=== PATIENT | female | born 1945 | race Caucasian/White ===

== ENCOUNTER 2024-12-15 03:53 | Inpatient (IN) | payer MEDICARE, OTHER, SELFPAY ==
[2024-12-15] VITALS (51 sets, daily range): BP systolic 94–171; BP diastolic 32–83; PULSE 2–88; BMI 21.3; BMI 21.4
[2024-12-15] MEDS: AMIDATE 20 MG IV (01:18)
[2024-12-15] MEDS: ANECTINE 150 MG IV (01:19)
--- NOTE | 2024-12-15 01:25 | ED.GENMED ---
Addendum entered and electronically signed by Germain Ybarra DO 12/15/24 02:24:
Son updated at bedside
Original Note:
History of Present Illness
General
Chief Complaint: Breathing Problem
Source: patient, records and previous hospital records
Exam Limitations: clinical condition and altered mental status
Time Seen by Provider: 12/15/24 01:05
Nursing documentation reviewed up to this point in time: agreed with
History of Present Illness
History of Present Illness:
79-year-old female COPD woke short of breath, gave herself an inhaler treatment, called 911 EMS reports her pulse ox was 80% on room air placed on oxygen given a DuoNeb and 125 mg of Solu-Medrol brought to the ER where she was placed on BiPAP here
if she was somnolent pulling at the mask, not following commands decision made to intubate
Past History
Past History
ED Past Medical History: COPD, HTN, Hypercholesterolemia, NIDDM, Valvular disease and Psychiatric
ED Past Surgical History: Cardiac and Orthopedic
Social History
Tobacco: Smoker
Alcohol: Other
Drug: Other
Personal: Other
Living: other
Employment: Other
Review of Systems
Review of Systems
Unable to obtain full review of systems at this time due to: due to acuity
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
All Other Systems: Not applicable
Phy Exam
Physical Exam
Physical Exam:
Physical Exam
General: 79-year-old female somnolent pulling at her mask tachypneic pursed lip breathing
Neck: No jaundice
Heart: Regular
Lungs: Shallow respirations no wheeze poor air movement
Abdomen: Nontender
Neuro: Localize to painful stim
Skin: no rash
Psychiatric: Unable to assess
Extremities: Trace edema
Scores
Heart Failure Risk
Heart Failure Risk Score: Not Applicable
Course
Orders/Labs/Results
Orders:
Orders
12/15/24 01:03
Electrocardiogram (*1) Urgent
Reason for Study: Other
Other Reason for Exam: Respiratory Distress
EKG- Treatment ONCE
CR Chest Portable - 1 View Urgent
Comment:
Reason For Exam: respiratory distress
Reason Study Needs to be Portable: Patient Unstable
12/15/24 01:05
Complete Blood Count/With Diff Urgent
Comprehensive Metabolic Panel Urgent
NT-proBNP Urgent
Troponin I Urgent
12/15/24 01:14
ABG [Arterial Blood Gas] Urgent
%Oxygen/Room Air: 80%
Comment: BIPAP
Propofol 1,000,000 Mcg/100 ml [Diprivan] 1,000,000 mcg in 100 ml .ROUTE .STK-MED
12/15/24 01:23
Etomidate [Amidate 20 mg] 20 mg IV NOW STA
Succinylcholine Chloride [Anectine] 150 mg IV NOW STA
12/15/24 01:24
Albuterol Nebs [Ventolin Nebules] 2.5 mg INH R NOW STA
12/15/24 01:30
Propofol 1,000,000 Mcg/100 ml [Diprivan] 1,000,000 mcg in 100 ml IV PER PROTOCOL
Indication:: Deep Sedation
Begin Infusion:: Now
Goal:: RASS -3 to -5 or BIS < 60 or ventilator synchrony
Maximum dose in mcg/kg/min:: 50
Initial Dose in mcg/kg/min:: 20
Titration Instructions:: Titrate by 5-10 mcg/kg/min every 5 minutes until RASS -3 to -5 or
Titration Instructions:: BIS < 60 or ventilator synchrony is met.
Titration Instructions:: Administer analgesia bolus dose(s) & titrate analgesia prior to
Titration Instructions:: adjusting sedation.
Taper Instructions:: If RASS is at or below goal for 4 consecutive hours decrease infusion by
Taper Instructions:: 5-10 mcg/kg/min every 2 hours. Do not wean infusion to off if patient is
Taper Instructions:: receiving a continuous NMBA or has received bolus NMBA with the past 3 hrs
Over-sedation Instructions:: If BIS < 40 and synchronous with ventilator decrease infusion by
Over-sedation Instructions:: 5-10 mcg/kg/min every 2 hour until BIS = 40-60.
Notify provider:: immediately if patient exhibits signs/symptoms of propofol-related
Notify provider:: infusion syndrome.
Additional Instructions:: Patient MUST be mechanically ventilated and MUST receive analgesia.
12/15/24 01:49
COVID-19 Antigen Urgent
Source: Nasal Swab
Triglycerides Routine
Comment: baseline levels with propofol infusion
Influenza A+B Rapid Molecular Urgent
LUCY Source: Nasal Swab
Specimen Description:
12/16/24 08:00
Polyethylene Glycol Powder [Miralax] 17 grams TUBE DAILY
12/18/24 06:00
Triglycerides Q3D
Comment: every 72 hours while patient is on propofol
12/21/24 06:00
Triglycerides Q3D
Comment: every 72 hours while patient is on propofol
12/24/24 06:00
Triglycerides Q3D
Comment: every 72 hours while patient is on propofol
Abnormal Lab Results
12/15/24 12/15/24
01:05 01:14
WBC 16.8 H 10^3/uL
(4.8-10.8)
MCHC 31.3 L g/dL
(33.0-37.0)
Abs Immat Gran (auto) 0.1 H 10^3/uL
(0-0.05)
Absolute Neuts (auto) 7.9 H 10^3/uL
(1.4-6.5)
Absolute Lymphs (auto) 7.2 H 10^3/uL
(1.2-3.4)
Absolute Monos (auto) 1.0 H 10^3/uL
(0.1-0.6)
Immature Gran % 0.8 H %
(0-0.5)
pH 7.16 L*
(7.35-7.45)
pCO2 53 H mmHg
(32-35)
pO2 373 H mmHg
(83-108)
HCO3 18.9 L mmol/L
(21-28)
Carbon Dioxide 19 L mmol/L
(22-30)
BUN 19 H mg/dl
(7-17)
Glucose 320 H mg/dl
(70-99)
AST 195 H U/L
(14-36)
ALT 139 H U/L
(0-35)
Troponin I 0.040 H* ng/ml
Total Protein 6.2 L g/dl
(6.3-8.2)
12/15/24 01:05
12/15/24 01:05
Vital Signs
Initial and Last Documented VS:
Initial Vital Signs
Temp Pulse Resp BP Pulse Ox
97.6 F 100 24 161/66 95
12/15/24 01:03 12/15/24 01:03 12/15/24 01:03 12/15/24 01:03 12/15/24 01:03
Last Documented Vital Signs
Temp Pulse Resp BP Pulse Ox
97.6 F 93 16 137/43 100
12/15/24 01:03 12/15/24 01:30 12/15/24 01:30 12/15/24 01:30 12/15/24 01:30
Procedures
Intubations
Procedure completed by: carroll
Method of Intubation: curved blade
Tube size (cm): 7.5
Placement confirmed by: auscutation and capnography
Breath sounds after intubation: equal
Intubation complications: no complications
MDM/Problems Addressed
Differential Diagnosis Includes:
Hypercarbia COPD pneumonia pneumothorax conceivably ACS
MDM/Problems Addressed:
Shortness of breath
Chronic conditions affecting care: COPD
Acute Exacerbation and/or Progression of Chronic Illness: COPD
*Radiology
Radiology exam reviewed: preliminary read by ED provider
*Pulse Oximetry
Patient hypoxic: yes
Comment: 80
*EKG
Interpreted by ED Provider?: Yes
Interpretation: abnormal
Comparison EKG: no comparison EKG present
Heart Rate: 78
Rate: normal
Rhythm: sinus
Ischemia: non-specific ST changes
*Second Steward Interpretation
Rate: normal
Interpretation: normal
Heart Rate: 78
Rhythm: sinus
*Critical Care Note
Total Time (30-74mins, 75-104mins- exclusive of procedures): 32
Data Reviewed
Review of Other/Old Records Reveals: Labs and Progress Notes
Source: records
Further Testing Considered But Not Given:
CT of the chest
Update Note
Update Note:
1:50 AM ABG postintubation noted
Will repeat half hour 45 minutes, chest x-ray noted
ED Attending Note
-
Portions of this chart may have been created with voice recognition software.� Occasional wrong word or��sound alike� substitutions may have occurred due to the inherent limitations of voice recognition software.
Discharge Plan
Departure
Patient Disposition: Admit
Date of Disposition: 12/15/24
Time of Disposition: 01:49
Admit to: ICU
Presentation/result/management discussed w/ accepting MD/DO: Hospitalist
Patient with high blood pressure during this ER visit?: No
Condition: Critical
Covid-19: Not Applicable
Discharge Problem:
COPD exacerbation, Acute hypercapnic respiratory failure
Prescriptions:
No Action
Azo
500 mg PO DAILY
metformin 500 mg tablet
500 mg PO DAILY@1700
famotidine 40 mg tablet
40 mg PO DAILY@1700
sertraline 100 mg tablet
150 mg PO DAILY
aspirin 81 mg Tablet,Delayed Release (Dr/Ec)
81 mg PO HS
losartan 25 mg Tablet
25 mg PO HS
metoprolol succinate 25 mg tablet extended release 24 hr
25 mg PO DAILY
vitamin B complex Capsule
1 cap PO DAILY
rosuvastatin [Crestor] 20 mg Tablet
20 mg PO BID
Cbd Gummy
25 mg PO HSPRN PRN (Reason: sleep)
Glucotrust
2 tab PO HS
Super Collagen
1 cap PO DAILY@1700
Vision Alive Max
1 cap PO DAILY
nicotine 21 mg/24 hr Patch 24 Hour
21 mg transdermal DAILY Qty: 7 0RF
albuterol sulfate 90 mcg/actuation HFA aerosol inhaler
2 puff inhalation Q6H PRN (Reason: shortness of breath or wheezing) Qty: 8.5 0RF
doxycycline monohydrate 100 mg capsule
100 mg PO BID Qty: 10 0RF
prednisone 10 mg Tablet
See Rx Instructions .ROUTE .COMPLEX Qty: 30 0RF
Rx Instructions:
Take By Mouth:
40 mg daily x3 days, 30 mg daily x3 days,
20 mg daily x3 days, 10 mg daily x3 days.
Referrals:
Adolfo Decker MD [Family Provider] -
Interventions
Interventions:
*Risk Screen - Suicide Last Done: 12/15/24 01:03
*General Assessment Last Done: 12/15/24 01:03
*Neglect/Abuse Screening Last Done: 12/15/24 01:03
ED- Cardiac Assessment Last Done: 12/15/24 01:05
ED- Pulmonary Assessment Last Done: 12/15/24 01:05
Discharge Date and Time
Print Language: ESTONIAN
[2024-12-15 01:26] LABS: % Basophils 0.8 % (0-2); % Eosinophils 2.1 % (0-6); % Immature Granulocytes 0.8 % (0-0.5); % Neutrophils 47.3 % (42.2-75.2); Absolute Basophils 0.1 10^3/uL (0-0.2); Absolute Eosinophils 0.4 10^3/uL (0-0.7); Absolute Immature Granulocytes 0.1 10^3/uL (0-0.05); Absolute Lymphocytes 7.2 10^3/uL (1.2-3.4); Absolute Neutrophils 7.9 10^3/uL (1.4-6.5); Hematocrit 39.6 % (37.0-47.0); Hemoglobin 12.4 g/dL (12.0-16.0); Mean Corp Hgb Conc. 31.3 g/dL (33.0-37.0); Mean Corpuscular Hgb 28.8 pg (27.0-31.0); Mean Corpuscular Volume 91.9 fL (81.0-99.0); Mean Platelet Volume 9.5 fL (7.4-10.4); Nucleated Red Blood Cells % 0 %; Platelet Count 243 10^3/uL (130-400); Red Blood Cell Count 4.31 10^6/uL (4.20-5.40); Red Cell Dist. Width 14.5 % (11.5-14.5); White Blood Cell Count 16.8 10^3/uL (4.8-10.8)
[2024-12-15] MEDS: VENTOLIN NEBULES 2.5 MG INH (01:27)
[2024-12-15] MEDS: DIPRIVAN 100 IV ×2 (01:30→09:31)
[2024-12-15 01:40] LABS: ALT (SGPT) 139 U/L (0-35); AST (SGOT) 195 U/L (14-36); Albumin 4.1 g/dl (3.5-5.0); Alkaline Phosphatase 113 U/L (38-126); Blood Urea Nitrogen 19 mg/dl (7-17); Calcium 9.1 mg/dl (8.4-10.2); Carbon Dioxide 19 mmol/L (22-30); Chloride 102 mmol/L (98-107); Estimated Creatinine Clearance 40 ml/min; Glucose 320 mg/dl (70-99); Potassium 4.5 mmol/L (3.5-5.1); Sodium 139 mmol/L (135-145); Total Bilirubin 0.7 mg/dl (0.2-1.3); Total Protein 6.2 g/dl (6.3-8.2); eGFR > 60.00
[2024-12-15 01:44] LABS: B.E. -9.8 mmol/L; HCO3 18.9 mmol/L (21-28); O2 Saturation % 96.7 % (94-98); PCO2 53 mmHg (32-35); PO2 373 mmHg (83-108)
[2024-12-15 01:46] LABS: O2 Therapy 80% BIPAP; pH 7.16 (7.35-7.45)
[2024-12-15 01:55] LABS: NT-proBNP 1890 pg/ml
[2024-12-15 02:15] LABS: Triglycerides 111 mg/dl (10-149)
[2024-12-15 02:17] LABS: COVID-19 Antigen Negative (Negative)
[2024-12-15] MEDS: NSS 1000 IV ×2 (02:37→04:53)
--- NOTE | 2024-12-15 03:38 | HPS.HSE ---
Family Physician
-
Family Physician: Adolfo Decker
Chief Complaint
-
SOB
History of Present Illness
Patient is a 79y F with PMH significant for COPD, DM-II and aortic stenosis s/p AVR who presents to ED complaining of SOB. History obtained from ED staff / review of record. Patient woke this evening to use the bathroom and became acutely short
of breath. She was unable to recover and asked her son to call 911. EMS arrived and reports SpO2 in the 80s with increased [id number]. SoluMedrol 125mg administered by EMS and patient placed on NRB with minimal improvement in oxygenation.
In the ED, patient appeared to be in significant distress and decision was made to intubate. At the time of my examination, patient is sedated on the ventilator. She is exhibiting spontaneous movements and will occasionally open her eyes to
stimulus.
Medical History
Past Medical History
Past Medical History: Reports Other
Additional Past Medical History:
COPD
Aortic Stenosis
Hypertension
DM-II
Bladder Cancer
Nephrolithiasis
Anxiety / Depression
Past Surgical History: Reports Other
Additional Past Surgical History:
AVR
TURBT
Left Foot Surgery
Social History
Tobacco: Smoker (Current every day smoker with > 50 pack years.)
Alcohol: Occasional
Drug: None
Family History
Family History: Not pertinent
Allergies / Home Medications
Allergies reflects when Allergies were last updated in [employer].
Home Medications with original date entered in [employer]
Allergy/Medication List:
Allergies
Allergy/AdvReac Type Severity Reaction Status Date / Time
Penicillins Allergy Unknown Verified 05/20/23 09:34
Home Medications
Azo 500 mg PO DAILY Supplement 05/20/23
Cbd Gummy 25 mg PO HSPRN PRN sleep 05/20/23
Glucotrust 2 tab PO HS Supplement 05/20/23
Super Collagen 1 cap PO DAILY@1700 Supplement 05/20/23
Vision Alive Max 1 cap PO DAILY Supplement 05/20/23
aspirin 81 mg tablet,delayed release 81 mg PO HS Blood Clot Prevention/Tx 05/20/23
famotidine 40 mg tablet 40 mg PO BID Gastrointestinal Issue 05/20/23
losartan 25 mg tablet 25 mg PO HS Blood Pressure 05/20/23
metformin 500 mg tablet 1,000 mg PO DAILY@1700 Diabetes 05/20/23
metoprolol succinate 25 mg tablet,extended release 24 hr 25 mg PO DAILY Blood Pressure 05/20/23
rosuvastatin 20 mg tablet (Crestor) 20 mg PO Daily High Cholesterol 05/20/23
sertraline 100 mg tablet 150 mg PO DAILY Mental Health/Anxiety 05/20/23
vitamin B complex 1 cap PO DAILY Supplement 05/20/23
albuterol sulfate 90 mcg/actuation aerosol inhaler 2 puff inhalation Q6H PRN shortness of breath or wheezing #8.5 grams 05/24/23
doxycycline monohydrate 100 mg capsule 100 mg PO BID #10 caps 05/24/23
berberine chloride 500 mg capsule mg PO 12/15/24
ezetimibe 10 mg tablet 10 mg PO DAILY 12/15/24
vit C 250 mg-vit E 90 mg-zinc 40 mg-copper 1 [id number] capsule (PreserVision AREDS-2) 1 tab PO BID 12/15/24
Review of Systems
-
Unable to obtain full review of systems at this time due to: Patient Intubation
Physical Exam
Vital Signs
Vital Signs
Temp Pulse Resp BP Pulse Ox
97.6 F 81 19 103/41 98
12/15/24 01:03 12/15/24 03:00 12/15/24 03:00 12/15/24 03:00 12/15/24 03:00
Physical Exam
General: Other (79y F appears older than her stated age. Sedated / comfortable appearing on ventilator at present.)
HEENT: Moist mucous membranes and Other (Neck supple. ETT in place.)
Respiratory: Clear; No Wheezes, Rales or Rhonchi
Cardiac: S1/S2, Regular Rhythm and Murmur (III/ JUDAH)
GI: Soft, Non Tender, Non Distended and Normal Bowel Sounds
Musculoskeletal: No Clubbing, No Cyanosis and No Edema
Neuro: Sedated
Laboratory Results
-
12/15/24 01:05
Laboratory Results
pH 7.16 (7.35-7.45) L* 12/15/24 01:14
pCO2 53 mmHg (32-35) H 12/15/24 01:14
pO2 373 mmHg (83-108) H 12/15/24 01:14
HCO3 18.9 mmol/L (21-28) L 12/15/24 01:14
Total Bilirubin 0.7 mg/dl (0.2-1.3) 12/15/24 01:05
AST 195 U/L (14-36) H 12/15/24 01:05
ALT 139 U/L (0-35) H 12/15/24 01:05
Alkaline Phosphatase 113 U/L (38-126) 12/15/24 01:05
Troponin I 0.040 ng/ml H* 12/15/24 01:05
Impression/Plan
-
A/P: Patient is a 79y F with PMH significant for COPD, continued tobacco use disorder, AVR and DM-II who presents to ED via EMS in respiratory distress.
Acute Hypoxemic Respiratory Failure
VDRF secondary to the above
AE-COPD
- Admit to ICU for further evaluation and treatment.
- Suspect AE-COPD with differential including acute infection, ACS, etc.
- Continue IV steroid, nebs, vent support, etc.
- Check CTA chest to rule out PE, etc.
- Pulmonary evaluation for additional recommendations.
- Cover with IV abx for now pending clinical improvement. Follow fever curve, imaging, etc.
- Follow for clinical improvement and wean vent support as able.
Anion Gap Metabolic Acidosis
Respiratory Acidosis
- AG = 18, paCO2 = 53 and pH = 7.16.
- Vent support for respiratory component as noted above.
- Check lactate, B-OH, etc for further evaluation of metabolic process.
- Glucose markedly elevated on initial labs - but s/p IV steroid dose by EMS.
- AccuCheck at home for EMS reportedly 170.
- IVF support and follow for changes in labs / lytes.
Troponin Elevation - Unknown Type
- Troponin 0.04 on initial labs.
- Presented in respiratory distress and EKG with ST depression in inferior leads - new from prior imaging.
- Seems likely that this is secondary to respiratory process as noted above.
- Follow serial troponin / EKGs.
- Consider initiation of Heparin / Cardiology evaluation if troponin increases, etc.
- Check Echo.
Leukocytosis
- ? secondary to stress response / steroid administration.
- Abx for now as noted above.
- Follow for fever or any new / focal symptoms.
- Low threshold to discontinue abx if no new evidence of active infection.
DM-II
- Hyperglycemia on initial labs (s/p SoluMedrol by EMS).
- Repeat labs now. Check B-OH.
- Follow glucose and cover with SSI as needed - especially while on continued IV steroids.
- Update A1C.
Benign Hypertension
- Stable. BP 'soft' on sedation.
- Holding PO meds including antihypertensives while intubated.
Anxiety / Depression
- Hold PO medications as noted above.
DVT Prophylaxis: Subcut Heparin
Code Status: Full
[2024-12-15 04:14] LABS: Lactic Acid 2.8 mmol/L (0.7-2.0)
[2024-12-15 04:16] LABS: Blood Urea Nitrogen 24 mg/dl (7-17); Calcium 8.1 mg/dl (8.4-10.2); Carbon Dioxide 24 mmol/L (22-30); Chloride 106 mmol/L (98-107); Estimated Creatinine Clearance 44 ml/min; Glucose 276 mg/dl (70-99); Potassium 4.4 mmol/L (3.5-5.1); Sodium 138 mmol/L (135-145); eGFR > 60.00
[2024-12-15 04:22] LABS: B-Hydroxybutyrate 0.19 mmol/L (0.02-0.27)
[2024-12-15 04:28] LABS: Troponin I 0.505 ng/ml
[2024-12-15 05:02] LABS: B.E. -5.5 mmol/L; HCO3 20.7 mmol/L (21-28); PCO2 42 mmHg (32-35); PO2 93 mmHg (83-108)
[2024-12-15] MEDS: MAXIPIME 2000 MG IV (05:16)
[2024-12-15] MEDS: SOLU-MEDROL PF 60 MG IV ×3 (05:16→21:50)
[2024-12-15] MEDS: STERILE WATER FOR INJECTION 10 ML IV ×3 (05:16→17:16)
[2024-12-15] MEDS: SUBLIMAZE 50 MCG IV (05:22)
[2024-12-15] MEDS: SUBLIMAZE 100 IV (05:23)
[2024-12-15 05:40] LABS: Triglycerides 98 mg/dl (10-149)
[2024-12-15 05:43] LABS: ALT (SGPT) 231 U/L (0-35); AST (SGOT) 348 U/L (14-36); Albumin 3.3 g/dl (3.5-5.0); Alkaline Phosphatase 120 U/L (38-126); Blood Urea Nitrogen 24 mg/dl (7-17); Calcium 7.9 mg/dl (8.4-10.2); Carbon Dioxide 21 mmol/L (22-30); Chloride 107 mmol/L (98-107); Direct Bilirubin 0.8 mg/dl (0.0-0.4); Estimated Creatinine Clearance 51 ml/min; Glucose 243 mg/dl (70-99); Magnesium 1.8 mg/dl (1.6-2.3); Phosphorus 4.6 mg/dl (2.5-4.5); Potassium 4.6 mmol/L (3.5-5.1); Sodium 138 mmol/L (135-145); Total Bilirubin 1.4 mg/dl (0.2-1.3); Total Protein 5.5 g/dl (6.3-8.2); eGFR > 60.00
[2024-12-15] MEDS: VIBRAMYCIN 260 MG IV ×2 (05:45→17:42)
[2024-12-15 05:49] LABS: INR 1.15; PT 15.2 Sec (11.4-14.6)
[2024-12-15 05:50] LABS: APTT 24.6 Sec (23.4-35.0)
[2024-12-15 05:52] LABS: Hematocrit 34.7 % (37.0-47.0); Hemoglobin 11.2 g/dL (12.0-16.0); Mean Corp Hgb Conc. 32.3 g/dL (33.0-37.0); Mean Corpuscular Hgb 28.4 pg (27.0-31.0); Mean Corpuscular Volume 88.1 fL (81.0-99.0); Mean Platelet Volume 9.3 fL (7.4-10.4); Platelet Count 157 10^3/uL (130-400); Red Blood Cell Count 3.94 10^6/uL (4.20-5.40); Red Cell Dist. Width 14.4 % (11.5-14.5); White Blood Cell Count 14.2 10^3/uL (4.8-10.8)
[2024-12-15 06:10] LABS: TSH Reflex To Free T4 2.44 uIU/ml (0.47-4.68)
[2024-12-15] MEDS: DUONEB 3 ML INH ×4 (07:44→20:22)
--- NOTE | 2024-12-15 07:48 | CON.INTV ---
Consultation
Consultation Request
Date/Time Consultation Requested: 12/15/2024-7:30 AM
Date/Time Consultation Performed: 12/15/2024-7:30 AM
Requesting Provider: Hospitalist
Performing Provider: Dr. Cowan
Reason for Consultation: Ventilator/critical care management
Medical History
-
Chief Complaint: Shortness of breath
History of Present Illness:
79-year-old female who is an ongoing smoker with underlying moderate COPD followed by , aortic stenosis status post AVR, anxiety, diabetes, last hospitalized 04/2023 with COPD exacerbation presents with increasing shortness of breath that
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 Patient is sedated on the ventilator, however, she is
alert and oriented answering questions appropriately. She feels improved, no complaints of shortness of breath, moderate secretions, moderate cough, anxiety, no complaints of chest pain or abdominal pain. She was asked in front of family members
whether she would want to have the ventilator placed back on board if successfully extubated and she was clear that she would not want this. This is consistent with her previous wishes according to her daughter who is the POA
Past Medical History
Past Medical History: None (COPD-moderate with severe DLCO reduction not on oxygen maintained on Trelegy-Dr. Alanis last seen 2022. Aortic stenosis/AVR. Hypertension. Diabetes. Bladder cancer TURBT. Nephrolithiasis. Anxiety. Depression.
Left foot surgery.)
Social History
Tobacco: Smoker (Greater than [id number]-[id number]-ongoing)
Alcohol: Occasional
Drug: None
Living: With Family
Occupational Exposures: No known asbestos exposure
Environmental Exposures: No known tuberculosis exposure
Family History
Family History: Other (CAD, breast cancer and thyroid disease)
Allergies / Home Medications
Allergies
Allergy/AdvReac Type Severity Reaction Status Date / Time
Penicillins Allergy Unknown Verified 05/20/23 09:34
Home Medications
�Medication �Instructions �Recorded �Confirmed �Last Taken �Type
Azo 500 mg PO DAILY Supplement 05/20/23 05/20/23 05/19/23 History
Cbd Gummy 25 mg PO HSPRN PRN sleep 05/20/23 05/20/23 Unknown History
Glucotrust 2 tab PO HS Supplement 05/20/23 05/20/23 05/19/23 History
Super Collagen 1 cap PO DAILY@1700 Supplement 05/20/23 05/20/23 05/19/23 History
Vision Alive Max 1 cap PO DAILY Supplement 05/20/23 05/20/23 05/19/23 History
aspirin 81 mg tablet,delayed 81 mg PO HS Blood Clot 05/20/23 12/15/24 05/19/23 History
release Prevention/Tx
famotidine 40 mg tablet 40 mg PO BID Gastrointestinal Issue 05/20/23 12/15/24 05/19/23 History
losartan 25 mg tablet 25 mg PO HS Blood Pressure 05/20/23 05/20/23 05/19/23 History
metformin 500 mg tablet 1,000 mg PO DAILY@1700 Diabetes 05/20/23 05/20/23 05/19/23 History
metoprolol succinate 25 mg 25 mg PO DAILY Blood Pressure 05/20/23 12/15/24 05/20/23 History
tablet,extended release 24 hr
rosuvastatin 20 mg tablet (Crestor) 20 mg PO Daily High Cholesterol 05/20/23 12/15/24 05/20/23 History
sertraline 100 mg tablet 150 mg PO DAILY Mental 05/20/23 12/15/24 05/20/23 History
Health/Anxiety
vitamin B complex 1 cap PO DAILY Supplement 05/20/23 12/15/24 05/19/23 History
albuterol sulfate 90 mcg/actuation 2 puff inhalation Q6H PRN 05/24/23 Unknown Rx
aerosol inhaler shortness of breath or wheezing
#8.5 grams
doxycycline monohydrate 100 mg 100 mg PO BID #10 caps 05/24/23 Unknown Rx
capsule
berberine chloride 500 mg capsule mg PO 12/15/24 Unknown History
ezetimibe 10 mg tablet 10 mg PO DAILY 12/15/24 12/15/24 Unknown History
vit C 250 mg-vit E 90 mg-zinc 40 1 tab PO BID 12/15/24 12/15/24 Unknown History
mg-copper 1 [id number]
capsule (PreserVision AREDS-2)
Review of Systems
-
Unable to Obtain full review of systems at this time due to: Other (Per HPI)
Vitals / Labs / Diagnostic Testing
Vital Signs
Temp Pulse Resp BP Pulse Ox
97.5 F 72 16 109/43 100
12/15/24 07:38 12/15/24 07:30 12/15/24 07:30 12/15/24 07:30 12/15/24 07:38
Lab Data
12/15/24 05:04
12/15/24 05:04
Laboratory Results
12/15/24 12/15/24 12/15/24
01:14 04:56 05:04
PT 15.2 H
INR 1.15
APTT 24.6
pH 7.16 L* 7.30 L
pCO2 53 H 42 H
pO2 373 H 93
HCO3 18.9 L 20.7 L
O2 Delivery Level 80% bipap
Microbiology
12/15/24 01:49 Nasal Swab Influenza Types A & B ([facility]ALIA) - Final
Negative for Influenza A & B, NAAT
Negative results must be combined with clinical observations
and patient history.
Nucleic Acid Amplification test (NAAT)performed on the
[employer] platform.
Diagnostic Testing:
Physical Exam
-
Exam:
Well-nourished and well-developed in no apparent distress
HEENT-atraumatic, normocephalic, mild JVD, oral tracheal intubation
Neck-supple, no JVD, no bruit
Heart-regular rate and rhythm-no murmurs, rubs or gallops
Chest with diminished breath sounds, prolonged expiratory time, expiratory rhonchi, wheezing and rare basilar crackles
Back without tenderness
Abdomen-soft, nontender, nondistended, no hepatosplenomegaly
Extremities-no cyanosis, clubbing, edema and good peripheral pulses
Integument-intact, no rashes, lesions or ecchymosis
Neurology-alert and oriented, nonfocal motor and sensory exam
Assessment
-
79-year-old female who is an ongoing smoker with underlying moderate COPD followed by , aortic stenosis status post AVR, anxiety, diabetes, last hospitalized 04/2023 with COPD exacerbation presents with increasing shortness of breath that
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
Ventilator dependent respiratory failure
Intubated 12/14/2024
Extubated
COPD with acute exacerbation
CHF-unknown EF
Metabolic acidosis
Respiratory acidosis
Troponin elevation
Leukocytosis
Hdvqja-lbbmmoendr-pxjqzqanqz 11.2
Hyperglycemia
Elevated LFTs-AST, ALT and total bilirubin
DNR
Conditions present prior to admission:
COPD-moderate with severe DLCO reduction not on oxygen maintained on Trelegy-Dr. Alanis last seen 2022.
Aortic stenosis/AVR.
Hypertension.
Diabetes.
Bladder cancer TURBT.
Nephrolithiasis.
Anxiety.
Depression.
Left foot surgery.
Plan
Respiratory decompensation likely related to acute CHF on top of underlying moderate COPD with some exacerbation requiring intubation and mechanical ventilation
Patient critically ill on the ventilator and sedated
Ventilator settings reviewed
ABG reviewed
Ventilator adjusted
Spontaneous breathing trial after diuresis and treatment for COPD exacerbation
Hope to extubate later today-patient does not wish reintubation if respiratory status declines and does not wish resuscitative efforts-will be made a DNR
Methylprednisolone 60 mg IV every 8 hours continues
DuoNebs continue
Mucolytic's
Check cultures including sputum culture
Cefepime and doxycycline continue-finite course
Follow radiographically
Diuresis as tolerated
Diuresis note
Trend troponin
Check echocardiogram
Monitor blood sugar
Insulin supplementation as needed
Follow-up LFTs
DVT prophylaxis-on Lovenox
GI prophylaxis-on pantoprazole
Early nutrition
Early mobilization
Lengthy conversation with patient while still intubated but alert at the end of her spontaneous breathing trial with daughter, granddaughter, critical care nursing and son at the bedside-patient would like extubation and does not wish to be
reintubated if respiratory status declines again-we will respect their wishes-DNR status will be established-this is consistent with patient's prior wishes according to sajan-[email or web address]
Patient last saw Dr. Alanis 09/28/2023 and canceled 01/05/2024 as well as 01/14/2024
Critical care statement: A total of 70 minutes of critical care time was provided for this patient today. This includes management of unstable vital signs, evaluation of the patient at bedside, reviewing the patient's pertinent medical records
including radiographs, microbiology, laboratory evaluations, and discussion with primary team, consultants, pharmacy, nutrition, physical therapy, case management, charge nurse, critical care nursing, and respiratory therapy.
Diagnostic data:
CXR 05/20/23: Flattening of the diaphragm indicating COPD. Mild stable interstitial scarring in the right lung base.
CT chest 12/15/2024-mild pulmonary edema
CT chest 12/15/2024-no pulmonary embolism, mild pulmonary edema, superimposed small nodular areas of parenchymal density both upper lobes likely related to pulm edema, however follow-up is recommended
PFT 09/28/23:FVC 2.30/96%, FEV1 1.08/61%, ratio 47. TLC 4.28/97%, DLCO 8.10/44%. Moderate obstructive lung disease with severe gas exchange defect. Compared to prior spirometry this has improved significantly
6MWT 06/29/23: At rest, O2 99% on room air, heart rate 69. With ambulation, O2 donald 96%, max heart rate 93. 0/10 on dyspnea scale. Ambulated 900 feet.
Data Reviewed
-
PFT: Report reviewed by me
EKG: Report reviewed by me
Radiology: Image personally visualized and interpreted and Report reviewed by me
CT Scan: Image personally visualized and interpreted and Report reviewed by me
MRI: Report reviewed by me
Medical Tests (Nuc Med, Echo etc): Image personally visualized and interpreted
Labs: Discussed with Physician
Old Records: Reviewed
Critical Care Time (in minutes): 70
--- NOTE | 2024-12-15 08:00 | PTCARENOTE ---
recd pt handoff bedside, vent settings noted, ETT to vent tolerating. rest of assessment as documented. nods head appropriately. IV sites maintained. garza draining. daughter bedside, updated, aware of plans for the day.
[2024-12-15] MEDS: PROTONIX IV 40 MG IV (08:02)
[2024-12-15] MEDS: HEPARIN 5000 UNITS SC (08:03)
[2024-12-15] MEDS: NSS (PRESERVATIVE FREE) 10 ML IV (08:03)
[2024-12-15] MEDS: NOVOLOG FLEXPEN-MODERATE RESISTANCE 7 UNITS SC (08:08)
[2024-12-15 08:20] LABS: Glucose - Point of Care 311 mg/dl (70-99)
[2024-12-15 08:51] LABS: Glycohemoglobin (HgbA1c) 6.4 % (4.0-5.6)
--- NOTE | 2024-12-15 09:30 | CON.CAR ---
Addendum entered and electronically signed by Neil Giles MD 12/15/24 12:56:
79 yo female with PMH of bio-AVR 2015 ([facility]), COPD, current tobacco is admitted with SOB. She became acutely SOB overnight, and was brought to hospital by son. She presented with acute hypoxic respiratory failure. It appeared to be unknown she had
DNR/DNI, and was intubated. We are consulted for elevated troponin. She is currently intubated. Exam with RRR, no murmurs, no edema. TnI 1.7 and rising. EKG: with NSR, nonspecific ST abnormality.
Elevated troponin. Acute non-ischemic myocardial injury vs Type II [place] vs NSTEMI. Continue to trend troponin. Check echo.
There are plans for extubation today. Will gather additional history from patient once extubated.
DNR order is now in place.
Original Note:
Consultation
Consultation Request
Date/Time Consultation Requested: 12/15/24640
Date/Time Consultation Performed: 12/15/24 09
Requesting Provider: Dr. Liang
Performing Provider: Jennifer PANDA for Dr. Giles
Reason for Consultation: VDRF, abnormal troponin
Medical History
-
Chief Complaint: SOB
History of Present Illness:
79 y/o female with COPD, current smoker, DM2, s/p AVR 2014 Scott, bladder cancer, hypertension, dyslipidemia, and anxiety/depression who developed SOB overnight and called her son (who was staying at the house) and EMS was alerted. She was 80% on
RA and was given breathing tx and steroids. In the ER, she was intubated. We are consulted for abnormal troponin in this setting. EKG shows nonspecific ST/T abnormalities. Of note, she is intubated and sedated, so HPI was taken from chart and my
discussion with daughter Maryjane who is at the bedside.
Past Medical History
Past Medical History: Cancer, COPD, HTN, NIDDM, Valvular Disease and Psychiatric (as above)
Social History
Tobacco: Smoker
Family History
Family History: Reviewed & Not Pertinent
Allergies / Home Medications
Allergy/AdvReac Type Severity Reaction Status Date / Time
Penicillins Allergy Unknown Verified 05/20/23 09:34
�Medication �Instructions �Recorded �Confirmed �Type
Azo 500 mg PO DAILY Supplement 05/20/23 05/20/23 History
Cbd Gummy 25 mg PO HSPRN PRN sleep 05/20/23 05/20/23 History
Glucotrust 2 tab PO HS Supplement 05/20/23 05/20/23 History
Super Collagen 1 cap PO DAILY@1700 Supplement 05/20/23 05/20/23 History
Vision Alive Max 1 cap PO DAILY Supplement 05/20/23 05/20/23 History
aspirin 81 mg tablet,delayed 81 mg PO HS Blood Clot 05/20/23 12/15/24 History
release Prevention/Tx
famotidine 40 mg tablet 40 mg PO BID Gastrointestinal Issue 05/20/23 12/15/24 History
losartan 25 mg tablet 25 mg PO HS Blood Pressure 05/20/23 05/20/23 History
metformin 500 mg tablet 1,000 mg PO DAILY@1700 Diabetes 05/20/23 05/20/23 History
metoprolol succinate 25 mg 25 mg PO DAILY Blood Pressure 05/20/23 12/15/24 History
tablet,extended release 24 hr
rosuvastatin 20 mg tablet (Crestor) 20 mg PO Daily High Cholesterol 05/20/23 12/15/24 History
sertraline 100 mg tablet 150 mg PO DAILY Mental 05/20/23 12/15/24 History
Health/Anxiety
vitamin B complex 1 cap PO DAILY Supplement 05/20/23 12/15/24 History
albuterol sulfate 90 mcg/actuation 2 puff inhalation Q6H PRN 05/24/23 Rx
aerosol inhaler shortness of breath or wheezing
#8.5 grams
doxycycline monohydrate 100 mg 100 mg PO BID #10 caps 05/24/23 Rx
capsule
berberine chloride 500 mg capsule mg PO 12/15/24 History
ezetimibe 10 mg tablet 10 mg PO DAILY 12/15/24 12/15/24 History
vit C 250 mg-vit E 90 mg-zinc 40 1 tab PO BID 12/15/24 12/15/24 History
mg-copper 1 lh-ocvoin-vupqvr
capsule (PreserVision AREDS-2)
Review of Systems
-
Unable to obtain full review of systems at this time due to: Patient Intubation
History Source: Family and Other (chart)
Respiratory: Trouble Breathing
Physical Exam
Vital Signs
Temp Pulse Resp BP Pulse Ox
97.8 F 79 16 107/41 97
12/15/24 08:53 12/15/24 08:45 12/15/24 08:45 12/15/24 08:30 12/15/24 08:45
Lab Results
12/15/24 05:04
12/15/24 05:04
Troponin I 0.920 ng/ml H* D 12/15/24 05:04
Brj-R-Bnqxfycpcna Pept 1890 pg/ml 12/15/24 01:05
Physical Exam
General: Well Developed and No Apparent Distress
Respiratory: Clear and Other (intubated and sedated)
Cardiac: Regular Rhythm and Murmur (II/ systolic)
Musculoskeletal: No Edema
Skin: Warm and Dry
Neuro: Sedated
Psych: Calm
Impression / Plan
-
Acute hypoxemic respiratory failure with ventilator dependence:
-this diagnosis is threat to life
-intubated/ventilated at this time
-being treated for COPD exacerbation with IV steroids, breathing tx. Also getting abx. No PE on imaging, but mild pulmonary edema reported. She does not appear obviously volume overloaded to my assessment, but may need diuretic at some point. BP
not robust currently, would not add at this time.
Abnormal troponin:
-up to 0.9, trend to peak
-EKG nonspecific abnormalities as noted
-likely acute, non-ischemic myocardial injury in setting of above
-check echo
hx AVR (2015 per OP chart), Scott:
-details unknown
-check echo
-request records
HTN:
-monitor pressures, which are soft
DM2:
-per primary
Current smoker:
-education on cessation when appropriate (currently intubated and sedated)
Data Reviewed
-
EKG: Tracing Personally Visualized and interpreted (NSR 83 BPM, non specific ST/T abnormalities)
Radiology: Report Reviewed by me (CXR: Mild pulmonary edema)
Medical Tests (Nuc Med, Echo etc): Other (echo ordered)
Labs: Labs Reviewed by me
--- NOTE | 2024-12-15 10:25 | CM ---
CM following re: discharge planning.
Reviewed pt's chart, met with pt and pt's daughter Pat at bedside.
Pt is a 79 year old female, admitted with primary dx of Acute Hypoxemic Respiratory Failure. pt is intubated this morning, continue sportive care.
Per daughter, pt lives alone in a rancher house, no steps, has 3 supportive children, ambulates with a walker at baseline.
PT and OT will evaluate the pt when clinically appropriate to determine a level of care at discharge.
PCP: Adolfo Decker
Pharmacy: [facility]
D/C plan: uncertain at this time and will depend on pt's progress.
CM will follow with discharge plan updates as hospitalization progresses
--- NOTE | 2024-12-15 10:38 | W.PN.HOSP.TC ---
Today's Communication/Plan
-
See plan
Total Critical Care Time__45___ minutes. I was immediately available to the patient and staff. I personally examined, reviewed labs, diagnostic images/reports, interpretations, treatment plans, discussed patient care with other providers and
family or caregivers (if patient is unable to make decisions), entered orders as appropriate and documented the medical record.
Assessment / Plan
Assessment / Plan
Impression:
Patient is a 79y F with PMH significant for COPD, continued tobacco use disorder, AVR and DM-II who presents to ED via EMS in respiratory distress.
Acute hypoxic respiratory failure.
VDRF
� Intubated in ED 12/15
Acute COPD exacerbation baseline acute pulmonary edema.
Nonischemic cardiac injury.
Elevated liver function test suspect secondary to congestion.
Respiratory acidosis
Lactic acidosis.
Leukocytosis
Other conditions:
Aortic valve replacement bioprosthetic valve 2014 at [facility].
Type 2 diabetes
History of CVA/TIA.
Essential hypertension
Dyslipidemia
History of bladder carcinoma 2016.
Tobacco use disorder with ongoing smoking.
Plan:
Acute hypoxic respiratory failure secondary to continuation of COPD exacerbation as well as component of CHF unknown EF and acute pulmonary edema.
CT scan of the chest negative for pulmonary embolism no focal infiltrate. Consistent with vascular congestion.
Intubated in ED
Follow-up ABG with improvement of respiratory acidosis
Attempt to wean off sedation.
Stop IV fluids per
Provide single dose of IV Lasix 20 mg to facilitate SBT.
Continue empiric antibiotics.
Continue IV steroids.
Continue short acting bronchodilators.
Acute CHF unknown EF.
Noted nonischemic troponin elevation peaked at 0.9.
ECG with no ischemia/normal sinus rhythm.
Trace troponin.
Echocardiogram.
Hold further fluids.
Provide single dose of Lasix to facilitate SBT as above.
Anion gap metabolic acidosis.
Respiratory acidosis.
Improving with IV fluids and ventilation.
Elevated LFTs suspect secondary to hepatic congestion.
Follow trend of the next 24 hours. If uptrendig, will consider imaging with ultrasound.
Type 2 diabetes.
Confirmed outpatient regimen
Hemoglobin A1c 6.4% continue basal bolus
Essential hypertension
Holding p.o. medications
Assess hemodynamics with extubation.
Anxiety/depression
Hold p.o. medications due to above.
Full code
Ongoing goals of care discussion occurred with patient daughter at the bedside patient living will suggest DNR status.
Will be confirmed postextubation.
Anticipated Discharge: > 48 hours
Subjective/Interval History
-
Date of Service: December 15, 2024
Objective Data
-
Labs:
Laboratory Results
12/15/24 12/15/24 12/15/24
01:05 01:14 03:31
WBC 16.8 H
Hgb 12.4
Hct 39.6
Plt Count 243
PT
INR
APTT
HCO3 18.9 L
Sodium 139 138
Potassium 4.5 4.4
Chloride 102 106
Carbon Dioxide 19 L 24
BUN 19 H 24 H
Creatinine 0.9 0.8
Glucose 320 H 276 H
Calcium 9.1 8.1 L
Total Bilirubin 0.7
AST 195 H
ALT 139 H
Alkaline Phosphatase 113
12/15/24 12/15/24
04:56 05:04
WBC 14.2 H
Hgb 11.2 L
Hct 34.7 L
Plt Count 157 D
PT 15.2 H
INR 1.15
APTT 24.6
HCO3 20.7 L
Sodium 138
Potassium 4.6
Chloride 107
Carbon Dioxide 21 L
BUN 24 H
Creatinine 0.7
Glucose 243 H
Calcium 7.9 L
Total Bilirubin 1.4 H
AST 348 H
ALT 231 H
Alkaline Phosphatase 120
Vital Signs:
Vital Signs
Temp Pulse Resp BP Pulse Ox
97.8 F 79 16 107/41 97
12/15/24 08:53 12/15/24 08:45 12/15/24 08:45 12/15/24 08:30 12/15/24 08:45
I&O
12/14/24 12/15/24 12/16/24
06:59 06:59 06:59
Intake Total 111.7 / 223.4 446.8 / 446.8
Output Total 125 / 125 180 / 180
Balance -13.3 / 98.4 266.8 / 266.8
Physical Exam
-
General: Well Developed and No Apparent Distress
HEENT: Normocephalic, Atraumatic and Moist Mucous Membranes
Respiratory: Clear to Auscultation
Cardiac: Regular Rhythm and S1/S2; Negative Murmur, Rub or Gallop
GI: Soft, Nontender, Nondistended and Normal Bowel Sounds; Negative Organomegaly
Rectal: Deferred by Provider
Musculoskeletal: No Clubbing, No Cyanosis and No Edema
Skin: Negative Rash
Neuro: Nonfocal/Grossly Intact and Other (Intubated. Following simple commands.)
--- NOTE | 2024-12-15 10:50 | PTCARENOTE ---
placed on wean SBT approx 1030, initially agitated, restless, coughing. presently calmer, resting. propofol at 5 mcg/kg/min and fentanyl for comfort at 25 mcg/hr. daughter bedside, updated.
[2024-12-15] MEDS: LASIX 20 MG IV ×2 (11:19→17:20)
[2024-12-15] MEDS: MAXIPIME 1000 MG IV ×2 (11:42→17:16)
[2024-12-15 11:47] LABS: Lactic Acid 2.1 mmol/L (0.7-2.0)
[2024-12-15] MEDS: ZOFRAN 4 MG IV (12:14)
[2024-12-15] MEDS: NOVOLOG FLEXPEN-MODERATE RESISTANCE 3 UNITS SC (12:15)
[2024-12-15] MEDS: NOVOLIN N vial 0.1 UNITS SC (12:15)
[2024-12-15 12:24] LABS: Glucose - Point of Care 211 mg/dl (70-99)
[2024-12-15 12:39] LABS: B.E. -4.8 mmol/L; HCO3 20.5 mmol/L (21-28); O2 Saturation % 98.4 % (94-98); PCO2 38 mmHg (32-35); PO2 117 mmHg (83-108); pH 7.34 (7.35-7.45)
--- NOTE | 2024-12-15 13:32 | PTCARENOTE ---
extubated smoothly at 1300, tolerated, gtts off prior, ABG results to Dr. Cowan. family present, updates given throughout. using ila after extubation, pt in good spirits.
--- NOTE | 2024-12-15 14:59 | PTCARENOTE ---
tolerating 2l nc, diet advanced, seen by Dr. Giles.
[2024-12-15] MEDS: NOVOLOG FLEXPEN-MODERATE RESISTANCE 1 UNITS SC (17:05)
[2024-12-15 17:14] LABS: Glucose - Point of Care 176 mg/dl (70-99)
[2024-12-15] MEDS: LOVENOX 40 MG SC (17:16)
--- NOTE | 2024-12-15 18:03 | PTCARENOTE ---
I/O collected, appetite fair for dinner. c/o neck discomfort (chronic) refuses pain med at this time. prefers HOB nearly flat, encouraged C&DB. tolerating 2l. in good spirits. call borrego in reach. garza draining.
--- NOTE | 2024-12-15 18:37 | W.PN.UPDATE ---
Update Note
Progress Note Update
Discussed echo findings with patient, family, and hospitalist team. EF 30-35%, extensive LAD wall motion abnormality, moderate/severe AR (of bio-AVR) and moderate/severe MR.
We discussed acute HFrEF as part of her presenting diagnosis. We discussed we will start with IV diuresis, Toprol XL, and add other GDMT as tolerated. She will continue ASA 81mg daily.
We discussed that her troponin elevation (1.7) and EKG (lack of ST elevation) are not consistent with large acute anterior OH. She reports chest pain 3 weeks ago, which was likely the primary event.
We discussed the topic of esaer-sj-ejamf TAVR.
She is currently DNR. She and family need time to decide how to proceed.
Additional CCT 35 minutes.
--- NOTE | 2024-12-15 20:48 | PTCARENOTE ---
rec`d pt at 1900 alert and oriented. pt resting in bed, drowsy-flat affect. SR on monitor, HR 70s-80s. expiratory wheeze at times. 2L NC POX 100%. therm garza in place draining yellow tatiana urine. left AC 20 and rt AC 20 flushed and patent.
continues to be a DNR. call borrego in reach, safe environment maintained.
[2024-12-15] MEDS: ASPIR LOW (ENTERIC COATED) 81 MG PO (21:50)
[2024-12-15] MEDS: LANTUS 0.1 UNITS SC (21:50)
[2024-12-15 22:01] LABS: Glucose - Point of Care 162 mg/dl (70-99)
[2024-12-16] VITALS (17 sets, daily range): BP systolic 96–132; BP diastolic 38–87; BMI 21.3
--- NOTE | 2024-12-16 | PTCARENOTE ---
pt reassessed. no changes in pt assessment. pt remains flat affect
[2024-12-16] MEDS: STERILE WATER FOR INJECTION 10 ML IV ×5 (02:11→23:12)
[2024-12-16] MEDS: MAXIPIME 1000 MG IV ×5 (02:11→23:12)
[2024-12-16 04:14] LABS: % Basophils 0.1 % (0-2); % Immature Granulocytes 0.4 % (0-0.5); % Lymphocytes 4.8 % (20.5-51.1); % Monocytes 4.2 % (1.7-9.3); % Neutrophils 90.5 % (42.2-75.2); Absolute Immature Granulocytes 0.1 10^3/uL (0-0.05); Absolute Lymphocytes 0.7 10^3/uL (1.2-3.4); Absolute Monocytes 0.6 10^3/uL (0.1-0.6); Absolute Neutrophils 12.6 10^3/uL (1.4-6.5); Hematocrit 31.1 % (37.0-47.0); Hemoglobin 10.2 g/dL (12.0-16.0); Mean Corp Hgb Conc. 32.8 g/dL (33.0-37.0); Mean Corpuscular Hgb 28.7 pg (27.0-31.0); Mean Corpuscular Volume 87.4 fL (81.0-99.0); Nucleated Red Blood Cells % 0 %; Platelet Count 132 10^3/uL (130-400); Red Blood Cell Count 3.56 10^6/uL (4.20-5.40); Red Cell Dist. Width 14.6 % (11.5-14.5); White Blood Cell Count 13.9 10^3/uL (4.8-10.8)
[2024-12-16 04:38] LABS: ALT (SGPT) 183 U/L (0-35); AST (SGOT) 143 U/L (14-36); Albumin 3.4 g/dl (3.5-5.0); Alkaline Phosphatase 102 U/L (38-126); Blood Urea Nitrogen 31 mg/dl (7-17); Calcium 8.4 mg/dl (8.4-10.2); Carbon Dioxide 21 mmol/L (22-30); Chloride 109 mmol/L (98-107); Estimated Creatinine Clearance 51 ml/min; Glucose 161 mg/dl (70-99); Potassium 4.5 mmol/L (3.5-5.1); Sodium 139 mmol/L (135-145); Total Bilirubin 0.7 mg/dl (0.2-1.3); Total Protein 5.5 g/dl (6.3-8.2); eGFR > 60.00
[2024-12-16] MEDS: SOLU-MEDROL PF 60 MG IV (04:58)
[2024-12-16] MEDS: VIBRAMYCIN 260 MG IV (04:59)
[2024-12-16] MEDS: DUONEB 3 ML INH ×4 (07:31→19:26)
[2024-12-16 07:33] LABS: Glucose - Point of Care 213 mg/dl (70-99)
[2024-12-16] MEDS: LASIX 20 MG IV ×2 (07:33→15:57)
[2024-12-16] MEDS: PROTONIX IV 40 MG IV (07:34)
--- NOTE | 2024-12-16 07:43 | W.PN.INTV ---
Today's Communication / Plan
Recommendations
Tolerated extubation
Wean FiO2
Diuresis
Check cultures
Empiric antibiotics
Transfer out of ICU-call pulmonary if respiratory issues arise
Assessment
-
79-year-old female who is an ongoing smoker with underlying moderate COPD followed by , aortic stenosis status post AVR, anxiety, diabetes, last hospitalized 04/2023 with COPD exacerbation presents with increasing shortness of breath that
was fairly sudden in onset found to be in significant distress requiring intubation-recovery room nurse consulted for COPD exacerbation/CHF/ventilator management/critical care management 12/15/2024.
Ventilator dependent respiratory failure
Intubated 12/14/2024
Extubated 12/15/2024
COPD with acute exacerbation
CHF-unknown EF
Metabolic acidosis
Respiratory acidosis
Troponin elevation
Leukocytosis
Kzrxka-cltaxicmyv-wgrjpexeqt 11.2
Hyperglycemia
Elevated LFTs-AST, ALT and total bilirubin
DNR
Conditions present prior to admission:
COPD-moderate with severe DLCO reduction not on oxygen maintained on Trelegy-Dr. Alanis last seen 2022.
Aortic stenosis/AVR.
Hypertension.
Diabetes.
Bladder cancer TURBT.
Nephrolithiasis.
Anxiety.
Depression.
Left foot surgery.
Plan
Respiratory status and hemodynamics have improved
Tolerated extubation
Wean supplemental oxygen
Discontinue methylprednisolone
Prednisone fairly rapid taper
DuoNebs continue
Mucolytic's
Aspiration precautions
Lengthy discussion with patient and family members at bedside-would not want reintubation
Cultures reviewed
Blood cultures pending
Sputum culture-few WBCs, many gram-positive cocci, culture in progress
Urine Legionella and streptococcal antigen negative
Influenza negative
Cefepime and doxycycline continue-finite course-adjust for renal
Check procalcitonin-if negative consider antibiotic discontinuation
Follow radiographically
Diuresis continues as tolerated
Monitor renal function, electrolytes, intake/output, lower extremity edema and weight
Replace electrolytes as needed
Troponin trended
Echocardiogram 12/15/2024-EF 30-35%, stage II diastolic dysfunction, moderate to severe mitral regurgitation and moderate to severe aortic regurgitation
Cardiology following-reviewed with Dr. Villalpando
Recheck blood cultures-patient with increased degree of aortic regurgitation compared to prior echo
Consideration towards cardiac catheterization-daughter states patient willing to undergo cardiac catheterization
Monitor blood sugar
Insulin supplementation as needed
Follow-up LFTs
DVT prophylaxis-on Lovenox
GI prophylaxis-on pantoprazole
Early nutrition
Early mobilization
Smoking cessation counseling
Nicotine patch ordered
Dr. Cowan reviewed with daughter on multidisciplinary rounds on 12/15/2024 and again on 12/16/2024
If hemodynamics improved, not requiring pressors and oxygen weaned then transfer out of ICU-call pulmonary if respiratory issues arise-currently on room air, fairly rapid prednisone taper, continue nebulizers and diuresis
Patient last saw Dr. Alanis 09/28/2023 and canceled 01/05/2024 as well as 01/14/2024
Critical care statement: A total of 45 minutes of critical care time was provided for this patient today. This includes management of unstable vital signs, evaluation of the patient at bedside, reviewing the patient's pertinent medical records
including radiographs, microbiology, laboratory evaluations, and discussion with primary team, consultants, pharmacy, nutrition, physical therapy, case management, charge nurse, critical care nursing, and respiratory therapy.
Family discussions:
Dr. Cowan had lengthy conversation with patient while still intubated on 12/15/2024 but alert at the end of her spontaneous breathing trial with daughter, granddaughter, critical care nursing and son at the bedside-patient would like extubation and
does not wish to be reintubated if respiratory status declines again-we will respect their wishes-DNR status will be established-this is consistent with patient's prior wishes according to daughter-POA
Diagnostic data:
CXR 05/20/23: Flattening of the diaphragm indicating COPD. Mild stable interstitial scarring in the right lung base.
CT chest 12/15/2024-mild pulmonary edema
CT chest 12/15/2024-no pulmonary embolism, mild pulmonary edema, superimposed small nodular areas of parenchymal density both upper lobes likely related to pulm edema, however follow-up is recommended
PFT 09/28/23:FVC 2.30/96%, FEV1 1.08/61%, ratio 47. TLC 4.28/97%, DLCO 8.10/44%. Moderate obstructive lung disease with severe gas exchange defect. Compared to prior spirometry this has improved significantly
6MWT 06/29/23: At rest, O2 99% on room air, heart rate 69. With ambulation, O2 donald 96%, max heart rate 93. 0/10 on dyspnea scale. Ambulated 900 feet.
Echocardiogram 12/15/2024-EF 30-35%, stage II diastolic dysfunction, moderate to severe mitral regurgitation and moderate to severe aortic regurgitation
Subjective Dataa
Subjective Data
Date of Service:
Date of Service: December 16, 2024
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
Subjective:
Tolerated extubation, weaned to room air, diuresed, mild chest congestion, no chest pain or abdominal pain
Review of Systems
General: Other (Per HPI)
Objective Data
Data Reviewed
Vital Signs / I&O / Oxygen:
Vital Signs
Temp Pulse Resp BP Pulse Ox
98.9 F 87 18 116/45 99
12/16/24 07:37 12/16/24 07:33 12/16/24 07:32 12/16/24 07:33 12/16/24 07:32
Intake and Output
12/15/24 12/16/24 12/17/24
06:59 06:59 06:59
Intake Total 111.7 / 223.4 1304.8 / 1304.8
Output Total 125 / 125 1640 / 1640
Balance -13.3 / 98.4 -335.2 / -335.2
SaO2 [A/C] 98
SaO2 99
Nasal Cannula flow liters per 2
minute
Physical Exam
General: Respiratory Distress (n) and Comfortable
HEENT: Normocephalic and Moist Mucous Membranes
Cardiovascular: Regular Rhythm and Murmur
Respiratory: Clear (Diminished breath sounds, prolonged expiratory time), Wheeze (n), Crackles ( basilar), Non-Labored Respirations, Accessory Resp Muscle Use (n) and Stridor (n)
GI: Soft, Non Distended and Non Tender
Neurology: Awake, Alert and No Motor Deficits
Skin: Warm, Good Color, Cyanosis (n), Jaundice (n) and Rash (n)
Labs/Micro/Reports
Lab Data
12/16/24 04:03
12/16/24 04:03
Laboratory Results
12/15/24
12:29
pH 7.34 L
pCO2 38 H
pO2 117 H
HCO3 20.5 L
O2 Delivery Level
Microbiology
12/15/24 13:13 Tracheal Aspirate Gram Stain - Preliminary
12/15/24 05:04 Urine Legionella Urinary Antigen - Final
Negative for Legionella pneumophila Serogroup 1 antigen.
A negative result does not rule out the possiblity of
Legionella infection due to other serogroups or species of
Legionella. Clinical correlation is recommended.
12/15/24 05:04 Urine Streptococcus pneumoniae Antigen (M - Final
Negative for Streptococcus pneumoniae antigen.
A negative result does not exclude infection with
Streptococcus pneumoniae. Clinical correlation is
recommended.
12/15/24 01:49 Nasal Swab Influenza Types A & B (AMALIA) - Final
Negative for Influenza A & B, NAAT
Negative results must be combined with clinical observations
and patient history.
Nucleic Acid Amplification test (NAAT)performed on the
[employer] platform.
[2024-12-16] MEDS: NOVOLOG FLEXPEN-MODERATE RESISTANCE 3 UNITS SC ×2 (07:51→12:20)
--- NOTE | 2024-12-16 08:11 | PTCARENOTE ---
recd 0715 handoff in room, tolerating 2l, notes slept fair. aware of plans for day. garza removed, OOB to chair then bathroom to void small amount pale yellow urine. eating breakfast. tremulous. questions answered. smiling.
[2024-12-16] MEDS: TOPROL XL 25 MG PO (08:29)
--- NOTE | 2024-12-16 09:03 | W.PN.CD ---
Today's Communication / Plan
-
Continue to monitor pressures with addition of low-dose beta-yobani
Continue current dosing of diuretics monitor renal function, weights and blood pressure
Blood culture sent and patient with increased degree of aortic regurgitation compared to prior echo.
If blood pressures remain stable then may consider addition of low-dose SAUL inhibitor or ARB. Eventually could consider Entresto if blood pressure allow
Issues related to cardiomyopathy and aortic valve had been reviewed between Dr. Giles patient and family. Patient had been DNR prior to admission but ended up being intubated and states that since that she knows that she would have and that was
really her preference was not to be intubated even if it meant . At this point she says she is alive and is not sure what procedures beyond meds she wants to have done. She is continuing to weigh her options.
Impression / Plan
-
Acute hypoxemic respiratory failure with ventilator dependence:
-Improved. Extubated 12/15/2024
-Treated for COPD exacerbation also being treated for HFrEF
-Currently DNR
Abnormal troponin:
-Peaked to 1.7. Echocardiogram showed moderately reduced left ventricular function with ejection fraction of 30 to 35% near akinesis of the basal to apical anterior/anteroseptal segments. Moderate to severe eccentric mitral regurgitation
bioprosthetic aortic valve replacement with mean gradient 10 mmHg and moderate to severe eccentric aortic regurgitation. Degree of depresed left ventricular function out of proportion to troponin. Possible prior CA exact timing unknown.
Chan's notes raised question of episode of chest discomfort 3 weeks ago and in my discussion with the patient she is a bit vague about that history.
-
HFrEF?Cardiomyopathy. EF 30 to 35% with wall motion abnormalities as noted. Based on wall motion suspicion patient had prior CA. Timing not clear. Dr. Giles had obtained history that she had some chest discomfort 3 weeks ago. She is quite vague
about what had occurred 3 weeks ago and in my discussion with her it sounds as if she had a brief discomfort. Patient does report that her memory is not too good and this is limiting the history to some degree.
-Continue Lasix monitor renal function and BP
-Aspirin
-Beta-yobani
-Statin
-Additional GDMT may be limited by blood pressure. Will add low-dose SAUL inhibitor/ARB or ARNI as BP will allow
-Dr. Giles discussed treatment options with the patient including more invasive procedures versus conservative strategy in the meantime we will continue with medical therapy
hx AVR (2015 per OP chart), Central: Most recent echo with moderate to severe eccentric aortic regurgitation.
-d
.
Mitral regurgitation moderate to severe by echocardiogram this admission
DM2:
-per primary
Current smoker:
Echocardiogram this hospitalization 12/15/2024 moderately reduced left ventricular function with ejection fraction of 30 to 35% near akinesis of the basal to apical anterior/anteroseptal segments. Moderate to severe eccentric mitral regurgitation
bioprosthetic aortic valve replacement with mean gradient 10 mmHg and moderate to severe eccentric aortic regurgitation.
.
Echocardiogram 02/2024. Central medicine
Normal/hyperdynamic left ventricular function
Bioprosthetic aortic valve replacement mean gradient 16 mmHg trace aortic regurgitation
Mild mitral irritation
Mild tricuspid regurgitation
Critical care time 40 minutes
Physical Exam
Vital Signs/Labs
Vital Signs
Temp Pulse Resp BP Pulse Ox
98.9 F 106 14 122/40 96
12/16/24 07:37 12/16/24 08:30 12/16/24 08:30 12/16/24 08:29 12/16/24 08:30
12/15/24 12/16/24 12/17/24
06:59 06:59 06:59
Actual Weight 51.4 kg 51.2 kg
12/16/24 04:03
12/16/24 04:03
PT 15.2 Sec (11.4-14.6) H 12/15/24 05:04
INR 1.15 12/15/24 05:04
APTT 24.6 Sec (23.4-35.0) 12/15/24 05:04
Magnesium 1.8 mg/dl (1.6-2.3) 12/15/24 05:04
Triglycerides 98 mg/dl (10-149) 12/15/24 05:04
12/15/24
01:05
Ono-U-Gfqhdicynom Pept 1890
LAB Results
12/15/24 12/15/24 12/15/24
01:05 03:31 05:04
Troponin I 0.040 H* 0.505 H* D 0.920 H* D
12/15/24 12/15/24
11:26 17:06
Troponin I 1.720 H* D 1.710 H*
Physical Exam
Constitutional: No acute distress
Cardiovascular: Rhythm & rate is regular and Systolic murmur present
Respiratory: Wheeze Absent and Other (Decreased breath sounds at bases bilaterally)
GI: Soft
Neuro/Psych: Alert
Data Reviewed
-
Date of Service: December 16, 2024
Medical Decision Making: Reviewed Test Results
Medical Tests (PFT, Pathology etc): Report Reviewed by me
Labs: Labs Reviewed by me
[2024-12-16 11:25] LABS: Procalcitonin 3.17 ng/ml (0.0-0.25)
[2024-12-16 12:00] LABS: Glucose - Point of Care 223 mg/dl (70-99)
[2024-12-16] MEDS: NICODERM TRANSDERMAL 14 MG TRANSDERM (12:22)
[2024-12-16] MEDS: TYLENOL ORAL SOLUTION PO ×3 (12:30→17:51)
--- NOTE | 2024-12-16 13:38 | CM ---
CM following re: discharge planning.
Reviewed pt's chart, met with pt. Per Rounds meeting, pt extubated yesterday, requires 2 L NC of O2, continue supportive care.
Pt lives alone in a rancher house and ambulates with a walker at baseline.
PT and OT will evaluate the pt when clinically appropriate to determine a level of care at discharge.
D/C plan: uncertain at this time and will depend on pt's progress. PT/OT to clarify.
CM will follow with discharge plan updates as hospitalization progresses
--- NOTE | 2024-12-16 14:32 | W.PN.HOSP.TC ---
Today's Communication/Plan
-
Optimize volume status.
Continue IV Lasix.
Continue antibiotics for another 24 hours
Transition to oral prednisone taper.
For ischemic evaluation on Thursday
Assessment / Plan
Assessment / Plan
Impression:
Patient is a 79y F with PMH significant for COPD, continued tobacco use disorder, AVR and DM-II who presents to ED via EMS in respiratory distress.
Acute hypoxic respiratory failure.
VDRF
� Intubated in ED 12/15
-Extubated on 12/15
Acute CHF reduced EF. Suspect acute pulmonary edema.
Nonischemic cardiac injury
Acute COPD exacerbation baseline acute pulmonary edema.
Elevated liver function test suspect secondary to congestion.
Respiratory acidosis
Lactic acidosis.
Leukocytosis
Other conditions:
Aortic valve replacement bioprosthetic valve 2014 at [facility].
Type 2 diabetes
History of CVA/TIA.
Essential hypertension
Dyslipidemia
History of bladder carcinoma 2016.
Tobacco use disorder with ongoing smoking.
Plan:
Acute hypoxic respiratory failure secondary to continuation of COPD exacerbation as well as component of CHF unknown EF and acute pulmonary edema.
CT scan of the chest negative for pulmonary embolism no focal infiltrate. Consistent with vascular congestion.
Intubated in ED
Extubated on 12/15.
Retrospectively with newly diagnosed reduced EF, pulmonary edema most likely this is combination of flash pulmonary edema as well as possible COPD exacerbation. Less likely pneumonia given no evidence of focal infiltrate.
Acute CHF reduced EF
Echocardiogram with LVEF of 30%, moderate to severe MR of a bioprosthetic mitral valve
Chest pain-free upon presentation
Troponin peaked at 1.7
Patient admits to occasional left-sided discomfort days prior to presentation
Plan is for cardiac cath on Tuesday 12/19
Continue IV Lasix
Initiated on beta-yobani
Further adjustment of GDMT as ongoing workup
Acute COPD exacerbation.
Currently not bronchospastic.
Transition to oral prednisone taper.
Less likely focal pneumonia given radiologic imaging.
Procalcitonin noted to elevated.
Continue antibiotics currently on cefepime and doxycycline for another 24 to 48 hours.
Anion gap metabolic acidosis.
Respiratory acidosis.
Improving with IV fluids and ventilation.
Elevated LFTs suspect secondary to hepatic congestion.
Trending down
Type 2 diabetes.
Hemoglobin A1c 6.4%.
Off metformin.
Remains hyperglycemic given systemic steroids therapy.
Initiated on Lantus
Continue basal bolus protocol
Anxiety/depression
Hold p.o. medications due to above.
CODE STATUS DNR
Anticipated Discharge: > 48 hours
Subjective/Interval History
-
Date of Service: December 16, 2024
Objective Data
-
Labs:
Laboratory Results
12/16/24
04:03
WBC 13.9 H
Hgb 10.2 L
Hct 31.1 L
Plt Count 132
Sodium 139
Potassium 4.5
Chloride 109 H
Carbon Dioxide 21 L
BUN 31 H
Creatinine 0.7
Glucose 161 H
Calcium 8.4
Total Bilirubin 0.7
AST 143 H
ALT 183 H
Alkaline Phosphatase 102
Vital Signs:
Vital Signs
Temp Pulse Resp BP Pulse Ox
97.7 F 82 16 132/48 94
12/16/24 11:00 12/16/24 11:20 12/16/24 11:20 12/16/24 10:00 12/16/24 11:00
I&O
12/15/24 12/16/24 12/17/24
06:59 06:59 06:59
Intake Total 111.7 / 223.4 1304.8 / 1304.8 240 / 240
Output Total 125 / 125 1640 / 1640 325 / 325
Balance -13.3 / 98.4 -335.2 / -335.2 -85 / -85
Physical Exam
-
General: Well Developed and No Apparent Distress
HEENT: Normocephalic, Atraumatic and Moist Mucous Membranes
Respiratory: Clear to Auscultation
Cardiac: Regular Rhythm, S1/S2 and Murmur; Negative Rub or Gallop
GI: Soft, Nontender, Nondistended and Normal Bowel Sounds; Negative Organomegaly
Rectal: Deferred by Provider
Musculoskeletal: No Clubbing, No Cyanosis and No Edema
Skin: Negative Rash
Neuro: Awake, Alert, Oriented, AO x 3 and Nonfocal/Grossly Intact
--- NOTE | 2024-12-16 14:39 | PTCARENOTE ---
awaiting tele bed. VS noted, ate lunch, presently sleeping resting comfortably on room air on side, sats 93, skin pink.
--- NOTE | 2024-12-16 15:41 | CONSULT.CT ---
Consultation
-
Date/Time Consultation Requested: 12/16/2024
Date/Time Consultation Performed: 12/16/2024
Requesting Provider: Essie West
Performing Provider: Glenna caballero
Reason for Consultation: eval. for Redo-Avr vs TAVR
Patient History
Physicians
Family Physician: Adolfo Decker
Outpatient Order Dispatcher Chief: Conrad Amezquita- [facility]
History of Present Illness
Patient is a 79-year-old female with a past medical history significant significant for COPD, current smoker diabetes type 2, aortic stenosis status post AVR and root enlargement 2014 at [place], bladder cancer approximately 5 years ago, hypertension,
hyperlipidemia, anxiety/depression. She also has a history of carotid bruits PAD. On the night of admission she acutely developed shortness of breath and her family called EMS and she presented to [facility]. On presentation her room air
O2 sat was 80% and was given breathing treatment and steroids. She was intubated in the emergency room and EKG showed nonspecific ST/T wave abnormalities.
She underwent echocardiogram on 12/15/2024 which showed left ventricular ejection fraction of 30%. There is moderate to severe eccentric mitral regurgitation. There was a bioprosthetic AVR with peak and mean gradients of 20/10 mmHg. There was
moderate to severe eccentric aortic regurgitation. There was mild tricuspid regurgitation. Pulmonary artery pressure of 39 mmHg. Pulmonic valve was normal. ( Transthoracic echo completed 09/22 showed ejection fraction of 75%. Showed a
well-seated bioprosthetic aortic valve. Normal gradients across the prosthetic valve. Aortic peak velocity measures 274. There was trace intra valvular regurgitation. Prosthetic aortic valve gradient measures 16 mmHg.)
Cardiothoracic surgery was consulted for redo aortic valve replacement surgery versus TAVR evaluation.
Patient continues to smoke 1 pack/day. At this point patient will need a TAVR CT. She will also need a left heart cath to assess coronary anatomy. The studies will be ordered and will follow-up with the patient later next week.
We will also obtain all records from [facility].
Past Medical History
Past Medical History: CVA/TIA, HTN, Hypercholesterolemia, NIDDM, SC, SOB and Valvular Disease
Past medical history significant for COPD, diabetes mellitus type 2, aortic regurgitation status post aortic valve replacement 2014 at [place].
Hypertension
Bladder cancer 5 years ago
Kidney stones
Anxiety/depression
Past Surgical History
AVR root enlargement [address] [place] [address] Philip
Bilateral carpal tunnel release
Kidney stones
Foot surgery
Family History
Mother: at Age (Mother at 97 years of age from heart failure)
Father: at Age (Father from alcoholism)
Social History
Alcohol: Occasional
Drug: None
Tobacco: Smoker (Smokes 1 pack/day x 60 years)
Living: With Family
Employment: Retired
Allergies
Allergy/AdvReac Type Severity Reaction Status Date / Time
Penicillins Allergy Unknown Verified 05/20/23 09:34
levofloxacin [From Levaquin] AdvReac Unknown Pharmacy Verified 12/16/24 10:43
to Review
Home Medications
�Medication �Instructions �Recorded �Confirmed �Type
aspirin 81 mg tablet,delayed 81 mg PO HS Blood Clot 05/20/23 12/15/24 History
release Prevention/Tx
famotidine 40 mg tablet 40 mg PO BID Gastrointestinal Issue 05/20/23 12/15/24 History
metformin 500 mg tablet 1,000 mg PO DAILY@1700 Diabetes 05/20/23 12/15/24 History
metoprolol succinate 25 mg 25 mg PO DAILY Blood Pressure 05/20/23 12/15/24 History
tablet,extended release 24 hr
rosuvastatin 20 mg tablet (Crestor) 20 mg PO Daily High Cholesterol 05/20/23 12/15/24 History
sertraline 100 mg tablet 150 mg PO DAILY Mental 05/20/23 12/15/24 History
Health/Anxiety
vitamin B complex 1 cap PO DAILY Supplement 05/20/23 12/15/24 History
albuterol sulfate 90 mcg/actuation 2 puff inhalation Q6H PRN 05/24/23 12/15/24 Rx
aerosol inhaler shortness of breath or wheezing
#8.5 grams
berberine chloride 500 mg capsule 500 mg PO DAILY Supplement 12/15/24 12/15/24 History
ezetimibe 10 mg tablet 10 mg PO DAILY High Cholesterol 12/15/24 12/15/24 History
fluticasone fur. 100 mcg-umeclid 1 inh inhalation DAILY 12/15/24 12/15/24 History
62.5 mcg-vilant 25 mcg Lung/Breathing Issues
inhalat.powder (Trelegy Ellipta)
levothyroxine 50 mcg tablet 50 mcg PO DAILY Thyroid 12/15/24 12/15/24 History
vit C 250 mg-vit E 90 mg-zinc 40 1 tab PO BID Supplement 12/15/24 12/15/24 History
mg-copper 1 [id number]
capsule (PreserVision AREDS-2)
Review of Systems
-
History Source: Patient
General: Reports Fatigue
HEENT: Reports No Symptoms
Respiratory: Reports SOB and SANCHEZ
Cardiac: Reports CAD
Abdomen/GI: Reports No Symptoms
: Reports No Symptoms
Musculoskeletal: Reports Myalgias
Skin: Reports No Symptoms
Neurological: Reports CVA (Stroke approximately 15 years ago, no residual)
Vascular: Reports Claudication and PVD
Physical Exam
Vital Signs
Temp 97.7 F 12/16/24 11:00
Temp route: Oral 12/16/24 11:00
Pulse 92 12/16/24 15:32
Rhythm: Normal sinus rhythm 12/16/24 08:00
With- PVC's Monomorphic 12/16/24 08:00
Resp Rate 18 12/16/24 15:32
Blood pressure 132/48 12/16/24 10:00
Blood pressure extremity used: Right upper arm 12/15/24 01:03
Position: Lying 12/15/24 01:03
MAP (cuff-Shae Monitor) 73 12/16/24 10:00
SaO2 94 12/16/24 11:00
Nasal Cannula flow liters per minute 2 12/16/24 08:00
Oxygen Mode of Delivery Room air 12/16/24 11:00
Flow liters per minute # 15 12/15/24 01:05
% Oxygen delivered 40 12/15/24 11:34
Acceptable pain level during hospitalization? 0 12/15/24 01:03
Can the patient verbally communicate their pain? No 12/15/24 05:41
Pain scale rating: Pt states unable to rate 12/16/24 08:00
Actual Weight 112 lb 14.027 oz 12/16/24 05:58
Body Mass Index (BMI) 21.3 12/16/24 05:58
etC02 value 32 12/15/24 13:00
Labs
12/16/24 04:03
12/16/24 04:03
PT 15.2 Sec (11.4-14.6) H 12/15/24 05:04
APTT 24.6 Sec (23.4-35.0) 12/15/24 05:04
Hemoglobin A1c 6.4 % (4.0-5.6) H 12/15/24 05:04
Troponin I 1.710 ng/ml H* 12/15/24 17:06
Vkm-W-Znshqtwafxk Pept 1890 pg/ml 12/15/24 01:05
Arterial Blood Gases
pH 7.34 (7.35-7.45) L 12/15/24 12:29
pCO2 38 mmHg (32-35) H 12/15/24 12:29
pO2 117 mmHg (83-108) H 12/15/24 12:29
HCO3 20.5 mmol/L (21-28) L 12/15/24 12:29
Base Excess -4.8 mmol/L 12/15/24 12:29
ABG O2 Sat (Measured) 98.4 % (94-98) H 12/15/24 12:29
O2 Delivery Level 12/15/24 12:29
Exam
General: Comfortable, Poor Appetite and Other
HEENT: Normocephalic, Anicteric and Atraumatic
Neck: Carotid Bruit (Bilateral carotid bruits versus transmitted murmur of aortic insufficiency) and Trachea Midline
Respiratory: Clear and Crackles
Cardiac: Regular Rhythm
GI: Soft, Non Tender, Non Distended and Normal Bowel Sounds
Rectal: Deferred by Provider
Skin: Warm and Dry
Neuro: Awake and Alert
Extremities: Pulses (Distal pulses decreased bilaterally +1 dorsalis pedis bilaterally, feet warm, toes cool, popliteal pulses +1 bilaterally, femoral pulses 1+ bilaterally, there is bilateral femoral bruits bilaterally)
Lymph: No Lymphadenopathy
Psych: Calm
Assessment / Plan
-
Assessment: Acute hypoxic respiratory failure secondary to CHF. Intubated and ER and currently extubated sitting up in bed.
Moderate to severe aortic regurgitation status post bioprosthetic AVR/root enlargement in 2014
Moderate to severe mitral regurgitation
Reduced left ventricular systolic function. Left ventricular ejection fraction 30%
Severe COPD, 1 pack/day x 60 plus years continues to smoke
Mini stroke approximately 15 years ago at [facility], no residual
Diabetes mellitus type 2
Bladder cancer 5 years ago
Hypertension
Hyperlipidemia
PAD
Anxiety/depression
Kidney stones
Plan:
Will obtain TAVR CT
Will need left heart cath
Continue to optimize medical therapy and will continue discussion with interventional cardiology for valve in valve TAVR
Redo AVR surgery for this patient would be significantly high risk due to multiple comorbidities.
Will obtain old records from [facility] and operative report
Patient would prefer TAVR but is open to discussion of redo AVR if indicated. After all data is obtained STS risk can be calculated and discussed with patient and family.
--- NOTE | 2024-12-16 16:19 | TRANSFER ---
report to next RN, for [facility] room 404-02. transport here, remains on tele pack and sent with all belongings.
[2024-12-16] MEDS: NOVOLOG FLEXPEN-MODERATE RESISTANCE 1 UNITS SC (16:50)
[2024-12-16 16:51] LABS: Glucose - Point of Care 190 mg/dl (70-99)
--- NOTE | 2024-12-16 17:00 | PTCARENOTE ---
Received patient from ICU via wheelchair. AAOx3, ambulated to bed. Assessed and oriented to room. Telemetry NSR. Call borrego in close reach.
[2024-12-16] MEDS: LOVENOX 40 MG SC (17:38)
[2024-12-16] MEDS: VIBRAMYCIN 100 MG PO (20:17)
[2024-12-16] MEDS: ASPIR LOW (ENTERIC COATED) 81 MG PO (20:17)
[2024-12-16 21:20] LABS: Glucose - Point of Care 177 mg/dl (70-99)
[2024-12-16] MEDS: ROBITUSSIN DM 5 ML PO (23:12)
[2024-12-16] MEDS: TYLENOL ORAL SOLUTION 650 MG PO (23:12)
[2024-12-16] MEDS: LANTUS 0.1 UNITS SC (23:12)
[2024-12-17] VITALS (7 sets, daily range): BP systolic 105–132; BP diastolic 40–47; BMI 20.1
[2024-12-17 05:44] LABS: % Basophils 0.3 % (0-2); % Eosinophils 0.5 % (0-6); % Immature Granulocytes 0.4 % (0-0.5); % Lymphocytes 21.5 % (20.5-51.1); % Monocytes 7.5 % (1.7-9.3); % Neutrophils 69.8 % (42.2-75.2); Absolute Eosinophils 0.1 10^3/uL (0-0.7); Absolute Immature Granulocytes 0.1 10^3/uL (0-0.05); Absolute Lymphocytes 2.9 10^3/uL (1.2-3.4); Absolute Neutrophils 9.5 10^3/uL (1.4-6.5); Hematocrit 31.8 % (37.0-47.0); Hemoglobin 10.2 g/dL (12.0-16.0); Mean Corp Hgb Conc. 32.1 g/dL (33.0-37.0); Mean Corpuscular Hgb 28.2 pg (27.0-31.0); Mean Corpuscular Volume 87.8 fL (81.0-99.0); Mean Platelet Volume 9.9 fL (7.4-10.4); Nucleated Red Blood Cells % 0 %; Platelet Count 150 10^3/uL (130-400); Red Blood Cell Count 3.62 10^6/uL (4.20-5.40); Red Cell Dist. Width 14.8 % (11.5-14.5); White Blood Cell Count 13.6 10^3/uL (4.8-10.8)
[2024-12-17] MEDS: MAXIPIME 1000 MG IV ×2 (05:56→12:24)
[2024-12-17] MEDS: STERILE WATER FOR INJECTION 10 ML IV ×2 (05:56→12:24)
[2024-12-17 06:09] LABS: Blood Urea Nitrogen 41 mg/dl (7-17); Calcium 8.8 mg/dl (8.4-10.2); Carbon Dioxide 27 mmol/L (22-30); Chloride 104 mmol/L (98-107); Estimated Creatinine Clearance 40 ml/min; Glucose 83 mg/dl (70-99); Potassium 4.3 mmol/L (3.5-5.1); Sodium 139 mmol/L (135-145); eGFR > 60.00
[2024-12-17] MEDS: TYLENOL ORAL SOLUTION PO (06:09)
[2024-12-17 07:38] LABS: Glucose - Point of Care 110 mg/dl (70-99)
[2024-12-17] MEDS: DUONEB 3 ML INH ×2 (08:30→19:09)
[2024-12-17] MEDS: NOVOLOG FLEXPEN-MODERATE RESISTANCE SC (08:35)
[2024-12-17] MEDS: MIRALAX 17 GRAMS PO (09:18)
[2024-12-17] MEDS: NICODERM TRANSDERMAL 14 MG TRANSDERM (09:18)
[2024-12-17] MEDS: DELTASONE 40 MG PO (09:19)
[2024-12-17] MEDS: LASIX 20 MG IV ×2 (09:19→17:43)
[2024-12-17] MEDS: TOPROL XL 25 MG PO (09:25)
[2024-12-17] MEDS: VIBRAMYCIN 100 MG PO (09:25)
[2024-12-17] MEDS: ROBITUSSIN DM 5 ML PO ×2 (09:33→21:44)
[2024-12-17 11:50] LABS: Glucose - Point of Care 298 mg/dl (70-99)
[2024-12-17] MEDS: DUONEB INH ×2 (11:51→15:21)
[2024-12-17] MEDS: TYLENOL ORAL SOLUTION 650 MG PO ×2 (12:24→17:43)
[2024-12-17] MEDS: NOVOLOG FLEXPEN-MODERATE RESISTANCE 5 UNITS SC (12:26)
--- NOTE | 2024-12-17 12:50 | CON.ID ---
Consultation
-
Date/Time Consultation Requested: 12/17/2024 0827
Date/Time Consultation Performed: 12/17/2024 1150
Requesting Provider: Arianna Ghosh
Performing Provider: Dr. Trejo
Reason for Consultation: Valvulopathy; ?Infective endocarditis
Chief Complaint / Past History
History of Present Illness
Darline Patricia is a 79-year-old female being evaluated regarding the possibility of infective endocarditis. History is obtained from chart review, along with patient interview.
The patient has an underlying history of COPD and valvular disease, including aortic stenosis (s/p bioprosthetic AVR; 2014) and mitral regurgitation. She presented to the emergency room on 12/15 secondary to the acute onset of shortness of breath.
Her son called EMS and when they arrived her pulse ox was found to be in the 80s. She was transported to the emergency room where unfortunately her respiratory status declined and she ultimately required intubation.
Since admission she has been evaluated by cardiology and found to have worsening valvulopathy, with potential concern for an infectious etiology. Infectious Diseases asked to comment upon further workup.
The patient denies any history of fevers or chills prior to admission. She admits to some fatigue today, along with a cough. She also admits to some chest discomfort with cough. She denies any abdominal pain, nausea, vomiting or diarrhea.
Past History
Additional Past Medical History:
COPD
HTN
Dyslipidemia
DM type II
Valvular disease (aortic stenosis/mitral regurgitation)
Anxiety/depression
Nephrolithiasis
Hx bladder cancer
Hx CVA
Additional Past Surgical History:
AVR (bioprosthetic; 2015 at [facility])
Bilateral carpal tunnel release
Right wrist surgery
Allergy History:
Penicillins Allergy (Verified 05/20/23 09:34)
Unknown
levofloxacin [From Levaquin] Adverse Reaction (Unknown, Verified 12/16/24 10:43)
Pharmacy to Review
Medications Reviewed: Yes
Current Antibiotics:
Cefepime 1 g IV every 6 hours (d#4)
Doxycycline (d#4)
Social History
Tobacco: Smoker (1 PPD)
Alcohol: None
Drug: None
Living: With Family
Employment: Not Employed
Family History
Family History: Not Pertinent
Review of Systems
Vital Signs
Temp Pulse Resp BP Pulse Ox
98.4 F 86 18 112/40 97
12/17/24 11:34 12/17/24 11:34 12/17/24 11:34 12/17/24 11:34 12/17/24 11:34
Physical Exam
Physical Exam
Constitutional: No Acute Distress, Comfortable and Non-toxic
Eyes: Pupils Equal, Pupils Round, No Conjunctival Hemorrhage and Sclera Anicteric
Pharynx: Benign
Oral: No Thrush and No Ulcers
Cardiovascular: Regular Rate and S1/S2; Negative S3/S4
Pulmonary: Clear and Non Labored; Negative Wheezes, Rales or Rhonchi
Gastrointestinal: Soft, Non Tender, Non Distended and Normal Bowel Sounds
Extremities: Negative Edema, Cyanosis, Erythema, Splinter Hemorrhage, Venous Insufficiency or Janeway Lesions
Skin: Warm and Dry; Negative Rash or Jaundice
Neurological: Awake and Alert
Psychological: Calm
Lab / Diagnostic Study Results
12/17/24 05:05
12/17/24 05:05
Abs Immat Gran (auto) 0.1 10^3/uL (0-0.05) H 12/17/24 05:05
Absolute Neuts (auto) 9.5 10^3/uL (1.4-6.5) H 12/17/24 05:05
Absolute Lymphs (auto) 2.9 10^3/uL (1.2-3.4) 12/17/24 05:05
Absolute Monos (auto) 1.0 10^3/uL (0.1-0.6) H 12/17/24 05:05
Absolute Basos (auto) 0.0 10^3/uL (0-0.2) 12/17/24 05:05
Immature Gran % 0.4 % (0-0.5) 12/17/24 05:05
Neutrophils % 69.8 % (42.2-75.2) 12/17/24 05:05
Lymphocytes % 21.5 % (20.5-51.1) 12/17/24 05:05
Monocytes % 7.5 % (1.7-9.3) 12/17/24 05:05
Eosinophils % 0.5 % (0-6) 12/17/24 05:05
Basophils % 0.3 % (0-2) 12/17/24 05:05
PT 15.2 Sec (11.4-14.6) H 12/15/24 05:04
INR 1.15 12/15/24 05:04
Lactic Acid 2.1 mmol/L (0.7-2.0) H 12/15/24 11:26
Procalcitonin 3.17 ng/ml (0.0-0.25) H* 12/16/24 10:28
Microbiology Results
Micro:
12/15/24 13:13 Respiratory Culture - Final
Tracheal Aspirate Usual Respiratory Khadijah
Gram Stain - Final
12/16/24 10:28 Blood Culture - Preliminary
Blood/Venous No Growth in 24 hours- Final report to follow
12/16/24 09:50 Blood Culture - Preliminary
Blood/Venous No Growth in 24 hours- Final report to follow
12/15/24 05:04 Legionella Urinary Antigen - Final
Urine Negative for Legionella pneumophila Serogroup 1 antigen.
A negative result does not rule out the possiblity of
Legionella infection due to other serogroups or species of
Legionella. Clinical correlation is recommended.
Streptococcus pneumoniae Antigen (M - Final
Negative for Streptococcus pneumoniae antigen.
A negative result does not exclude infection with
Streptococcus pneumoniae. Clinical correlation is
recommended.
12/15/24 01:49 Influenza Types A & B (AMALIA) - Final
Nasal Swab Negative for Influenza A & B, NAAT
Negative results must be combined with clinical observations
and patient history.
Nucleic Acid Amplification test (NAAT)performed on the
[employer] NOW platform.
Imaging:
12/15/2024 CT chest (PE study): No pulmonary embolism noted. Mild pulmonary edema. Some superimposed small nodular areas of parenchymal density in both upper lobes likely related to pulmonary edema. Atherosclerosis with postoperative changes.
Please see full dictation for additional detail. Film personally viewed.
12/15/2024 ECHO (TTE): Moderately reduced LV systolic function. EF approximately 30 to 35%. Near akinesis of the basal to apical anterior/anteroseptal segments. There is stage II diastolic dysfunction. Moderate/severe eccentric mitral
regurgitation. Patient is status post bioprosthetic AVR with peak/mean gradients of 20/10 mmHg moderate/severe eccentric aortic regurgitation noted. No intracardiac thrombus formation noted on dictation.
Assessment / Plan
Exacerbation COPD; s/p VDRF
Low-grade leukocytosis; likely steroid related
Valvular disease (aortic stenosis/mitral regurgitation)
- Hx bioprosthetic AVR (2014)
- possible need for revision of AVR
Elevated procalcitonin
Elevated procalcitonin
Transaminitis
COPD
HTN
Dyslipidemia
DM type II
Anxiety/depression
Nephrolithiasis
Hx bladder cancer
Hx CVA
Recommendations:
At present, not clear if there is a bacterial infection or not, and given history, I have little concern for infective endocarditis at present.
Currently day #4 of antibiotic therapy.
Cultures negative thus far.
Would discontinue further antibiotics at this time.
Would check blood cultures in several days to assess for any bacteremia. Blood cultures obtained now may be falsely negative due to current antibiotic administration.
Check ESR and CRP. Although elevation is not specific to IE, if elevated, further workup can ensue.
Care Review
Plan reviewed with: Physician (Cardiology)
--- NOTE | 2024-12-17 13:49 | W.PN.CD ---
Today's Communication / Plan
-
Respiratory status has improved and patient is now on room air.
I had lengthy discussion with patient as well as family yesterday regarding treatment options initially there was a question whether patient would want additional invasive procedures and testing. However after further discussion the patient would
like to proceed with additional evaluation for coronary artery disease and also assessment regarding AVR and possible need for valve in valve TAVR in the future.
Follow cultures that are pending note ID also has been consulted see Dr. Trejo's note.
Continue current dosing of Lasix and monitor renal function
Plan for catheterization on 12/19/2024
Impression / Plan
-
Acute hypoxemic respiratory failure with ventilator dependence:
-Improved. Extubated 12/15/2024
-Treated for COPD exacerbation also being treated for HFrEF
-Currently DNR but agrees to have this status removed for procedures
Abnormal troponin:
-Peaked to 1.7. Echocardiogram showed moderately reduced left ventricular function with ejection fraction of 30 to 35% near akinesis of the basal to apical anterior/anteroseptal segments. Moderate to severe eccentric mitral regurgitation
bioprosthetic aortic valve replacement with mean gradient 10 mmHg and moderate to severe eccentric aortic regurgitation. Degree of depressed left ventricular function out of proportion to troponin. Possible prior NH exact timing unknown.
Chan's notes raised question of episode of chest discomfort 3 weeks ago and in my discussion with the patient she is a bit vague about that history.
-Plan for cardiac catheterization 12/19/2024
-
HFrEF/Cardiomyopathy. EF 30 to 35% with wall motion abnormalities as noted. Based on wall motion suspicion patient had prior NH. Timing not clear. Dr. Giles had obtained history that she had some chest discomfort 3 weeks ago. She is quite vague
about what had occurred 3 weeks ago and in my discussion with her it sounds as if she had a brief discomfort. Patient does report that her memory is not too good and this is limiting the history to some degree. Suspect heart failure due to a
combination of cardiomyopathy and worsening aortic regurgitation
-Improved. Now off O2
-Continue Lasix monitor renal function and BP
-Aspirin
-Beta-yobani
-Statin
-Additional GDMT may be limited by blood pressure. Will add low-dose SAUL inhibitor/ARB or ARNI as BP will allow
hx AVR (2014 per OP chart), [place]: Most recent echo with moderate to severe eccentric aortic regurgitation.
-Patient had not had fevers. Was given antibiotics for possible pneumonia. Blood cultures are negative so far but it should be noted that the patient did receive antibiotics for pneumonia prior to blood cultures. ID has been consulted
-d
.
Mitral regurgitation moderate to severe by echocardiogram this admission
DM2:
-per primary
Current smoker:
Echocardiogram this hospitalization 12/15/2024 moderately reduced left ventricular function with ejection fraction of 30 to 35% near akinesis of the basal to apical anterior/anteroseptal segments. Moderate to severe eccentric mitral regurgitation
bioprosthetic aortic valve replacement with mean gradient 10 mmHg and moderate to severe eccentric aortic regurgitation.
.
Echocardiogram 02/2024. [facility]
Normal/hyperdynamic left ventricular function
Bioprosthetic aortic valve replacement mean gradient 16 mmHg trace aortic regurgitation
Mild mitral irritation
Mild tricuspid regurgitation
Physical Exam
Vital Signs/Labs
Vital Signs
Temp Pulse Resp BP Pulse Ox
98.4 F 86 18 112/40 95
12/17/24 11:34 12/17/24 11:34 12/17/24 11:34 12/17/24 11:34 12/17/24 13:08
12/16/24 12/17/24 12/18/24
06:59 06:59 06:59
Actual Weight 51.2 kg 48.109 kg
12/17/24 05:05
12/17/24 05:05
PT 15.2 Sec (11.4-14.6) H 12/15/24 05:04
INR 1.15 12/15/24 05:04
APTT 24.6 Sec (23.4-35.0) 12/15/24 05:04
Magnesium 1.8 mg/dl (1.6-2.3) 12/15/24 05:04
Triglycerides 98 mg/dl (10-149) 12/15/24 05:04
12/15/24
01:05
Wih-X-Lkfhdxnmahc Pept 1890
LAB Results
12/15/24 12/15/24 12/15/24
01:05 03:31 05:04
Troponin I 0.040 H* 0.505 H* D 0.920 H* D
12/15/24 12/15/24
11:26 17:06
Troponin I 1.720 H* D 1.710 H*
Physical Exam
Constitutional: No acute distress
Cardiovascular: Rhythm & rate is regular and Other (2/6 systolic murmur and low pitched diastolic murmur)
Respiratory: Wheeze Absent and Rhonchi Absent
GI: Non tender and Normal bowel sounds
Neuro/Psych: Oriented
Data Reviewed
-
Date of Service: December 17, 2024
Medical Decision Making: Reviewed Test Results
Echo: Report Reviewed by me
Medical Tests (PFT, Pathology etc): Report Reviewed by me
Labs: Labs Reviewed by me
--- NOTE | 2024-12-17 15:54 | W.PN.HOSP.TC ---
Today's Communication/Plan
-
Assessment / Plan
Assessment / Plan
Gen-AAOx3, NAD
HEENT-NC, AT, anicteric, clear oral mm
Neck-supple
CV-reg, 2/6 systolic murmur, +S1/S2
Lungs-clear B/L
Abd-soft, NT, ND
Musculoskeletal-no edema, no deformity
Skin-warm and dry
Neuro-grossly non-focal
Psych-calm, cooperative
Impression and plan:
Patient is a 79y F with PMH significant for COPD, continued tobacco use disorder, AVR and DM-II who presents to ED via EMS in respiratory distress.
Acute hypoxic respiratory failure:
-No evidence of PE on CT imaging, did show pulmonary edema
-Multifactorial secondary to COPD exacerbation and acute on chronic systolic heart failure
�Intubated in ED 12/15, extubated same day
-Continue steroids with prednisone 40 mg p.o. daily
-Scheduled DuoNebs with additional albuterol as needed
-Continue treatment for CHF exacerbation as outlined below
-Completed a course of cefepime and Doxy empirically considering presentation and elevated procalcitonin
Elevated troponin:
-Continue low-dose aspirin daily
-LVEF 30 to 35%, plan for cardiac cath 12/19 for further evaluation
HFrEF with acute exacerbation:
-LVEF 30 to 35%, history of bioprosthetic aortic valve replacement 2014 at [place]
-Continue diuresis with Lasix 20 mg IV twice daily, maintain negative fluid balance
-Started on beta-blockade with metoprolol succinate 25 mg daily
-Add low-dose SAUL/ARB as blood pressure allows
NIDDM:
-Uses metformin at home which we will hold while inpatient
-Started on Lantus 10 units nightly, additional sliding scale insulin as needed
-Continue to monitor and adjust regimen as needed
Chronic conditions:
Aortic valve replacement bioprosthetic valve 2014 at [facility].
Type 2 diabetes
History of CVA/TIA.
Essential hypertension
Dyslipidemia
History of bladder carcinoma 2017.
Tobacco use disorder with ongoing smoking.
CODE STATUS DNR
Anticipated Discharge: > 48 hours
Subjective/Interval History
-
Date of Service: December 17, 2024
Ms. Patricia was seen and examined at bedside this morning. She continues to have a persistent cough and complains of lower anterior chest discomfort with coughing. She is awaiting cardiac catheterization 12/19.
Objective Data
-
Labs:
Laboratory Results
12/17/24
05:05
WBC 13.6 H
Hgb 10.2 L
Hct 31.8 L
Plt Count 150
Sodium 139
Potassium 4.3
Chloride 104
Carbon Dioxide 27
BUN 41 H
Creatinine 0.9
Glucose 83
Calcium 8.8
Vital Signs:
Vital Signs
Temp Pulse Resp BP Pulse Ox
98.4 F 86 18 112/40 95
12/17/24 11:34 12/17/24 11:34 12/17/24 11:34 12/17/24 11:34 12/17/24 13:08
I&O
12/16/24 12/17/24 12/18/24
06:59 06:59 06:59
Intake Total 1304.8 / 1304.8 720 / 720
Output Total 1640 / 1640 975 / 975
Balance -335.2 / -335.2 -255 / -255
Review of Systems
-
History Source: Patient
All other systems: Reviewed and negative
Respiratory: Reports Cough
Musculoskeletal: Reports Joint Pain (Chest discomfort with cough)
Physical Exam
-
General: No Apparent Distress
[2024-12-17 17:05] LABS: Glucose - Point of Care 220 mg/dl (70-99)
[2024-12-17] MEDS: LOVENOX 40 MG SC (17:43)
[2024-12-17] MEDS: NOVOLOG FLEXPEN-MODERATE RESISTANCE 3 UNITS SC (17:44)
[2024-12-17 21:39] LABS: Glucose - Point of Care 210 mg/dl (70-99)
[2024-12-17] MEDS: LANTUS 0.1 UNITS SC (21:43)
[2024-12-17] MEDS: ASPIR LOW (ENTERIC COATED) 81 MG PO (21:43)
[2024-12-18] VITALS (8 sets, daily range): BP systolic 88–155; BP diastolic 30–71; PULSE 81; O2SAT 97; BMI 19.8
[2024-12-18] MEDS: TYLENOL ORAL SOLUTION PO ×3 (00:59→22:52)
[2024-12-18] MEDS: LASIX 20 MG IV (07:35)
[2024-12-18] MEDS: NICODERM TRANSDERMAL 14 MG TRANSDERM (07:36)
[2024-12-18] MEDS: DELTASONE 40 MG PO (07:36)
[2024-12-18] MEDS: MIRALAX PO (07:52)
[2024-12-18 07:53] LABS: Glucose - Point of Care 84 mg/dl (70-99)
[2024-12-18] MEDS: TOPROL XL PO (07:53)
[2024-12-18] MEDS: NOVOLOG FLEXPEN-MODERATE RESISTANCE SC (07:55)
[2024-12-18] MEDS: DUONEB 3 ML INH ×4 (08:09→19:33)
[2024-12-18 08:53] LABS: Triglycerides 142 mg/dl (10-149)
--- NOTE | 2024-12-18 09:11 | W.PN.ID1 ---
Date of Service
Date of Service: December 18, 2024
Today's Communication
Observe off antibiotics.
Assessment / Plan
Exacerbation COPD; s/p VDRF
Low-grade leukocytosis; likely steroid related
Valvular disease (aortic stenosis/mitral regurgitation)
- Hx bioprosthetic AVR (2014)
- possible need for revision of AVR
Elevated procalcitonin
Elevated procalcitonin
Transaminitis
COPD
HTN
Dyslipidemia
DM type II
Anxiety/depression
Nephrolithiasis
Hx bladder cancer
Hx CVA
Recommendations:
At present, not clear if there is a bacterial infection or not, and given history, the probability of infective endocarditis is low.
Observe off antibiotics.
Would check blood cultures in several days to assess for any bacteremia.
Blood cultures obtained 12/16/24 may be falsely negative due to concurrent antibiotic administration.
ESR pending, but CRP normal.
����������������������������������������������������������
Chief Complaint
-: Other (Valvulopathy)
Subjective / Review of Systems
Review of Systems: No Fever and No Chills
Vital Signs / Physical Exam
Vital Signs
Vital Signs
Temp Pulse Resp BP Pulse Ox
98.1 F 73 16 88/71 95
12/18/24 07:55 12/18/24 07:55 12/18/24 07:55 12/18/24 07:55 12/18/24 07:55
Physical Exam
Constitutional: Comfortable, Chronically Ill and Non-toxic
Eyes: No Conjunctival Hemorrhage and Sclera Anicteric
Cardiovascular: S1/S2 and Murmur; Negative S3/S4
Pulmonary: Non Labored
Gastrointestinal: Soft and Non Tender
Extremities: Negative Splinter Hemorrhage or Janeway Lesions
Neurological: Awake and Alert
Psychological: Calm
Objective Data
Lab Data
Lab Results
12/17/24 05:05
12/17/24 05:05
PT 15.2 Sec (11.4-14.6) H 12/15/24 05:04
INR 1.15 12/15/24 05:04
APTT 24.6 Sec (23.4-35.0) 12/15/24 05:04
Estimated Creat Clear 40 ml/min 12/17/24 05:05
Lactic Acid 2.1 mmol/L (0.7-2.0) H 12/15/24 11:26
Total Bilirubin 0.7 mg/dl (0.2-1.3) 12/16/24 04:03
AST 143 U/L (14-36) H 12/16/24 04:03
ALT 183 U/L (0-35) H 12/16/24 04:03
Alkaline Phosphatase 102 U/L (38-126) 12/16/24 04:03
C-Reactive Protein 8.30 mg/L (0.0-10.00) 12/18/24 07:29
Most recent labs reviewed.
Micro Results:
12/15/24 13:13 Respiratory Culture - Final
Tracheal Aspirate Usual Respiratory Khadijah
Gram Stain - Final
12/16/24 10:28 Blood Culture - Preliminary
Blood/Venous No Growth in 24 hours- Final report to follow
12/16/24 09:50 Blood Culture - Preliminary
Blood/Venous No Growth in 24 hours- Final report to follow
12/15/24 05:04 Legionella Urinary Antigen - Final
Urine Negative for Legionella pneumophila Serogroup 1 antigen.
A negative result does not rule out the possiblity of
Legionella infection due to other serogroups or species of
Legionella. Clinical correlation is recommended.
Streptococcus pneumoniae Antigen (M - Final
Negative for Streptococcus pneumoniae antigen.
A negative result does not exclude infection with
Streptococcus pneumoniae. Clinical correlation is
recommended.
12/15/24 01:49 Influenza Types A & B (AMALIA) - Final
Nasal Swab Negative for Influenza A & B, NAAT
Negative results must be combined with clinical observations
and patient history.
Nucleic Acid Amplification test (NAAT)performed on the
[employer] platform.
Imaging:
12/15/2024 CT chest (PE study): No pulmonary embolism noted. Mild pulmonary edema. Some superimposed small nodular areas of parenchymal density in both upper lobes likely related to pulmonary edema. Atherosclerosis with postoperative changes.
Please see full dictation for additional detail. Film personally viewed.
12/15/2024 ECHO (TTE): Moderately reduced LV systolic function. EF approximately 30 to 35%. Near akinesis of the basal to apical anterior/anteroseptal segments. There is stage II diastolic dysfunction. Moderate/severe eccentric mitral
regurgitation. Patient is status post bioprosthetic AVR with peak/mean gradients of 20/10 mmHg moderate/severe eccentric aortic regurgitation noted. No intracardiac thrombus formation noted on dictation.
Care Review
Plan reviewed with: Physician (CT Sx)
--- NOTE | 2024-12-18 09:12 | PTCARENOTE ---
Addendum entered by Darline Rich RN 12/18/24 11:52:
Patient with troponin 0.139. Chest pain resolved at this time.
Original Note:
Patient with complaints of chest pain while in bathroom. Assisted back to bed. EKG done. Rates pain 2/10 on pain scale - left sided chest pain radiating to left neck area. Pain different than what she has been having with cough - not muscular in
nature as per patient. EKG done. MD notified. BP 133/40, HR 77, resp 20, pulse ox 96% on room air.
[2024-12-18 10:06] LABS: Erythrocyte Sed Rate 7 mm/hour (0-20)
[2024-12-18 10:55] LABS: Troponin I 0.139 ng/ml
[2024-12-18] MEDS: TYLENOL ORAL SOLUTION 650 MG PO ×2 (12:36→18:09)
[2024-12-18 12:41] LABS: Glucose - Point of Care 157 mg/dl (70-99)
[2024-12-18] MEDS: NOVOLOG FLEXPEN-MODERATE RESISTANCE 1 UNITS SC (12:41)
--- NOTE | 2024-12-18 13:06 | W.PN.CD ---
Today's Communication / Plan
-
feels well. resp status stable on room air
plan for cath torrow
asymptomatic lower BP recording will stop diuretic and await cath
Impression / Plan
-
Acute hypoxemic respiratory failure with ventilator dependence:
-Improved. Extubated 12/15/2024
-Treated for COPD exacerbation also being treated for HFrEF
-Currently DNR but agrees to have this status removed for procedures
Abnormal troponin:
-Peaked to 1.7. Echocardiogram showed moderately reduced left ventricular function with ejection fraction of 30 to 35% near akinesis of the basal to apical anterior/anteroseptal segments. Moderate to severe eccentric mitral regurgitation
bioprosthetic aortic valve replacement with mean gradient 10 mmHg and moderate to severe eccentric aortic regurgitation. Degree of depressed left ventricular function out of proportion to troponin. Possible prior [place] exact timing unknown.
Chan's notes raised question of episode of chest discomfort 3 weeks ago and in my discussion with the patient she is a bit vague about that history.
-Plan for cardiac catheterization 12/19/2024
-
HFrEF/Cardiomyopathy. EF 30 to 35% with wall motion abnormalities as noted. Based on wall motion suspicion patient had prior [place]. Timing not clear. Dr. Giles had obtained history that she had some chest discomfort 3 weeks ago. She is quite vague
about what had occurred 3 weeks ago and in my discussion with her it sounds as if she had a brief discomfort. Patient does report that her memory is not too good and this is limiting the history to some degree. Suspect heart failure due to a
combination of cardiomyopathy and worsening aortic regurgitation
-Improved. Now off O2
-Continue Lasix monitor renal function and BP
-Aspirin
-Beta-yobani
-Statin
-Additional GDMT may be limited by blood pressure. Will add low-dose SAUL inhibitor/ARB or ARNI as BP will allow
hx AVR (2015 per OP chart), [place]: Most recent echo with moderate to severe eccentric aortic regurgitation.
-Patient had not had fevers. Was given antibiotics for possible pneumonia. Blood cultures are negative so far but it should be noted that the patient did receive antibiotics for pneumonia prior to blood cultures. ID has been consulted
-d
.
Mitral regurgitation moderate to severe by echocardiogram this admission
DM2:
-per primary
Current smoker:
Echocardiogram this hospitalization 12/15/2024 moderately reduced left ventricular function with ejection fraction of 30 to 35% near akinesis of the basal to apical anterior/anteroseptal segments. Moderate to severe eccentric mitral regurgitation
bioprosthetic aortic valve replacement with mean gradient 10 mmHg and moderate to severe eccentric aortic regurgitation.
.
Echocardiogram 02/2024. [facility]
Normal/hyperdynamic left ventricular function
Bioprosthetic aortic valve replacement mean gradient 16 mmHg trace aortic regurgitation
Mild mitral irritation
Mild tricuspid regurgitation
Physical Exam
Vital Signs/Labs
Vital Signs
Temp Pulse Resp BP Pulse Ox
98.1 F 74 16 88/71 95
12/18/24 07:55 12/18/24 11:50 12/18/24 11:50 12/18/24 07:55 12/18/24 11:50
12/17/24 12/18/24 12/19/24
06:59 06:59 06:59
Actual Weight 47.627 kg
12/17/24 05:05
12/17/24 05:05
PT 15.2 Sec (11.4-14.6) H 12/15/24 05:04
INR 1.15 12/15/24 05:04
APTT 24.6 Sec (23.4-35.0) 12/15/24 05:04
Magnesium 1.8 mg/dl (1.6-2.3) 12/15/24 05:04
Triglycerides 142 mg/dl (10-149) 12/18/24 07:29
12/15/24
01:05
Cll-K-Vsbzxzzrigw Pept 1890
LAB Results
12/15/24 12/18/24
17:06 10:12
Troponin I 1.710 H* 0.139 H*
Physical Exam
Constitutional: No acute distress
Cardiovascular: Rhythm & rate is regular, Systolic murmur present and Diastolic murmur present
Respiratory: Lungs clear to auscul., Wheeze Absent and Crackles Absent
GI: Soft, Non tender and Normal bowel sounds
Neuro/Psych: Alert and Oriented
Data Reviewed
-
Date of Service: December 18, 2024
Medical Decision Making: Reviewed Test Results
Medical Tests (PFT, Pathology etc): Report Reviewed by me
Labs: Labs Reviewed by me
--- NOTE | 2024-12-18 13:45 | W.PN.HOSP.TC ---
Today's Communication/Plan
-
Plan for cardiac cath 12/19, dispo pending results
Assessment / Plan
Assessment / Plan
Gen-AAOx3, NAD
HEENT-NC, AT, anicteric, clear oral mm
Neck-supple
CV-reg, 2/6 systolic murmur, +S1/S2
Lungs-clear B/L
Abd-soft, NT, ND
Musculoskeletal-no edema, no deformity
Skin-warm and dry
Neuro-grossly non-focal
Psych-calm, cooperative
Impression and plan:
Patient is a 79y F with PMH significant for COPD, continued tobacco use disorder, AVR and DM-II who presents to ED via EMS in respiratory distress.
Acute hypoxic respiratory failure:
-No evidence of PE on CT imaging, did show pulmonary edema
-Multifactorial secondary to COPD exacerbation and acute on chronic systolic heart failure
�Intubated in ED 12/15, extubated same day
-Continue steroids with prednisone 40 mg p.o. daily
-Scheduled DuoNebs with additional albuterol as needed
-Continue treatment for CHF exacerbation as outlined below
-Completed a course of cefepime and Doxy empirically considering presentation and elevated procalcitonin
Elevated troponin:
-Downtrending this morning
-Continue low-dose aspirin daily
-LVEF 30 to 35%, plan for cardiac cath 12/19 for further evaluation
HFrEF with acute exacerbation:
-LVEF 30 to 35%, history of bioprosthetic aortic valve replacement 2014 at [facility]
-Discontinue Lasix due to low blood pressure
-Continuing beta-blockade with metoprolol succinate 25 mg daily
-Add low-dose SAUL/ARB as blood pressure allows
NIDDM:
-Uses metformin at home which we will hold while inpatient
-Started on Lantus 10 units nightly, additional sliding scale insulin as needed
-Continue to monitor and adjust regimen as needed
Chronic conditions:
Aortic valve replacement bioprosthetic valve 2015 at [facility].
Type 2 diabetes
History of CVA/TIA.
Essential hypertension
Dyslipidemia
History of bladder carcinoma 2016.
Tobacco use disorder with ongoing smoking.
CODE STATUS DNR
Anticipated Discharge: 24 - 48 hours
Subjective/Interval History
-
Date of Service: December 18, 2024
Ms. Patricia was seen and examined at bedside this morning. Her daughter and son-in-law were also present. She was experiencing chest pain this morning which is now mostly resolved. Troponin was repeated which appears to be significantly downtrending
from previous.
Objective Data
-
Vital Signs:
Vital Signs
Temp Pulse Resp BP Pulse Ox
98.0 F 74 16 130/44 95
12/18/24 11:30 12/18/24 11:50 12/18/24 11:50 12/18/24 11:30 12/18/24 11:50
I&O
12/17/24 12/18/24 12/19/24
06:59 06:59 06:59
Intake Total 720 / 720 600 / 600
Output Total 975 / 975
Balance -255 / -255 600 / 600
Review of Systems
-
History Source: Patient
All other systems: Reviewed and negative
Physical Exam
-
General: No Apparent Distress
[2024-12-18] MEDS: LOVENOX 40 MG SC (17:03)
[2024-12-18] MEDS: NOVOLOG FLEXPEN-MODERATE RESISTANCE 7 UNITS SC (17:06)
[2024-12-18 17:08] LABS: Glucose - Point of Care 307 mg/dl (70-99)
[2024-12-18 21:33] LABS: Glucose - Point of Care 188 mg/dl (70-99)
[2024-12-18] MEDS: ASPIR LOW (ENTERIC COATED) 81 MG PO (22:43)
[2024-12-18] MEDS: LANTUS 0.1 UNITS SC (22:44)
[2024-12-19] VITALS (12 sets, daily range): BP systolic 112–136; BP diastolic 34–69; BMI 20.3
--- NOTE | 2024-12-19 05:57 | PTCARENOTE ---
Has denied any chest pain this shift.
[2024-12-19] MEDS: TYLENOL ORAL SOLUTION PO ×3 (06:40→12:37)
[2024-12-19] MEDS: MIRALAX PO (07:45)
[2024-12-19] MEDS: TOPROL XL 25 MG PO (07:47)
[2024-12-19] MEDS: DELTASONE 40 MG PO (07:47)
[2024-12-19] MEDS: NICODERM TRANSDERMAL 14 MG TRANSDERM (07:47)
[2024-12-19 07:54] LABS: Glucose - Point of Care 128 mg/dl (70-99)
[2024-12-19] MEDS: NOVOLOG FLEXPEN-MODERATE RESISTANCE SC (07:58)
--- NOTE | 2024-12-19 09:49 | W.PN.UPDATE ---
Update Note
Progress Note Update
I met with Darline Patricia at the bedside. We discussed her hospital course and echo findings. She tells me at the time of her AVR, she had two other vessels that were blocked that were not addressed at time surgery. We will see what her Cors are like
today on [facility]. We discussed her bio AVR which I believe has degenerated and less likely infected. We went over possibly needing a TAVR valve inside her SAVR. She is independent, lives on a group story place with a basement, and does her own
laundry/ADLs/Groceries. She describes some limitations with going up and down the stairs for laundry that sound orthopedic and heart failure. She states that more recently over 6 months she has had more SOB which I believe could be due to her valve
deterioration. At this time, I would move forward with her [facility] and see if anything needs to be addressed percutaneously. She will need an outpt TAVR CT with close attention paid to Cor heights/VTC/and jeremie-annular angles, with the anticipation of
needing a TAVR in SAVR. Should her TAVR CT show that she is not a candidate, then I will discuss options at that time. She brought up her Code status of being DNR and understands that for procedures, we would suspend that DNR status for a reasonable
time. She seemed ok with this idea. Will noatak back around once her R/LHC is complete.
--- NOTE | 2024-12-19 10:23 | W.PN.HOSP.TC ---
Today's Communication/Plan
-
Stop Tylenol ATC
DC prednisone
Not on Lasix per 12/19, resume 12/20
BMP in AM
Assessment / Plan
Assessment / Plan
PE:
Gen-AAOx3, NAD
HEENT-NC, AT, anicteric, clear oral mm
Neck-supple
CV-reg, 2/6 systolic murmur, +S1/S2
Lungs-clear B/L
Abd-soft, NT, ND
Musculoskeletal-no edema, no deformity
Skin-warm and dry
Neuro-grossly non-focal
Psych-calm, cooperative
Impression and plan:
Patient is a 79y F with PMH significant for COPD, continued tobacco use disorder, AVR and DM-II who presents to ED via EMS in respiratory distress.
Acute hypoxic respiratory failure:
-No evidence of PE on CT imaging, did show pulmonary edema
-Multifactorial secondary to COPD exacerbation and acute on chronic systolic heart failure
�Intubated in ED 12/15, extubated same day
-Continue steroids with prednisone 40 mg p.o. daily, will stop
-Scheduled DuoNeb with additional albuterol as needed
-Continue treatment for CHF exacerbation
-Completed a course of cefepime and Doxy empirically considering presentation and elevated procalcitonin
# Acute HFrEF, new onset
f/w cath results today
s/p Lasix, last dose 12/18
# Moderate/severe mitral regurgitation
Probably contributing to SOB
#hx AVR (2014 per OP chart), [place]
Elevated troponin:
Peaked at 1.7
possible No ischemic myocardial injury
Await cath results
No chest pains
Continue low-dose aspirin daily
-LVEF 30 to 35%, plan for cardiac cath 12/19 for further evaluation
HFrEF with acute exacerbation:
-LVEF 30 to 35%, history of bioprosthetic aortic valve replacement 2014 at [place]
-Discontinue Lasix due to low blood pressure
-Continuing beta-blockade with metoprolol succinate 25 mg daily
-Add low-dose SAUL/ARB as blood pressure allows
NIDDM:
-Uses metformin at home which we will hold while inpatient
-Started on Lantus 10 units nightly, additional sliding scale insulin as needed
-Continue to monitor and adjust regimen as needed
# Tobacco use
Chronic conditions:
Aortic valve replacement bioprosthetic valve 2014 at [facility].
Type 2 diabetes
History of CVA/TIA.
Essential hypertension
Dyslipidemia
History of bladder carcinoma 2017.
Tobacco use disorder with ongoing smoking.
CODE STATUS DNR
Total time spent to see the patient, examine the patient, review data and lab results, discuss treatment plan with patient and nursing staff around 55 minutes
Anticipated Discharge: > 48 hours
Subjective/Interval History
-
Date of Service: December 19, 2024
No chest pain
No sob
Objective Data
-
Vital Signs:
Vital Signs
Temp Pulse Resp BP Pulse Ox
98.0 F 78 16 124/35 98
12/19/24 07:44 12/19/24 07:44 12/19/24 07:44 12/19/24 07:44 12/19/24 07:44
I&O
12/18/24 12/19/24 12/20/24
06:59 06:59 06:59
Intake Total 600 / 600 1140 / 1140
Balance 600 / 600 1140 / 1140
--- NOTE | 2024-12-19 10:40 | W.PN.CD ---
Today's Communication / Plan
-
Cardiac catheterization today to clarify coronary anatomy.
Aortogram planned.
She would benefit from a BELKYS to clarify mitral anatomy.
Continue metoprolol/furosemide.
GDMT post cath.
Impression / Plan
-
Impression/Plan: 79 y/o female with tobacco abuse, HTN, HLD, COPD, Hx of CVA and aortic valve stenosis s/p prior bioprosthetic AVR admitted with acute hypoxic respiratory failure requiring mechanical ventilation, now improved after treatment of
COPD and newly discovered HFrEF (LVEF 30-35% with LAD wall motion abnormality) in the setting of moderate/severe MR and moderate severe bioprosthetic AVR insufficiency.
#Hypoxemic respiratory failure with ventilator dependence
-Acute, improved. Extubated 12/15/2024.
-Treated for COPD exacerbation also being treated for HFrEF.
-Currently DNR but agrees to have this status removed for procedures.
#HFrEF/Cardiomyopathy
-New diagnosis.
-LVEF 30-35% with LAD territory WMA.
-Dr. Giles elicited a history of chest discomfort 3 weeks ago (missed UT?), but symptoms are vague.
-Decompensation also due to multivalvular disease.
-R/L heart catheterization today to clarify coronary anatomy and filling pressures.
-GDMT as hemodynamics will tolerate.
-Continue furosemide and metoprolol.
-We will discuss ACEI/ARB/ARNi/MRA/SGLT2i post catheterization.
#Abnormal troponin
-Acute.
-Troponin 0.040 --> 0.505 --> 0.920 --> 1.720 --> 1.710 --> 0.139.
-DDx includes ACS vs. acute HF. No evidence of PE.
-Cardiac catheterization today to clarify coronary anatomy.
#hx AVR (2015 per OP chart), [place]
-Most recent echo with moderate to severe eccentric aortic regurgitation.
-Patient denies fevers.
-ID consulted. ABX given for PNA. BCx negative to date (but drawn after ABX).
-Currently off of ABX - suspicion for IE is low.
-Cardiac catheterization today to clarify coronary anatomy. Aortogram planned.
#Moderate/severe mitral regurgitation
-New diagnosis.
-The patient would likely benefit from a BELKYS for clarification of the mitral anatomy.
#NIDDM2
-Chronic, stable.
-HbA1c =
-Management per primary.
#Current smoker
-Cessation encouraged.
Subjective/Interval History:
Nursing notes reviewed. 01/09 chest pain in bathroom. Resolved.
Weight is down 2.8 kg from baseline (48.648 <-- 51.4 kg).
DATA:
Transthoracic Echocardiogram, 12/15/2024:
CONCLUSIONS
Moderately reduced left ventricular systolic function. Left ventricular
ejection fraction is 30-35%.
Near akinesis of the basal to apical anterior/anteroseptal segments.
Stage II diastolic dysfunction suggestive of abnormal relaxation and increased
filling pressures.
Moderate/severe eccentric mitral regurgitation.
s/p bioprosthetic AVR. Peak/mean gradients are 20/10mmHg. Moderate/severe
eccentric aortic regurgitation.
No prior study available for comparison.
Echocardiogram ([facility]), 02/2024:
Normal/hyperdynamic left ventricular function.
Bioprosthetic aortic valve replacement mean gradient 16 mmHg trace aortic regurgitation.
Mild mitral irritation.
Mild tricuspid regurgitation.
CT Chest, 12/15/2024:
IMPRESSION:
1). There is no pulmonary embolism.
2). There is mild pulmonary edema with small bilateral pleural effusions and compressive atelectasis at the posterior right lung base.
3).There are some superimposed small nodular areas of parenchymal density in both upper lobes which are likely related to this pulmonary edema, however, follow-up CT chest after resolution of pulmonary edema is recommended to exclude
neoplasm/pulmonary nodules.
4). Atherosclerosis with postoperative changes as described above.
Physical Exam
Vital Signs/Labs
Vital Signs
Temp Pulse Resp BP Pulse Ox
36.7 C 78 16 124/35 98
12/19/24 07:44 12/19/24 07:44 12/19/24 07:44 12/19/24 07:44 12/19/24 07:44
12/17/24 12/18/24 12/19/24
11:59 11:59 11:59
Actual Weight 48.109 kg 47.627 kg 48.648 kg
12/17/24 05:05
12/17/24 05:05
PT 15.2 Sec (11.4-14.6) H 12/15/24 05:04
INR 1.15 12/15/24 05:04
APTT 24.6 Sec (23.4-35.0) 12/15/24 05:04
Magnesium 1.8 mg/dl (1.6-2.3) 12/15/24 05:04
Triglycerides 142 mg/dl (10-149) 12/18/24 07:29
12/15/24
01:05
Inv-A-Xadsnsbguzz Pept 1890
LAB Results
12/18/24
10:12
Troponin I 0.139 H*
Physical Exam
Constitutional: No acute distress and Comfortable
EENT: Anicteric and Moist mucous membranes
Cardiovascular: Rhythm & rate is regular, Pedal edema is absent, JVD pressure is normal, Systolic murmur present and S1S2 is normal
Respiratory: Respiratory effort normal, Lungs clear to auscul. and Other (Decreased throughout.)
GI: Soft, Distention absent, Flat, Non tender and Normal bowel sounds
Neuro/Psych: AO x 3
Data Reviewed
-
Date of Service: December 19, 2024
Medical Decision Making: Reviewed Test Results, Independent Historian Assessment and Test Interpretation
EKG: Tracing Personally Visualized and interpreted and Report Reviewed by me
Echo: Tracing Personally Visualized and interpreted and Report Reviewed by me
X-Ray/CT/US/MRI/NUC/PET: Image Personally Visualized and interpreted and Report Reviewed by me
Labs: Labs Reviewed by me
Old Records: Reviewed
--- NOTE | 2024-12-19 11:33 | W.PN.UPDATE ---
Update Note
Progress Note Update
Patient seen this morning with Dr. Alvarez. Patient complained that she has been short of breath for 6 months and has been having difficulty performing ADLs at home. She lives in a one-story house with a basement. She does have a stair lift and on
days that she needs to do laundry she will use it to get down to the basement. Patient's operative report was requested from [facility], pending return information. Patient is due for a left and right heart cath today. She will
likely need follow-up outpatient for surgical planning.
--- NOTE | 2024-12-19 13:15 | PTCARENOTE ---
Received patient from production laborer in bed. AAOx3. Instructed on post cath orders. Patient verbally understands. Call borrego in close reach.
--- NOTE | 2024-12-19 13:25 | ITS.CL.CATH ---
[facility] - Catheterization
Cardiac Catheterization
Procedure Report:
CARDIAC CATHETERIZATION REPORT
Date of Procedure: 12/19/2024
Referring: Scot Villalpando M.D.
Indication: New cardiomyopathy, bioprosthetic aortic valve insufficiency, moderate to severe mitral valve regurgitation.
PROCEDURE:
1. Right heart catheterization.
2. Coronary angiography.
3. Left heart catheterization.
4. Aortography.
A total of 25 minutes of procedural/moderate sedation was utilized. An independent medical asst was present to assist with and help manage the patient's level of consciousness and physiologic status.
ACCESS:
1. 6 Russian right radial artery using a modified Seldinger technique under ultrasound guidance. Ultrasound image obtained.
2. 5 Russian right antecubital vein using a modified Seldinger technique under ultrasound guidance. Ultrasound image obtained.
3. 6 Russian right common femoral artery using a modified Seldinger technique with a micropuncture kit under ultrasound guidance. Ultrasound image obtained.
CATHETERS:
1. 5 Russian balloon.
2. 5 Russian JR4.
3. 5 Russian JL 3.5.
4. 5 Russian straight pigtail.
HEMODYNAMIC DATA
Weight (kg): 48.1
AO (s/d/x mmHg): 123/39/71
LV (s/x mmHg): 133/12
PCWP (a/v/x mmHg): 21//19
PA (s/d/x mmHg): 38/20/26
RV (s/x mmHg): 39/6
RA (a/v/x mmHg): 9/8/6
SVC SvO2 (%): 63.9
IVC SvO2 (%): Not obtained.
RA SvO2 (%): Not obtained.
RV SvO2 (%): Not obtained.
PA SvO2 (%): 61.2
SaO2 (%): 90.0
Hbg (g/dL): 11.7
PRANAV
CO (L/min): 2.96
CI (L/min/m2): 2.05
Thermodilution
CO (L/min): Not obtained
CI (L/min/m2): Not obtained.
TPG (mmHg): 7
PVR (Jacinto Units): 2.36
SVR (dynes*seconds*cm^-5): 1757
AVO2 Diff (Volume %): 4.58
AV gradient (x, mmHg): 20.82
AV area (cm2): 0.56
MV gradient (x, mmHg): 5.70
MV area (cm2): 2.0
LEFT VENTRICULOGRAPHY: Not performed.
AORTOGRAPHY: Performed in an SERBIAN projection. The aortic root, ascending aorta, aortic arch and thoracic descending aorta appear normal. A bioprosthetic aortic valve replacement is in place with severe insufficiency. There is no evidence of
dissection.
CORONARY ANGIOGRAPHY
Dominance: Left.
Left Main: Normal size, bifurcating vessel. There is no coronary artery disease.
LAD: Large size vessel giving rise to 2 significant diagonals before wrapping around the apex. There is no coronary artery disease.
Ramus: Congenitally absent.
Circumflex: Large size, dominant vessel giving rise to 2 obtuse marginals and the distal margin before terminating as an LPDA. There are minor luminal irregularities.
RCA: Small size, nondominant vessel that is flush occluded at its origin. The vessel fills via [id number] collaterals from the LAD in a Vieussen's ring.
INTERVENTIONS
None.
Closure Device: Vascular band for the right radial artery, manual pressure for the right antecubital vein and right common femoral artery.
Radiation dose (mGy): 268.83
DAP (cm2.Gy): 22.1588
Fluoroscopy time (minutes): 6.6
CONCLUSIONS:
1. Left dominant circulation with flush occlusion of the nondominant right coronary artery which fills via a left like collateral from the LAD (Vieussen's ring).
2. Normal filling pressures (LVEDP = 12 mmHg at 48.1 kg).
3. Significant pulmonary venous hypertension given discrepancy between PCWP and LVEDP (PCWP = 19 mmHg).
4. Mild, postcapillary pulmonary hypertension (mean PA = 26 mmHg, PCWP = 19 mmHg, cardiac output = 2.96 L/min, PVR = 2.36 Jacinto units).
5. Status post prior bioprosthetic SAVR, now with severe insufficiency.
6. Moderate to severe mitral valve regurgitation by echocardiogram.
7. Severe right radial artery spasm and a relatively small vessel, making radial access undesirable for any future catheterization.
RECOMMENDATIONS:
1. Expectant management after cardiac catheterization via right radial/right femoral/right antecubital approach.
2. Limited weight bearing on the right wrist for one week.
3. Guideline directed medical therapy as hemodynamics will tolerate.
4. The patient would likely benefit from transesophageal echocardiogram to better characterize mitral anatomy.
5. Consultation with CT surgery regarding optimal valve repair/replacement strategy given underlying pulmonary disease. This will require completion of a TAVR and ALEC workup.
Copy to: Scot Villalpando M.D.
Ranulfo Urbina DO, FACC, FACP
[2024-12-19 13:42] LABS: Glucose - Point of Care 198 mg/dl (70-99)
[2024-12-19] MEDS: NOVOLOG FLEXPEN-MODERATE RESISTANCE 1 UNITS SC ×2 (13:56→17:41)
--- NOTE | 2024-12-19 15:36 | W.PN.ID1 ---
Date of Service
Date of Service: December 19, 2024
Today's Communication
Continue off antibiotics.
Assessment / Plan
Exacerbation COPD; s/p VDRF
Low-grade leukocytosis; likely steroid related
Valvular disease (aortic stenosis/mitral regurgitation)
- Hx bioprosthetic AVR (2014)
- possible need for revision of AVR
Elevated procalcitonin
Elevated procalcitonin
Transaminitis
COPD
HTN
Dyslipidemia
DM type II
Anxiety/depression
Nephrolithiasis
Hx bladder cancer
Hx CVA
Recommendations:
At present, given normal ESR and CRP, the probability of infective endocarditis is low.
Observe off antibiotics.
Doubt further need for blood cultures as risk of false positive is likely greater than true positive.
����������������������������������������������������������
Chief Complaint
-: Other (Valvulopathy)
Subjective / Review of Systems
Review of Systems: No Fever and No Chills
Vital Signs / Physical Exam
Vital Signs
Vital Signs
Temp Pulse Resp BP Pulse Ox
97.3 F 85 18 121/41 96
12/19/24 14:30 12/19/24 14:30 12/19/24 14:30 12/19/24 14:30 12/19/24 14:30
Physical Exam
Constitutional: Comfortable, Chronically Ill and Non-toxic
Eyes: No Conjunctival Hemorrhage and Sclera Anicteric
Cardiovascular: S1/S2 and Murmur; Negative S3/S4
Pulmonary: Non Labored
Gastrointestinal: Soft and Non Tender
Extremities: Negative Splinter Hemorrhage or Janeway Lesions
Neurological: Awake and Alert
Psychological: Calm
Objective Data
Lab Data
Lab Results
12/17/24 05:05
12/17/24 05:05
ESR 7 mm/hour (0-20) 12/18/24 07:29
PT 15.2 Sec (11.4-14.6) H 12/15/24 05:04
INR 1.15 12/15/24 05:04
APTT 24.6 Sec (23.4-35.0) 12/15/24 05:04
Estimated Creat Clear 40 ml/min 12/17/24 05:05
Lactic Acid 2.1 mmol/L (0.7-2.0) H 12/15/24 11:26
Total Bilirubin 0.7 mg/dl (0.2-1.3) 12/16/24 04:03
AST 143 U/L (14-36) H 12/16/24 04:03
ALT 183 U/L (0-35) H 12/16/24 04:03
Alkaline Phosphatase 102 U/L (38-126) 12/16/24 04:03
C-Reactive Protein 8.30 mg/L (0.0-10.00) 12/18/24 07:29
Most recent labs reviewed.
Micro Results:
12/16/24 10:28 Blood Culture - Preliminary
Blood/Venous No Growth in 72 hours- Final report to follow
12/16/24 09:50 Blood Culture - Preliminary
Blood/Venous No Growth in 72 hours- Final report to follow
12/15/24 13:13 Respiratory Culture - Final
Tracheal Aspirate Usual Respiratory Khadijah
Gram Stain - Final
12/15/24 05:04 Legionella Urinary Antigen - Final
Urine Negative for Legionella pneumophila Serogroup 1 antigen.
A negative result does not rule out the possiblity of
Legionella infection due to other serogroups or species of
Legionella. Clinical correlation is recommended.
Streptococcus pneumoniae Antigen (M - Final
Negative for Streptococcus pneumoniae antigen.
A negative result does not exclude infection with
Streptococcus pneumoniae. Clinical correlation is
recommended.
12/15/24 01:49 Influenza Types A & B (AMALIA) - Final
Nasal Swab Negative for Influenza A & B, NAAT
Negative results must be combined with clinical observations
and patient history.
Nucleic Acid Amplification test (NAAT)performed on the
[employer] platform.
Imaging:
12/15/2024 CT chest (PE study): No pulmonary embolism noted. Mild pulmonary edema. Some superimposed small nodular areas of parenchymal density in both upper lobes likely related to pulmonary edema. Atherosclerosis with postoperative changes.
Please see full dictation for additional detail. Film personally viewed.
12/15/2024 ECHO (TTE): Moderately reduced LV systolic function. EF approximately 30 to 35%. Near akinesis of the basal to apical anterior/anteroseptal segments. There is stage II diastolic dysfunction. Moderate/severe eccentric mitral
regurgitation. Patient is status post bioprosthetic AVR with peak/mean gradients of 20/10 mmHg moderate/severe eccentric aortic regurgitation noted. No intracardiac thrombus formation noted on dictation.
[2024-12-19 17:23] LABS: Glucose - Point of Care 189 mg/dl (70-99)
[2024-12-19] MEDS: LOVENOX 40 MG SC (17:41)
[2024-12-19] MEDS: ASPIR LOW (ENTERIC COATED) 81 MG PO (20:48)
[2024-12-19] MEDS: PEPCID 20 MG PO (20:48)
[2024-12-19] MEDS: ZETIA 10 MG PO (20:50)
[2024-12-19 22:28] LABS: Glucose - Point of Care 190 mg/dl (70-99)
[2024-12-19] MEDS: LANTUS 0.06 UNITS SC (23:46)
[2024-12-20] VITALS (7 sets, daily range): BP systolic 92–131; BP diastolic 34–58; PULSE 82; O2SAT 96; BMI 19.7
[2024-12-20 03:58] LABS: Glucose - Point of Care 142 mg/dl (70-99)
[2024-12-20] MEDS: SYNTHROID 50 MCG PO (05:15)
[2024-12-20 06:36] LABS: Hematocrit 29.7 % (37.0-47.0); Hemoglobin 9.6 g/dL (12.0-16.0); Mean Corp Hgb Conc. 32.3 g/dL (33.0-37.0); Mean Corpuscular Hgb 28.1 pg (27.0-31.0); Mean Corpuscular Volume 86.8 fL (81.0-99.0); Mean Platelet Volume 9.9 fL (7.4-10.4); Platelet Count 194 10^3/uL (130-400); Red Blood Cell Count 3.42 10^6/uL (4.20-5.40); Red Cell Dist. Width 14.9 % (11.5-14.5); White Blood Cell Count 10.9 10^3/uL (4.8-10.8)
--- NOTE | 2024-12-20 06:49 | W.PN.UPDATE ---
Update Note
Progress Note Update
Spirometry + DLCO PFT ordered to assess degree of lung disease as part of preop evaluation per Dr. Alvarez
[2024-12-20 06:56] LABS: Blood Urea Nitrogen 33 mg/dl (7-17); Calcium 8.6 mg/dl (8.4-10.2); Carbon Dioxide 26 mmol/L (22-30); Chloride 105 mmol/L (98-107); Estimated Creatinine Clearance 51 ml/min; Glucose 137 mg/dl (70-99); Potassium 4.2 mmol/L (3.5-5.1); Sodium 136 mmol/L (135-145); eGFR > 60.00
[2024-12-20 07:25] LABS: Glucose - Point of Care 174 mg/dl (70-99)
[2024-12-20] MEDS: NOVOLOG FLEXPEN-MODERATE RESISTANCE SC ×2 (07:30→13:55)
[2024-12-20] MEDS: VENTOLIN NEBULES 2.5 MG INH (07:54)
[2024-12-20] MEDS: TOPROL XL 25 MG PO (08:27)
[2024-12-20] MEDS: NICODERM TRANSDERMAL 14 MG TRANSDERM (08:27)
[2024-12-20] MEDS: LASIX 20 MG PO (08:27)
[2024-12-20] MEDS: PEPCID 20 MG PO (08:27)
[2024-12-20] MEDS: KCL 20 MEQ PO (08:27)
[2024-12-20] MEDS: MIRALAX PO (08:28)
--- NOTE | 2024-12-20 11:03 | W.PN.HOSP.TC ---
Today's Communication/Plan
-
.
Assessment / Plan
Assessment / Plan
PE:
Gen-AAOx3, NAD
HEENT-NC, AT, anicteric, clear oral mm
Neck-supple
CV-reg, 2/6 systolic murmur, +S1/S2
Lungs-clear B/L
Abd-soft, NT, ND
Musculoskeletal-no edema, no deformity
Skin-warm and dry
Neuro-grossly non-focal
Psych-calm, cooperative
Impression and plan:
Patient is a 79y F with PMH significant for COPD, continued tobacco use disorder, AVR and DM-II who presents to ED via EMS in respiratory distress.
Acute hypoxic respiratory failure:
-No evidence of PE on CT imaging, did show pulmonary edema
-Multifactorial secondary to COPD exacerbation and acute on chronic systolic heart failure
�Intubated in ED 12/15, extubated same day
-Continue steroids with prednisone 40 mg p.o. daily, will stop
-Scheduled DuoNeb with additional albuterol as needed
-Continue treatment for CHF exacerbation
-Completed a course of cefepime and Doxy empirically considering presentation and elevated procalcitonin
# Acute HFrEF, new onset
S/p cardiac catheterization with no obstructive coronary disease. Pulmonary venous pressure. Recommend further workup for valve repair/replacement/TAVR repair. BELKYS to assess anatomy of mitral valve as suspected severe mitral regurgitation
s/p Lasix, last dose 12/18
# Moderate/severe mitral regurgitation
Probably contributing to SOB
#hx AVR (2015 per OP chart), [place]
Seems to need repair
CT surgery is following, appreciate help
Elevated troponin:
Peaked at 1.7
Consistent with no ischemic myocardial injury
No chest pains
Continue low-dose aspirin daily
-LVEF 30 to 35%, plan for cardiac cath 12/19 for further evaluation
HFrEF with acute exacerbation:
-LVEF 30 to 35%, history of bioprosthetic aortic valve replacement 2014 at [place]
On low-dose Lasix.
-Continuing beta-blockade with metoprolol succinate 25 mg daily
NIDDM:
-Uses metformin at home which we will hold while inpatient
-Started on Lantus 6 units nightly, additional sliding scale insulin as needed
-Continue to monitor and adjust regimen as needed
# Tobacco use
# Memory impairment
Chronic conditions:
Aortic valve replacement bioprosthetic valve 2014 at [facility].
Type 2 diabetes
History of CVA/TIA.
Essential hypertension
Dyslipidemia
History of bladder carcinoma 2017.
Tobacco use disorder with ongoing smoking.
CODE STATUS DNR
Total time spent to see the patient, examine the patient, review data and lab results, discuss treatment plan with patient and nursing staff around 55 minutes
Anticipated Discharge: > 48 hours
Subjective/Interval History
-
Date of Service: December 20, 2024
No chest pain
No sob
Objective Data
-
Labs:
Laboratory Results
12/20/24
05:51
WBC 10.9 H
Hgb 9.6 L
Hct 29.7 L
Plt Count 194 D
Sodium 136
Potassium 4.2
Chloride 105
Carbon Dioxide 26
BUN 33 H
Creatinine 0.7
Glucose 137 H
Calcium 8.6
Vital Signs:
Vital Signs
Temp Pulse Resp BP Pulse Ox
97.5 F 94 18 124/44 95
12/20/24 07:35 12/20/24 08:27 12/20/24 07:35 12/20/24 08:27 12/20/24 07:35
I&O
12/19/24 12/20/24 12/21/24
06:59 06:59 06:59
Intake Total 1140 / 1140 1340 / 1340
Balance 114 / 1140 1340 / 1340
--- NOTE | 2024-12-20 12:17 | W.PN.CD ---
Today's Communication / Plan
-
BELKYS done today showing normal lver, severe bioprosthetic valve regurgitation, severe mr
consider surgical valve replacements, d/w Dr Alvarez
resume diet
keep even
Impression / Plan
-
Impression/Plan: 79 y/o female with tobacco abuse, HTN, HLD, COPD, Hx of CVA and aortic valve stenosis s/p prior bioprosthetic AVR admitted with acute hypoxic respiratory failure requiring mechanical ventilation, now improved after treatment of
COPD and newly discovered HFrEF (LVEF 30-35% with LAD wall motion abnormality) in the setting of moderate/severe MR and moderate severe bioprosthetic AVR insufficiency.
#Hypoxemic respiratory failure with ventilator dependence
-Acute, improved. Extubated 12/15/2024.
-Treated for COPD exacerbation also being treated for HFrEF.
-Currently DNR but agrees to have this status removed for procedures.
#HFrEF/Cardiomyopathy
-New diagnosis.
-LVEF 30-35% with LAD territory WMA.----> EF 55-60% on BELKYS 12/20/24
-Dr. Giles elicited a history of chest discomfort 3 weeks ago (missed PA?), but symptoms are vague.
-Decompensation also due to multivalvular disease.
-R/L heart catheterization today to clarify coronary anatomy and filling pressures.
-GDMT as hemodynamics will tolerate and when timing of possible surgery clear.
-Continue furosemide and metoprolol.
-We will discuss ACEI/ARB/ARNi/MRA/SGLT2i in the future
#Abnormal troponin
-Acute.
-Troponin 0.040 --> 0.505 --> 0.920 --> 1.720 --> 1.710 --> 0.139.
-DDx includes ACS vs. acute HF. No evidence of PE.
-Cardiac catheterization today to clarify coronary anatomy.
#hx AVR (2015 per OP chart), [place]
-Most recent echo with moderate to severe eccentric aortic regurgitation.--> BELKYS with severe valvular regurgitation
-Patient denies fevers.
-ID consulted. ABX given for PNA. BCx negative to date (but drawn after ABX).
-Currently off of ABX - suspicion for IE is low.
-will need replacement
#Moderate/severe mitral regurgitation
-BELKYS full report to follow
- 2 seperate moderate jets for a culmilative severe mitral regurgitation. Post leaflet is small<1 cm and tethtered without good coaptation of the leaflets.
-Given the anatomy I don't think a mitral clip would be a good option for treatement and she would benefit from dual valve surgery.
-EF has improved
-Images and findings discussed with Dr Alvarez, he will consider with patient.
#NIDDM2
-Chronic, stable.
-HbA1c =
-Management per primary.
#Current smoker
-Cessation encouraged.
Subjective/Interval History:
she is feeling well without complaint
DATA:
Cath 12/19/24:
CONCLUSIONS:
1. Left dominant circulation with flush occlusion of the nondominant right coronary artery which fills via a left like collateral from the LAD (Vieussen's ring).
2. Normal filling pressures (LVEDP = 12 mmHg at 48.1 kg).
3. Significant pulmonary venous hypertension given discrepancy between PCWP and LVEDP (PCWP = 19 mmHg).
4. Mild, postcapillary pulmonary hypertension (mean PA = 26 mmHg, PCWP = 19 mmHg, cardiac output = 2.96 L/min, PVR = 2.36 Jacinto units).
5. Status post prior bioprosthetic SAVR, now with severe insufficiency.
6. Moderate to severe mitral valve regurgitation by echocardiogram.
7. Severe right radial artery spasm and a relatively small vessel, making radial access undesirable for any future catheterization.
RECOMMENDATIONS:
1. Expectant management after cardiac catheterization via right radial/right femoral/right antecubital approach.
2. Limited weight bearing on the right wrist for one week.
3. Guideline directed medical therapy as hemodynamics will tolerate.
4. The patient would likely benefit from transesophageal echocardiogram to better characterize mitral anatomy.
5. Consultation with CT surgery regarding optimal valve repair/replacement strategy given underlying pulmonary disease. This will require completion of a TAVR and ALEC workup
Transthoracic Echocardiogram, 12/15/2024:
CONCLUSIONS
Moderately reduced left ventricular systolic function. Left ventricular
ejection fraction is 30-35%.
Near akinesis of the basal to apical anterior/anteroseptal segments.
Stage II diastolic dysfunction suggestive of abnormal relaxation and increased
filling pressures.
Moderate/severe eccentric mitral regurgitation.
s/p bioprosthetic AVR. Peak/mean gradients are 20/10mmHg. Moderate/severe
eccentric aortic regurgitation.
No prior study available for comparison.
Echocardiogram ([facility]), 02/2024:
Normal/hyperdynamic left ventricular function.
Bioprosthetic aortic valve replacement mean gradient 16 mmHg trace aortic regurgitation.
Mild mitral irritation.
Mild tricuspid regurgitation.
CT Chest, 12/15/2024:
IMPRESSION:
1). There is no pulmonary embolism.
2). There is mild pulmonary edema with small bilateral pleural effusions and compressive atelectasis at the posterior right lung base.
3).There are some superimposed small nodular areas of parenchymal density in both upper lobes which are likely related to this pulmonary edema, however, follow-up CT chest after resolution of pulmonary edema is recommended to exclude
neoplasm/pulmonary nodules.
4). Atherosclerosis with postoperative changes as described above.
Physical Exam
Vital Signs/Labs
Vital Signs
Temp Pulse Resp BP Pulse Ox
98.3 F 77 18 116/38 97
12/20/24 11:35 12/20/24 11:35 12/20/24 11:35 12/20/24 11:35 12/20/24 11:35
01/12/20/24 12/21/24
06:59 06:59 06:59
Actual Weight 48.648 kg 47.372 kg
12/20/24 05:51
12/20/24 05:51
PT 15.2 Sec (11.4-14.6) H 12/15/24 05:04
INR 1.15 12/15/24 05:04
APTT 24.6 Sec (23.4-35.0) 12/15/24 05:04
Magnesium 1.8 mg/dl (1.6-2.3) 12/15/24 05:04
Triglycerides 142 mg/dl (10-149) 12/18/24 07:29
12/15/24
01:05
Pjg-C-Lyhirejffxc Pept 1890
LAB Results
12/18/24
10:12
Troponin I 0.139 H*
Physical Exam
Constitutional: No acute distress
Cardiovascular: Rhythm & rate is regular, Pedal edema present, Systolic murmur present and Diastolic murmur present
Respiratory: Respiratory effort normal, Lungs clear to auscul., Wheeze Absent and Crackles Absent
Neuro/Psych: AO x 3
Data Reviewed
-
Date of Service: December 20, 2024
Medical Decision Making: Review of Case with other Provider (case discussed with Dr Alvarez, Dr Urbina and Dr Sanchez)
Medical Tests (PFT, Pathology etc): Image Personally Visualized and interpreted (belkys above)
[2024-12-20 13:53] LABS: Glucose - Point of Care 127 mg/dl (70-99)
--- NOTE | 2024-12-20 15:45 | W.PN.ID1 ---
Date of Service
Date of Service: December 20, 2024
Today's Communication
Observe off antibiotics.
Assessment / Plan
Exacerbation COPD; s/p VDRF
Low-grade leukocytosis; likely steroid related
Valvular disease (aortic stenosis/mitral regurgitation)
- Hx bioprosthetic AVR (2014)
- possible need for revision of AVR
Elevated procalcitonin
Elevated procalcitonin
Transaminitis
COPD
HTN
Dyslipidemia
DM type II
Anxiety/depression
Nephrolithiasis
Hx bladder cancer
Hx CVA
Recommendations:
At present, given normal ESR and CRP, the probability of infective endocarditis is low.
Observe off antibiotics.
Doubt further need for blood cultures as risk of false positive is likely greater than true positive.
No objection to valve surgery from a Infectious Diseases standpoint.
����������������������������������������������������������
Chief Complaint
-: Other (Valvulopathy)
Subjective / Review of Systems
Review of Systems: No Fever and No Chills
Vital Signs / Physical Exam
Vital Signs
Vital Signs
Temp Pulse Resp BP Pulse Ox
98.3 F 77 18 116/38 97
12/20/24 11:35 12/20/24 11:35 12/20/24 11:35 12/20/24 11:35 12/20/24 11:35
Physical Exam
Constitutional: Comfortable, Chronically Ill and Non-toxic
Eyes: No Conjunctival Hemorrhage and Sclera Anicteric
Pulmonary: Non Labored
Gastrointestinal: Soft and Non Distended
Extremities: Negative Splinter Hemorrhage or Janeway Lesions
Neurological: Awake and Alert
Psychological: Calm
Objective Data
Lab Data
Lab Results
12/20/24 05:51
12/20/24 05:51
ESR 7 mm/hour (0-20) 12/18/24 07:29
PT 15.2 Sec (11.4-14.6) H 12/15/24 05:04
INR 1.15 12/15/24 05:04
APTT 24.6 Sec (23.4-35.0) 12/15/24 05:04
Estimated Creat Clear 51 ml/min 12/20/24 05:51
Lactic Acid 2.1 mmol/L (0.7-2.0) H 12/15/24 11:26
Total Bilirubin 0.7 mg/dl (0.2-1.3) 12/16/24 04:03
AST 143 U/L (14-36) H 12/16/24 04:03
ALT 183 U/L (0-35) H 12/16/24 04:03
Alkaline Phosphatase 102 U/L (38-126) 12/16/24 04:03
C-Reactive Protein 8.30 mg/L (0.0-10.00) 12/18/24 07:29
Most recent labs reviewed.
Micro Results:
12/16/24 10:28 Blood Culture - Preliminary
Blood/Venous No Growth in 4 days- Final report to follow
12/16/24 09:50 Blood Culture - Preliminary
Blood/Venous No Growth in 4 days- Final report to follow
12/15/24 13:13 Respiratory Culture - Final
Tracheal Aspirate Usual Respiratory Khadijah
Gram Stain - Final
12/15/24 05:04 Legionella Urinary Antigen - Final
Urine Negative for Legionella pneumophila Serogroup 1 antigen.
A negative result does not rule out the possiblity of
Legionella infection due to other serogroups or species of
Legionella. Clinical correlation is recommended.
Streptococcus pneumoniae Antigen (M - Final
Negative for Streptococcus pneumoniae antigen.
A negative result does not exclude infection with
Streptococcus pneumoniae. Clinical correlation is
recommended.
12/15/24 01:49 Influenza Types A & B (AMALIA) - Final
Nasal Swab Negative for Influenza A & B, NAAT
Negative results must be combined with clinical observations
and patient history.
Nucleic Acid Amplification test (NAAT)performed on the
[employer] platform.
Imaging:
12/15/2024 CT chest (PE study): No pulmonary embolism noted. Mild pulmonary edema. Some superimposed small nodular areas of parenchymal density in both upper lobes likely related to pulmonary edema. Atherosclerosis with postoperative changes.
Please see full dictation for additional detail. Film personally viewed.
12/15/2024 ECHO ([facility]): Moderately reduced LV systolic function. EF approximately 30 to 35%. Near akinesis of the basal to apical anterior/anteroseptal segments. There is stage II diastolic dysfunction. Moderate/severe eccentric mitral
regurgitation. Patient is status post bioprosthetic AVR with peak/mean gradients of 20/10 mmHg moderate/severe eccentric aortic regurgitation noted. No intracardiac thrombus formation noted on dictation.
--- NOTE | 2024-12-20 16:35 | CM ---
CM met with Darline and her daughter at bedside. Therapies recommend home health care to which Darline is agreeable. PAC information provided and is being reviewed.
CM will follow up with Darline to refer to home care agency of choice once known.
[2024-12-20 16:53] LABS: Glucose - Point of Care 299 mg/dl (70-99)
[2024-12-20] MEDS: LOVENOX 40 MG SC (17:09)
[2024-12-20] MEDS: NOVOLOG FLEXPEN-MODERATE RESISTANCE 5 UNITS SC (17:09)
[2024-12-20 21:26] LABS: Glucose - Point of Care 90 mg/dl (70-99)
[2024-12-20] MEDS: ZETIA 10 MG PO (22:29)
[2024-12-20] MEDS: ASPIR LOW (ENTERIC COATED) 81 MG PO (22:29)
[2024-12-20 23:02] LABS: Glucose - Point of Care 106 mg/dl (70-99)
[2024-12-21] VITALS (8 sets, daily range): BP systolic 107–125; BP diastolic 35–45; O2SAT 96; BMI 19.8
--- NOTE | 2024-12-21 02:15 | DOWNTIME ---
There was a [employer] Client [employer] Worker Downtime on 12/21/2024 from 0100 to 12/21/2023 at 0205 . Downtime documentation of patient's care, including medication administrations, has been reconciled in the electronic record per guidelines. Refer to the
patient's paper chart under the miscellaneous tab to see printed paper medication records and downtime forms.
[2024-12-21] MEDS: SYNTHROID 50 MCG PO (05:50)
[2024-12-21 08:05] LABS: Glucose - Point of Care 148 mg/dl (70-99)
[2024-12-21] MEDS: NOVOLOG FLEXPEN-MODERATE RESISTANCE SC (08:14)
[2024-12-21] MEDS: LASIX 20 MG PO (08:15)
[2024-12-21] MEDS: PEPCID 20 MG PO (08:15)
[2024-12-21] MEDS: TOPROL XL 25 MG PO (08:15)
[2024-12-21] MEDS: KCL 20 MEQ PO (08:15)
[2024-12-21] MEDS: NICODERM TRANSDERMAL 14 MG TRANSDERM (08:16)
[2024-12-21] MEDS: MIRALAX 17 GRAMS PO (08:16)
--- NOTE | 2024-12-21 09:04 | W.PN.CD ---
Addendum entered and electronically signed by Evelyn Velarde MD 12/21/24 13:28:
I spoke to CT Surgery, will actually consider TAVR first before considering a high risk Redo sternotomy with double valve. OP work up with CT scan. Will hold off on further GDMT. I have asked echo to make a copy of BELKYS for her to review with op
Cardiology. Dr Urbina updated yesterday.
Discharge planning under way
I will return at your request
Original Note:
Today's Communication / Plan
-
await CT Surgery input for candidacy and planning
Impression / Plan
-
Impression/Plan: 79 y/o female with tobacco abuse, HTN, HLD, COPD, Hx of CVA and aortic valve stenosis s/p prior bioprosthetic AVR admitted with acute hypoxic respiratory failure requiring mechanical ventilation, now improved after treatment of
COPD and newly discovered HFrEF (LVEF 30-35% with LAD wall motion abnormality) in the setting of moderate/severe MR and moderate severe bioprosthetic AVR insufficiency.
#Hypoxemic respiratory failure with ventilator dependence
-Acute, improved. Extubated 12/15/2024.
-Treated for COPD exacerbation also being treated for HFrEF.
-Currently DNR but agrees to have this status removed for procedures.
#HFrEF/Cardiomyopathy
-New diagnosis.
-LVEF 30-35% with LAD territory WMA.----> EF 55-60% on BELKYS 12/20/24
-Dr. Giles elicited a history of chest discomfort 3 weeks ago (missed [place]?), but symptoms are vague.
-Decompensation also due to multivalvular disease.
-R/L heart catheterization below no sig CAD
-GDMT as hemodynamics will tolerate and when timing of possible surgery clear.
-Continue furosemide and metoprolol.
-We will discuss ACEI/ARB/ARNi/MRA/SGLT2i in the future
#Abnormal troponin
-Acute.
-Troponin 0.040 --> 0.505 --> 0.920 --> 1.720 --> 1.710 --> 0.139.
-DDx includes ACS vs. acute HF. No evidence of PE.
-Cardiac catheterization without sig dx
#hx AVR (2015 per OP chart), [place]
-Most recent echo with moderate to severe eccentric aortic regurgitation.--> BELKYS 12/20/24 with severe valvular regurgitation
-Patient denies fevers.
-ID consulted. ABX given for PNA. BCx negative to date (but drawn after ABX).
-Currently off of ABX - suspicion for IE is low.
-will need replacement
#Moderate/severe mitral regurgitation
-BELKYS full report to follow
- 2 seperate moderate jets for a culmilative severe mitral regurgitation. Post leaflet is small<1 cm and tethtered without good coaptation of the leaflets.
-Given the anatomy I don't think a mitral clip would be a good option for treatement and she would benefit from dual valve surgery.
-higher risk as redo
-EF has improved
-Images and findings discussed with Dr Alvarez, he will consider with patient. Await full input on candidacy and planning
#NIDDM2
-Chronic, stable.
-HbA1c =
-Management per primary.
#Current smoker
-Cessation encouraged.
Subjective/Interval History:
she is feeling well without complaint.
DATA:
Cath 12/19/24:
CONCLUSIONS:
1. Left dominant circulation with flush occlusion of the nondominant right coronary artery which fills via a left like collateral from the LAD (Vieussen's ring).
2. Normal filling pressures (LVEDP = 12 mmHg at 48.1 kg).
3. Significant pulmonary venous hypertension given discrepancy between PCWP and LVEDP (PCWP = 19 mmHg).
4. Mild, postcapillary pulmonary hypertension (mean PA = 26 mmHg, PCWP = 19 mmHg, cardiac output = 2.96 L/min, PVR = 2.36 Jacinto units).
5. Status post prior bioprosthetic SAVR, now with severe insufficiency.
6. Moderate to severe mitral valve regurgitation by echocardiogram.
7. Severe right radial artery spasm and a relatively small vessel, making radial access undesirable for any future catheterization.
RECOMMENDATIONS:
1. Expectant management after cardiac catheterization via right radial/right femoral/right antecubital approach.
2. Limited weight bearing on the right wrist for one week.
3. Guideline directed medical therapy as hemodynamics will tolerate.
4. The patient would likely benefit from transesophageal echocardiogram to better characterize mitral anatomy.
5. Consultation with CT surgery regarding optimal valve repair/replacement strategy given underlying pulmonary disease. This will require completion of a TAVR and ALEC workup
Transthoracic Echocardiogram, 12/15/2024:
CONCLUSIONS
Moderately reduced left ventricular systolic function. Left ventricular
ejection fraction is 30-35%.
Near akinesis of the basal to apical anterior/anteroseptal segments.
Stage II diastolic dysfunction suggestive of abnormal relaxation and increased
filling pressures.
Moderate/severe eccentric mitral regurgitation.
s/p bioprosthetic AVR. Peak/mean gradients are 20/10mmHg. Moderate/severe
eccentric aortic regurgitation.
No prior study available for comparison.
Echocardiogram ([facility]), 02/2024:
Normal/hyperdynamic left ventricular function.
Bioprosthetic aortic valve replacement mean gradient 16 mmHg trace aortic regurgitation.
Mild mitral irritation.
Mild tricuspid regurgitation.
CT Chest, 12/15/2024:
IMPRESSION:
1). There is no pulmonary embolism.
2). There is mild pulmonary edema with small bilateral pleural effusions and compressive atelectasis at the posterior right lung base.
3).There are some superimposed small nodular areas of parenchymal density in both upper lobes which are likely related to this pulmonary edema, however, follow-up CT chest after resolution of pulmonary edema is recommended to exclude
neoplasm/pulmonary nodules.
4). Atherosclerosis with postoperative changes as described above.
Physical Exam
Vital Signs/Labs
Vital Signs
Temp Pulse Resp BP Pulse Ox
98.4 F 80 18 112/38 98
12/21/24 07:33 12/21/24 08:15 12/21/24 07:33 12/21/24 08:15 12/21/24 07:33
12/20/24 12/21/24 12/22/24
06:59 06:59 06:59
Actual Weight 47.372 kg 47.627 kg
12/20/24 05:51
12/20/24 05:51
PT 15.2 Sec (11.4-14.6) H 12/15/24 05:04
INR 1.15 12/15/24 05:04
APTT 24.6 Sec (23.4-35.0) 12/15/24 05:04
Magnesium 1.8 mg/dl (1.6-2.3) 12/15/24 05:04
Triglycerides 142 mg/dl (10-149) 12/18/24 07:29
12/15/24
01:05
Frm-R-Lglyvmysjmf Pept 1890
LAB Results
12/18/24
10:12
Troponin I 0.139 H*
Physical Exam
Constitutional: No acute distress
Cardiovascular: Rhythm & rate is regular, Pedal edema is absent, Systolic murmur present and Diastolic murmur present
Respiratory: Respiratory effort normal, Lungs clear to auscul., Wheeze Absent, Crackles Absent and Rhonchi Absent
Neuro/Psych: AO x 3
Data Reviewed
-
Date of Service: December 21, 2024
Medical Decision Making: Review of Case with other Provider (Dr Sanchez await surgery input)
EKG: Other (tele sinus with pac/pvcs)
Medical Tests (PFT, Pathology etc): Discussed with Patient (results of BELKYS, plan for surgery evaluation )
--- NOTE | 2024-12-21 09:21 | W.PN.HOSP.TC ---
Today's Communication/Plan
-
d/w cardiology
One dose Diflucan
Assessment / Plan
Assessment / Plan
PE:
Gen-AAOx3, NAD
HEENT-NC, AT, anicteric, clear oral mm
Neck-supple
CV-reg, 2/6 systolic murmur, +S1/S2
Lungs-clear B/L
Abd-soft, NT, ND
Musculoskeletal-no edema, no deformity
Skin-warm and dry. Bruising right groin/ labia
Neuro-grossly non-focal
Psych-calm, cooperative
Impression and plan:
Patient is a 79y F with PMH significant for COPD, continued tobacco use disorder, AVR and DM-II who presents to ED via EMS in respiratory distress.
Acute hypoxic respiratory failure:
-No evidence of PE on CT imaging, did show pulmonary edema
-Multifactorial secondary to COPD exacerbation and acute on chronic systolic heart failure
�Intubated in ED 12/15, extubated same day
-Continue steroids with prednisone 40 mg p.o. daily, will stop
-Scheduled DuoNeb with additional albuterol as needed
-Continue treatment for CHF exacerbation
-Completed a course of cefepime and Doxy empirically considering presentation and elevated procalcitonin
# vaginal itching, recent AB use
Pelvic exam, no suspicious lesions
Will give one time dose Diflucan.
# Acute HFrEF, new onset
S/p cardiac catheterization with no obstructive coronary disease. Pulmonary venous pressure. Recommend further workup for valve repair/replacement/TAVR repair. BELKYS was done, seems to need a surgical repair to Aortic and Mitral valves.
Continuing beta-blockade with metoprolol succinate 25 mg daily
On Daily oral Lasix.
# Moderate/severe mitral regurgitation
#hx AVR (2014 per OP chart), [place]
CT surgery is following, await further planning, appreciate help
#Elevated troponin:
Peaked at 1.7
Consistent with no ischemic myocardial injury
No chest pains
Continue low-dose aspirin daily
-LVEF 30 to 35%, plan for cardiac cath 12/19 for further evaluation
# NIDDM:
-Uses metformin at home, on hold while inpatient
-Started on Lantus 6 units nightly, additional sliding scale insulin as needed
-Continue to monitor and adjust regimen as needed
# Tobacco use
# Memory impairment
Chronic conditions:
Aortic valve replacement bioprosthetic valve 2015 at [facility].
Type 2 diabetes
History of CVA/TIA.
Essential hypertension
Dyslipidemia
History of bladder carcinoma 2016.
Tobacco use disorder with ongoing smoking.
CODE STATUS DNR
Total time spent to see the patient, examine the patient, review data and lab results, discuss treatment plan with patient and nursing staff around 57 minutes
Anticipated Discharge: > 48 hours
Subjective/Interval History
-
Date of Service: December 21, 2024
No chest pain
No sob
No fevers
Objective Data
-
Vital Signs:
Vital Signs
Temp Pulse Resp BP Pulse Ox
98.4 F 80 18 112/38 98
12/21/24 07:33 12/21/24 08:15 12/21/24 07:33 12/21/24 08:15 12/21/24 07:33
I&O
12/20/24 12/21/24 12/22/24
06:59 06:59 06:59
Intake Total 1340 / 1340 720 / 720
Balance 1340 / 1340 720 / 720
[2024-12-21] MEDS: DIFLUCAN 100 MG PO (10:08)
--- NOTE | 2024-12-21 11:12 | W.PN.UPDATE ---
Update Note
Progress Note Update
Recommendation from CTS:
As she is clinically stable and improved from her admission, I would recommend discharge with diuresis and outpt TAVR CT. Should her TAVR CT look amenable for [id number], this would likely provide her with some symptomatic relief - she would be a
20 caraballo varsha with her 21 mitraflo. If her TAVR CT shows that she is not a candidate for [id number], then I will bring her back to my office to discuss high risk Double valve replacement possible reconstruction of her fibrous body vs
palliative/hospice for heart failure.
Thank you for involving me in the care of this patient. Please feel free to contact me with any questions or concerns.
Jamie Alvarez MD, MS
Cardiothoracic Surgeon
[facility]
This dictation was created using the [employer] dictation system. Please excuse any grammatical, typographical, or 'sound alike' errors.
[2024-12-21 11:33] LABS: Glucose - Point of Care 171 mg/dl (70-99)
[2024-12-21] MEDS: NOVOLOG FLEXPEN-MODERATE RESISTANCE 1 UNITS SC ×2 (11:40→17:26)
--- NOTE | 2024-12-21 16:16 | W.PN.ID1 ---
Date of Service
Date of Service: December 21, 2024
Today's Communication
Observe off antibiotics.
Assessment / Plan
Exacerbation COPD; s/p VDRF
Low-grade leukocytosis; likely steroid related
Valvular disease (aortic stenosis/mitral regurgitation)
- Hx bioprosthetic AVR (2014)
- possible need for revision of AVR
Elevated procalcitonin
Elevated procalcitonin
Transaminitis
COPD
HTN
Dyslipidemia
DM type II
Anxiety/depression
Nephrolithiasis
Hx bladder cancer
Hx CVA
Recommendations:
At present, given normal ESR and CRP, the probability of infective endocarditis is low.
Observe off antibiotics.
Doubt further need for blood cultures as risk of false positive is likely greater than true positive.
No objection to valve surgery from a Infectious Diseases standpoint.
����������������������������������������������������������
Chief Complaint
-: Other (Valvulopathy)
Subjective / Review of Systems
Review of Systems: No Fever and No Chills
Vital Signs / Physical Exam
Vital Signs
Vital Signs
Temp Pulse Resp BP Pulse Ox
99 F 82 18 107/45 98
12/21/24 11:48 12/21/24 11:48 12/21/24 11:48 12/21/24 11:48 12/21/24 11:48
Physical Exam
Constitutional: Comfortable, Chronically Ill and Non-toxic
Eyes: No Conjunctival Hemorrhage and Sclera Anicteric
Pulmonary: Non Labored
Gastrointestinal: Soft and Non Distended
Extremities: Negative Splinter Hemorrhage or Janeway Lesions
Neurological: Awake and Alert
Psychological: Calm
Objective Data
Lab Data
Lab Results
12/20/24 05:51
12/20/24 05:51
ESR 7 mm/hour (0-20) 12/18/24 07:29
PT 15.2 Sec (11.4-14.6) H 12/15/24 05:04
INR 1.15 12/15/24 05:04
APTT 24.6 Sec (23.4-35.0) 12/15/24 05:04
Estimated Creat Clear 51 ml/min 12/20/24 05:51
Lactic Acid 2.1 mmol/L (0.7-2.0) H 12/15/24 11:26
Total Bilirubin 0.7 mg/dl (0.2-1.3) 12/16/24 04:03
AST 143 U/L (14-36) H 12/16/24 04:03
ALT 183 U/L (0-35) H 12/16/24 04:03
Alkaline Phosphatase 102 U/L (38-126) 12/16/24 04:03
C-Reactive Protein 8.30 mg/L (0.0-10.00) 12/18/24 07:29
Most recent labs reviewed.
Micro Results:
12/16/24 10:28 Blood Culture - Final
Blood/Venous No Growth - Final Report
12/16/24 09:50 Blood Culture - Final
Blood/Venous No Growth - Final Report
12/15/24 13:13 Respiratory Culture - Final
Tracheal Aspirate Usual Respiratory Khadijah
Gram Stain - Final
12/15/24 05:04 Legionella Urinary Antigen - Final
Urine Negative for Legionella pneumophila Serogroup 1 antigen.
A negative result does not rule out the possiblity of
Legionella infection due to other serogroups or species of
Legionella. Clinical correlation is recommended.
Streptococcus pneumoniae Antigen (M - Final
Negative for Streptococcus pneumoniae antigen.
A negative result does not exclude infection with
Streptococcus pneumoniae. Clinical correlation is
recommended.
12/15/24 01:49 Influenza Types A & B (AMALIA) - Final
Nasal Swab Negative for Influenza A & B, NAAT
Negative results must be combined with clinical observations
and patient history.
Nucleic Acid Amplification test (NAAT)performed on the
[employer] NOW platform.
Imaging:
12/15/2024 CT chest (PE study): No pulmonary embolism noted. Mild pulmonary edema. Some superimposed small nodular areas of parenchymal density in both upper lobes likely related to pulmonary edema. Atherosclerosis with postoperative changes.
Please see full dictation for additional detail. Film personally viewed.
12/15/2024 ECHO (TTE): Moderately reduced LV systolic function. EF approximately 30 to 35%. Near akinesis of the basal to apical anterior/anteroseptal segments. There is stage II diastolic dysfunction. Moderate/severe eccentric mitral
regurgitation. Patient is status post bioprosthetic AVR with peak/mean gradients of 20/10 mmHg moderate/severe eccentric aortic regurgitation noted. No intracardiac thrombus formation noted on dictation.
Care Review
Plan reviewed with: Physician (CT Sx)
--- NOTE | 2024-12-21 16:45 | CM ---
Spoke with pt in room .
PT OT indicated VN
Offered Vn pt requested [facility]
Pt said Pat dgt [place]
PLAN Home with Luisa AQUINO fax [phone]
[2024-12-21 16:51] LABS: Glucose - Point of Care 169 mg/dl (70-99)
[2024-12-21] MEDS: LOVENOX 40 MG SC (17:27)
[2024-12-21] MEDS: ZETIA 10 MG PO (21:43)
[2024-12-21] MEDS: ASPIR LOW (ENTERIC COATED) 81 MG PO (21:43)
[2024-12-21 22:14] LABS: Glucose - Point of Care 139 mg/dl (70-99)
[2024-12-22] VITALS (9 sets, daily range): BP systolic 97–133; BP diastolic 33–47; PULSE 82; O2SAT 98; BMI 19.7
[2024-12-22] MEDS: SYNTHROID 50 MCG PO (05:40)
[2024-12-22 08:21] LABS: Glucose - Point of Care 169 mg/dl (70-99)
[2024-12-22] MEDS: NOVOLOG FLEXPEN-MODERATE RESISTANCE 1 UNITS SC ×2 (09:02→12:51)
[2024-12-22] MEDS: KCL 20 MEQ PO (09:02)
[2024-12-22] MEDS: PEPCID 20 MG PO (09:03)
[2024-12-22] MEDS: TOPROL XL 25 MG PO (09:03)
[2024-12-22] MEDS: LASIX 20 MG PO (09:03)
[2024-12-22] MEDS: GLUCOTROL XL (EXTENDED RELEASE) 2.5 MG PO (09:03)
[2024-12-22] MEDS: NICODERM TRANSDERMAL 14 MG TRANSDERM (09:04)
[2024-12-22] MEDS: MIRALAX PO (09:18)
--- NOTE | 2024-12-22 09:40 | W.PN.HOSP.TC ---
Today's Communication/Plan
-
Discharge Thursday morning
d/w daughter, plan for home care
Low dose Glipizide given
Assessment / Plan
Assessment / Plan
PE:
Gen-AAOx3, NAD
HEENT-NC, AT, anicteric, clear oral mm
Neck-supple
CV-reg, 2/6 systolic murmur, +S1/S2
Lungs-clear B/L
Abd-soft, NT, ND
Musculoskeletal-no edema, no deformity
Skin-warm and dry. Bruising right groin/ labia
Neuro-grossly non-focal
Psych-calm, cooperative
Impression and plan:
Patient is a 79y F with PMH significant for COPD, continued tobacco use disorder, AVR and DM-II who presents to ED via EMS in respiratory distress.
Acute hypoxic respiratory failure:
-No evidence of PE on CT imaging, did show pulmonary edema
-Multifactorial secondary to COPD exacerbation and acute on chronic systolic heart failure
�Intubated in ED 12/15, extubated same day
-Continue steroids with prednisone 40 mg p.o. daily, stopped.
-Scheduled DuoNeb with additional albuterol as needed
-Continue treatment for CHF exacerbation
-Completed a course of cefepime and Doxy empirically considering presentation and elevated procalcitonin
# vaginal itching, recent AB use
Pelvic exam, no suspicious lesions
Will give one time dose Diflucan.
# Acute HFrEF, new onset
S/p cardiac catheterization with no obstructive coronary disease. Pulmonary venous pressure. Recommend further workup for valve repair/replacement/TAVR repair. BELKYS was done, seems to need a surgical repair to Aortic and Mitral valves.
Continuing beta-blockade with metoprolol succinate 25 mg daily
On Daily oral Lasix.
# Moderate/severe mitral regurgitation/ history of AVR (2014 per OP chart), [place]
Will need surgical repair
follow-up appointment outpatient with Dr. Alvarez on 01/09
#Elevated troponin:
Peaked at 1.7
Consistent with no ischemic myocardial injury
No chest pains
Continue low-dose aspirin daily
-LVEF 30 to 35%, plan for cardiac cath 12/19 for further evaluation
# NIDDM:
-Uses metformin at home,
we had long discussion. DM management is causing stress to her, she could not tolerate high-dose metformin, she developed nausea and vomiting. She is able to tolerate 1000 mg 1 time a day for metformin. She refuses insulin treatment. Will try
low-dose long-acting glipizide and likely discharge on both and follow-up with her primary care doctor.
# Tobacco use
# Memory impairment
Chronic conditions:
Aortic valve replacement bioprosthetic valve 2015 at [facility].
Type 2 diabetes
History of CVA/TIA.
Essential hypertension
Dyslipidemia
History of bladder carcinoma 2016.
Tobacco use disorder with ongoing smoking.
CODE STATUS DNR
Total time spent to see the patient, examine the patient, review data and lab results, discuss treatment plan with patient, daughter and nursing staff around 57 minutes
Anticipated Discharge: Within 24 hours
Subjective/Interval History
-
Date of Service: December 22, 2024
No chest pain, no sob
No fevers
Objective Data
-
Vital Signs:
Vital Signs
Temp Pulse Resp BP Pulse Ox
98.6 F 79 18 113/39 99
12/22/24 06:55 12/22/24 06:55 12/22/24 06:55 12/22/24 06:55 12/22/24 09:00
I&O
12/21/24 12/22/24 12/23/24
06:59 06:59 06:59
Intake Total 720 / 720 780 / 780
Balance 720 / 720 780 / 780
--- NOTE | 2024-12-22 10:33 | W.PN.UPDATE ---
Update Note
Progress Note Update
Met patient with Dr. Alvarez this morning. Discussed surgical options of TAVR versus SAVR. Patient has a follow-up appointment outpatient with Dr. Alvarez on 01/09 at 2:45 PM. At that point her TAVR CT will be reviewed for surgical determination. CT
surgery will sign off at this time.
[2024-12-22 12:36] LABS: Glucose - Point of Care 155 mg/dl (70-99)
[2024-12-22 16:54] LABS: Glucose - Point of Care 107 mg/dl (70-99)
[2024-12-22] MEDS: NOVOLOG FLEXPEN-MODERATE RESISTANCE SC (17:01)
[2024-12-22] MEDS: LOVENOX 40 MG SC (17:31)
[2024-12-22] MEDS: GLUCOPHAGE 1000 MG PO (17:32)
[2024-12-22] MEDS: ASPIR LOW (ENTERIC COATED) 81 MG PO (21:17)
[2024-12-22] MEDS: ZETIA 10 MG PO (21:17)
[2024-12-22 21:24] LABS: Glucose - Point of Care 235 mg/dl (70-99)
[2024-12-23 03:55] VITALS: BP 109/32
[2024-12-23 04:00] VITALS: BP 109/32
[2024-12-23] MEDS: SYNTHROID 50 MCG PO (05:19)
[2024-12-23] MEDS: NOVOLOG FLEXPEN-MODERATE RESISTANCE 1 UNITS SC (08:14)
[2024-12-23] MEDS: TOPROL XL 25 MG PO (08:15)
[2024-12-23] MEDS: PEPCID 20 MG PO (08:15)
[2024-12-23] MEDS: KCL 20 MEQ PO (08:15)
[2024-12-23] MEDS: LASIX 20 MG PO (08:15)
[2024-12-23] MEDS: GLUCOTROL XL (EXTENDED RELEASE) 2.5 MG PO (08:15)
[2024-12-23] MEDS: MIRALAX PO (08:16)
[2024-12-23] MEDS: NICODERM TRANSDERMAL 14 MG TRANSDERM (08:16)
--- NOTE | 2024-12-23 10:48 | W.PN.HOSP.TC ---
Today's Communication/Plan
-
Discharge
Assessment / Plan
Assessment / Plan
PE:
Gen-AAOx3, NAD
HEENT-NC, AT, anicteric, clear oral mm
Neck-supple
CV-reg, 2/6 systolic murmur, +S1/S2
Lungs-clear B/L
Abd-soft, NT, ND
Musculoskeletal-no edema, no deformity
Skin-warm and dry. Bruising right groin/ labia
Neuro-grossly non-focal
Psych-calm, cooperative
Impression and plan:
Patient is a 79y F with PMH significant for COPD, continued tobacco use disorder, AVR and DM-II who presents to ED via EMS in respiratory distress.
Acute hypoxic respiratory failure:
-No evidence of PE on CT imaging, did show pulmonary edema
-Multifactorial secondary to COPD exacerbation and acute on chronic systolic heart failure
�Intubated in ED 12/15, extubated same day
- Finished steroids with prednisone 40 mg p.o. daily. Evaluated by pulmonary doctor. Has been on RA for several day with no cough or sob. .
- Can go back on home inhaler. Given Nicotine patch, counseled to quit smoking, she verbalized understanding.
-Continue treatment for CHF exacerbation, dc on oral Lasix and potassium supplement.
-Completed a course of cefepime and Doxy empirically considering presentation and elevated procalcitonin
# vaginal itching, recent AB use
Pelvic exam, no suspicious lesions
Resolved with one dose Diflucan.
# Acute HFrEF, new onset
S/p cardiac catheterization with no obstructive coronary disease. Pulmonary venous pressure. Recommend further workup for valve repair/replacement/TAVR repair. BELKYS was done, seems to need a surgical repair to Aortic and Mitral valves.
Continuing beta-blockade with metoprolol succinate 25 mg daily
On Daily oral Lasix.
# Moderate/severe mitral regurgitation/ history of AVR (2014 per OP chart), [place]
Will need surgical repair
follow-up appointment outpatient with Dr. Alvarez on 01/09
#Elevated troponin:
Peaked at 1.7
Consistent with no ischemic myocardial injury
No chest pains
Continue low-dose aspirin daily
-LVEF 30 to 35%, plan for cardiac cath 12/19 for further evaluation
# NIDDM:
-Uses metformin at home,
we had long discussion. DM management is causing stress to her, she could not tolerate high-dose metformin, she developed nausea and vomiting. She is able to tolerate 1000 mg 1 time a day for metformin. She refuses insulin treatment. Given
long-acting glipizide in hospital with no reaction, advised to follow-up with her primary care doctor.
# Tobacco use, counseled to quit, she verbalized understanding, given nicotine patch
# Memory impairment, family is aware and she is discharged with home care.
Chronic conditions:
Aortic valve replacement bioprosthetic valve 2014 at [facility].
Type 2 diabetes
History of CVA/TIA.
Essential hypertension
Dyslipidemia
History of bladder carcinoma 2016.
Tobacco use disorder with ongoing smoking.
CODE STATUS DNR
Total discharge time spent to see the patient, examine the patient, review data and lab results, discuss discharge plan with patient, daughter and nursing staff around 69 minutes
Anticipated Discharge: Today
Subjective/Interval History
-
Date of Service: December 23, 2024
No chest pain
No sob
Objective Data
-
Vital Signs:
Vital Signs
Temp Pulse Resp BP Pulse Ox
98.3 F 76 17 109/32 97
12/23/24 03:55 12/23/24 03:55 12/23/24 03:55 12/23/24 03:55 12/23/24 08:10
I&O
12/22/24 12/23/24 12/24/24
06:59 06:59 06:59
Intake Total 780 / 780 480 / 480 240 / 240
Balance 780 / 780 480 / 480 240 / 240
--- NOTE | 2024-12-23 10:53 | W.DCSUMMARY ---
Discharge Summary
Discharge Data
Date of Admission: 12/15/24
Date of Discharge: 12/23/24
-
Pending Results: No
Hospital Course
79 years old female presented with respiratory distress. Patient was intubated in the emergency room for hypoxia and respiratory acidosis. Patient was admitted to the intensive care unit. She was diagnosed with acute exacerbation of chronic
obstructive pulmonary disease/acute heart failure with reduced ejection fraction, metabolic acidosis, respiratory disoriented and leukocytosis. She had elevated procalcitonin. She was started on intravenous antibiotic and intravenous steroid with
nebulizer treatment. She was evaluated by pulmonary doctor infectious disease big machine consultant. Blood culture did not show any growth. She had normal ESR and CRP. She was able to come off the ventilatory support and her oxygenation started to improve
to room air with normal oxygenation. Antibiotics were discontinued. Finish course of steroid. Echocardiogram showed newly diagnosed ejection fraction. Left ventricular ejection fraction of 30 to 35% with progression of mitral regurgitation and
moderate to severe eccentric aortic regurgitation. Hat Lacer followed the patient. She underwent left and right cardiac catheterization with no significant coronary artery disease. Transesophageal echocardiogram showed severe aortic valve
regurgitation with severe mitral regurgitation. Hat Lacer recommended CT evaluation. Patient was evaluated by CT surgery recommended outpatient follow-up for discussion and further workup for surgical repair. Patient was started on Lasix, she
tolerated treatment well. She remained hemodynamically stable. Patient did not want to go on insulin treatment if needed. Glipizide was started with no side effects. She was noted to have mild memory impairment. Family was aware. Case
management evaluated the patient. She was discharged home in a stable condition with home care services.
Discharge Plan
-
Patient Disposition: Home with Home Care
Discharge Diagnosis/Procedures: Valvular heart disease, you will need to follow with OP doctors.
Acute hypoxic respiratory failure, resolved
Diabetes, we added new medicine called glipizide to metformin. Please follow-up with your primary care doctor and monitor your blood glucose at home
Diet: Diabetic, Carb Controlled
Stand Alone Forms: DC Instructions- Cath/EP Lab
Referrals:
Jennifer Alanis MD [Active] - in two to three weeks
(Or nurse practitioner
Needs follow-up CT, 6-minute walk test, PFTs)
Patt Luo CRNP [Specified Professional Personl] - 01/19/25 10:00 am (Cardiology followup appointment)
Adolfo Decker MD [Family Provider] -
Jamie Alvarez MD [Active] - 01/09/25 2:45 pm (discuss redo surgical vs percutaneous aortic valve replacemnt)
Additional Discharge Medication Instructions: HOLD metformin post cath- OK to resume on 12/21 in AM
Prescriptions:
New
nicotine 14 mg/24 hr Patch 24 Hour
14 mg transdermal DAILY Qty: 28 0RF
potassium chloride 20 mEq Tablet,Er Particles/Crystals
20 meq PO DAILY Qty: 3 0RF
furosemide 20 mg Tablet
20 mg PO DAILY Qty: 30 0RF
glipizide 5 mg tablet extended release 24hr
5 mg PO DAILY Qty: 30 0RF
Continued
metformin 500 mg tablet
1,000 mg PO QPM
sertraline 100 mg tablet
150 mg PO DAILY
aspirin 81 mg Tablet,Delayed Release (Dr/Ec)
81 mg PO HS
metoprolol succinate 25 mg tablet extended release 24 hr
25 mg PO DAILY
vitamin B complex Capsule
1 cap PO DAILY
rosuvastatin [Crestor] 20 mg Tablet
20 mg PO Daily
albuterol sulfate 90 mcg/actuation HFA aerosol inhaler
2 puff inhalation Q6H PRN (Reason: shortness of breath or wheezing) Qty: 8.5 0RF
ezetimibe 10 mg Tablet
10 mg PO DAILY
PreserVision AREDS-2 250-90-40-1 mg Capsule
1 tab PO BID
berberine chloride 500 mg Capsule
500 mg PO DAILY
levothyroxine 50 mcg Tablet
50 mcg PO DAILY
Trelegy Ellipta 100-62.5-25 mcg Blister With Device
1 inh INHALATION DAILY
Discontinued
famotidine 40 mg tablet
40 mg PO BID
Discharge Orders:
Discharge Patient (As Directed); Ordered 12/23/24
Ordered By: Jose Sanchez
Discharge Date and Time
Print Language: FRISIAN
--- NOTE | 2024-12-23 11:08 | CM ---
MD entered order for discharge.
Spoke with pt and dgt .
IMM reviewed with pt and dgt . Both agree with dc
Offered Vn pt requested [facility]
Pat dgt [place]
PLAN Home with Luisa AQUINO fax [phone]
[2024-12-23 11:10] VITALS: BP 103/34
[2024-12-23 11:37] LABS: Glucose - Point of Care 140 mg/dl (70-99)
[2024-12-23] MEDS: NOVOLOG FLEXPEN-MODERATE RESISTANCE SC (12:05)
== END 2024-12-23 12:00 | disposition home health service (06) | DRG 286 ==
LOC: 4 EAST ACU 03:53
PROVIDERS: Emergency Medicine; Internal Medicine; Internal Medicine Cardiovascular Disease; Nurse Practitioner; Nurse Practitioner Family; ADMITTING PHYSICIAN Hospitalist; ATTENDING PHYSICIAN Internal Medicine; CONSULT PHYSICIAN Internal Medicine Critical Care Medicine; CONSULT PHYSICIAN Internal Medicine Infectious Disease; EMERGENCY PHYSICIAN Emergency Medicine; FAMILY PHYSICIAN Family Medicine; OTHER PHYSICIAN Internal Medicine; OTHER PHYSICIAN Thoracic Surgery (Cardiothoracic Vascular Surgery)
PROC: 5A1935Z Respiratory Ventilation, Less than 24 Consecutive Hours (ICD-10-PCS; 2024-12-15)
PROC: 0BH17EZ Insertion of Endotracheal Airway into Trachea, Via Natural or Artificial Opening (ICD-10-PCS; 2024-12-15)
PROC: B211YZZ Fluoroscopy of Multiple Coronary Arteries using Other Contrast (ICD-10-PCS; 2024-12-19)
PROC: 4A023N8 Measurement of Cardiac Sampling and Pressure, Bilateral, Percutaneous Approach (ICD-10-PCS; 2024-12-19)
PROC: B24BZZ4 Ultrasonography of Heart with Aorta, Transesophageal (ICD-10-PCS; 2024-12-20)
DX: I08.3 Combined rheumatic disorders of mitral, aortic and tricuspid valves (principal); I50.23 Acute on chronic systolic (congestive) heart failure; J96.01 Acute respiratory failure with hypoxia; J44.1 Chronic obstructive pulmonary disease with (acute) exacerbation; Z99.11 Dependence on respirator [ventilator] status; E87.4 Mixed disorder of acid-base balance; I5A Non-ischemic myocardial injury (non-traumatic); I42.9 Cardiomyopathy, unspecified; Z66 Do not resuscitate; I11.0 Hypertensive heart disease with heart failure; F32.A Depression, unspecified; F41.9 Anxiety disorder, unspecified; F17.210 Nicotine dependence, cigarettes, uncomplicated; E11.65 Type 2 diabetes mellitus with hyperglycemia; I27.29 Other secondary pulmonary hypertension; D72.829 Elevated white blood cell count, unspecified; D64.9 Anemia, unspecified; E78.00 Pure hypercholesterolemia, unspecified; I25.2 Old myocardial infarction; Z95.3 Presence of xenogenic heart valve; Z88.0 Allergy status to penicillin; Z86.73 Personal history of transient ischemic attack (TIA), and cerebral infarction without residual deficits; Z85.51 Personal history of malignant neoplasm of bladder; Z82.49 Family history of ischemic heart disease and other diseases of the circulatory system; Z79.899 Other long term (current) drug therapy; Z79.890 Hormone replacement therapy; Z79.84 Long term (current) use of oral hypoglycemic drugs; Z79.82 Long term (current) use of aspirin
CPT/HCPCS: 94729; 31500; 71045; 71275; 76937; 80048; 80053; 80076; 82010; 82805; 82962; 83036; 83605; 83735; 83880; 84100; 84145; 84443; 84478; 84484; 85025; 85027; 85610; 85652; 85730; 86140; 87040; 87070; 87205; 87449; 87502; 87811; 87899; 93005; 93306; 93312; 93320; 93325; 93460; 93567; 94002; 94060; 94640; 94660; 96361; 96374; 96375; 97110; 97116; 97162; 97166; 97530; 97535; 99152; 99153; 99291; 99406; C1894; Q9967

== ENCOUNTER → 2025-01-04 09:29 | Outpatient (REF) | payer MEDICARE, OTHER, SELFPAY | LOC: RAD 09:29 | PROVIDERS: ATTENDING PHYSICIAN Thoracic Surgery (Cardiothoracic Vascular Surgery); FAMILY PHYSICIAN Family Medicine | DX: Z01.810 Encounter for preprocedural cardiovascular examination (principal) | CPT/HCPCS: 74174; 75572; Q9967 ==

== ENCOUNTER 2025-01-25 08:03 | Inpatient (IN) | payer MEDICARE, OTHER, SELFPAY ==
[2025-01-25] VITALS (86 sets, daily range): BP systolic 62–180; BP diastolic 30–89; BMI 20.9; BMI 20.8
--- NOTE | 2025-01-25 05:41 | EDRN ---
[facility] The patient arrives being bagged with 100% oxygen. The patient ins SR with occ. PVC's. Dr. Huff at bedside resp. called
--- NOTE | 2025-01-25 05:44 | EDRN ---
10 of Etomidat given in the 20 g left INT 7 of vecuronium. The patient was intubated at 05:45 a 7.5 ETT. 21 at the lip.
[2025-01-25 06:06] LABS: Hematocrit 41.2 % (37.0-47.0); Hemoglobin 12.1 g/dL (12.0-16.0); INR 1.14; Mean Corp Hgb Conc. 29.4 g/dL (33.0-37.0); Mean Corpuscular Hgb 27.2 pg (27.0-31.0); Mean Corpuscular Volume 92.6 fL (81.0-99.0); Mean Platelet Volume 9.8 fL (7.4-10.4); PT 14.9 Sec (11.4-14.6); Platelet Count 219 10^3/uL (130-400); Red Blood Cell Count 4.45 10^6/uL (4.20-5.40); Red Cell Dist. Width 15.2 % (11.5-14.5); White Blood Cell Count 14.1 10^3/uL (4.8-10.8)
[2025-01-25 06:07] LABS: APTT 33.4 Sec (23.4-35.0)
[2025-01-25 06:08] LABS: Glucose - Point of Care 331 mg/dl (70-99)
--- NOTE | 2025-01-25 06:17 | ED.GENMED ---
History of Present Illness
General
Chief Complaint: Cardiac Symptoms
Source: family and ambulance crew
Time Seen by Provider: 01/25/25 06:17
Nursing documentation reviewed up to this point in time: agreed with
History of Present Illness
History of Present Illness:
Patient brought in by EMS unresponsive being bagged. According to paramedics, patient was found by daughter minimally responsive this morning. Daughter stated that mom was gasping for air and in between breaths she said ' 911'. Upon arrival, EMS
found that patient's oxygen saturation 70% on room air. They stated that family told them that 'patient is due for surgery tomorrow to repair a torn aorta'. Upon arrival, patient was being bagged and she was mottled. She was minimally responsive
to painful stimuli. Patient bagged continuously. She was then prepared for intubation. I did intubate her using the glide scope without any complications. We did remove 1 set of dentures. Patient tolerated procedure well. Tube was checked via
chest x-ray as well as direct video laryngoscopy. After patient was stabilized reached out to Dr. Yonathan Joseph, cardiothoracic surgery. He was able to clarify the procedure was indeed a TAVR scheduled for tomorrow. He immediately came to the
emergency department.
Past History
Past History
ED Past Medical History: COPD, HTN, Hypercholesterolemia, NIDDM, Valvular disease and Psychiatric
ED Past Surgical History: Cardiac and Orthopedic
Social History
Tobacco: Smoker
Alcohol: Other
Drug: Other
Personal: Other
Living: other
Employment: Other
Review of Systems
Review of Systems
Allergies reviewed?: Yes
Unable to obtain full review of systems at this time due to: intubated
Other source history: family and ambulance crew
All Other Systems: Not applicable
Constitutional: Reports no symptoms
EENT: Reports no symptoms
Respiratory: Reports trouble breathing
Cardiac: Reports no symptoms
ABD/GI: Reports no symptoms
: Reports no symptoms
Musculoskeletal: Reports no symptoms
Skin: Reports no symptoms
Neurological: Reports no symptoms
Endocrine: Reports no symptoms
Hematologic/Lymphatic: Reports no symptoms
Psychiatric: Reports no symptoms
Phy Exam
Physical Exam
Physical Exam:
CODE EXAM:
VITAL SIGNS: Stable
GENERAL EXAM: Mottled
EYES: Pupils sluggish
ENT: Patient initially bagged but then intubated by myself
NECK: No venous distention
RESPIRATORY: Equal breath sounds
CARDIAC: Normal heart sounds with no murmur
VASCULAR: Pulses
ABDOMEN: Soft no masses
GUAIAC: Not done
MUSCULOSKELETAL: Unable to evaluate strength
EXTREMITIES: No edema or contractures
SKIN: No rash, pale skin
PSYCH: Mood, affect unable to evaluate
General Physical Exam
General Presentation: severe distress
General age: appears stated age
General Skin: pale
General Habitus: elderly
General Mental: other (Obtunded, minimally responsive to painful stimuli)
Pulmonary Exam
Pulmonary Exam: generalized wheezing
Respiratory Effort: poor respiratory effort
Oxygen Status: bagged mask assistance
Cough: no cough
Respirations: labored
Sepsis
Sepsis Screening
Sepsis Assessment: Septic Shock
Sepsis Screening: Lactate >2mmol/L, Lactate >/=4mmol/L, Worsening O2 Saturation and Need for mechanical ventilation or BiPAP
Sepsis Screen
Sepsis Screen: Septic Shock
Date: 01/26/25
Time: 22:03
Course
Orders/Labs/Results
Orders:
Orders
01/25/25 05:38
Electrocardiogram (*1) Urgent
Reason for Study: Other
Other Reason for Exam: unresponsive
EKG- Treatment ONCE
Portable Chest Xray [CR Chest Portable - 1 View] Stat
Comment:
Reason For Exam: unresponsive
Reason Study Needs to be Portable: Patient Unstable
01/25/25 05:48
ABG [Arterial Blood Gas] Stat
%Oxygen/Room Air: 100%
CMP [Comprehensive Metabolic Panel] Urgent
Complete Blood Count/With Diff Urgent
PTT Urgent
Prothrombin Time Urgent
Triglycerides Urgent
Comment: ADD ON
Troponin I Urgent
01/25/25 05:49
Lactate Level [Lactic Acid] Urgent
01/25/25 05:52
Danielson Placement- Treatment ONCE
Reason for insertion: I&O's Critical Care
Danielson Catheter [Catheter- Indwelling] As Directed
Reason for insertion: I&O's Critical Care
Assess insertion reason daily.Remove if no longer applicable: Yes
01/25/25 06:02
Urinalysis Reflex To Culture Urgent
Date Specimen was Collected: 01/25/25
Time Specimen was Collected: 06:01
Urine Microscopic Reflex Cult Urgent
01/25/25 06:11
Bedside Glucose- Treatment ONCE
01/25/25 06:15
CT Chest PE Study Urgent
Comment: per CT sx
Reason For Exam: dyspnea,
01/25/25 06:55
Propofol 1,000,000 Mcg/100 ml [Diprivan] 1,000,000 mcg in 100 ml .ROUTE .STK-MED
01/25/25 07:01
Propofol 1,000,000 Mcg/100 ml [Diprivan] 1,000,000 mcg in 100 ml IV NOW
01/25/25 07:02
Restraints - Non Violent As Directed
Justification-Patient:: 1-Attempts to remove tube
Restraint Type-: Soft Limb-L&R Wrist/4rail
Apply From (date): 01/25/25
Apply from (time): 07:02
Remove (date): 01/26/25
Remove (time): 23:59
01/25/25 07:04
Add On- LAB Urgent
Tests Added?: triglycerides
01/25/25 07:37
Admit Patient As Directed
Co-Sign Provider:
Level of Care: Inpatient admission
Assign to:: CVICU
Physician / Group: Jake
Diagnosis: Severe Aortic stensis
Reason for Hospitalization: Cardiogenic shock
Expected length of stay greater than two midnights?: Yes
ELOS- Estimated Length of Stay in days: 5
I certify the patient meets the requirements for IP care: Yes
Acetaminophen [Tylenol] 650 mg PO Q4HPRN PRN
Bisacodyl [Dulcolax] 10 mg RECTAL [id number] PRN
Docusate W/Senna [Senokot-S] 1 tablet PO BIDPRN PRN
Ondansetron Injectable [Zofran] 4 mg IV Q6HPRN PRN
Polyethylene Glycol Powder [Miralax] 17 grams PO DAILYPRN PRN
Activity As Directed
Activity Level: Bedrest
Intake/ Output As Directed
Frequency: q1h
Vital Signs As Directed
Frequency: q1h
Weight As Directed
Frequency: Daily
Rx Incentive Spirometry [RESP] Routine
Frequency: q1h while awake
01/25/25 07:38
Pneumatic Compression Sleeves As Directed
Type: Knee high
PRN Pain Medication Management As Directed
May give lesser potent ordered pain med per pt: Yes
preference::
Protocol:: Medication orders for pain may be administered in a
manner that supports deferring to patient preference
when the pt is:
- Requesting an ordered lesser potent pain medication.
Least to most potent pain medications are defined
as: acetaminophen < NSAID < tramadol < opioids
(morphine, oxycodone, hydromorphone).
- Requesting a lesser dose of the same medication IF
ORDERED.
- Requesting a less intrusive route of administration
if both routes are prescribed by the provider (PO <
IV).
DX Deep Vein Thrombosis Video Routine
01/25/25 07:48
Add On- LAB Urgent
Tests Added?: CVE, Magnesium, Iron
01/25/25 07:57
Ammonia Routine
Lactate Level [Lactic Acid] Q6H
01/25/25 08:00
Basic Metabolic Panel Routine
Cardiovascular Evaluation Routine
Iron Routine
Magnesium Routine
01/25/25 Lunch
NPO
Allow oral meds: Yes
Allow clear liquids: No
01/25/25 10:53
PTT Routine
Prothrombin Time Routine
01/25/25 10:54
ABG with Lytes, iCa [Arterial Blood Gas, Lytes, iCa] Routine
%Oxygen/Room Air: vent
Comment: upon arrival to CVICU
01/25/25 14:14
Lactate Level [Lactic Acid] Q6H
01/26/25 03:20
Complete Blood Count/With Diff IN AM
01/26/25 06:00
Electrocardiogram (*1) IN AM
Reason for Study: Abnormal EKG
Abnormal Lab Results
01/25/25 01/25/25 01/25/25
05:48 05:49 06:02
WBC 14.1 H 10^3/uL
(4.8-10.8)
MCHC 29.4 L g/dL
(33.0-37.0)
RDW 15.2 H %
(11.5-14.5)
Abs Immat Gran (auto) 0.1 H 10^3/uL
(0-0.05)
Absolute Lymphs (auto) 6.4 H 10^3/uL
(1.2-3.4)
Absolute Monos (auto) 1.0 H 10^3/uL
(0.1-0.6)
Immature Gran % 0.8 H %
(0-0.5)
PT 14.9 H Sec
(11.4-14.6)
pH 7.08 L*
(7.35-7.45)
pCO2 62 H mmHg
(32-35)
pO2 300 H mmHg
(83-108)
HCO3 18.4 L mmol/L
(21-28)
ABG O2 Sat (Measured) 100.0 H %
(94-98)
Chloride
Carbon Dioxide 15 L mmol/L
(22-30)
Glucose 292 H mg/dl
(70-99)
Lactic Acid 8.9 H* mmol/L
(0.7-2.0)
Calcium
AST 148 H U/L
(14-36)
ALT 114 H U/L
(0-35)
Urine Bacteria (Reflex) Few A
(Negative)
Urine Albumin (Reflex) 1+ A
(Neg - Trace)
POC Glucose
01/25/25 01/25/25 01/25/25
06:07 07:57 08:00
WBC
MCHC
RDW
Abs Immat Gran (auto)
Absolute Lymphs (auto)
Absolute Monos (auto)
Immature Gran %
PT
pH
pCO2
pO2
HCO3
ABG O2 Sat (Measured)
Chloride 108 H mmol/L
(98-107)
Carbon Dioxide 21 L mmol/L
(22-30)
Glucose 239 H mg/dl
(70-99)
Lactic Acid 2.2 H mmol/L
(0.7-2.0)
Calcium 8.0 L mg/dl
(8.4-10.2)
AST
ALT
Urine Bacteria (Reflex)
Urine Albumin (Reflex)
POC Glucose 331 H mg/dl
(70-99)
01/25/25 05:48
01/25/25 08:00
Vital Signs
Initial and Last Documented VS:
Initial Vital Signs
Temp Pulse Resp BP Pulse Ox
95 F L 104 16 178/89 97
01/25/25 05:35 01/25/25 05:35 01/25/25 05:35 01/25/25 05:35 01/25/25 05:35
Last Documented Vital Signs
Temp Pulse Resp BP Pulse Ox
98.4 F 81 20 109/47 99
01/26/25 21:00 01/26/25 21:50 01/26/25 21:50 01/26/25 21:30 01/26/25 21:10
*EKG
Interpreted by ED Provider?: Yes
Heart Rate: 104
Rate: tachycardiac
Rhythm: sinus
[place]: normal axis
Interval: normal interval
QRS Pattern: normal QRS
Ischemia: no ischemia
*Critical Care Note
Total Time (30-74mins, 75-104mins- exclusive of procedures): 55
comment:
Critical care statement: A total of 55 minutes of critical care time was provided for this patient. This time is separate from time utilized to perform the aforementioned documented procedures. Aggregate critical care time includes only time
during which I was engaged in work directly related to the patient's care, as described above, whether at the bedside or elsewhere in the Emergency Department.
ED Attending Note
-
Portions of this chart may have been created with voice recognition software.� Occasional wrong word or��sound alike� substitutions may have occurred due to the inherent limitations of voice recognition software.
Discharge Plan
Departure
Patient Disposition: Admit
Date of Disposition: 01/25/25
Time of Disposition: 07:03
Admit to: [facility]ICU
Admit to doctor: Yonathan Joseph
Presentation/result/management discussed w/ accepting MD/DO: Dr. Yonathan Joseph
Condition: Critical
Discharge Problem:
Acute respiratory failure with hypoxia, Aortic insufficiency, Smoker
Interventions
Interventions:
*General Assessment Last Done: 01/25/25 05:58
*Neglect/Abuse Screening Last Done: 01/25/25 05:58
ED- Fall Risk Assessment Last Done: 01/25/25 06:03
*Nursing Disposition Last Done: 01/25/25 08:15
ED- Pulmonary Assessment Last Done: 01/25/25 07:14
ED- Cardiac Assessment Last Done: 01/25/25 07:13
Discharge Date and Time
Discharge Date/Time: 01/25/25 08:15
[2025-01-25 06:18] LABS: % Basophils 0.9 % (0-2); % Eosinophils 2.4 % (0-6); % Immature Granulocytes 0.8 % (0-0.5); % Lymphocytes 45.5 % (20.5-51.1); % Monocytes 7.3 % (1.7-9.3); % Neutrophils 43.1 % (42.2-75.2); Absolute Basophils 0.1 10^3/uL (0-0.2); Absolute Eosinophils 0.3 10^3/uL (0-0.7); Absolute Immature Granulocytes 0.1 10^3/uL (0-0.05); Absolute Lymphocytes 6.4 10^3/uL (1.2-3.4); Absolute Neutrophils 6.1 10^3/uL (1.4-6.5); Nucleated Red Blood Cells % 0 %
[2025-01-25 06:19] LABS: Troponin I 0.022 ng/ml
[2025-01-25 06:21] LABS: Lactic Acid 8.9 mmol/L (0.7-2.0)
[2025-01-25 06:25] LABS: ALT (SGPT) 114 U/L (0-35); Albumin 4.2 g/dl (3.5-5.0); Blood Urea Nitrogen 15 mg/dl (7-17); Calcium 9.4 mg/dl (8.4-10.2); Carbon Dioxide 15 mmol/L (22-30); Chloride 105 mmol/L (98-107); Estimated Creatinine Clearance 40 ml/min; Glucose 292 mg/dl (70-99); Sodium 139 mmol/L (135-145); Total Protein 6.3 g/dl (6.3-8.2); eGFR > 60.00
[2025-01-25 06:28] LABS: HCO3 18.4 mmol/L (21-28); PCO2 62 mmHg (32-35); PO2 300 mmHg (83-108)
[2025-01-25 06:30] LABS: O2 Therapy 100%
[2025-01-25 06:31] LABS: pH 7.08 (7.35-7.45)
[2025-01-25 06:34] LABS: AST (SGOT) 148 U/L (14-36); Alkaline Phosphatase 123 U/L (38-126); Potassium 4.6 mmol/L (3.5-5.1)
[2025-01-25] MEDS: DIPRIVAN 100 IV ×2 (07:02→20:58)
[2025-01-25 07:10] LABS: Urine Albumin 1+ (Neg - Trace); Urine Bilirubin Negative (Negative); Urine Character Clear (Clear); Urine Color Yellow; Urine Glucose Negative (Negative); Urine Ketone Negative (Negative); Urine Leukocyte Negative (Negative); Urine Nitrite Negative (Negative); Urine Occult Blood Negative (Negative); Urine Specific Gravity 1.015 (<1.030); Urine Urobilinogen Negative (Neg - 1+)
--- NOTE | 2025-01-25 07:20 | EDRN ---
Addendum entered by Krystle Yan RN 01/25/25 07:43:
TO Dr Huff/ MADELIN
Original Note:
Adjust propofol drip ( decrease ) to 5 and adjust back to 8 dependent on BP / RASS
--- NOTE | 2025-01-25 08:09 | W.PN.UPDATE ---
Update Note
Progress Note Update
This is update of H&P. Please refer to full H&P by Dr. Alvarez on 01/09/25.
HPI:
79 yo female with hx severe COPD, decompensated CHF, s/p tissue AVR 2014 at [facility], now with severe AI, mod-severe MR, EF 30-35%, DM II, hx TIA. She was recently admitted to from 12/15-12/23/24 for hypoxia/respiratory distress/metabolic acidosis and
was intubated in the emergency room. She was treated with iv antibioticx, iv steroids and nebulizers. Echo at that time revealed EF 30-35% with progression of mitral regurgitation and mod-severe eccentric AI. She underwent left and right cath
revealing occlusion of small, non-dominant RCA, but otherwise, no significant CAD. Pt was seen outpatient by Dr. Alvarez and scheduled for TAVR this 01/26/25.
Mrs Patricia has been waking up in the early hours between 3 and 5 am due to SOB. This am her daughter found her very SOB, feeling hot, mottled and EMS was called. Pt's wishes has been to be DNR. She was hypoxic, acidotic and was intubated in the
emergency room. She is being admitted to CVICU for further evaluation.
PE:
gen: sedated, intubated
heart: reg, 2/6 systolic murmur @ rsb, 1/6 systolic murmur @ L mid clav
lungs: decreased throughout, no rales
abdom: soft, nondistended, + bowel sounds
extrem: no edema b/l
Impression:
-admitted with respiratory distress/acidosis- intubated in ED
-recent admission with similar episode of hypoxia/decompensated CHF/COPD exacerbation in November, requiring intubation
-severe AI, s/p AVR 2014 - was scheduled for elective TAVR on 01/26/25
-mod-severe MR
-EF 30-35%
-CAD with occlusion of small RCA
-HTN/HLD
-DM II
-hx TIA with L facial numbness, RH numbness ([facility])
-hx PNA, severe COPD
-thyroid dz
-sleep disorder
-anxiety
-depression
-bladder CA with surgery 2014
-renal stones
-b/l carpal tunnel sx 2022
Plan:
pt is admitted to CVICU for respiratory distress/hypoxia/metabolic acidosis with elevate lactic acid for medical stabilization. Further plans for TAVR will be discussed with the medical team
[2025-01-25 08:20] LABS: Ammonia 19 umol/L (9-30); Lactic Acid 2.2 mmol/L (0.7-2.0)
[2025-01-25 08:23] LABS: Urine Red Blood Cell None Seen /HPF (0-2); Urine Squamous Cell 16-20 /LPF (Few); Urine White Cell 0-2 /HPF (0-5)
[2025-01-25 08:24] LABS: Urine Bacteria Few (Negative)
[2025-01-25 08:30] LABS: Blood Urea Nitrogen 17 mg/dl (7-17); Carbon Dioxide 21 mmol/L (22-30); Chloride 108 mmol/L (98-107); Estimated Creatinine Clearance 44 ml/min; Glucose 239 mg/dl (70-99); HDL Cholesterol 33 mg/dl; Iron 82 ug/dl (37-170); LDL Cholesterol, Calculated 44 mg/dl; Magnesium 1.9 mg/dl (1.6-2.3); Potassium 4.6 mmol/L (3.5-5.1); Sodium 137 mmol/L (135-145); Total Cholesterol 92 mg/dl (50-199); Triglyceride 79 mg/dl (10-149); Very Low Density Lipoprotein 15 mg/dl (0-30); eGFR > 60.00
[2025-01-25 08:37] LABS: Triglycerides 99 mg/dl (10-149)
[2025-01-25] MEDS: SUBLIMAZE 50 MCG IV ×5 (08:41→17:03)
--- NOTE | 2025-01-25 08:51 | PTCARENOTE ---
assumed care of pt from the [employer] into 2267, pt awake on the vent, follows simple commands, pt sedated w initial dose of fentanyl and propofol as ordered, sinus rhythm on tele, + peripheral pulses, no edema noted. Lungs clear, pox 95% on AC
40%/400/+5/20, pox 96%, etc02 30. Danielson catheter draining yellow, +bs. PIV x3 flush easily. Family at bedside, updated.
[2025-01-25] MEDS: LEVOPHED 250 IV ×3 (09:32→21:37)
[2025-01-25] MEDS: SUBLIMAZE 100 IV (09:43)
--- NOTE | 2025-01-25 10:16 | CON.INTV ---
Consultation
Consultation Request
Date/Time Consultation Requested: 01/25/2025940
Date/Time Consultation Performed: 01/25/2025 - 1004
Requesting Provider: FARZAD Lloyd
Performing Provider: Dr. Menendez
Reason for Consultation: Hypoxia
Medical History
-
Chief Complaint: Found unresponsive
History of Present Illness:
79-year-old female active tobacco smoker with a past medical history of centrilobular emphysema/COPD, chronic bronchitis, chronic HFpEF, aortic stenosis s/p bioprosthetic aortic valve replacement complicated by bioprosthetic valvular regurgitation,
mitral regurgitation, hypertension, history of bladder cancer s/p surgery, nephrolithiasis, history of TIA, thyroid disease, DM type II and history of pneumonia who presents with being found unresponsive. When EMS arrived patient was hypoxic and
placed onto a nonrebreather. The patient was supposed to have a TAVR this (01/26/2025). She was intubated in the ER and required vasopressors. CT chest showed evidence of acute pulmonary edema as well as bilateral pneumonia, with
secretions in her left mainstem bronchus. Initially in the ER heart rate was 105, breathing at 14 breaths/min, BP 180/56 and saturating 97% via ventilator. Initial labs showed leukocytosis to 14.1, Hb 12.1, pH 7.08 with pCO2 62, serum bicarb level
15, glucose 292, lactate 2.2, and urinalysis was negative for UTI. She was transferred to the CVICU for further care, and Environmental Compliance Specialist services consulted for additional management/recommendations.
When I saw the patient this morning, the patient's son, Charli, and patient's daughter, Maryjane, were both at bedside. All questions were answered. According to them, the patient's been getting progressively weaker over the last 2 to 3 weeks and been
short of breath. She takes Trelegy at home and albuterol. Patient coughs chronically throughout the day. She is still smoking 6 cigarettes a day as well. Patient currently intubated on AC/CMV at 20/400/40%/5, with PIP: 31 cmH2O, VTe 342 mL and
breathing at 20 breaths/min. Currently on dobutamine at 3mcg/kg/min, Levophed at 8mcg/min, and sedated a propofol at 20mcg/kg/min and fentanyl at 50mcg/hr. Current heart rate 73, BP 147/36, SpO2 90% with end-tidal CO2: 32.
Of note patient follows with us in the [facility] office with last visit on 09/28/[address] Alanis. She has a history of COPD with tobacco use disorder, sleep-related bruxism with nonrestorative sleep and snoring. She was continued on Trelegy
100mcg at that time and was compliant. She has a 60+ pack year history of smoking and was up to 1 pack/day at the time. She had a chronic cough at that time as well. She was told to follow-up 4 months later but this never happened. Patient's
last PFT was on 09/28/2023 showing moderate COPD with a borderline significant bronchodilator response with a moderate gas exchange capacity defect (DLco: 44% predicted).
PMHx: History of pneumonia, DM type II, thyroid disease, sleep disorder, depression, anxiety, COPD with centrilobular emphysema + chronic bronchitis, chronic HFpEF, aortic stenosis s/p bioprosthetic aortic valve replacement, mitral regurgitation,
hypertension, history of bladder cancer, nephrolithiasis, history of TIA
PSHx: Left and right carpal tunnel surgery, aortic valve replacement (2012), bladder surgery, left foot surgery
Past Medical History
Past Medical History: Other (Above as per HPI)
Past Surgical History: Other (Above as per HPI)
Social History
Tobacco: Smoker (Down to 6 cigarettes a day)
Alcohol: None
Drug: None
Personal:
Family History
Family History: CAD (Sister: History of VA) and Diabetes (Sister)
Allergies / Home Medications
Allergies
Allergy/AdvReac Type Severity Reaction Status Date / Time
clarithromycin [From Biaxin] Allergy GI upset Verified 01/16/25 15:49
Penicillins Allergy Unknown Verified 01/16/25 15:49
levofloxacin [From Levaquin] AdvReac Unknown Unknown Verified 01/16/25 15:49
Home Medications
�Medication �Instructions �Recorded �Confirmed �Last Taken �Type
aspirin 81 mg tablet,delayed 81 mg PO QPM Blood Clot 05/20/23 01/25/25 05/19/23 History
release Prevention/Tx
metformin 500 mg tablet 500 mg PO QPM Diabetes 05/20/23 01/25/25 05/19/23 History
rosuvastatin 20 mg tablet (Crestor) 20 mg PO Daily High Cholesterol 05/20/23 01/25/25 05/20/23 History
sertraline 100 mg tablet 150 mg PO DAILY Mental 05/20/23 01/25/25 05/20/23 History
Health/Anxiety
vitamin B complex 1 cap PO DAILY Supplement 05/20/23 01/25/25 05/19/23 History
albuterol sulfate 90 mcg/actuation 2 puff inhalation Q6H PRN 05/24/23 01/25/25 Unknown Rx
aerosol inhaler shortness of breath or wheezing
#8.5 grams
ezetimibe 10 mg tablet 10 mg PO DAILY High Cholesterol 12/15/24 01/25/25 Unknown History
fluticasone fur. 100 mcg-umeclid 1 inh inhalation HS Lung/Breathing 12/15/24 01/25/25 Unknown History
62.5 mcg-vilant 25 mcg Issues
inhalat.powder (Trelegy Ellipta)
levothyroxine 50 mcg tablet 50 mcg PO DAILY Thyroid 12/15/24 01/25/25 Unknown History
furosemide 20 mg tablet 20 mg PO DAILY #30 tabs 12/23/24 01/25/25 Unknown Rx
nicotine 14 mg/24 hr daily 14 mg transdermal DAILY #28 ea 12/23/24 01/25/25 Unknown Rx
transdermal patch
Berberine With Milk Thistle 1 tab PO DAILY 01/16/25 01/25/25 Unknown History
Cellucare 1 tab PO DAILY 01/16/25 01/25/25 Unknown History
famotidine 40 mg tablet (Pepcid) 40 mg PO BID 01/16/25 01/25/25 Unknown History
glipizide 5 mg tablet, extended 5 mg PO QPM 01/16/25 01/25/25 Unknown History
release 24 hr
lactobacillus combination no.4 3 3,000 mmu cells PO DAILY 01/16/25 01/25/25 Unknown History
billion cell capsule (Probiotic)
metoprolol succinate 25 mg 25 mg PO DAILY 01/16/25 01/25/25 Unknown History
tablet,extended release 24 hr
(Toprol XL)
turmeric 1 tab PO DAILY 01/16/25 01/25/25 Unknown History
Areds 2 100 ml PO DAILY 01/25/25 01/25/25 Unknown History
Review of Systems
-
Unable to Obtain full review of systems at this time due to: Patient Intubation
Vitals / Labs / Diagnostic Testing
Vital Signs
Temp Pulse Resp BP Pulse Ox
98.2 F 63 20 119/34 99
01/25/25 09:07 01/25/25 11:15 01/25/25 11:15 01/25/25 11:15 01/25/25 11:15
Lab Data
01/25/25 05:48
01/25/25 08:00
Laboratory Results
01/25/25 01/25/25 01/25/25
05:48 10:53 10:54
PT 14.9 H 15.2 H
INR 1.14 1.15
APTT 33.4 28.7
pH 7.08 L* 7.35
pCO2 62 H 41 H
pO2 300 H 92
HCO3 18.4 L 22.6
O2 Delivery Level 100% Vent
Diagnostic Testing:
Physical Exam
-
HEENT: Normocephalic, Anicteric and Other (ETT in place)
Cardiovascular: S1/S2, Murmur (JUDAH heard best at RUSB) and Peripheral Edema (negative)
Respiratory: Wheeze (negative), Rales (Bilaterally), Rhonchi (negative), Non-Labored Respirations and Other (Mechanical breath sounds heard bilaterally)
GI: Soft, Non Distended, Non Tender and Normal Bowel Sounds
Neurology: Tremors (negative) and Other (Sedated)
Skin: Warm and Dry
General: Respiratory Distress (negative), Comfortable, Fever (negative) and Chills (negative)
Assessment
-
Assessment: 79-year-old female active tobacco smoker with a past medical history of centrilobular emphysema/COPD, chronic bronchitis, chronic HFpEF, aortic stenosis s/p bioprosthetic aortic valve replacement complicated by bioprosthetic valvular
regurgitation, mitral regurgitation, hypertension, history of bladder cancer s/p surgery, nephrolithiasis, history of TIA, thyroid disease, DM type II and history of pneumonia who presents with being found unresponsive. When EMS arrived patient was
hypoxic and placed onto a nonrebreather. The patient was supposed to have a TAVR this (01/26/2025). She was intubated in the ER and required vasopressors. CT chest showed evidence of acute pulmonary edema as well as bilateral pneumonia,
with secretions in her left mainstem bronchus. Initially in the ER heart rate was 105, breathing at 14 breaths/min, BP 180/56 and saturating 97% via ventilator. Initial labs showed leukocytosis to 14.1, Hb 12.1, pH 7.08 with pCO2 62, serum bicarb
level 15, glucose 292, lactate 2.2, and urinalysis was negative for UTI. She was transferred to the CVICU for further care, and Environmental Compliance Specialist services consulted for additional management/recommendations.
Chronic conditions [employer]: History of pneumonia, DM type II, thyroid disease, sleep disorder, depression, anxiety, COPD with centrilobular emphysema + chronic bronchitis, chronic HFpEF, aortic stenosis s/p bioprosthetic aortic valve replacement, mitral
regurgitation, hypertension, history of bladder cancer, nephrolithiasis, history of TIA
Impression:
#Acute respiratory failure with hypoxia + hypercapnia on mechanical ventilation due to acute decompensated heart failure with right lower lobe pneumonia in the setting of centrilobular emphysema with aspiration
#Leukocytosis due to sepsis
#Metabolic acidosis with preserved anion gap
#Hyperglycemia likely due to acute stressful response with sepsis
#Hypocalcemia
#Transaminitis
#Bioprosthetic aortic valve with severe valvular regurgitation + severe mitral regurgitation
#Right lower lobe pneumonia likely due to aspiration
#Shock: Multifactorial from sepsis + cardiogenic and sedation
#History of aspiration of secretions, currently with secretions seen in left mainstem bronchi on current CT chest imaging with prior secretions seen in right mainstem bronchi on cardiac CT from 01/04/2025
#Centrilobular emphysema/moderate COPD (per PFTs from 09/28/2023)
#History of TIA
Plan:
- Patient has significant bronchial wall thickening with obvious intralobular septal thickening with interstitial edema with bilateral pleural effusions and patchy opacities in the posterior right upper lobe/right lower lobe + left lower lobe
consistent with pneumonia
- Hence, there are multiple processes going on here including acute pulmonary edema, possible COPD exacerbation with multifocal pneumonia in the setting of emphysema/COPD/chronic bronchitis
- Her severe valvular heart disease with severe MR + severe bioprosthetic aortic valve regurgitation is surely not helping
- Given her infection, would not diurese until her BP and her infection improves
- Not currently on antibiotics however would start her on vancomycin/cefepime and check infectious workup with sputum culture, MRSA swab, blood cultures and urine antigens
- She is on Trelegy at home, however while intubated would use DuoNebs QID with prn doses for breakthrough symptoms and budesonide
- Continue mechanical ventilation with daily SAT/SBT if clinically indicated
- Maintain SpO2 >90-94%
- Will set up for bronchoscopy today for pulmonary toilet purposes
- Will send off BAL from right lower lobe
- Maintain plateau pressure <30
- Lightly sedate with goal RASS 0 to -2
- Daily adjustment of ventilator based on blood gas
- Daily CXR
- Aspiration precautions keeping HOB >30-45�
- Continue vasopressors, currently on Levophed and also on inotropic support with dobutamine, with goal MAP>65
- Monitor for arrhythmias while on dobutamine
- Given her septic state, would not recommend increasing dobutamine as this can cause negative outcomes in septic patients
- Will try to wean off of dobutamine if possible and uptitrate Levophed if needed
- She has a history of HFrEF with LVEF 30-35% seen on echo on 12/15/2024, but repeat echo via [facility] on 12/20/2024 showed recovered LVEF at 60-65%
- Due for valvular replacement to interventional cardiology + cardiothoracic surgery --> I had a discussion with the children today at bedside and the patient would not want to stay intubated for an extended period of time. Therefore, if patient
is not going to be getting her TAVR or a SAVR anytime soon, or any other cardiac intervention, then we will work on trying to wean down FiO2 and hopefully extubate over the next 24-48 hours
- Trend LFTs
- Trend sHCO3 level
- Trend Ca level
- Apply nicotine patch
- Replete electrolytes with K>4, Mg>2
- Maintain euglycemia with goal BG 140-180
- Trend H/H and transfuse if needed to keep Hb>7g/dL; keep plt>20k, unless there is concern for bleeding then keep plt>50k
- Stress ulcer ppx: PPI
- DVT ppx: Start LMWH
Ultimately patient should follow-up with our office again after discharge, as last visit was on 09/28/[address] Alanis.
Patient is critically ill. Continue with ICU level of care
Critical care statement: A total of 40 minutes of critical care time was provided for this patient today. This includes management of unstable vital signs, evaluation of the patient at bedside, reviewing the patient's pertinent medical records
including radiographs, microbiology, laboratory evaluations, and discussion with primary team, consultants, pharmacy, nutrition, physical therapy, case management, charge nurse, critical care nursing, and respiratory therapy.
Data:
CTA chest 01/25/2025:
1. SEVERE ACUTE CARDIOGENIC PULMONARY EDEMA.
2. Small right and minimal left pleural effusions.
3. Moderate amount of dense airspace consolidation in the posterior segment of the right upper lobe and right lower lobe. Moderate subpleural airspace consolidation in the basilar left lower lobe. Diagnostic possibilities are (1) bilateral
pneumonia (possibly aspiration pneumonia),or (2) a combination of alveolar pulmonary edema and atelectasis.
4. AIRWAY ASPIRATION with severe secretions in the left mainstem bronchus.
5. Severe bilateral bronchitis.
6. Mild to moderate emphysema.
7. 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
8. Previous aortic valve replacement.
9. Endotracheal tube in place.
[2025-01-25] MEDS: DOBUTREX 500 MG 250 IV (11:09)
[2025-01-25 11:17] LABS: B.E. -2.8 mmol/L; HCO3 22.6 mmol/L (21-28); Ionized Calcium 1.12 mMOL/L (1.15-1.33); PCO2 41 mmHg (32-35); PO2 92 mmHg (83-108); Potassium 4.8 mMOL/L (3.5-5.1); Sodium 136 mMOL/L (136-145); pH 7.35 (7.35-7.45)
--- NOTE | 2025-01-25 11:20 | W.PN.UPDATE ---
Update Note
Progress Note Update
A time-out was completed verifying correct patient, procedure, site, patient positioning, and special equipment. Patient was monitored with continuous bedside EKG, blood pressure, pulse ox readings.
The patient was placed in a dependent position appropriate for central line placement based on the vein to be cannulated. The patient's left neck was prepped and draped in sterile fashion using chlorhexidine, maximum barrier precautions, sterile
gloves, Gown drapes and mask.
1% Lidocaine was used to anesthetize the surrounding skin area. Ultrasound was used in real time to localize vein and guide introducer needle. An introducer needle was placed into the left internal jugular vein using ultrasound guidance. A
guidewire was introduced without resistance. Under ultrasound guidance, confirmation of guidewire in vein was performed before dilation. Dilation was done over guidewire without complications. The cordis catheter was then threaded smoothly over the
guide wire and into the central venous system. The guidewire was removed and appropriate blood return was obtained from each lumen. Each lumen of the catheter was evacuated of any remaining air and flushed freely with sterile saline. The catheter
was then secured with a stat lock to the skin and a sterile occlusive dressing with Biopatch applied. An upright chest film was obtained after the procedure to assess for complications of insertion.
Estimated blood loss: 0 mL
Patient tolerated procedure well. Remains in critical condition.
Pre-procedure diagnosis
post procedure diagnosis
CPT code 29817
--- NOTE | 2025-01-25 11:21 | W.PN.UPDATE ---
Update Note
Progress Note Update
Radial arterial line placement
A time-out was completed verifying correct patient, procedure, site, patient positioning, and special equipment. Patient was monitored with continuous bedside EKG, blood pressure, pulse ox readings.
Ozzie's test was performed to ensure adequate perfusion. The patient's left wrist was prepped and draped in sterile fashion.
1% Lidocaine was used to anesthetize the area. Ultrasound was used in real time to localize the radial artery and guide introducer needle into the arterial lumen. The catheter was threaded over the guide wire and the needle was removed with
appropriate pulsatile blood return. The catheter was then secured in place to the skin and a biopatch and sterile dressing applied.
Perfusion to the extremity distal to the point of catheter insertion was checked and found to be unchanged.
Estimated Blood Loss: 2 mL
The patient tolerated the procedure well and there were no complications.
Remains in critical condition.
CPT Billing Code: [id number]
[2025-01-25 11:22] LABS: O2 Therapy VENT
[2025-01-25 11:29] LABS: INR 1.15; PT 15.2 Sec (11.4-14.6)
[2025-01-25 11:30] LABS: APTT 28.7 Sec (23.4-35.0)
[2025-01-25 11:49] LABS: Triglycerides 87 mg/dl (10-149)
[2025-01-25 11:52] LABS: Glucose - Point of Care 196 mg/dl (70-99)
[2025-01-25 12:07] LABS: HIV Combo Negative (Negative)
[2025-01-25] MEDS: NOVOLIN R 0.03 UNITS IV (12:27)
[2025-01-25 12:28] LABS: Hepatitis B Surface Antigen Negative (Negative)
[2025-01-25] MEDS: NOVOLIN R INSULIN INFUSION 100 IV (12:29)
[2025-01-25 12:45] LABS: Hepatitis B Surface Antibody Negative; Hepatitis C Antibody Negative (Negative)
--- NOTE | 2025-01-25 12:57 | PTCARENOTE ---
Pt received from previous nurse and re-assessed. Intubated and sedated. Propofol gtt infusing @ 20 mcg/kg/min and Fentanyl gtt infusing @ 50 mcg/hr. RASS -1. Purposeful movement. Pt able to follow commands and communicate with heads nods. Denying
pain. PRN Fentanyl 50mcg IV administered prior to cordis placement. Levophed gtt infusing with goal MAP > 65. Dobutamine infusing @ 3 mcg/kg/min. (L) radial arterial line transduced, zeroed, and flushed. ETT #7.5 @ 21cm to right lip. AC
(20/400/40%/5+). Unable to obtain sputum with ETT suction. (+) bowel sounds. Danielson catheter draining yellow. Glycermic protocol initiated.
[2025-01-25 13:32] LABS: Glucose - Point of Care 138 mg/dl (70-99)
[2025-01-25 14:39] LABS: Lactic Acid 1.3 mmol/L (0.7-2.0)
[2025-01-25 14:44] LABS: Glucose - Point of Care 79 mg/dl (70-99)
--- NOTE | 2025-01-25 14:59 | CM ---
Reviewed chart. Prior to admission she resides alone in a one story home with four steps to enter. Prior to admission she was independent with ambulation and adls. She would use a walker when she was having back pain. She has a walker and shower
bench at home, She has a prescription plan with [facility] and uses [facility]. Will need to see her current functional level to see if she will have any skilled care needs. Medical work-up in progress. The discharge plan is undetermined
at this time.
--- NOTE | 2025-01-25 15:29 | CON.CAR ---
Addendum entered and electronically signed by Ranulfo Urbina DO 01/25/25 18:44:
Attestation: I have seen and examined the patient. I can confirm Ms. Marroquin findings and I agree with her assessment and plan as documented.
Extremely frail 79-year-old female with a history of ongoing tobacco abuse, hypertension, COPD and severe aortic valve stenosis status post prior bioprosthetic SAVR now with severe aortic valve insufficiency and severe mitral valve regurgitation
admitted with acute on chronic hypoxic respiratory failure, now ventilator dependent. She was reportedly in her normal state of health up until the day of admission where she was found to be progressively short of breath and lethargic. 911 was
called. Due to impending respiratory collapse, she was intubated in the emergency room and is currently on significant hemodynamic support. CT chest showed moderate amount of dense airspace consolidation in the right upper lobe and right lower
lobe concerning for bilateral pneumonia or alveolar pulmonary edema with atelectasis. It also comments on severe secretions within the left mainstem bronchus and severe, acute cardiogenic pulmonary edema with at least moderate emphysema.
She was transferred to the CVICU. A central line and A-line were placed. She underwent bronchoscopy due to her CT findings. This bronchoscopy did not find any significant bronchial mucous plugging or obstruction.
She has a mild leukocytosis of 14.1. On presentation, her pH was 7.08 with a pCO2 of 62, a CO2 of 15 and a lactic acid of 8.9. With pressor/inotropic support, her lactate is normalized and her pH is now 7.35.
She remains on norepinephrine and dobutamine with very poor diastolic pressures. She is sedated on propofol and fentanyl but will respond to verbal and noxious stimuli. She nods and answers yes/no questions appropriately.
On exam, she has multiple murmurs. Her lungs are diffusely rhonchorous but mostly decreased throughout. There is trace edema.
The patient is in a tenuous situation, requiring significant pressor support as well as ventilator support.
It is suspected that this is due to acute decompensation from her severe AI. The patient was scheduled for valve in valve TAVR tomorrow.
At this time, the patient's only opportunity may be to proceed with TAVR as a high risk, salvage procedure.
There is no role for diuresis given the severity of her hypotension.
The risks and benefits of this procedure will be discussed with the patient as well as her family in detail prior to proceeding.
The structural heart team will consider the patient thoroughly during our preprocedure meeting.
Original Note:
Consultation
Consultation Request
Date/Time Consultation Requested: 01/25/25 2410
Date/Time Consultation Performed: 01/25/25 0294
Requesting Provider: Arianna Ghosh NP
Performing Provider: Jennifer PANDA for
Reason for Consultation: Severe
Medical History
-
Chief Complaint: SOB and change in MS
History of Present Illness:
79 y/o female with tobacco abuse, HTN, HLD, COPD, Hx of CVA and aortic valve stenosis s/p prior bioprosthetic AVR recently admitted with acute hypoxic respiratory failure requiring mechanical ventilation. She had treatment for COPD and CHF. Last
admit with newly discovered HFrEF (LVEF 30-35% with LAD wall motion abnormality) in the setting of moderate/severe MR and moderate-severe bioprosthetic AVR insufficiency. 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 She is back after she was noted by
family to be SOB and lethargic and asked for 911. Sats reportedly in 70's. In the ER, she was intubated. She is also requiring pressor support. Of note, it sounds like she was a DNR with reversal for procedure. Son at bedside. Patient in no
distress. She is on fentanyl and propofol.
Past Medical History
Past Medical History: Cancer (bladder), CHF, COPD, HTN, Hypercholesterolemia, NIDDM, Valvular Disease and Psychiatric (anxiety/depression)
Social History
Tobacco: Smoker
Family History
Family History: Reviewed & Not Pertinent
Allergies / Home Medications
Allergy/AdvReac Type Severity Reaction Status Date / Time
clarithromycin [From Biaxin] Allergy GI upset Verified 01/16/25 15:49
Penicillins Allergy Unknown Verified 01/16/25 15:49
levofloxacin [From Levaquin] AdvReac Unknown Unknown Verified 01/16/25 15:49
�Medication �Instructions �Recorded �Confirmed �Type
aspirin 81 mg tablet,delayed 81 mg PO QPM Blood Clot 05/20/23 01/25/25 History
release Prevention/Tx
metformin 500 mg tablet 500 mg PO QPM Diabetes 05/20/23 01/25/25 History
rosuvastatin 20 mg tablet (Crestor) 20 mg PO Daily High Cholesterol 05/20/23 01/25/25 History
sertraline 100 mg tablet 150 mg PO DAILY Mental 05/20/23 01/25/25 History
Health/Anxiety
vitamin B complex 1 cap PO DAILY Supplement 05/20/23 01/25/25 History
albuterol sulfate 90 mcg/actuation 2 puff inhalation Q6H PRN 05/24/23 01/25/25 Rx
aerosol inhaler shortness of breath or wheezing
#8.5 grams
ezetimibe 10 mg tablet 10 mg PO DAILY High Cholesterol 12/15/24 01/25/25 History
fluticasone fur. 100 mcg-umeclid 1 inh inhalation HS Lung/Breathing 12/15/24 01/25/25 History
62.5 mcg-vilant 25 mcg Issues
inhalat.powder (Trelegy Ellipta)
levothyroxine 50 mcg tablet 50 mcg PO DAILY Thyroid 12/15/24 01/25/25 History
furosemide 20 mg tablet 20 mg PO DAILY #30 tabs 12/23/24 01/25/25 Rx
nicotine 14 mg/24 hr daily 14 mg transdermal DAILY #28 ea 12/23/24 01/25/25 Rx
transdermal patch
Berberine With Milk Thistle 1 tab PO DAILY 01/16/25 01/25/25 History
Cellucare 1 tab PO DAILY 01/16/25 01/25/25 History
famotidine 40 mg tablet (Pepcid) 40 mg PO BID 01/16/25 01/25/25 History
glipizide 5 mg tablet, extended 5 mg PO QPM 01/16/25 01/25/25 History
release 24 hr
lactobacillus combination no.4 3 3,000 mmu cells PO DAILY 01/16/25 01/25/25 History
billion cell capsule (Probiotic)
metoprolol succinate 25 mg 25 mg PO DAILY 01/16/25 01/25/25 History
tablet,extended release 24 hr
(Toprol XL)
turmeric 1 tab PO DAILY 01/16/25 01/25/25 History
Areds 2 100 ml PO DAILY 01/25/25 01/25/25 History
Review of Systems
-
Unable to obtain full review of systems at this time due to: Patient Intubation
History Source: Family and Other (chart)
Respiratory: Trouble Breathing
Neurological: Other (lathargy)
Physical Exam
Vital Signs
Temp Pulse Resp BP Pulse Ox
99.6 F 70 20 99/34 98
01/25/25 14:00 01/25/25 14:45 01/25/25 14:45 01/25/25 14:45 01/25/25 13:45
Lab Results
01/25/25 05:48
01/25/25 08:00
Troponin I 0.022 ng/ml 01/25/25 05:48
Physical Exam
General: No Apparent Distress
HEENT: Normocephalic and Anicteric
Respiratory: Other (intubated, coarse lung sounds throughout)
Musculoskeletal: No Edema
Skin: Warm and Dry
Neuro: Sedated
Impression / Plan
-
Acute hypoxemic respiratory failure:
-this diagnosis is threat to life
-currently requiring mechanical ventilation
-imaging as below
-sedated on fentanyl and propofol
-plan for bedside bronch
Hypotension:
-on dobutamine and norepinephrine, which require intensive monitoring
HFrEF/Cardiomyopathy:
-LVEF 30-35% with LAD territory WMA 1/16/25 echo, but EF 55-60% on BELKYS 12/20/24
-R/L heart catheterization below
-on furosemide and metoprolol as OP
hx AVR (2015 per OP chart), [place]
-Most recent echo with moderate to severe eccentric aortic regurgitation.--> BELKYS 12/20/24 with severe valvular regurgitation
-plan was for OP TAVR tomorrow- discussion between performing physicians on plan for this
Moderate/severe mitral regurgitation
Current smoker:
-per family, has cut back. Needs to quit fully.
CAD:
-RCA occlusion as below
-on ASA, statin, BB as OP
COPD:
-pulm/education paraprofessional consulted
Data:
CT scan: SEVERE ACUTE CARDIOGENIC PULMONARY EDEMA. Small right and minimal left pleural effusions. Moderate amount of dense airspace consolidation in the posterior segment of the right upper lobe and right lower lobe. Moderate subpleural airspace
consolidation in the basilar left lower lobe. Diagnostic possibilities are (1) bilateral pneumonia (possibly aspiration pneumonia),or (2) a combination of alveolar pulmonary edema and atelectasis. AIRWAY ASPIRATION with severe secretions in the left
mainstem bronchus. Severe bilateral bronchitis. Mild to moderate emphysema. 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 Previous aortic valve replacement. Endotracheal tube in place.
BELKYS 12/20/24: Normal biventricular size and systolic function without regional wall motion abnormality. Small posterior mitral valve leaflet with poor coaptation with the anterior leaflet and two separate jets of moderate mitral regurgitation (A1/P1
and A3/P3) accounting for severe regurgitation when considered together. Bioprosthetic aortic valve with severe valvular regurgitation.
Cath 12/15/24: Left dominant circulation with flush occlusion of the nondominant right coronary artery which fills via a left like collateral from the LAD (Vieussen's ring). Normal filling pressures (LVEDP = 12 mmHg at 48.1 kg). Significant pulmonary
venous hypertension given discrepancy between PCWP and LVEDP (PCWP = 19 mmHg). Mild, postcapillary pulmonary hypertension (mean PA = 26 mmHg, PCWP = 19 mmHg, cardiac output = 2.96 L/min, PVR = 2.36 Jacinto units). Status post prior bioprosthetic SAVR,
now with severe insufficiency. Moderate to severe mitral valve regurgitation by echocardiogram. Severe right radial artery spasm and a relatively small vessel, making radial access undesirable for any future catheterization.
Echo 12/15/24: Moderately reduced left ventricular systolic function. Left ventricular ejection fraction is 30-35%. Near akinesis of the basal to apical anterior/anteroseptal segments. Stage II diastolic dysfunction suggestive of abnormal relaxation
and increased filling pressures.Moderate/severe eccentric mitral regurgitation.s/p bioprosthetic AVR. Peak/mean gradients are 20/10mmHg. Moderate/severe eccentric aortic regurgitation.
Data Reviewed
-
EKG: Tracing Personally Visualized and interpreted (ST, non specific ST and T abnormality)
CT Scan: Report Reviewed by me (results as below)
Medical Tests (Nuc Med, Echo etc): Report Reviewed by me (BELKYS as below)
Labs: Labs Reviewed by me
[2025-01-25 15:36] LABS: Glucose - Point of Care 98 mg/dl (70-99)
[2025-01-25 15:40] LABS: B.E. -2.3 mmol/L; HCO3 23.2 mmol/L (21-28); Ionized Calcium 1.16 mMOL/L (1.15-1.33); O2 Saturation % 98.4 % (94-98); PCO2 42 mmHg (32-35); PO2 85 mmHg (83-108); Potassium 4.6 mMOL/L (3.5-5.1); Sodium 137 mMOL/L (136-145); pH 7.35 (7.35-7.45)
[2025-01-25] MEDS: LASIX 20 MG IV ×2 (16:05→22:23)
--- NOTE | 2025-01-25 16:40 | W.SUR.POST ---
Surgical Immediate Post Op
Note
Bedside Bronchoscopy Procedure
Date of procedure: 01/25/2025
Pre Op Diagnosis: Airway aspiration/abnormal CXR/pneumonia
Post Op Diagnosis: Same as above
Procedure Performed: Diagnostic/therapeutic bronchoscopy
Primary Surgeon/proceduralist: Dr. Menendez
Secondary Surgeons: N/A
Anesthesia: 2mg versed + 100mcg fentanyl
Estimated Blood Loss: None
Fluids: N/A
Drains/Shunts: N/A
Specimens/Cultures: N/A
Doppler/Duplex/Angio (Y/N): N/A
Complications: No immediate complications
Operative Findings: After verbal consent was obtained from the patient's daughter, Kaylyn, patient was given sedation and a portable bronchoscope was inserted into the patient's ETT via swivel adapter. There was some thick white/xavier secretions in
the ETT which were suctioned. ETT was advanced into the airway and 3 cc of 2% lidocaine was instilled onto the peggy as well as another 3 cc each into the left and the right mainstem. All airways were patent down to the segmental bronchi. A
bronchial wash was obtained from the right lower lobe from both the posterior, anterior and medial segmental bronchi. There was some mild bronchoscope related trauma but no bleeding occurred during the procedure. Before the procedure ended, all
airways were confirmed to again be fully patent down to the segmental bronchi. The bronchoscope was removed from the airway via the ETT entirely and the procedure ended.
[2025-01-25] MEDS: VERSED 2 MG IV (16:52)
[2025-01-25] MEDS: SUBLIMAZE 100 MCG IV (16:53)
[2025-01-25 17:19] LABS: Glucose - Point of Care 121 mg/dl (70-99)
--- NOTE | 2025-01-25 17:19 | PTCARENOTE ---
Pt reassessed. Propofol 20 mcg/kg/min and Fentantyl @ 50 mcg/hr. RASS remains -1. Rouses awake and able to follow commands. Soft limb restraints in place. Intermittent need for PRN Fentanyl 50 mcg IV. Bedside bronch. PRN Fentanyl 100 mcg IV and
Versed 2mg IV given to tolerate procedure. Levophed gtt to 12 mcg/min with Dobutamine infusing @ 3 mcg/kg/min to maintain MAP > 65. ETT # 7.5 @ 21 cm to right lip. AC (20/400/40%/5+). SaO2 95%. OGT in place to LIWS. Minimal clear output. Placement
confirmed by XR. Lasix 20mg IV x1 now administered.
[2025-01-25 18:08] LABS: Brochalveolar Lavage Character Hazy (Clear); Brochalveolar Lavage Color Pink; Brochalveolar Lavage Volume 15 ml; Brochalveolar Lavage WBC 14300 cells/ml
[2025-01-25 18:10] LABS: Glucose - Point of Care 122 mg/dl (70-99)
[2025-01-25 19:07] LABS: Glucose - Point of Care 112 mg/dl (70-99)
[2025-01-25] MEDS: TYLENOL 650 MG PO (19:40)
--- NOTE | 2025-01-25 20:00 | PTCARENOTE ---
received pt from previous rn at change of shift. pt intubated and sedated. Pt temp 100.5 (see MAR), NSR per tele monitor HR 70s, + pulses, +murmur , pox 97% on vent set to A/C 20/400/40%/5, lungs diminished, ETT 7.5 / 21 @ the lip, +bs, OG tube @
60cm set to low intermittent suction, garza draining tatiana colored urine, RIJ Cordis intact, PIV x3 intact, L rad a-line flushed level and zeroed,
gtts:
Levo
Dobutamine
Propofol
Fentanyl
insulin
--- NOTE | 2025-01-25 20:16 | PHA.VAN.IN ---
Assessment
- Assessment
Renal Function: Appears similar to baseline
Maximum Temperature: 100.4 F oral 01/25 @ 1900
Concomitant Antimicrobials: cefepime
Plan
- Plan
Initial / Loading Dose: vanc 1250mg
Maintenance Regimen: dosing by level
Monitoring: random level 01/26 0600
MRSA Screen: Ordered per protocol
Pharmacokinetics Vancomycin I
- -
Patient Age: 79
Patient Sex: Female
Vancomycin Day #: 1
Indication: Pulmonary/Respiratory
Requesting Provider: Dr. Menendez
Pertinent Antimicrobial Allergies:
clarithromycin - GI upset
penicillins - unknown
levofloxacin - 'felt awful...'
Height / Weight:
Height 5 ft 1 in
Actual Weight 49.8 kg
- Vital Signs / Lab Results
Temp Pulse Resp BP Pulse Ox
100.4 F H 73 20 120/34 98
01/25/25 20:00 01/25/25 20:00 01/25/25 20:00 01/25/25 20:00 01/25/25 20:00
Lab Results - Hematology
01/25/25
05:48
WBC 14.1 H
Lab Results - Chemistry
01/25/25 01/25/25
05:48 08:00
BUN 15 17
Creatinine 0.9 0.8
Estimated Creat Clear 40 44
Albumin 4.2
01/25/25 01/25/25 01/25/25
05:49 07:57 14:14
Lactic Acid 8.9 H* 2.2 H 1.3
01/25/25
19:45
Lactic Acid Cancelled
Lab Results - Urine
01/25/25 01/25/25
06:02 07:37
Urine Nitrite (Reflex) Negative Cancelled
Leukocyte Esterase Rfl Negative Cancelled
Urine WBC (Reflex) 0-2
Ur Squamous Epith Cells 16-20
Urine Bacteria (Reflex) Few A
[2025-01-25] MEDS: VANCOCIN 275 MG IV (20:57)
[2025-01-25 21:18] LABS: Glucose - Point of Care 117 mg/dl (70-99)
[2025-01-25] MEDS: NSS 1000 IV (21:19)
[2025-01-25] MEDS: STERILE WATER FOR INJECTION 10 ML IV (21:45)
[2025-01-25] MEDS: MAXIPIME 2000 MG IV (21:46)
[2025-01-25 23:12] LABS: Glucose - Point of Care 97 mg/dl (70-99)
[2025-01-26] VITALS (66 sets, daily range): BP systolic 93–143; BP diastolic 32–56; BMI 20.3
--- NOTE | 2025-01-26 00:09 | PTCARENOTE ---
pt intubated and sedated. NSR per tele monitor, assessment remains unchanged
[2025-01-26 01:00] LABS: Glucose - Point of Care 121 mg/dl (70-99)
--- NOTE | 2025-01-26 01:22 | W.PN.CT ---
Addendum entered and electronically signed by Ute Campbell PA-C 01/26/25 16:53:
additional dx:
acute on chronic systolic and diastolic heart failure
Original Note:
Today's Communication / Plan
-
-for TAVR today with Drs. Alvarez/Carlitos
Assessment / Plan
-
79 year old female admitted 01/25 for respiratory failure, intubated in the ER.
Stable overnight on Dobutamine @ 3, Levophed @ 10, Propofol @ 20, Fentanyl @ 50
PMH:
- severe bioprostetic aortic valve stenosis
- acute on chronic HFrEF (30-35%)
- recent hospitalization for decompensated HF (Nov 2024)
- Hx SAVR w/root enlargement
- coronary artery disease w/[employer] RCA
- hypertension
- hyperlipidemia
- severe COPD (DLCO 30; FEV1 56)
- hypothyroidism
- T2DM (A1C 5.4%)
- anxiety/depression
- Hx bladder cancer
Subjective
Procedure
pre-op TAVR
-
Date of Service: January 26, 2025
Objective Data
-
PT 15.2 Sec (11.4-14.6) H 01/25/25 10:53
INR 1.15 01/25/25 10:53
APTT 28.7 Sec (23.4-35.0) 01/25/25 10:53
Vital Signs
Vital Signs
Temp Pulse Resp BP Pulse Ox
100.2 F 83 20 113/34 96
01/26/25 01:00 01/26/25 01:00 01/26/25 01:00 01/26/25 01:00 01/26/25 01:00
CT Intake/Output/Weight
02/26/25 02/26/25 02/27/25
06:59 18:59 06:59
Intake Total 465.3 / 1429.9 964.6 / 1429.9
Output Total 700 / 1420 720 / 1420
Balance -234.7 / 9.9 244.6 / 9.9
SaO2: 96
Physical Exam
-
General: Other (intubated, sedated on Propofol and Fentanyl)
Cardiovascular: Regular rate & rhythm and Murmur (III/ crescendo -decrescendo RSB 2nd ICS>radiates throughout precordium)
Respiratory: Rhonchi and Other (OETT> AC 400/40%/20/5)
Extremities: No Edema
Data Reviewed
-
Lab Results: Results Reviewed
Medications: Active Meds Reviewed
Chest X-Ray: Report Reviewed and Image Reviewed
ECG: Report Reviewed and Image Reviewed
[2025-01-26] MEDS: SUBLIMAZE 100 IV ×2 (03:03→18:12)
[2025-01-26 03:27] LABS: Glucose - Point of Care 113 mg/dl (70-99)
[2025-01-26 03:34] LABS: % Basophils 0.3 % (0-2); % Eosinophils 0.6 % (0-6); % Immature Granulocytes 0.5 % (0-0.5); % Lymphocytes 7.5 % (20.5-51.1); % Monocytes 8.6 % (1.7-9.3); % Neutrophils 82.5 % (42.2-75.2); Absolute Basophils 0.1 10^3/uL (0-0.2); Absolute Eosinophils 0.1 10^3/uL (0-0.7); Absolute Immature Granulocytes 0.1 10^3/uL (0-0.05); Absolute Lymphocytes 1.3 10^3/uL (1.2-3.4); Absolute Monocytes 1.5 10^3/uL (0.1-0.6); Absolute Neutrophils 14.7 10^3/uL (1.4-6.5); Hematocrit 29.8 % (37.0-47.0); Hemoglobin 9.7 g/dL (12.0-16.0); Mean Corp Hgb Conc. 32.6 g/dL (33.0-37.0); Mean Corpuscular Volume 85.9 fL (81.0-99.0); Mean Platelet Volume 9.6 fL (7.4-10.4); Nucleated Red Blood Cells % 0 %; Platelet Count 153 10^3/uL (130-400); Red Blood Cell Count 3.47 10^6/uL (4.20-5.40); Red Cell Dist. Width 15.6 % (11.5-14.5); White Blood Cell Count 17.8 10^3/uL (4.8-10.8)
[2025-01-26 03:43] LABS: INR 1.11; PT 14.8 Sec (11.4-14.6)
[2025-01-26 03:44] LABS: APTT 30.3 Sec (23.4-35.0)
[2025-01-26] MEDS: SUBLIMAZE 50 MCG IV ×2 (03:44→20:07)
[2025-01-26 03:58] LABS: ALT (SGPT) 111 U/L (0-35); AST (SGOT) 86 U/L (14-36); Albumin 3.1 g/dl (3.5-5.0); Alkaline Phosphatase 153 U/L (38-126); Blood Urea Nitrogen 19 mg/dl (7-17); Calcium 8.7 mg/dl (8.4-10.2); Carbon Dioxide 24 mmol/L (22-30); Chloride 104 mmol/L (98-107); Estimated Creatinine Clearance 50 ml/min; Glucose 102 mg/dl (70-99); Magnesium 1.6 mg/dl (1.6-2.3); Sodium 136 mmol/L (135-145); Total Bilirubin 0.7 mg/dl (0.2-1.3); Total Protein 5.3 g/dl (6.3-8.2); eGFR > 60.00
[2025-01-26 04:03] LABS: Potassium 3.5 mmol/L (3.5-5.1)
--- NOTE | 2025-01-26 04:18 | PTCARENOTE ---
Labs and EKG obtained, pt intubated and sedated, NSR per tele monitor HR 70s, assessment remains unchanged
[2025-01-26 05:11] LABS: Glucose - Point of Care 100 mg/dl (70-99)
[2025-01-26] MEDS: SYNTHROID 50 MCG PO (06:24)
[2025-01-26] MEDS: KCL 160 MEQ IV (06:30)
--- NOTE | 2025-01-26 06:33 | W.CVOR.SURPR ---
CVOR Surgeon Immed Pre Op
-
I have examined this patient prior to performance of the scheduled procedure.
The patient's condition is unchanged from the time of the dictated/written History and
Physical and the patient is able to undergo the scheduled procedure.
Critical patient in cardiogenic shock with respiratory failure
Not Rescue (Shocks / CPR only)
TF TAVR + PCI Snorkel Stent
[2025-01-26 07:11] LABS: Glucose - Point of Care 94 mg/dl (70-99)
--- NOTE | 2025-01-26 07:17 | PTCARENOTE ---
CHG baths completed x2, CHG wipes and VS completed, labs sent.
[2025-01-26 07:22] LABS: BAL Lymphocytes 28 %; BAL Macrophages 26.5 %; BAL Neutrophils 45.5 %
[2025-01-26] MEDS: PULMICORT INH ×2 (07:30→20:32)
[2025-01-26] MEDS: DUONEB 3 ML INH ×4 (07:30→20:33)
--- NOTE | 2025-01-26 08:24 | W.PN.INTV ---
Today's Communication / Plan
Recommendations
Mechanical ventilation � hopefully can extubate over the next 24-48 hours
DuoNebs + budesonide
Cefepime; DC IV vancomycin given negative MRSA swab
Follow-up cultures including from RLL bronchial wash from 01/25/2025
s/p TAVR today
PPI for stress ulcer prophylaxis
Start Lovenox for DVT prophylaxis
Lightly sedate with goal RASS 0 to -2
DAPT with aspirin + Plavix
Continue ICU level care for this critically ill patient
Assessment
-
Assessment: 79-year-old female active tobacco smoker with a past medical history of centrilobular emphysema/COPD, chronic bronchitis, chronic HFpEF, aortic stenosis s/p bioprosthetic aortic valve replacement complicated by bioprosthetic valvular
regurgitation, mitral regurgitation, hypertension, history of bladder cancer s/p surgery, nephrolithiasis, history of TIA, thyroid disease, DM type II and history of pneumonia who presents with being found unresponsive. When EMS arrived patient was
hypoxic and placed onto a nonrebreather. The patient was supposed to have a TAVR this (01/26/2025). She was intubated in the ER and required vasopressors. CT chest showed evidence of acute pulmonary edema as well as bilateral pneumonia,
with secretions in her left mainstem bronchus. Initially in the ER heart rate was 105, breathing at 14 breaths/min, BP 180/56 and saturating 97% via ventilator. Initial labs showed leukocytosis to 14.1, Hb 12.1, pH 7.08 with pCO2 62, serum bicarb
level 15, glucose 292, lactate 2.2, and urinalysis was negative for UTI. She was transferred to the CVICU for further care, and Water Purifier services consulted for additional management/recommendations.
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
regurgitation, hypertension, history of bladder cancer, nephrolithiasis, history of TIA
Impression:
#Acute respiratory failure with hypoxia + hypercapnia on mechanical ventilation due to acute decompensated heart failure with right lower lobe pneumonia in the setting of centrilobular emphysema with aspiration
#Leukocytosis due to sepsis
#Metabolic acidosis with preserved anion gap
#Hyperglycemia likely due to acute stressful response with sepsis - now euglycemic and on insulin gtt s/p TAVR
#Hypocalcemia
#Transaminitis
#Bioprosthetic aortic valve with severe valvular regurgitation + severe mitral regurgitation --> s/p TAVR with a snorkel stent of the left main coronary artery (procedure date: 01/26/2025)
#Right lower lobe pneumonia likely due to aspiration
#Shock: Multifactorial from sepsis + cardiogenic and sedation --> shock state improving
#History of aspiration of secretions, currently with secretions seen in left mainstem bronchi on current CT chest imaging with prior secretions seen in right mainstem bronchi on cardiac CT from 01/04/2025
#Centrilobular emphysema/moderate COPD (per PFTs from 09/28/2023)
#History of TIA
Plan:
- Patient has significant bronchial wall thickening with obvious intralobular septal thickening with interstitial edema with bilateral pleural effusions and patchy opacities in the posterior right upper lobe/right lower lobe + left lower lobe
consistent with pneumonia
- Hence, there are multiple processes going on here including acute pulmonary edema, possible COPD exacerbation with multifocal pneumonia in the setting of emphysema/COPD/chronic bronchitis
- Her severe valvular heart disease with severe MR + severe bioprosthetic aortic valve regurgitation is surely not helping
- Given her infection, would not diurese until her BP and her infection improves
- Continue cefepime; ok to DC IV vanco given negative MRSA swab; follow up infectious workup with sputum culture, blood cultures; urine antigens for Legionella/strep pneumonia both negative
- She is on Trelegy at home, however while intubated would use DuoNebs QID with prn doses for breakthrough symptoms and budesonide
- Continue mechanical ventilation with daily SAT/SBT if clinically indicated --> hopefully can extubate over next 24-48 hrs
- Maintain SpO2 >90-94%
- she is s/p bronchoscopy on 01/25 for pulmonary toilet purposes --> bronchial wash sent from right lower lobe (follow up cultures)
- Maintain plateau pressure <30
- Lightly sedate with goal RASS 0 to -2
- Daily adjustment of ventilator based on blood gas
- Daily CXR
- Aspiration precautions keeping HOB >30-45�
- Patient currently on minimal FiO2 at 40%, with PEEP of 5 and end-tidal CO2 24 --> okay to hold off on systemic steroids at this time
- Goal MAP>65 --> currently off all vasopressors and inotropes
- She has a history of HFrEF with LVEF 30-35% seen on echo on 12/15/2024, but repeat echo via BELKYS on 12/20/2024 showed recovered LVEF at 60-65%
- Underwent TAVR today placing a #20 Donte S3 Ultra aortic valve into a Mitroflow bioprosthetic AVR with a snorkel stent of the left main coronary artery
- Trend LFTs
- Trend sHCO3 level
- Trend Ca level
- Nicotine patch
- Replete electrolytes with K>4, Mg>2
- Maintain euglycemia with goal BG 140-180
- Trend H/H and transfuse if needed to keep Hb>7g/dL; keep plt>20k, unless there is concern for bleeding then keep plt>50k
- Stress ulcer ppx: PPI
- DVT ppx: Start LMWH
Ultimately patient should follow-up with our office again after discharge, as last visit was on 09/28/[address] Alanis.
Patient is critically ill. Continue with ICU level of care
Critical care statement: A total of 43 minutes of critical care time was provided for this patient today. This includes management of unstable vital signs, evaluation of the patient at bedside, reviewing the patient's pertinent medical records
including radiographs, microbiology, laboratory evaluations, and discussion with primary team, consultants, pharmacy, nutrition, physical therapy, case management, charge nurse, critical care nursing, and respiratory therapy.
Data:
CTA chest 01/25/2025:
1. SEVERE ACUTE CARDIOGENIC PULMONARY EDEMA.
2. Small right and minimal left pleural effusions.
3. Moderate amount of dense airspace consolidation in the posterior segment of the right upper lobe and right lower lobe. Moderate subpleural airspace consolidation in the basilar left lower lobe. Diagnostic possibilities are (1) bilateral
pneumonia (possibly aspiration pneumonia),or (2) a combination of alveolar pulmonary edema and atelectasis.
4. AIRWAY ASPIRATION with severe secretions in the left mainstem bronchus.
5. Severe bilateral bronchitis.
6. Mild to moderate emphysema.
7. 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
8. Previous aortic valve replacement.
9. Endotracheal tube in place.
CXR 01/26/2025:
Interval insertion of transcatheter aortic valve replacement through an existing prosthetic aortic valve.
The tracheal tube is present with tip 5 cm above the peggy.
Pulmonary edema pattern with small bilateral pleural effusions.
Subjective Dataa
Subjective Data
Date of Service:
Date of Service: January 26, 2025
Chief Complaint: Water Purifier Follow Up
Subjective:
Patient was seen and evaluated today at bedside. Underwent TAVR today and TAVR echo gradient was 30 mmHg. She remains intubated on AC/CMV at 20/400/40%/5. Currently sedated on propofol at 20 mcg/kg/min + fentanyl at 50 mcg/hr. Also on insulin
drip at 1.2 units/h. End-tidal CO2: 24, with heart rate 75, BP 113/36 and saturating 98%. Children (Charli + Maryjane) at bedside and I answered both their questions.
Review of Systems
General: Unobtainable - Sedation
Objective Data
Data Reviewed
Vital Signs / I&O / Oxygen:
Vital Signs
Temp Pulse Resp BP Pulse Ox
100.9 F H 93 23 119/48 95
01/26/25 10:00 01/26/25 10:00 01/26/25 10:00 01/26/25 10:00 01/26/25 10:00
Intake and Output
01/25/25 01/26/25 01/27/25
06:59 06:59 06:59
Intake Total 1624.9 / 1648.6 78.9 / 78.9
Output Total 1625 / 1645 105 / 105
Balance -0.1 / 3.6 -26.1 / -26.1
SaO2 [A/C] 98
SaO2 95
Physical Exam
General: Respiratory Distress (negative), Comfortable, Chills (negative), Sweats (negative) and Other (Intubated/sedated in NAD)
HEENT: Normocephalic, Anicteric and Other (ETT in place)
Cardiovascular: S1-S2 and Peripheral Edema (negative)
Respiratory: Wheeze (negative), Crackles (Bilaterally), Rhonchi (negative), Non-Labored Respirations and ET Tube (Mechanical breath sounds heard bilaterally)
GI: Soft, Non Distended, Non Tender and Normal Bowel Sounds
Neurology: Tremors (negative) and Other (Sedated)
Skin: Warm, Dry, Cyanosis (negative) and Jaundice (negative)
Labs/Micro/Reports
Lab Data
01/26/25 03:20
01/26/25 03:20
Laboratory Results
01/25/25 01/25/25 01/25/25
10:53 10:54 15:26
PT 15.2 H
INR 1.15
APTT 28.7
pH 7.35 7.35
pCO2 41 H 42 H
pO2 92 85
HCO3 22.6 23.2
O2 Delivery Level Vent Not Reportable
01/26/25
03:20
PT 14.8 H
INR 1.11
APTT 30.3
pH
pCO2
pO2
HCO3
O2 Delivery Level
Microbiology
01/25/25 21:03 Nose Nasal Screen MRSA (PCR) - Final
MRSA not detected - performed by PCR methodology.
01/25/25 17:30 Bronch Right Lower Lobe Fungal Culture - Preliminary
Culture in progress.
Positive cultures are reported as soon as detected.
Final report to follow in four to five weeks.
01/25/25 21:06 Urine Legionella Urinary Antigen - Final
Negative for Legionella pneumophila Serogroup 1 antigen.
A negative result does not rule out the possiblity of
Legionella infection due to other serogroups or species of
Legionella. Clinical correlation is recommended.
01/25/25 21:06 Urine Streptococcus pneumoniae Antigen (M - Final
Negative for Streptococcus pneumoniae antigen.
A negative result does not exclude infection with
Streptococcus pneumoniae. Clinical correlation is
recommended.
[2025-01-26] MEDS: PROTONIX IV 40 MG IV (08:25)
[2025-01-26] MEDS: NSS (PRESERVATIVE FREE) 10 ML IV (08:26)
[2025-01-26] MEDS: DIPRIVAN 100 IV ×2 (08:26→20:45)
--- NOTE | 2025-01-26 08:30 | PTCARENOTE ---
Patient received from death clearance coordinator RN; Sedated and intubated; Responds to tactile and loud verbal stimulation but gets agitated upon waking; Pupils round, reactive, and equal; VSS; Murmur present; SR with prolonged QT on monitor; +2 DP and radial
pulses; ETT size 7.5 positioned and secured at 21 cm left lip; Ventilator settings A/C 20/400/5 FiO2 40%; SpO2 95-100%; Lungs diminished at bases; Normoactive BS; 15 Fr OGT marked at 60 cm connected to low intermittent wall suction; Danielson catheter
draining clear, yellow urine; RIJ Cordis with KVO, Dobutamine, Levo, and Fentanyl infusing, #20 RAC with Propofol infusing, #18 LAC with insulin infusing, and #20 left wrist IV for intermittent IV pushes - see nursing flowsheets for further details;
Left radial A-line zeroed and level, oozing small amounts of sanguineous drainage - checked by Anesthesia and stated to be okay for use; See nursing documentation for further information.
[2025-01-26 08:43] LABS: Vancomycin Random 10.7 ug/ml
[2025-01-26 09:13] LABS: Glucose - Point of Care 93 mg/dl (70-99)
[2025-01-26] MEDS: MAXIPIME 2000 MG IV ×2 (09:46→21:46)
[2025-01-26] MEDS: STERILE WATER FOR INJECTION 10 ML IV ×2 (09:46→21:46)
--- NOTE | 2025-01-26 09:46 | PHA.VAN.FU ---
Vancomycin Assessment / Plan
- Assessment
Renal Function: Stable
WBC's are: Trending Up
Concomitant Antimicrobials: cefepime
- Assessment - Therapeutic Drug Monitoring
Random Level: 10.7 - drawn ~11H after 1250mg initial dose
- Dosing Plan
Dosing by Level: Re-dose today (Vanc 750mg)
Vanc 750mg Q24H predicts AUC 478, peak 32.1, trough 11.2
Will follow dose by level for now to follow trend - may consider scheduling in next day or so if levels appropriate
- Monitoring Plan
Random Level: 01/27 06
- Follow Up
Pharmacy will continue to follow.
Vancomycin Follow UP
- -
Patient Age: 79
Patient Sex: Female
Vancomycin Day #: 2
Indication: Pulmonary/Respiratory
Requesting Provider: Dr. Menendez
Pertinent Antimicrobial Allergies:
clarithromycin - GI upset
penicillins - unknown
levofloxacin - 'felt awful...'
Height / Weight:
Height 5 ft 1 in
Actual Weight 48.6 kg
Pertinent Past Medical History: DM 2
- Vital Signs / Lab Results
Temp Pulse Resp BP Pulse Ox
100.7 F H 86 22 121/35 96
01/26/25 09:00 01/26/25 09:00 01/26/25 09:00 01/26/25 09:00 01/26/25 09:00
Lab Results - Hematology
01/25/25 01/26/25
05:48 03:20
WBC 14.1 H 17.8 H
Lab Results - Chemistry
01/25/25 01/25/25 01/26/25
05:48 08:00 03:20
BUN 15 17 19 H
Creatinine 0.9 0.8 0.7
Estimated Creat Clear 40 44 50
Albumin 4.2 3.1 L
01/25/25 01/25/25 01/25/25
05:49 07:57 14:14
Lactic Acid 8.9 H* 2.2 H 1.3
01/25/25
19:45
Lactic Acid Cancelled
Microbiology Results
01/25/25 17:30 Fungal Culture - Preliminary
Bronch Right Lower Lobe Culture in progress.
Positive cultures are reported as soon as detected.
Final report to follow in four to five weeks.
01/25/25 21:06 Legionella Urinary Antigen - Final
Urine Negative for Legionella pneumophila Serogroup 1 antigen.
A negative result does not rule out the possiblity of
Legionella infection due to other serogroups or species of
Legionella. Clinical correlation is recommended.
Streptococcus pneumoniae Antigen (M - Final
Negative for Streptococcus pneumoniae antigen.
A negative result does not exclude infection with
Streptococcus pneumoniae. Clinical correlation is
recommended.
Therapeutic Drug Monitoring
Random Vancomycin 10.7 ug/ml 01/26/25 08:11
[2025-01-26] MEDS: TYLENOL 650 MG PO (10:08)
[2025-01-26] MEDS: ZOLOFT 150 MG PO (10:15)
[2025-01-26] MEDS: ZETIA 10 MG PO (10:15)
[2025-01-26] MEDS: NICODERM TRANSDERMAL 7 MG TRANSDERM (10:15)
[2025-01-26] MEDS: CRESTOR 20 MG PO (10:15)
--- NOTE | 2025-01-26 10:25 | CM ---
Reviewed chart. Mrs. Patricia is in the operating room today. Prior to admission she resides alone in a one story home with four steps to enter. Prior to admission she is independent with ambulation and adls, unless she has back pain then she uses a
walker. She has a walker and shower bench at home. She has a prescription plan and with [facility] and uses [facility]. Will need to see her current functional level to see if she will have any skilled care needs. Medical work-up in
progress. The discharge plan is to return home with her daughter staying with her and a home visit by the Transitional Care Nurse verses some level of inpatient rehab. if indicated when medically stable.
[2025-01-26 11:04] LABS: Glucose - Point of Care 107 mg/dl (70-99)
[2025-01-26] MEDS: VANCOCIN 150 IV (11:40)
--- NOTE | 2025-01-26 12:01 | PTCARENOTE ---
Patient taken to CCL; RANGE CONSERVATIONIST and CCL RN at bedside; IV Vancomycin started prior to patient leaving for CCL; IV Ancef doses and chart taken with patient
[2025-01-26 13:38] LABS: ACT-LR - POC 388 Seconds (116-155)
[2025-01-26 14:07] LABS: ACT-LR - POC 285 Seconds (116-155)
--- NOTE | 2025-01-26 14:12 | W.PN.CT.SURG ---
CT Surgery Operative Note
-
OPERATIVE REPORT
Preoperative Diagnosis: Severe aortic valve insufficiency, symptomatic, cardiogenic shock with respiratory failure
Postoperative Diagnosis: Same
Procedure(s) Performed: Right trans femoral TAVR in SAVR a 20 mm Bunch TAVR valve, left main stent (snorkel)
Date of Procedure: 01/26/2025
Comorbidities:
1. Severe aortic insufficiency
2. Cardiogenic shock with respiratory failure secondary to volume overload and severe aortic valve insufficiency
3. Nonischemic cardiomyopathy with reduced left ventricular ejection fraction secondary to systolic and diastolic heart failure
4. Acute respiratory failure secondary to pulmonary edema
5. Active smoker
6. Anxiety
7. History of cardiac surgery with aortic root enlargement and SAVR
8. Hypertension
9. Hyperlipidemia
10. COPD
11. Diabetes
Cardiac Surgeon: Jamie Alvarez MD, MS
Bracelet And Brooch Maker: Ranulfo Urbina MD
Anesthesia: General Endotracheal intubation
EBL: 100cc
Products: none
Implant: 20 mm Bunch TAVR valve, SN: [id number], please see Dr. Urbina's dictation for the PCI portion and stent implants
Indication(s) for Procedures: 80-year-old female with symptomatic severe aortic insufficiency. The patient initially presented approximately a month ago with respiratory failure secondary to subacute aortic valve insufficiency from degeneration of
her prior implanted aortic valve prosthesis. She presented recently to the hospital in respiratory failure and cardiogenic shock secondary to worsening AI. She was intubated and medically optimized for TAVR as a last ditch rescue effort.
Start time: 1303hrs
Deployment time: 1345hrs
End time: 1404hrs
Radiation Dose (mGy): 253.44
DAP (cm2.Gy): 24.7000
Fluoroscopy time (minutes): 11.5
Contrast volume (ml): 74
TAVR gradient (mmHg): 30mmHg (patient was hyperdynamic with an LVEF of approximately 70% on dobutamine)
Heparin Dose: 5000units
Protamine Dose: 0mg
Final Valve Positionin/40
Findings: Preoperative LVEF was 50-55% and was 70% following TAVR on dobutamine of 3. Coronary access was performed by interventional cardiology and a guide liner was placed in anticipation of needing to perform a snorkel stent. Using the
implanted valve stent frame, this was placed on a coplanar view and were able to easily cross into the LV. The 20 mm Bunch TAVR valve was deployed under rapid pacing at 180 bpm. Following this the balloon was deflated and the pacer was turned
off and the stent was deployed under angiographic guidance making sure that it was in the left main and protruding up towards the stent frame. There is excellent flow into the left main at this point. BELKYS was used to assess the valve. There was
trace paravalvular leak and the patient was hyperdynamic at approximately 70% LVEF. With this the gradient across the new TAVR valve was high at approximate [address] Urbina's dictation for his portion of the PCI and stenting.
Access:
1. Device -right common femoral artery, perclose x 2
2. Pigtail -left common femoral artery [+ 6Fr angioseal]
3. Transvenous Pacer -left common femoral vein
Description of Procedure: The patient was taken to the phlebotomist medical lab assistant. Their identity and procedure to be performed were verified and they were positioned supine on the phlebotomist medical lab assistant table. Induction via conscious sedation. The patient was then prepped and
draped from chin to thigh in a sterile fashion. A preoperative time-out was performed with all members of the team present. Arterial and venous access was performed using fluoroscopy and ultrasound guidance with micropuncture and Seldinger
technique. Two perclose devices were used on the device side followed by access to the aorta with a stiff wire to facilitate E-sheath placement. Heparin was given. Please see Dr. Urbina's dictation for the PCI portion of the procedure. A J-wire
and AL-1 catheter was used to cross the aortic valve. The J-wire was exchanged for an extra stiff coiled tip wire. The valve was prepped and mounted on to the device carrier. An ACT of >250 was achieved. We verified x 3 that the valve was mounted in
the correct orientation with the skirt of the valve directed toward the tip of the device carrier. We advanced the device into the descending thoracic aorta where the valve was them mounted onto the balloon under fluoroscopy. The device was flexed
and advanced over the arch into the root and positioned across the aortic valve. Contrast fluoroscopy was used to visualize the prosthesis across the valve and to guide positioning. The stent fame of the previously implanted valve was used as a
guide and placed into a coplanar view. We aimed to have the bottom of the device marker at the previous stent frame. The device sheath was pulled back. We performed a quick pre-deployment time out. The pacer was turned on and had capture. Blood
pressure fell accordingly, and the valve was deployed with 5 seconds of rapid pacing to nominal volume. The balloon was deflated and the pacer was turned off. We had recovery of vitals. The stent was then deployed at this time after angiographic
guidance. The device carrier was unflexed and positioned back in the descending thoracic aorta. A transthoracic echocardiogram was performed. The device was removed from the E-Sheath maintaining wire access followed by removal of the E-sheath as we
cinched down the perclose devices. There was acceptable hemostasis. The pigtail was inserted into the descending/abdominal and completion aortogram with runoff run-off angiography was performed. There was no stenosis or dissection of bilateral
iliofemoral systems. There was acceptable hemostasis of bilateral groins and manual pressure was held following wire removal.
All instrument, sponge, and needle counts were confirmed to be correct x 2 at the end of the operation. The patient was transferred to the cardiac intensive care unit in stable condition and remained intubated.
I, Dr. Jamie Alvarez, was present, scrubbed for, and performed all critical elements of this procedure.
Jamie Alvarez MD
Cardiothoracic Surgeon
[facility]
This operative dictation was created using the Instant AV dictation system. Please excuse any grammatical, typographical, or 'sound alike' errors
--- NOTE | 2025-01-26 14:13 | ITS.CL.TAVR ---
Assistant In Nursing - TAVR Report
TAVR PRocedure
Procedure Report:
TRANSCATHETER AORTIC VALVE REPLACEMENT REPORT
Date: 01/26/2025
Referring physician: Scot Villalpando M.D.
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
Procedure: Transcatheter valve in valve aortic valve replacement (TAVR) using a #20 Bunch DONTE S3 Ultra, snorkel PCI of the left main coronary artery to above the valve struts due to low coronary height.
Operators: Ranulfo Urbina DO, Jamie Alvarez M.D.
Findings: Severely calcified and stenotic aortic valve, low coronary artery height.
Anesthesia: General Endotracheal anesthesia was provided by the anesthesia staff.
Estimated blood loss: Negligible.
Complications: None.
Condition: Stable
Procedure:
The patient was brought to the cardiac laboratory asst after consent and was prepped and draped in standard sterile fashion. Conscious sedation was provided by the anesthesia staff. After a 'Time Out,' bilateral common femoral arteries and the left
common vein were access using a modified Seldinger technique with a micropuncture kit under ultrasound guidance. A 23 cm 6 Tajik sheath was placed in the left femoral vein. Angiography performed through the micropuncture sheath showed a slightly
high stick in the left common femoral artery. There was extravasation of contrast subcutaneously, preceding contrast reaching the area from the left iliac artery. The micropuncture sheath was removed and pressure was held. We tested the
micropuncture sheath which showed perforation of the sheath in the proximal third, leading to the extravasation of contrast, not an acute arterial injury. After hemostasis was obtained, the left common femoral artery was punctured using a new
micropuncture sheath. Angiography confirmed satisfactory arterial placement in the left common femoral artery. The micropuncture sheath was replaced with a 6Fr sheath in the left JD EDWARDS. Angiography through the micropuncture kit confirmed
satisfactory arterial placement in the right common femoral artery. The right JD EDWARDS was dilated with an 8FR dilator and preclosed with two Perc-Close devices. An 8Fr sheath was placed in the RCFA. A temporary pacing wire was advanced through the
left femoral vein and into the right ventricle. The pacemaker demonstrated good capture and was set to back up.
Heparin 5000 units was given. A 6 Tajik JL 4 guiding catheter was advanced through the left common femoral artery and seated in the ostium of the left main coronary artery. A power turn flex wire was advanced into the distal LAD. A 6 Tajik
guide liner was advanced over a Medtronic Ander Hughes 3.5 x 26 drug-eluting stent. After placing the stent and GuideLiner in satisfactory position in the proximal LAD, the catheter was disengaged leaving the GuideLiner, wire and stent in place.
An AL-1 catheter was advanced through the 8Fr sheath, the J wire was exchanged for an Amplatz Superstiff wire and the catheter and the 8 Fr sheath was removed. A 16 Fr dilator was advanced over the Superstiff wire to the descending aorta. The
dilator was removed and the 14 Fr Bunch E-sheath was inserted over the wire and into the descending aorta. The DONTE S3 was prepared on the back table. Orientation was confirmed by both physicians. The AL-1 catheter was re-advanced through the
E-sheath to the level of the ascending aorta. The Superstiff wire was removed and a standard J wire was advanced through the AL-1. The standard J wire was used to cross the bioprosthetic aortic valve and the catheter was advanced into the left
ventricle. The J wire was removed and an Amplatz Extrastiff wire with curved proximal end was advanced through the catheter and into the left ventricle. The wire was seated in the apex and the catheter was removed. ACT was checked and confirmed to
be > 250 seconds.
The valve was advanced over the Extrastiff wire and into the descending aorta. The balloon was withdrawn and the valve was mounted on the balloon. The valve was advanced over the aortic arch and into the aortic valve annulus. The pusher device
was withdrawn to allow for balloon expansion. The valve was placed in a coplanar position on fluoroscopy. The valve was deployed during rapid ventricular pacing. The valve balloon was deflated and pulled out of the deployed TAVR but remained in
the ascending aorta.
We then turned our attention to the snorkel stent. The stent was withdrawn through the GuideLiner. We positioned the distal end of the stent in the distal margin of the left main coronary artery, ensuring that we did not crossover into either the
LAD or circumflex. The proximal edge of the stent was several millimeters above the deployed TAVR struts. The GuideLiner was pulled back to expose the entire stent length and the stent was deployed to 12 lyn. The stent balloon was deflated and
resheath using the GuideLiner to reenter the deployed stent. The stent balloon was withdrawn.
Transesophageal echocardiography confirmed a good result with trace aortic valve insufficiency and a 30 mmHg mean gradient. Repeat coronary angiography at various positions of the GuideLiner showed coronary patency with excellent flow through the
snorkel stent. The valve deployment system was removed. The wire and guide liner were removed and the 6 Tajik guide was disengaged. The guide was removed over a J-wire and a standard pigtail catheter was advanced into the descending aorta. The
Bunch E sheath was then removed and hemostasis obtained with the two Perc-Close sutures. Final angiography demonstrated no evidence of ileofemoral dissection/perforation and good runoff below the common femoral artery. The pacemaker and the
pigtail catheter were removed. The left femoral artery sheath was removed using a 6 Tajik Angio-Seal. The left femoral venous sheath was removed and manual pressure was applied with excellent hemostasis.
Radiation
Dose (mGy): 253.44
DAP (cm2.Gy): 24.7000
Fluoroscopy time (minutes): 11.5
TAVR Echo Gradient (mmHg): 30
LV (s/x, mmHg): Not obtained.
TAVR Cath Gradient (mmHg): Not obtained.
Conclusions:
1. Successful placement of #20 Donte S3 Ultra aortic valve in a Mitroflow bioprosthetic AVR, requiring snorkel stent of the left main coronary artery due to low coronary heights via right transfemoral approach with no acute complications.
2. Cardiogenic shock.
Ranulfo Urbina, DO, FACC, FACP
Copy to: Scot Villalpando M.D., Adolfo Decker M.D.
[2025-01-26 15:27] LABS: Glucose - Point of Care 115 mg/dl (70-99)
[2025-01-26 15:35] LABS: B.E. -5.4 mmol/L; HCO3 20.7 mmol/L (21-28); O2 Saturation % 97.6 % (94-98); PCO2 42 mmHg (32-35); PO2 76 mmHg (83-108)
[2025-01-26] MEDS: CARDENE 200 IV (15:35)
[2025-01-26] MEDS: NOVOLIN R INSULIN INFUSION 100 IV (15:36)
[2025-01-26] MEDS: ANCEF 10 IV ×2 (15:38→15:39)
[2025-01-26 15:48] LABS: Hematocrit 27.3 % (37.0-47.0); Hemoglobin 8.7 g/dL (12.0-16.0); Mean Corp Hgb Conc. 31.9 g/dL (33.0-37.0); Mean Corpuscular Hgb 27.8 pg (27.0-31.0); Mean Corpuscular Volume 87.2 fL (81.0-99.0); Mean Platelet Volume 9.6 fL (7.4-10.4); Platelet Count 102 10^3/uL (130-400); Red Blood Cell Count 3.13 10^6/uL (4.20-5.40); Red Cell Dist. Width 15.8 % (11.5-14.5); White Blood Cell Count 15.6 10^3/uL (4.8-10.8)
[2025-01-26] MEDS: SODIUM BICARBONATE 50 MEQ IV (15:48)
[2025-01-26 15:51] LABS: Blood Urea Nitrogen 17 mg/dl (7-17); Calcium 8.3 mg/dl (8.4-10.2); Carbon Dioxide 21 mmol/L (22-30); Chloride 106 mmol/L (98-107); Estimated Creatinine Clearance 58 ml/min; Glucose 109 mg/dl (70-99); Magnesium 1.7 mg/dl (1.6-2.3); Potassium 3.9 mmol/L (3.5-5.1); Sodium 135 mmol/L (135-145); eGFR > 60.00
[2025-01-26] MEDS: KCL 50 IV (16:24)
[2025-01-26] MEDS: MAGNESIUM SULFATE 50 IV (16:25)
--- NOTE | 2025-01-26 16:42 | PN.CDI ---
CDI
- -
CDI:
Physician Documentation Request
Admit Date: 01/25/25 08:03
Dear Doctor / CVPA,
Please review the following and provide your response in the progress notes.
Clinical Indicators:
Pt admitted with sepsis/shock/cardiogenic shock /CHF/Acute Hypoxic/Hypercapnic respiratory Failure.
Documented per global recruiter consult, ' - She has a history of HFrEF with LVEF 30-35% seen on echo on 12/15/2024, but repeat echo via BELKYS on 12/20/2024 showed recovered LVEF at 60-65%..'
CT Surgery progress note 01/26' acute on chronic HFrEF (30-35%)...'
Cardiology consult, ' HFrEF/Cardiomyopathy:-LVEF 30-35% with LAD territory WMA 12/15/24 echo, but EF 55-60% on BELKYS 12/20/24...'
BELKYS 01/26, ' LVEF 60-65%....'
Please provide further specificity regarding the most likely type and acuity of CHF you are evaluating, treating or monitoring.
Acute on Chronic Diastolic CHF
Acute on Chronic Systolic CHF ( no change in current documentation)
Other ( please specify)
Use of terms such as suspected, likely, concern for, or probable (associated with a specific diagnosis that is being evaluated, monitored, or treated as if it exists) are acceptable and can be coded in the inpatient setting, when documented at the
time of discharge.
Thank you,
Mary Bee RN
CDI Specialist
[place] [facility]
Please use your independent medical judgment in providing your response.
[2025-01-26 16:56] LABS: Glucose - Point of Care 99 mg/dl (70-99)
[2025-01-26 18:30] LABS: Glucose - Point of Care 95 mg/dl (70-99)
[2025-01-26] MEDS: LOVENOX 30 MG SC (18:31)
--- NOTE | 2025-01-26 18:44 | PTCARENOTE ---
Patient received from [facility] at 1450; Sedated and intubated - otherwise neurologically intact; VSS; Right groin site with old hematoma - MD Urbina at bedside to evaluate it and states hematoma is chronic and improved from before; Left groin site CDI; K
repleted x1; Mag repleted x1; See nursing flowsheets for further details.
--- NOTE | 2025-01-26 19:30 | PTCARENOTE ---
Assumed care of the patient at 1900. Patient in bed, intubated, drowsy but following commands, AOx2 (d/place), calm, denies pain; PERRLA, 2RB, moving all extremities appropriately, B/L strength intact. B/L soft wrist restraints maintained for
patient safety. SR on the monitor, rate 70's, heart tones audible, click heard on auscultation, pulses palpable throughout, no edema noted. Lungs clear throughout, ventilated, ET @ 21 center lip, 99-100% SpO2, see worklist for vent settings. BS
hypoactive, abdomen SNT, no c/o nausea, OGT set to low intermittent suction, with scant bilious drainage. Danielson catheter in place draining clear, yellow urine. B/L groin sites stable; R groin with hematoma, primary team aware from day shift per
outgoing RN, dressing with scant dry serosanguineous drainage; L groin site CDI. RIJ Cordis, PIVx2 and L radial art line leveled and zeroed. On propofol, fentanyl, and insulin. See nursing worklist for intervention details.
--- NOTE | 2025-01-26 19:32 | PTCARENOTE ---
Assumed care of the patient at 1900. Patient in bed, intubated, drowsy but following commands, AOx2 (d/place), calm, denies pain; PERRLA, 2RB, moving all extremities appropriately, B/L strength intact. SR on the monitor, rate 70's, heart tones
audible, click heard on auscultation, pulses palpable throughout, no edema noted. Lungs clear throughout, ventilated, ET @ 21 center lip, 99-100% SpO2, see worklist for vent settings. BS hypoactive, abdomen SNT, no c/o nausea, OGT set to low
intermittent suction, with scant bilious drainage. Danielson catheter in place draining clear, yellow urine. B/L groin sites stable; R groin with hematoma, primary team aware from day shift per outgoing RN, dressing with scant dry serosanguineous
drainage; L groin site CDI. RIJ Cordis, PIVx2 and L radial art line leveled and zeroed. On propofol, fentanyl, and insulin. See nursing worklist for intervention details.
[2025-01-26 20:13] LABS: B.E. -1.5 mmol/L; HCO3 24.3 mmol/L (21-28); Ionized Calcium 1.21 mMOL/L (1.15-1.33); PCO2 45 mmHg (32-35); PO2 90 mmHg (83-108); Potassium 4.2 mMOL/L (3.5-5.1); pH 7.34 (7.35-7.45)
[2025-01-26 20:16] LABS: Mixed Venous O2 Saturation 84.3 %
[2025-01-26] MEDS: ANCEF 5 IV (20:36)
[2025-01-26] MEDS: NSS IV (20:39)
[2025-01-26 21:01] LABS: Glucose - Point of Care 77 mg/dl (70-99)
[2025-01-26 23:02] LABS: Glucose - Point of Care 76 mg/dl (70-99)
[2025-01-27] VITALS (38 sets, daily range): BP systolic 98–147; BP diastolic 36–110; PULSE 99; O2SAT 93–94; BMI 21.3
[2025-01-27] MEDS: SUBLIMAZE 50 MCG IV ×3 (00:07→03:45)
--- NOTE | 2025-01-27 00:25 | PTCARENOTE ---
Patient stable, awakening intermittently, following commands, neurologically intact. Fentanyl bolus administered per order, see MAR. On/off Levo per protocol for MAP <65. Scheduled medications given as ordered. Assessment of needs ongoing.
[2025-01-27 01:01] LABS: Glucose - Point of Care 85 mg/dl (70-99)
[2025-01-27 03:02] LABS: Glucose - Point of Care 83 mg/dl (70-99)
[2025-01-27] MEDS: TYLENOL 650 MG PO ×2 (03:16→21:30)
--- NOTE | 2025-01-27 03:51 | W.PN.CT ---
Today's Communication / Plan
-
-pod #1
-intubated, sedated
-mVO2 82.5. Drips: Levo 10, Propofol 35, Fentanyl 100, Insulin
-BP trended down after Fentanyl boluses this am, UO decreased- uptitrated Levo to 10, gave 1 Albumin. Hg 8.9 today - pt is Confucianist and doesn't want transfusions, per daughter.
-current vent settings AC 22/400/40%/peep 8
-in nsr 70s overnight. No colby or pauses
-on ASA and Plavix for LM stent
-Tmax 100.7, wbc trended up 19.3 today from 15.6-on Cefepime. Vanco stopped since negative MRSA swab. s/p bronch 01/25. Follow respiratory and blood cxs. Manager Statistics following
-on Lovenox for DVT prophylaxis
-Echo today
-appreciate everyone's input
Assessment / Plan
-
- Respiratory failure/Cardiogenic shock/Severe bioprosthetic valve stenosis - s/p Right trans femoral TAVR in SAVR a 20 mm Bunch TAVR valve, left main stent (snorkel) on 01/26/25, pod #1
- Intraop TTE: Preoperative LVEF was 50-55% and was 70% following TAVR on dobutamine of 3. There was trace paravalvular leak and the patient was hyperdynamic at approximately 70% LVEF. With this, the gradient across the new TAVR valve was high at
approximate 30 mmHg.
- 79 year old female admitted 01/25/25 for cardiogenic shock with respiratory failure secondary to volume overload and severe aortic valve insufficiency - intubated in the ER.
-bronchoscopy 01/25 revealed that all airways were patent down to the segmental bronchi. Some thick white/xavier secretions in the ETT which were suctioned. Respiratory cx pending
- severe bioprosthetic aortic valve stenosis
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
- recent hospitalization for decompensated HF (Nov 2024)
- Hx SAVR w/root enlargement 07/2015 at [facility]
- coronary artery disease w/[place] SC[place] RCA
- hypertension
- hyperlipidemia
- severe COPD (DLCO 30; FEV1 56), active smoker
- hypothyroidism
- T2DM (A1C 5.4%)
- anxiety/depression
- Hx bladder cancer
- Hx TIA with L facial numbness, RH numbness ([facility])
- Pt is Confucianist and will not have blood transfusion (confirmed with daughter, Kaylyn, on 01/27/25)
Discussed patient care with: Nursing and Care Team
Subjective
Procedure
- s/p Right trans femoral TAVR in SAVR a 20 mm Bunch TAVR valve, left main stent (snorkel) on 01/26/25
-
Date of Service: January 27, 2025
Objective Data
-
PT 14.8 Sec (11.4-14.6) H 01/26/25 03:20
INR 1.11 01/26/25 03:20
APTT 30.3 Sec (23.4-35.0) 01/26/25 03:20
Vital Signs
Vital Signs
Temp Pulse Resp BP Pulse Ox
100.5 F H 86 20 113/50 97
01/27/25 03:00 01/27/25 03:00 01/27/25 03:00 01/27/25 03:00 01/27/25 02:30
CT Intake/Output/Weight
01/26/25 01/26/25 01/27/25
06:59 18:59 06:59
Intake Total 1159.6 / 1658.6 372.4 / 752.8 380.4 / 752.8
Output Total 925 / 1645 415 / 663 248 / 663
Balance 234.6 / 13.6 -42.6 / 89.8 132.4 / 89.8
SaO2: 97
Physical Exam
-
General: Awake and AOx3
Cardiovascular: Regular rate & rhythm and Murmur (2/6 taty @ rsb, 2/6 systolic murmur @ L mid-clavicular line)
Respiratory: Decreased Breath Sounds
Incision: Other (groins are cdi, soft b/l. Small stable R hematoma. No hematoma on L)
Extremities: No Edema (DPs 1+ b/l)
Abdomen: soft, nontender, nondistended, + bowel sounds
Data Reviewed
-
Lab Results: Results Reviewed
Medications: Active Meds Reviewed
Chest X-Ray: Report Reviewed and Image Reviewed
ECG: Report Reviewed and Image Reviewed
[2025-01-27] MEDS: ALBUMIN 5% 250 IV (04:50)
[2025-01-27 04:56] LABS: B.E. -2.7 mmol/L; HCO3 23.2 mmol/L (21-28); Ionized Calcium 1.24 mMOL/L (1.15-1.33); O2 Saturation % 97.4 % (94-98); PCO2 44 mmHg (32-35); PO2 77 mmHg (83-108); Potassium 4.2 mMOL/L (3.5-5.1); pH 7.33 (7.35-7.45)
[2025-01-27] MEDS: DIPRIVAN 100 IV (04:57)
--- NOTE | 2025-01-27 04:59 | PTCARENOTE ---
Patient frequently restless, attempting to sit up and pulling against restraints. Fentanyl and propofol titrated per protocol. Levophed on/off per protocol for MAP goal. No UOP from [id number]. CVPA aware and at bedside to assess patient. Pending lab
work, patient repositioned frequently for comfort.
[2025-01-27 05:02] LABS: Mixed Venous O2 Saturation 82.5 %
[2025-01-27 05:07] LABS: Glucose - Point of Care 106 mg/dl (70-99)
[2025-01-27 05:09] LABS: Hematocrit 27.4 % (37.0-47.0); Hemoglobin 8.9 g/dL (12.0-16.0); Mean Corp Hgb Conc. 32.5 g/dL (33.0-37.0); Mean Corpuscular Hgb 28.2 pg (27.0-31.0); Mean Corpuscular Volume 86.7 fL (81.0-99.0); Mean Platelet Volume 9.4 fL (7.4-10.4); Platelet Count 146 10^3/uL (130-400); Red Blood Cell Count 3.16 10^6/uL (4.20-5.40); Red Cell Dist. Width 15.6 % (11.5-14.5); White Blood Cell Count 19.3 10^3/uL (4.8-10.8)
[2025-01-27 05:22] LABS: ALT (SGPT) 57 U/L (0-35); AST (SGOT) 41 U/L (14-36); Albumin 2.6 g/dl (3.5-5.0); Alkaline Phosphatase 132 U/L (38-126); Blood Urea Nitrogen 17 mg/dl (7-17); Calcium 8.8 mg/dl (8.4-10.2); Carbon Dioxide 22 mmol/L (22-30); Chloride 105 mmol/L (98-107); Direct Bilirubin 0.2 mg/dl (0.0-0.4); Estimated Creatinine Clearance 50 ml/min; Glucose 99 mg/dl (70-99); Magnesium 2.2 mg/dl (1.6-2.3); Potassium 4.2 mmol/L (3.5-5.1); Sodium 135 mmol/L (135-145); Total Bilirubin 0.8 mg/dl (0.2-1.3); Total Protein 4.7 g/dl (6.3-8.2); eGFR > 60.00
[2025-01-27] MEDS: SYNTHROID 50 MCG PO (05:43)
[2025-01-27 07:03] LABS: Glucose - Point of Care 124 mg/dl (70-99)
[2025-01-27] MEDS: DUONEB 3 ML INH ×4 (07:23→19:14)
[2025-01-27] MEDS: PULMICORT INH (07:23)
--- NOTE | 2025-01-27 07:28 | W.PN.INTV ---
Addendum entered and electronically signed by Lebron Menendez MD 01/27/25 14:50:
Discussed case with pharmacy and conversation held with micro lab that the Staph aureus is likely MSSA. No need for vancomycin at this time. Continue with cefepime only and continue to monitor.
Original Note:
Today's Communication / Plan
Recommendations
Patient extubated this morning and is now doing well except she is very paranoid/confused
Continue to monitor her mental status and if confusion/paranoia persists then would consult psychiatry
DuoNebs + budesonide
Cefepime; IV vancomycin was DC'd given negative MRSA swab, however bronchial wash from right lower lobe is growing Staph aureus so I will resume IV vancomycin now until culture finalizes
s/p TAVR on 01/26/2025
PPI can be stopped now that she is extubated and transition to Pepcid which is a home dose
Lovenox for DVT prophylaxis
DAPT with aspirin + Plavix
Patient was extubated today and is now doing well on nasal cannula. Also off of all pressors as of today. Can consider downgrading patient to IMU if blood pressure remained stable. Pulmonary service will continue to follow along.
Assessment
-
Assessment: 79-year-old female active tobacco smoker with a past medical history of centrilobular emphysema/COPD, chronic bronchitis, chronic HFpEF, aortic stenosis s/p bioprosthetic aortic valve replacement complicated by bioprosthetic valvular
regurgitation, mitral regurgitation, hypertension, history of bladder cancer s/p surgery, nephrolithiasis, history of TIA, thyroid disease, DM type II and history of pneumonia who presents with being found unresponsive. When EMS arrived patient was
hypoxic and placed onto a nonrebreather. The patient was supposed to have a TAVR this (01/26/2025). She was intubated in the ER and required vasopressors. CT chest showed evidence of acute pulmonary edema as well as bilateral pneumonia,
with secretions in her left mainstem bronchus. Initially in the ER heart rate was 105, breathing at 14 breaths/min, BP 180/56 and saturating 97% via ventilator. Initial labs showed leukocytosis to 14.1, Hb 12.1, pH 7.08 with pCO2 62, serum bicarb
level 15, glucose 292, lactate 2.2, and urinalysis was negative for UTI. She was transferred to the CVICU for further care, and [employer] Se[employer] services consulted for additional management/recommendations.
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
regurgitation, hypertension, history of bladder cancer, nephrolithiasis, history of TIA
Impression:
#Acute respiratory failure with hypoxia + hypercapnia requiring mechanical ventilation due to acute decompensated heart failure with right lower lobe pneumonia in the setting of centrilobular emphysema with aspiration
- Intubated 01/25
- Extubated 01/27
#Leukocytosis due to sepsis
#Metabolic acidosis with preserved anion gap - resolved
#Hyperglycemia likely due to acute stressful response with sepsis - now euglycemic and required insulin gtt s/p TAVR --> now off insulin gtt
#Hypocalcemia - resolved
#Transaminitis
#Bioprosthetic aortic valve with severe valvular regurgitation + severe mitral regurgitation --> s/p TAVR with a snorkel stent of the left main coronary artery (procedure date: 01/26/2025)
#Right lower lobe pneumonia likely due to aspiration
#Shock: Multifactorial from sepsis + cardiogenic and sedation --> shock state resolved as of 01/27
#History of aspiration of secretions, currently with secretions seen in left mainstem bronchi on current CT chest imaging with prior secretions seen in right mainstem bronchi on cardiac CT from 01/04/2025
#Centrilobular emphysema/moderate COPD (per PFTs from 09/28/2023)
#History of TIA
Plan:
- Patient has significant bronchial wall thickening with obvious intralobular septal thickening with interstitial edema with bilateral pleural effusions and patchy opacities in the posterior right upper lobe/right lower lobe + left lower lobe
consistent with pneumonia
- Hence, there are multiple processes going on here including acute pulmonary edema, possible COPD exacerbation with multifocal pneumonia in the setting of emphysema/COPD/chronic bronchitis
- Her severe valvular heart disease with severe MR + severe bioprosthetic aortic valve regurgitation is surely not helping
- Given her infection, would not diurese until her BP and her infection improves
- Continue cefepime; IV vanco DC'd given negative MRSA swab, however bronchoscopy wash from RLL is growing Staph aureus. Resume IV vancomycin now until culture finalizes; follow up blood cultures (NGTD); urine antigens for Legionella/strep
pneumonia both negative
- She is on Trelegy at home, however while intubated would use DuoNebs QID with prn doses for breakthrough symptoms and budesonide
-Patient was extubated on 01/27/2025, and is now on nasal cannula at 4 L/min, breathing comfortably and saturating 93%
- Maintain SpO2 88-95%
- she is s/p bronchoscopy on 01/25 for pulmonary toilet purposes --> bronchial wash sent from right lower lobe is growing Staph aureus (follow-up sensitivities)
- Aspiration precautions keeping HOB >30-45�
- Patient currently on minimal O2 flow rate --> okay to hold off on systemic steroids at this time
- Goal MAP>65 --> currently off all vasopressors and inotropes
- She has a history of HFrEF with LVEF 30-35% seen on echo on 12/15/2024, but repeat echo via BELKYS on 12/20/2024 showed recovered LVEF at 60-65%
- Underwent TAVR on 01/26/2025 placing a #20 Donte S3 Ultra aortic valve into a Mitroflow bioprosthetic AVR with a snorkel stent of the left main coronary artery
- Trend LFTs
- Trend sHCO3 level
- Trend Ca level
- Nicotine patch
- Replete electrolytes with K>4, Mg>2
- Maintain euglycemia with goal BG 140-180
- Trend H/H and transfuse if needed to keep Hb>7g/dL; keep plt>20k, unless there is concern for bleeding then keep plt>50k
- Stress ulcer ppx: PPI --> change to pepcid 40mg BID (home med)
- DVT ppx: LMWH
Ultimately patient should follow-up with our office again after discharge, as last visit was on 09/28/[address] Alanis.
Patient was extubated today and is now doing well on nasal cannula. Also off of all pressors as of today. Can consider downgrading patient to IMU if blood pressure remained stable. Pulmonary service will continue to follow along.
Data:
CTA chest 01/25/2025:
1. SEVERE ACUTE CARDIOGENIC PULMONARY EDEMA.
2. Small right and minimal left pleural effusions.
3. Moderate amount of dense airspace consolidation in the posterior segment of the right upper lobe and right lower lobe. Moderate subpleural airspace consolidation in the basilar left lower lobe. Diagnostic possibilities are (1) bilateral
pneumonia (possibly aspiration pneumonia),or (2) a combination of alveolar pulmonary edema and atelectasis.
4. AIRWAY ASPIRATION with severe secretions in the left mainstem bronchus.
5. Severe bilateral bronchitis.
6. Mild to moderate emphysema.
7. 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
8. Previous aortic valve replacement.
9. Endotracheal tube in place.
CXR 01/26/2025:
Interval insertion of transcatheter aortic valve replacement through an existing prosthetic aortic valve.
The tracheal tube is present with tip 5 cm above the peggy.
Pulmonary edema pattern with small bilateral pleural effusions.
Total time spent today was 58 minutes for this encounter. Time includes reviewing laboratory test/imaging results, reviewing pertinent medical records, obtaining and reviewing medical history, performing an appropriate exam, ordering medications,
tests and procedures. Time also includes documentation of this encounter, coordinating patient care and communicating with other healthcare professionals. Total time does not include separately billed tests performed on this date of service.
Subjective Dataa
Subjective Data
Date of Service:
Date of Service: January 27, 2025
Chief Complaint: [employer] Se[employer] Follow Up
Subjective:
Patient was seen and evaluated today at bedside. Extubated earlier today and is currently on 4 L/min nasal cannula saturating 93%. Heart rate 101 and BP 144/48 (via A-line), and NIBP shows 114/53. Patient is paranoid, thinking that people are
hiding her teeth even though her daughter is saying that she has it at her house.
Review of Systems
General: Other (Unable to obtain as patient is confused/paranoid)
Objective Data
Data Reviewed
Vital Signs / I&O / Oxygen:
Vital Signs
Temp Pulse Resp BP Pulse Ox
99.8 F 72 22 125/43 99
01/27/25 07:00 01/27/25 07:23 01/27/25 07:23 01/27/25 07:00 01/27/25 07:23
Intake and Output
01/26/25 01/27/25 01/28/25
06:59 06:59 06:59
Intake Total 1624.9 / 1658.6 952.7 / 1065.2 112.5 / 112.5
Output Total 1625 / 1645 698 / 878 180 / 180
Balance -0.1 / 13.6 254.7 / 187.2 -67.5 / -67.5
SaO2 [A/C] 97
SaO2 99
Physical Exam
General: Respiratory Distress (negative), Comfortable, Chills (negative) and Sweats (negative)
HEENT: Normocephalic and Anicteric
Cardiovascular: S1-S2 and Peripheral Edema (negative)
Respiratory: Wheeze (negative), Crackles (Bilaterally), Rhonchi (negative) and Non-Labored Respirations
GI: Soft, Non Distended, Non Tender and Normal Bowel Sounds
Neurology: Awake, Alert, Tremors (negative) and Other (Confused/paranoid)
Skin: Warm, Dry, Cyanosis (negative) and Jaundice (negative)
Labs/Micro/Reports
Lab Data
01/27/25 04:46
01/27/25 04:46
Laboratory Results
01/26/25 01/26/25 01/27/25
15:30 20:06 04:46
pH 7.30 L 7.34 L 7.33 L
pCO2 42 H 45 H 44 H
pO2 76 L 90 77 L
HCO3 20.7 L 24.3 23.2
O2 Delivery Level
Microbiology
01/25/25 20:48 Blood/Venous Blood Culture - Preliminary
No Growth in 24 hours- Final report to follow
01/25/25 20:10 Blood/Venous Blood Culture - Preliminary
No Growth in 24 hours- Final report to follow
01/25/25 17:30 Bronch Right Lower Lobe Gram Stain - Preliminary
01/25/25 21:03 Nose Nasal Screen MRSA (PCR) - Final
MRSA not detected - performed by PCR methodology.
01/25/25 17:30 Bronch Right Lower Lobe Fungal Culture - Preliminary
Culture in progress.
Positive cultures are reported as soon as detected.
Final report to follow in four to five weeks.
01/25/25 21:06 Urine Legionella Urinary Antigen - Final
Negative for Legionella pneumophila Serogroup 1 antigen.
A negative result does not rule out the possiblity of
Legionella infection due to other serogroups or species of
Legionella. Clinical correlation is recommended.
01/25/25 21:06 Urine Streptococcus pneumoniae Antigen (M - Final
Negative for Streptococcus pneumoniae antigen.
A negative result does not exclude infection with
Streptococcus pneumoniae. Clinical correlation is
recommended.
--- NOTE | 2025-01-27 07:47 | W.PN.CD ---
Today's Communication / Plan
-
Blood cultures x2.
Repeat UA.
Wean vent to extubate.
Wean norepinephrine.
Impression / Plan
-
Impression/Plan: 80 y/o female with severe COPD, CAD, severe s/p bioprosthetic SAVR (#21 MitraFlow), HFrEF and hypoxic respiratory failure requiring invasive ventilation due to degenerative SAVR insufficiency, admitted with recurrent
VDRF/cardiogenic shock, now s/p Evelyne TAVR with snorkel PCI.
#Acute hypoxemic respiratory failure
-Acute, recurrent.
-This diagnosis is threat to life.
-Multifactorial but primarily driven by her AI.
-Remains intubated/vented, but improving.
-No longer on pressors/inotropes.
-Wean sedation to extubation.
#Cardiogenic shock/HFrEF/Cardiomyopathy:
-Acute on chronic.
-LVEF 30-35% with LAD territory WMA 12/15/24 echo, but EF 55-60% on BELKYS 12/20/24.
-Primarily driven by SAVR AI.
-BP's/hemodynamics improved after Evelyne TAVR, though her BP dropped overnight and she is back on norepinephrine.
-We can consider GDMT as she improves.
#hx SAVR (2014) with degerative valve insufficiency:
-Chronic, progressive.
-S/P #20 Bunch DONTE S3 Evelyne TAVR via right common femoral approach with no acute complications.
-Post TAVR gradient ~ 30 mmHg. This is less than ideal but is an improvement from her severe AI.
-Low coronary artery height treated with snorkel PCI to the LMCA to above the valve struts ([employer] [place] 3.5 x 22 ELIZABETH).
-Anti-thrombotic therapy with aspirin and clopidogrel.
-Post TAVR echo pending.
#Moderate/severe mitral regurgitation
-Chronic, stable.
-Re-evaluate with serial echos.
#COPD
-Chronic, severe.
-Pulmonary/critical care involved.
-Bronchodilators.
#Current smoker:
-Chronic.
-Per family, has cut back. Needs to quit fully.
#CAD:
-Chronic.
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
-Continue ASA, rosuvastatin, metoprolol as outpatient.
#Fever
-Acute.
-Prior UA negative.
-CXR stable.
-Check BCx x2.
-Repeat UA.
-No ABX at this time.
Critical Care Time = 42 minutes.
Subjective/Interval History:
Evelyne TAVR with snorkel PCI to LMCA yesterday.
Hemodynamics improved quickly.
Febrile to 38.2 overnight.
WBC up to 19.2.
The patient was off of all support, but then BP dropped overnight. She is back on norepinephrine but responding to titration.
Data:
TAVR, 01/26/2025:
Conclusions:
1. Successful placement of #20 Donte S3 Ultra aortic valve in a Mitroflow bioprosthetic AVR, requiring snorkel stent of the left main coronary artery due to low coronary heights via right transfemoral approach with no acute complications.
2. Cardiogenic shock.
Intraprocedural BELKYS, 01/26/2025:
CONCLUSIONS
Normal biventricular systolic function. LVEF 60-65%.
Severe aortic insufficiency secondary to bioprosthetic degradation.
Severe mitral regurgitation
Mild tricuspid regurgitation.
Grade V atheromatous disease of the anterior wall of the ascending aorta is
present.
POST OPERATIVE FINDINGS
S/P TAVR
The TAVR appears to be well-seated, although differentiating the old and new
bioprosthetic is difficult. Trace to mild aortic insufficiency is present.
The mean gradient is 34 mmHg. The dimensionless index is 0.3. Otherwise
grossly unchanged exam.
CT Chest, 01/25/2025:
IMPRESSION:
1. SEVERE ACUTE CARDIOGENIC PULMONARY EDEMA.
2. Small right and minimal left pleural effusions.
3. Moderate amount of dense airspace consolidation in the posterior segment of the right upper lobe and right lower lobe. Moderate subpleural airspace consolidation in the basilar left lower lobe. Diagnostic possibilities are (1) bilateral
pneumonia (possibly aspiration pneumonia),or (2) a combination of alveolar pulmonary edema and atelectasis.
4. AIRWAY ASPIRATION with severe secretions in the left mainstem bronchus.
5. Severe bilateral bronchitis.
6. Mild to moderate emphysema.
7. 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
8. Previous aortic valve replacement.
9. Endotracheal tube in place.
Cardiac Catheterization, 12/19/2024:
CONCLUSIONS:
1. Left dominant circulation with flush occlusion of the nondominant right coronary artery which fills via a left like collateral from the LAD (Vieussen's ring).
2. Normal filling pressures (LVEDP = 12 mmHg at 48.1 kg).
3. Significant pulmonary venous hypertension given discrepancy between PCWP and LVEDP (PCWP = 19 mmHg).
4. Mild, postcapillary pulmonary hypertension (mean PA = 26 mmHg, PCWP = 19 mmHg, cardiac output = 2.96 L/min, PVR = 2.36 Jacinto units).
5. Status post prior bioprosthetic SAVR, now with severe insufficiency.
6. Moderate to severe mitral valve regurgitation by echocardiogram.
7. Severe right radial artery spasm and a relatively small vessel, making radial access undesirable for any future catheterization.
Physical Exam
Vital Signs/Labs
Vital Signs
Temp Pulse Resp BP Pulse Ox
37.7 C 72 22 125/43 99
01/27/25 07:00 01/27/25 07:23 01/27/25 07:23 01/27/25 07:00 01/27/25 07:23
01/25/25 01/26/25 01/27/25
11:59 11:59 11:59
Actual Weight 49.8 kg 48.6 kg 51 kg
01/27/25 04:46
01/27/25 04:46
PT 14.8 Sec (11.4-14.6) H 01/26/25 03:20
INR 1.11 01/26/25 03:20
APTT 30.3 Sec (23.4-35.0) 01/26/25 03:20
Magnesium 2.2 mg/dl (1.6-2.3) 01/27/25 04:46
Triglycerides 87 mg/dl (10-149) 01/25/25 10:53
LDL Cholesterol, Calc 44 mg/dl 01/25/25 08:00
VLDL Cholesterol, Calc 15 mg/dl (0-30) 01/25/25 08:00
HDL Cholesterol 33 mg/dl 01/25/25 08:00
LAB Results
01/25/25
05:48
Troponin I 0.022
Physical Exam
Constitutional: No acute distress and Comfortable
EENT: Anicteric and Moist mucous membranes
Cardiovascular: Rhythm & rate is regular, Pedal edema is absent, JVD pressure is normal, S1S2 is normal and Murmur/rub/gallop absent
Respiratory: Respiratory effort normal, Lungs clear to auscul., Wheeze Absent, Crackles Absent and Rhonchi Absent
GI: Soft, Distention absent, Flat, Non tender and Normal bowel sounds
Neuro/Psych: Other (Intubated, sedated.)
Other: Cath Site (Bilateral femoral access sites are C/D/I.)
Data Reviewed
-
Date of Service: January 27, 2025
Medical Decision Making: Reviewed Test Results, Tests Ordered, Test Interpretation and Review of Case with other Provider
EKG: Tracing Personally Visualized and interpreted and Report Reviewed by me
Echo: Tracing Personally Visualized and interpreted and Report Reviewed by me
X-Ray/CT/US/MRI/NUC/PET: Image Personally Visualized and interpreted and Report Reviewed by me
Medical Tests (PFT, Pathology etc): Image Personally Visualized and interpreted and Report Reviewed by me
Labs: Labs Reviewed by me
Old Records: Reviewed
--- NOTE | 2025-01-27 08:30 | PTCARENOTE ---
PT sedated and intubated, weaning sedation and Levo, pt responding well
[2025-01-27 08:50] LABS: B.E. -1.1 mmol/L; HCO3 24.3 mmol/L (21-28); O2 Saturation % 99.5 % (94-98); PCO2 43 mmHg (32-35); PO2 108 mmHg (83-108); pH 7.36 (7.35-7.45)
[2025-01-27] MEDS: LASIX 40 MG IV (09:31)
[2025-01-27] MEDS: MAXIPIME 2000 MG IV ×2 (09:35→21:08)
[2025-01-27] MEDS: ZETIA 10 MG PO (09:35)
[2025-01-27] MEDS: ZOLOFT 150 MG PO (09:35)
[2025-01-27] MEDS: PROTONIX IV 40 MG IV (09:35)
[2025-01-27] MEDS: PLAVIX 75 MG PO (09:35)
[2025-01-27] MEDS: CRESTOR 20 MG PO (09:35)
[2025-01-27] MEDS: LOW STRENGTH ASPIRIN 81 MG PO (09:35)
[2025-01-27] MEDS: NSS (PRESERVATIVE FREE) 10 ML IV (09:36)
[2025-01-27] MEDS: NICODERM TRANSDERMAL 7 MG TRANSDERM (09:36)
[2025-01-27] MEDS: STERILE WATER FOR INJECTION 10 ML IV ×2 (09:46→21:08)
[2025-01-27 10:02] LABS: Glucose - Point of Care 108 mg/dl (70-99)
[2025-01-27 10:07] LABS: B.E. -1.9 mmol/L; HCO3 24.2 mmol/L (21-28); O2 Saturation % 99.8 % (94-98); PCO2 47 mmHg (32-35); PO2 104 mmHg (83-108); pH 7.32 (7.35-7.45)
[2025-01-27 10:10] LABS: O2 Therapy 40
--- NOTE | 2025-01-27 10:35 | RESPNOTE ---
Respiratory: patient extubated at 1020 without incident, per FARZAD Ghosh. No stridor. Patient on 4 LPm nasal cannula SpO2 93-94%.
--- NOTE | 2025-01-27 11:35 | CM ---
Reviewed chart. Met with Mrs. Patricia and her daughter to review discharge plans. Gave her daughter the list of PCP in the [facility]. Will need to see her current functional level to see if she will have any skilled care needs.
Prior to admission she resides alone in a one story home with four steps to enter. Prior to admission she was independent with ambulation and adls. If she is having back pain she will use a walker to ambulate. She has a walker and shower bench at
home. She has a prescription plan with [facility] and uses [facility]. When she goes home her daughter will stay with her. Medical work-up in progress. The discharge plan is to return home with her daughter staying with her and a home
visit by the Transitional Care Nurse verses some level of inpatient rehab, if indicated when medically stable.
[2025-01-27 11:44] LABS: HCO3 24.3 mmol/L (21-28); Ionized Calcium 1.19 mMOL/L (1.15-1.33); O2 Saturation % 96.6 % (94-98); PCO2 42 mmHg (32-35); PO2 69 mmHg (83-108); Potassium 3.9 mMOL/L (3.5-5.1); Sodium 136 mMOL/L (136-145); pH 7.37 (7.35-7.45)
[2025-01-27 12:13] LABS: Urine Albumin Negative (Neg - Trace); Urine Bilirubin Negative (Negative); Urine Character Clear (Clear); Urine Color Yellow; Urine Glucose Negative (Negative); Urine Ketone Negative (Negative); Urine Leukocyte Negative (Negative); Urine Nitrite Negative (Negative); Urine Occult Blood Negative (Negative); Urine Urobilinogen Negative (Neg - 1+)
--- NOTE | 2025-01-27 13:00 | PTCARENOTE ---
PT placed on CPAP @ 0920 and extubated at 1015. all gtts off PT having nausia when sitting on side of bed
[2025-01-27] MEDS: ZOFRAN 4 MG IV (13:51)
[2025-01-27] MEDS: TOPROL XL 25 MG PO (14:25)
--- NOTE | 2025-01-27 16:00 | PTCARENOTE ---
pt OOB to chair eating dinner, AAOx4 all gtts D/C'd A line D/C'd no change to assessment
[2025-01-27] MEDS: LOVENOX 30 MG SC (18:26)
[2025-01-27] MEDS: PULMICORT 0.5 MG INH (19:20)
--- NOTE | 2025-01-27 20:00 | PTCARENOTE ---
Assumed care of the patient at 1999. Patient OOB to chair, assisted patient with day shift RN back to bed. AOx3, NOOKSACK, appropriate affect. No present c/o pain. SR on the monitor, frequent PVCs, CVPA made aware, potassium repleted; heart tones
audible. Rhonchus lungs sounds B/L, 2LNC with frequent moist, productive cough. Abd SNT, tolerating meals and PO, no n/v. Danielson catheter present, low UOP, concentrated. B/L groin site dressing intact. R groin hematoma noted to be increased. CVPA
made aware, sand bag applied, patient in agreement with POC. Assessment of needs ongoing.
[2025-01-27] MEDS: PEPCID 40 MG PO (20:53)
[2025-01-27] MEDS: KCL 20 MEQ PO (20:53)
[2025-01-27] MEDS: NSS IV (20:54)
[2025-01-28] VITALS (14 sets, daily range): BP systolic 96–157; BP diastolic 47–84; PULSE 93–95; O2SAT 91–92; BMI 20.8
--- NOTE | 2025-01-28 | PTCARENOTE ---
Patient hematoma improved after sand bag, sleeping between care, VSS
--- NOTE | 2025-01-28 04:00 | PTCARENOTE ---
No changes in assessment, VSS, sleeping between care. See nursing work list for intervention details.
[2025-01-28 05:34] LABS: Hematocrit 23.7 % (37.0-47.0); Hemoglobin 7.2 g/dL (12.0-16.0); Mean Corp Hgb Conc. 30.4 g/dL (33.0-37.0); Mean Corpuscular Hgb 26.5 pg (27.0-31.0); Mean Corpuscular Volume 87.1 fL (81.0-99.0); Red Blood Cell Count 2.72 10^6/uL (4.20-5.40); Red Cell Dist. Width 15.6 % (11.5-14.5); White Blood Cell Count 8.7 10^3/uL (4.8-10.8)
[2025-01-28 05:41] LABS: ALT (SGPT) 41 U/L (0-35); AST (SGOT) 32 U/L (14-36); Albumin 2.9 g/dl (3.5-5.0); Alkaline Phosphatase 133 U/L (38-126); Blood Urea Nitrogen 20 mg/dl (7-17); Calcium 8.6 mg/dl (8.4-10.2); Carbon Dioxide 28 mmol/L (22-30); Chloride 102 mmol/L (98-107); Estimated Creatinine Clearance 44 ml/min; Glucose 100 mg/dl (70-99); Magnesium 2.1 mg/dl (1.6-2.3); Phosphorus 2.8 mg/dl (2.5-4.5); Potassium 4.3 mmol/L (3.5-5.1); Sodium 136 mmol/L (135-145); Total Bilirubin 0.7 mg/dl (0.2-1.3); eGFR > 60.00
--- NOTE | 2025-01-28 05:45 | W.PN.CT ---
Today's Communication / Plan
-
Plan:
-No major issues overnight. Hemodynamically and neurologically intact
-Off all drips
-Repeat echo yesterday showed a well seated TAVR with Trace AI, MG 25 mmHg, EF 70%
-Groin C/D/I with mild hematoma @ right groin, better after application of sandbag last night
-H/H 7.2/23.7 this AM, down from 8.9/27.4 yesterday. Likely erroneous, will not repeat or transfuse per Dr. Alvarez. Pt is a Shinto. Limit blood draws
-Will draw blood Q72 hrs per Dr. Alvarez
-On Cefepime for Staph aureus from bronch on 01/25/25. WBC 8.7, down from 19.7, TM 100.3. Blood cx pending, u/a negative
-Pt currently on ASA, Plavix, and Lovenox. May need to d/c Lovenox
-Cont. current meds (ASA, Plavix, Zetia, Synthroid, Toprol xL)
-Wean off O2 (pOx 92-93%% on 2L)
-Encourage use of IS
-OOB into chair
-D/C home likely tomorrow
Assessment / Plan
-
- Respiratory failure/Cardiogenic shock/Severe bioprosthetic valve stenosis - s/p Right trans femoral TAVR in SAVR a 20 mm Bunch TAVR valve, left main stent (snorkel) on 01/26/25, pod #2
- Intraop TTE: Preoperative LVEF was 50-55% and was 70% following TAVR on dobutamine of 3. There was trace paravalvular leak and the patient was hyperdynamic at approximately 70% LVEF. With this, the gradient across the new TAVR valve was high at
approximate 30 mmHg.
- 79 year old female admitted 01/25/25 for cardiogenic shock with respiratory failure secondary to volume overload and severe aortic valve insufficiency - intubated in the ER.
-bronchoscopy 2/26 revealed that all airways were patent down to the segmental bronchi. Some thick white/xavier secretions in the ETT which were suctioned. Respiratory cx pending
- severe bioprosthetic aortic valve stenosis
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
- recent hospitalization for decompensated HF (Nov 2024)
- Hx SAVR w/root enlargement 07/2015 at [facility]
- coronary artery disease w/BUGGYMAN RCA
- hypertension
- hyperlipidemia
- severe COPD (DLCO 30; FEV1 56), active smoker
- hypothyroidism
- T2DM (A1C 5.4%)
- anxiety/depression
- Hx bladder cancer
- Hx TIA with L facial numbness, RH numbness ([facility])
- Pt is Denominational and will not have blood transfusion (confirmed with daughter, Kaylyn, on 01/27/25)
Discussed patient care with: Cardiology, Nursing, Respiratory Therapy, Pharmacy and Care Team
Subjective
Procedure
- s/p Right trans femoral TAVR in SAVR a 20 mm Bunch TAVR valve, left main stent (snorkel) on 01/26/25
-
Date of Service: January 28, 2025
Pt c/o cough, otherwise feels well
Objective Data
-
Lab Results
01/28/25 04:47
01/28/25 04:47
PT 14.8 Sec (11.4-14.6) H 01/26/25 03:20
INR 1.11 01/26/25 03:20
APTT 30.3 Sec (23.4-35.0) 01/26/25 03:20
Vital Signs
Vital Signs
Temp Pulse Resp BP Pulse Ox
99.2 F 81 18 109/48 92
01/28/25 04:00 01/28/25 04:39 01/28/25 04:00 01/28/25 04:39 01/28/25 04:38
CT Intake/Output/Weight
01/27/25 01/27/25 01/28/25
06:59 18:59 06:59
Intake Total 580.3 / 1065.2 178.3 / 770.3 592 / 770.3
Output Total 283 / 878 1350 / 1510 160 / 1510
Balance 297.3 / 187.2 -1171.7 / -739.7 432 / -739.7
SaO2: 92 (2L)
Physical Exam
-
General: Awake, Oriented and AOx3
Cardiovascular: Regular rate & rhythm, No Murmurs, No Rub and No Gallop
Respiratory: Decreased Breath Sounds (at bases)
Sternum: Stable
Incision: Clean, Dry, Intact and Dressing Intact
Extremities: No Edema
Data Reviewed
-
Lab Results: Results Reviewed
Medications: Active Meds Reviewed
Chest X-Ray: Report Reviewed and Image Reviewed
ECG: Report Reviewed and Image Reviewed
[2025-01-28 05:49] LABS: NT-proBNP 7120 pg/ml
[2025-01-28] MEDS: SYNTHROID 50 MCG PO (06:31)
[2025-01-28 06:54] LABS: Platelet Count 89 10^3/uL (130-400)
[2025-01-28 06:55] LABS: Mean Platelet Volume 9.5 fL (7.4-10.4)
[2025-01-28] MEDS: DUONEB 3 ML INH ×4 (07:14→22:06)
[2025-01-28] MEDS: PULMICORT 0.5 MG INH ×2 (07:14→19:21)
--- NOTE | 2025-01-28 08:01 | PTCARENOTE ---
Assumed care of patient at 0700. Pt is awake, alert, and oriented. Pt remains SR with frequent PVCs, HR 86. BP 126/61 MAP 75. Pulse oximetry 95% on 2L nasal cannula. Pt tolerating PO diet. Danielson catheter remains in place. Bilateral groin dressings
intact. Right groin tender to touch. Pt with right IJ cordis in place with KVO. Pt currently OOB in chair with call borrego within reach.
--- NOTE | 2025-01-28 08:33 | W.PN.PUL3 ---
Today's Communication / Plan
-
Patient has been exhibiting some paranoia/confusion since extubation yesterday
She does have a cough and given her degree of emphysema with possible exacerbation I will start her on a low-dose prednisone taper
Continue with antibiotics for MSSA pneumonia
Up OOB as tolerated
PT/OT
Mucolytics
Continue to monitor her mental status and if confusion/paranoia persists/worsens then would consult psychiatry
DuoNebs + budesonide and prior to discharge would start Symbicort + Spiriva and resume her Trelegy upon discharge
Give chemical DVT prophylaxis
DAPT with aspirin + Plavix
Pulmonary service will continue to follow along.
Assessment
-
Assessment: 79-year-old female active tobacco smoker with a past medical history of centrilobular emphysema/COPD, chronic bronchitis, chronic HFpEF, aortic stenosis s/p bioprosthetic aortic valve replacement complicated by bioprosthetic valvular
regurgitation, mitral regurgitation, hypertension, history of bladder cancer s/p surgery, nephrolithiasis, history of TIA, thyroid disease, DM type II and history of pneumonia who presents with being found unresponsive. When EMS arrived patient was
hypoxic and placed onto a nonrebreather. The patient was supposed to have a TAVR this (01/26/2025). She was intubated in the ER and required vasopressors. CT chest showed evidence of acute pulmonary edema as well as bilateral pneumonia,
with secretions in her left mainstem bronchus. Initially in the ER heart rate was 105, breathing at 14 breaths/min, BP 180/56 and saturating 97% via ventilator. Initial labs showed leukocytosis to 14.1, Hb 12.1, pH 7.08 with pCO2 62, serum bicarb
level 15, glucose 292, lactate 2.2, and urinalysis was negative for UTI. She was transferred to the CVICU for further care, and [facility] [employer] services consulted for additional management/recommendations.
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
regurgitation, hypertension, history of bladder cancer, nephrolithiasis, history of TIA
Impression:
#Acute respiratory failure with hypoxia + hypercapnia requiring mechanical ventilation due to acute decompensated heart failure with right lower lobe pneumonia in the setting of centrilobular emphysema with aspiration
- Intubated 01/25
- Extubated 01/27
#Leukocytosis due to sepsis � WBC now normalized
#Metabolic acidosis with preserved anion gap -acidosis now resolved
#Hyperglycemia likely due to acute stressful response with sepsis - now euglycemic and required insulin gtt s/p TAVR --> now off insulin gtt and she is euglycemic
#Hypocalcemia - resolved
#Transaminitis � improving
#Bioprosthetic aortic valve with severe valvular regurgitation + severe mitral regurgitation --> s/p TAVR with a snorkel stent of the left main coronary artery (procedure date: 01/26/2025)
#Right lower lobe pneumonia due to MSSA (likely due to aspiration)
#Shock: Multifactorial from sepsis + cardiogenic and sedation --> shock state resolved as of 01/27
#History of aspiration of secretions, currently with secretions seen in left mainstem bronchi on current CT chest imaging with prior secretions seen in right mainstem bronchi on cardiac CT from 01/04/2025
#Centrilobular emphysema/moderate COPD (per PFTs from 09/28/2023)
#History of TIA
Plan:
- On initial CTA chest from 01/25/2025, she had significant bronchial wall thickening with obvious intralobular septal thickening with interstitial edema with bilateral pleural effusions and patchy opacities in the posterior right upper lobe/right
lower lobe + left lower lobe consistent with pneumonia
- Hence, there are multiple processes going on here including acute pulmonary edema, possible COPD exacerbation with multifocal pneumonia in the setting of emphysema/COPD/chronic bronchitis
- Her severe valvular heart disease with severe MR + severe bioprosthetic aortic valve regurgitation is surely not helping
- Given that her BP is now stabilized, her creatinine is at baseline, and is in acute decompensated heart failure and takes PO Lasix at home, would start diuresing and maintain net negative fluid balance as tolerated
- Continue cefepime; IV vanco DC'd given negative MRSA swab, and bronchoscopy wash from RLL is growing methicillin sensitive Staph aureus follow up blood cultures (NGTD); urine antigens for Legionella/strep pneumonia both negative
- She is on Trelegy at home --> continue with DuoNebs QID + budesonide with prn doses for breakthrough symptoms
- Prior to discharge could transition standing nebulizers to Symbicort + Spiriva with prn nebulized albuterol--> resume her home inhalers upon discharge
- Patient was extubated on 01/27/2025, and is now on nasal cannula at 3 L/min, breathing comfortably and saturating 96%
- Maintain SpO2 88-95%
- she is s/p bronchoscopy on 01/25 for pulmonary toilet purposes --> bronchial wash sent from right lower lobe grew MSSA - continue w/ cefepime for 7-10 days total
- Aspiration precautions keeping HOB >30-45�
- Patient currently on minimal O2 flow rate but she is endorsing a cough. Given concern for AECOPD, I will start her on a low-dose of prednisone as I do not want to exacerbate her paranoia
- Goal MAP>65 --> currently off all vasopressors and inotropes
- She has a history of HFrEF with LVEF 30-35% seen on echo on 12/15/2024, but repeat echo via [facility] on 12/20/2024 showed recovered LVEF at 60-65%
- Underwent TAVR on 01/26/2025 placing a #20 Donte S3 Ultra aortic valve into a Mitroflow bioprosthetic AVR with a snorkel stent of the left main coronary artery
- Trend LFTs
- Trend sHCO3 level
- Trend Ca level
- Nicotine patch 21mg
- Replete electrolytes with K>4, Mg>2
- Maintain euglycemia with goal BG 140-180
- Trend H/H and transfuse if needed to keep Hb>7g/dL; keep plt>20k, unless there is concern for bleeding then keep plt>50k
- Stress ulcer ppx: PPI --> change to pepcid 40mg BID (home med)
- DVT ppx: Recommend to continue chemical ppx
Ultimately patient should follow-up with our office again after discharge, as last visit was on 09/28/[address] Alanis.
Patient was extubated on 01/27/2025 and is now doing well on nasal cannula. Pulmonary service will continue to follow along.
Data:
CTA chest 01/25/2025:
1. SEVERE ACUTE CARDIOGENIC PULMONARY EDEMA.
2. Small right and minimal left pleural effusions.
3. Moderate amount of dense airspace consolidation in the posterior segment of the right upper lobe and right lower lobe. Moderate subpleural airspace consolidation in the basilar left lower lobe. Diagnostic possibilities are (1) bilateral
pneumonia (possibly aspiration pneumonia),or (2) a combination of alveolar pulmonary edema and atelectasis.
4. AIRWAY ASPIRATION with severe secretions in the left mainstem bronchus.
5. Severe bilateral bronchitis.
6. Mild to moderate emphysema.
7. 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
8. Previous aortic valve replacement.
9. Endotracheal tube in place.
CXR 01/26/2025:
Interval insertion of transcatheter aortic valve replacement through an existing prosthetic aortic valve.
The tracheal tube is present with tip 5 cm above the peggy.
Pulmonary edema pattern with small bilateral pleural effusions.
Total time spent today was 37 minutes for this encounter. Time includes reviewing laboratory test/imaging results, reviewing pertinent medical records, obtaining and reviewing medical history, performing an appropriate exam, ordering medications,
tests and procedures. Time also includes documentation of this encounter, coordinating patient care and communicating with other healthcare professionals. Total time does not include separately billed tests performed on this date of service.
Subjective Data
-
Date of Service:
Date of Service: January 28, 2025
Chief Complaint: Pulmonary Follow Up
Subjective:
Patient seen and evaluated today at bedside. Resting in bed in no acute distress. She has a cough but denies chest pain, LOAIZA, nausea. She still has periods of confusion and periods of paranoia. Currently saturating 96% on 3 L/min. Heart rate 83
and BP 126/61.
Review of Systems
General: Other (Negative unless mentioned above)
Objective Data
Data Reviewed
Vital Signs / I&O / Oxygen:
Vital Signs
Temp Pulse Resp BP Pulse Ox
99.4 F 87 18 126/61 95
01/28/25 08:27 01/28/25 08:27 01/28/25 08:27 01/28/25 07:42 01/28/25 08:27
Intake and Output
01/27/25 01/28/25 01/29/25
06:59 06:59 06:59
Intake Total 952.7 / 1065.2 770.3 / 920.3 160 / 160
Output Total 698 / 878 1510 / 1550 70 / 70
Balance 254.7 / 187.2 -739.7 / -629.7 90 / 90
SaO2 [A/C] 97
SaO2 95
Nasal Cannula flow liters per 2
minute
Physical Exam
General: Respiratory Distress (negative), Comfortable, Chills (negative) and Sweats (negative)
HEENT: Normocephalic, Anicteric and Other (R-IJ cordis in place)
Cardiovascular: S1-S2, Rub (negative) and Peripheral Edema (negative)
Respiratory: Wheeze (negative), Crackles (Bilaterally), Rhonchi (negative), Non-Labored Respirations and Other (Diminished breath sounds bilaterally)
GI: Soft, Non Distended, Non Tender and Normal Bowel Sounds
Neurology: Awake, Alert and Other (Periods of confusion/paranoia)
Skin: Warm, Dry, Cyanosis (negative) and Jaundice (negative)
Labs/Micro/Reports
Lab Data
01/28/25 04:47
01/28/25 04:47
Laboratory Results
01/27/25 01/27/25 01/27/25
09:56 11:23 11:28
pH 7.32 L Cancelled 7.37
pCO2 47 H Cancelled 42 H
pO2 104 Cancelled 69 L
HCO3 24.2 Cancelled 24.3
O2 Delivery Level 40 Cancelled
Microbiology
01/27/25 09:17 Blood/Venous Blood Culture - Preliminary
No Growth in 24 hours- Final report to follow
01/27/25 08:51 Blood/Venous Blood Culture - Preliminary
No Growth in 24 hours- Final report to follow
01/25/25 17:30 Bronch Right Lower Lobe Respiratory Culture - Final
S aureus-Methicillin Sensitive
01/25/25 17:30 Bronch Right Lower Lobe Gram Stain - Final
01/25/25 17:30 Bronch Right Lower Lobe Acid Fast Bacilli Smear - Preliminary
01/25/25 17:30 Bronch Right Lower Lobe Acid Fast Bacilli Culture - Preliminary
01/25/25 20:48 Blood/Venous Blood Culture - Preliminary
No Growth in 48 hours- Final report to follow
01/25/25 20:10 Blood/Venous Blood Culture - Preliminary
No Growth in 48 hours- Final report to follow
01/25/25 21:03 Nose Nasal Screen MRSA (PCR) - Final
MRSA not detected - performed by PCR methodology.
01/25/25 17:30 Bronch Right Lower Lobe Fungal Culture - Preliminary
Culture in progress.
Positive cultures are reported as soon as detected.
Final report to follow in four to five weeks.
01/25/25 21:06 Urine Legionella Urinary Antigen - Final
Negative for Legionella pneumophila Serogroup 1 antigen.
A negative result does not rule out the possiblity of
Legionella infection due to other serogroups or species of
Legionella. Clinical correlation is recommended.
01/25/25 21:06 Urine Streptococcus pneumoniae Antigen (M - Final
Negative for Streptococcus pneumoniae antigen.
A negative result does not exclude infection with
Streptococcus pneumoniae. Clinical correlation is
recommended.
[2025-01-28] MEDS: ZOLOFT 150 MG PO (08:35)
[2025-01-28] MEDS: LASIX 40 MG IV (08:35)
[2025-01-28] MEDS: TOPROL XL 25 MG PO (08:35)
[2025-01-28] MEDS: NICODERM TRANSDERMAL TRANSDERM ×2 (08:35→08:40)
[2025-01-28] MEDS: CRESTOR 20 MG PO (08:35)
[2025-01-28] MEDS: LOW STRENGTH ASPIRIN 81 MG PO (08:36)
[2025-01-28] MEDS: PEPCID 40 MG PO ×2 (08:36→20:31)
[2025-01-28] MEDS: ZETIA 10 MG PO (08:36)
[2025-01-28] MEDS: PLAVIX 75 MG PO (08:36)
[2025-01-28] MEDS: MAXIPIME 2000 MG IV ×2 (09:45→22:35)
[2025-01-28] MEDS: STERILE WATER FOR INJECTION 10 ML IV ×2 (09:45→22:35)
[2025-01-28] MEDS: NICODERM TRANSDERMAL 21 MG TRANSDERM (10:58)
--- NOTE | 2025-01-28 12:00 | PTCARENOTE ---
Danielson catheter d/c'd after receiving 40mg IV Lasix. Pt able to void is bathroom without issue. Pt remains SR with frequent PVCs, HR 80's. BP 130/49 MAP 65. Pulse oximetry 93-95% on 2L nasal cannula. Pulse oximetry on room air 85%.
--- NOTE | 2025-01-28 16:30 | PTCARENOTE ---
Pt with no changes in assessment. Pt remains SR with HR 80's. BP 132/60 MAP 82. Pulse oximetry 97% on 2L nasal cannula. Bilateral groin sites remain unchanged. Pedal pulses remain weakly palpable.
[2025-01-28] MEDS: DELTASONE PO ×2 (16:40→16:50)
[2025-01-28] MEDS: DELTASONE 30 MG PO (16:53)
[2025-01-28 16:57] LABS: Glucose - Point of Care 184 mg/dl (70-99)
[2025-01-28] MEDS: NOVOLOG FLEXPEN-MODERATE RESISTANCE 1 UNITS SC (16:57)
[2025-01-28] MEDS: ZOFRAN 4 MG IV (18:45)
--- NOTE | 2025-01-28 20:00 | PTCARENOTE ---
Assumed care of the patient at 1999. Patient in bed, AOx3, [place], appropriate affect. No present c/o pain. SR on the monitor, frequent PVCs, heart tones audible; murmur present. Rhonchus lungs sounds B/L, 2LNC with frequent moist, productive cough.
Abd SNT, patient endorses nausea, says the medication received during previous shift was beginning to help. Voiding in the bathroom as needed. B/L groin site dressing intact. R groin hematoma firm, stable, no tenderness to the area. L groin stable.
RIJ Cordis present, PIVx1. Call borrego within reach, patient updated on POC, in agreement.
[2025-01-29] VITALS (8 sets, daily range): BP systolic 122–154; BP diastolic 55–99; BMI 20.4
--- NOTE | 2025-01-29 | SUR.OPER ---
Patient sleeping between care; hypertensive, CVPA aware, advised to recheck after patient rests, and continue to monitor BP. Call borrego within reach, assessment of needs ongoing.
--- NOTE | 2025-01-29 00:27 | W.PN.CT ---
Today's Communication / Plan
-
Plan:
-No major issues overnight. Hemodynamically and neurologically intact
-Off all drips
-Repeat echo on 01/27 showed a well seated TAVR with Trace AI, MG 25 mmHg, EF 70%
-Groin C/D/I with mild hematoma and ecchymosis @ right groin
-Pt is a Faith. Limit blood draws. H/H 7.2/23.2
-On Cefepime for Staph aureus from bronch on 01/25/25. TM 99.4, wbc 5.9. Blood cx without growth in 24hrs, u/a negative
-Started on Prednisone 01/28/25 per Pulm
-Pt currently on ASA, Plavix; Lovenox was d/c'd yesterday 01/28
-Cont. current meds (ASA, Plavix, Zetia, Synthroid, Toprol xL)
-Wean off O2 (pOx 92-93%% on 2L). CxR this AM shows small right base pleural effusion on my assessment. F/U official report
-Cont. diuresis/replete electrolytes
-Encourage use of IS
-OOB into chair
-D/C home likely tomorrow
Assessment / Plan
-
- Respiratory failure/Cardiogenic shock/Severe bioprosthetic valve stenosis - s/p Right trans femoral TAVR in SAVR a 20 mm Bunch TAVR valve, left main stent (snorkel) on 01/26/25, pod #3
- Intraop TTE: Preoperative LVEF was 50-55% and was 70% following TAVR on dobutamine of 3. There was trace paravalvular leak and the patient was hyperdynamic at approximately 70% LVEF. With this, the gradient across the new TAVR valve was high at
approximate 30 mmHg.
- 79 year old female admitted 01/25/25 for cardiogenic shock with respiratory failure secondary to volume overload and severe aortic valve insufficiency - intubated in the ER.
-bronchoscopy 01/25 revealed that all airways were patent down to the segmental bronchi. Some thick white/xavier secretions in the ETT which were suctioned. Respiratory cx pending
- severe bioprosthetic aortic valve stenosis
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
- recent hospitalization for decompensated HF (Nov 2024)
- Hx SAVR w/root enlargement 07/2015 at [facility]
- coronary artery disease w/[employer] RCA
- hypertension
- hyperlipidemia
- severe COPD (DLCO 30; FEV1 56), active smoker
- hypothyroidism
- T2DM (A1C 5.4%)
- anxiety/depression
- Hx bladder cancer
- Hx TIA with L facial numbness, RH numbness ([facility])
- Pt is Sabianist and will not have blood transfusion (confirmed with daughter, Kaylyn, on 01/27/25)
-Acute postop blood loss/Anemia (stable)
-Acute postop mild right groin hematoma/ecchymosis
-Acute postop Paranoia
-Acute postop pulmonary insufficiency
Discussed patient care with: Cardiology, Nursing, Respiratory Therapy, Pharmacy and Care Team
Subjective
Procedure
- s/p Right trans femoral TAVR in SAVR a 20 mm Bunch TAVR valve, left main stent (snorkel) on 01/26/25
-
Date of Service: January 29, 2025
Pt c/o mild tenderness at right groin, cough is improving
Objective Data
-
PT 14.8 Sec (11.4-14.6) H 01/26/25 03:20
INR 1.11 01/26/25 03:20
APTT 30.3 Sec (23.4-35.0) 01/26/25 03:20
Vital Signs
Vital Signs
Temp Pulse Resp BP Pulse Ox
98.9 F 70 18 132/60 94
01/28/25 20:00 01/28/25 19:24 01/28/25 20:00 01/28/25 16:27 01/28/25 20:00
CT Intake/Output/Weight
01/28/25 01/28/25 01/29/25
06:59 18:59 06:59
Intake Total 592 / 920.3 180 / 320 140 / 320
Output Total 160 / 1550 1170 / 1270 100 / 1270
Balance 432 / -629.7 -990 / -950 40 / -950
SaO2: 94 (2L)
Physical Exam
-
General: Awake, Oriented and AOx3
Cardiovascular: Regular rate & rhythm, No Murmurs, No Rub and No Gallop
Respiratory: Decreased Breath Sounds (right base)
Incision: Clean, Dry, Intact and Dressing Intact
Extremities: No Edema
Data Reviewed
-
Lab Results: Results Reviewed
Medications: Active Meds Reviewed
Chest X-Ray: Report Reviewed and Image Reviewed
ECG: Report Reviewed and Image Reviewed
--- NOTE | 2025-01-29 04:30 | PTCARENOTE ---
Patient had an episode of confusion ~0220, attempted to get OOB without assistance and partially dislodged her RIJ Cordis. Patient didn't remember where she was; she knew her name and the year just couldn't remember anything about the last few days.
Later, upon returning to draw labs, patient was fully oriented, back to baseline, sleeping soundly in bed. CVPA made aware. VSS. Labs drawn and sent. Call borrego within reach, bed alarm maintained for patient safety, assessment of needs ongoing.
[2025-01-29 04:50] LABS: Hematocrit 23.2 % (37.0-47.0); Hemoglobin 7.2 g/dL (12.0-16.0); Mean Corpuscular Volume 86.9 fL (81.0-99.0); Mean Platelet Volume 10.6 fL (7.4-10.4); Platelet Count 102 10^3/uL (130-400); Red Blood Cell Count 2.67 10^6/uL (4.20-5.40); Red Cell Dist. Width 15.2 % (11.5-14.5); White Blood Cell Count 5.9 10^3/uL (4.8-10.8)
[2025-01-29 05:13] LABS: ALT (SGPT) 42 U/L (0-35); AST (SGOT) 36 U/L (14-36); Albumin 3.1 g/dl (3.5-5.0); Alkaline Phosphatase 121 U/L (38-126); Blood Urea Nitrogen 23 mg/dl (7-17); Calcium 9.1 mg/dl (8.4-10.2); Carbon Dioxide 30 mmol/L (22-30); Chloride 101 mmol/L (98-107); Direct Bilirubin 0.3 mg/dl (0.0-0.4); Estimated Creatinine Clearance 50 ml/min; Glucose 185 mg/dl (70-99); Phosphorus 3.1 mg/dl (2.5-4.5); Potassium 4.6 mmol/L (3.5-5.1); Sodium 135 mmol/L (135-145); Total Bilirubin 0.6 mg/dl (0.2-1.3); Total Protein 5.3 g/dl (6.3-8.2); eGFR > 60.00
[2025-01-29 05:43] LABS: NT-proBNP 9860 pg/ml
[2025-01-29] MEDS: SYNTHROID 50 MCG PO (06:11)
[2025-01-29] MEDS: DUONEB 3 ML INH ×4 (07:06→19:14)
[2025-01-29] MEDS: PULMICORT 0.5 MG INH ×2 (07:07→19:14)
--- NOTE | 2025-01-29 08:13 | W.PN.PUL3 ---
Addendum entered and electronically signed by Lebron Menendez MD 02/01/25 09:53:
CDI Inquiry: Acute paranoia due to metabolic encephalopathy
Original Note:
Today's Communication / Plan
-
Patient previously was exhibiting some paranoia/confusion since extubation --> today she is much more improved and back to her baseline
She does have a cough and given her degree of emphysema with suspected exacerbation --> continue prednisone taper and monitor for any adverse effects (i.e. confusion)
Continue with antibiotics for MSSA pneumonia - recommend to treat for total of 7-10 days
Up OOB as tolerated
PT/OT
Mucolytics
DuoNebs + budesonide and prior to discharge would start Symbicort + Spiriva and resume her Trelegy upon discharge
Will start LMWH for chemical DVT prophylaxis
DAPT with aspirin + Plavix
Pulmonary service will continue to follow along.
Assessment
-
Assessment: 79-year-old female active tobacco smoker with a past medical history of centrilobular emphysema/COPD, chronic bronchitis, chronic HFpEF, aortic stenosis s/p bioprosthetic aortic valve replacement complicated by bioprosthetic valvular
regurgitation, mitral regurgitation, hypertension, history of bladder cancer s/p surgery, nephrolithiasis, history of TIA, thyroid disease, DM type II and history of pneumonia who presents with being found unresponsive. When EMS arrived patient was
hypoxic and placed onto a nonrebreather. The patient was supposed to have a TAVR this (01/26/2025). She was intubated in the ER and required vasopressors. CT chest showed evidence of acute pulmonary edema as well as bilateral pneumonia,
with secretions in her left mainstem bronchus. Initially in the ER heart rate was 105, breathing at 14 breaths/min, BP 180/56 and saturating 97% via ventilator. Initial labs showed leukocytosis to 14.1, Hb 12.1, pH 7.08 with pCO2 62, serum bicarb
level 15, glucose 292, lactate 2.2, and urinalysis was negative for UTI. She was transferred to the CVICU for further care, and Ferris Wheel Operator services consulted for additional management/recommendations.
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
regurgitation, hypertension, history of bladder cancer, nephrolithiasis, history of TIA
Impression:
#Acute respiratory failure with hypoxia + hypercapnia requiring mechanical ventilation due to acute decompensated heart failure with right lower lobe pneumonia in the setting of centrilobular emphysema with aspiration
- Intubated 01/25
- Extubated 01/27
#Leukocytosis due to sepsis � WBC now normalized
#Metabolic acidosis with preserved anion gap -acidosis now resolved
#Hyperglycemia likely due to acute stressful response with sepsis - now euglycemic and required insulin gtt s/p TAVR --> now off insulin gtt and BG improved
#Hypocalcemia - resolved
#Transaminitis � improving
#Bioprosthetic aortic valve with severe valvular regurgitation + severe mitral regurgitation --> s/p TAVR with a snorkel stent of the left main coronary artery (procedure date: 01/26/2025)
#Right lower lobe pneumonia due to MSSA (likely due to aspiration)
#Shock: Multifactorial from sepsis + cardiogenic and sedation --> shock state resolved as of 01/27
#History of aspiration of secretions, currently with secretions seen in left mainstem bronchi on current CT chest imaging with prior secretions seen in right mainstem bronchi on cardiac CT from 01/04/2025
#Centrilobular emphysema/moderate COPD (per PFTs from 09/28/2023)
#History of TIA
Plan:
- On initial CTA chest from 01/25/2025, she had significant bronchial wall thickening with obvious intralobular septal thickening with interstitial edema with bilateral pleural effusions and patchy opacities in the posterior right upper lobe/right
lower lobe + left lower lobe consistent with pneumonia
- Hence, there are multiple processes going on here including acute pulmonary edema, possible COPD exacerbation with multifocal pneumonia in the setting of emphysema/COPD/chronic bronchitis
- Her severe valvular heart disease with severe MR + severe bioprosthetic aortic valve regurgitation is surely not helping
- Given that her BP is now stabilized, her creatinine is at baseline, and is in acute decompensated heart failure and takes PO Lasix at home, would continue diuresing and maintain net negative fluid balance as tolerated --> currently on lasix 40mg
IV BID
- Continue cefepime; IV vanco DC'd given negative MRSA swab, and bronchoscopy wash from RLL is growing methicillin sensitive Staph aureus follow up blood cultures (NGTD); urine antigens for Legionella/strep pneumonia both negative
- Would give 7-10 days of antibiotics total assuming she remains afebrile for 48 hours prior to stopping antibiotics, and continues to clinically improve
- She is on Trelegy at home --> continue with DuoNebs QID + budesonide with prn doses for breakthrough symptoms
- Prior to discharge could transition standing nebulizers to Symbicort + Spiriva with prn nebulized albuterol--> resume her home inhalers upon discharge
- Patient was extubated on 01/27/2025, and is now on nasal cannula at 3 L/min, breathing comfortably and saturating 96%
- Maintain SpO2 88-95%
- she is s/p bronchoscopy on 01/25 for pulmonary toilet purposes --> bronchial wash sent from right lower lobe grew MSSA - continue w/ cefepime for 7-10 days total
- Aspiration precautions keeping HOB >30-45�
- Patient currently on minimal O2 flow rate but she is endorsing a cough. Given concern for AECOPD, on 01/28/2025 Dr. Menendez started a low-dose prednisone taper - monitor for worsening confusion
- Goal MAP>65 --> currently off all vasopressors and inotropes
- She has a history of HFrEF with LVEF 30-35% seen on echo on 12/15/2024, but repeat echo via [facility] on 12/20/2024 showed recovered LVEF at 60-65%
- Underwent TAVR on 01/26/2025 placing a #20 Donte S3 Ultra aortic valve into a Mitroflow bioprosthetic AVR with a snorkel stent of the left main coronary artery
- Trend LFTs
- Trend sHCO3 level
- Trend Ca level
- Nicotine patch 21mg
- Replete electrolytes with K>4, Mg>2
- Maintain euglycemia with goal BG 140-180
- Trend H/H and transfuse if needed to keep Hb>7g/dL; keep plt>20k, unless there is concern for bleeding then keep plt>50k
- Stress ulcer ppx: PPI --> change to pepcid 40mg BID (home med)
- DVT ppx: Recommend to continue chemical ppx - resume LMWH, 30mg qPM
Ultimately patient should follow-up with our office again after discharge, as last visit was on 09/28/[address] Alanis.
Pulmonary service will continue to follow along.
Data:
CTA chest 01/25/2025:
1. SEVERE ACUTE CARDIOGENIC PULMONARY EDEMA.
2. Small right and minimal left pleural effusions.
3. Moderate amount of dense airspace consolidation in the posterior segment of the right upper lobe and right lower lobe. Moderate subpleural airspace consolidation in the basilar left lower lobe. Diagnostic possibilities are (1) bilateral
pneumonia (possibly aspiration pneumonia),or (2) a combination of alveolar pulmonary edema and atelectasis.
4. AIRWAY ASPIRATION with severe secretions in the left mainstem bronchus.
5. Severe bilateral bronchitis.
6. Mild to moderate emphysema.
7. 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
8. Previous aortic valve replacement.
9. Endotracheal tube in place.
CXR 01/26/2025:
Interval insertion of transcatheter aortic valve replacement through an existing prosthetic aortic valve.
The tracheal tube is present with tip 5 cm above the peggy.
Pulmonary edema pattern with small bilateral pleural effusions.
Total time spent today was 41 minutes for this encounter. Time includes reviewing laboratory test/imaging results, reviewing pertinent medical records, obtaining and reviewing medical history, performing an appropriate exam, ordering medications,
tests and procedures. Time also includes documentation of this encounter, coordinating patient care and communicating with other healthcare professionals. Total time does not include separately billed tests performed on this date of service.
Subjective Data
-
Date of Service:
Date of Service: January 29, 2025
Chief Complaint: Pulmonary Follow Up
Subjective:
Patient seen and evaluated this morning. Confused overnight and try to get up out of bed and partially dislodged her R�IJ cordis. Later she was fully oriented and back to baseline. This morning she is completely awake, alert and AAOx3. Currently
on 1 L/min with saturations 95% with heart rate 80 and BP 145/79. She denies shortness of breath, LOAIZA, nausea, fevers or chills. When she takes deep breaths she develops a coughing spell.
Review of Systems
General: Other (Negative unless mentioned above)
Objective Data
Data Reviewed
Vital Signs / I&O / Oxygen:
Vital Signs
Temp Pulse Resp BP Pulse Ox
98.1 F 84 18 139/66 94
01/29/25 08:00 01/29/25 08:00 01/29/25 08:00 01/29/25 04:07 01/29/25 08:00
Intake and Output
01/28/25 01/29/25 01/30/25
06:59 06:59 06:59
Intake Total 770.3 / 920.3 470 / 470
Output Total 1510 / 1550 1410 / 1410
Balance -739.7 / -629.7 -940 / -940
SaO2 [A/C] 97
SaO2 94
Nasal Cannula flow liters per 1
minute
Physical Exam
General: Respiratory Distress (negative), Comfortable, Chills (negative) and Sweats (negative)
HEENT: Normocephalic, Anicteric and Other (R-IJ cordis in place)
Cardiovascular: S1-S2, Murmur (JUDAH heard diffusely across precordium), Rub (negative) and Peripheral Edema (Trace lower extremity edema bilaterally)
Respiratory: Wheeze (negative), Crackles (Bilaterally (R >L)), Rhonchi (negative), Non-Labored Respirations and Other (Diminished breath sounds bilaterally)
GI: Soft, Non Distended, Non Tender and Normal Bowel Sounds
Neurology: AO x 3
Skin: Warm, Dry, Cyanosis (negative) and Jaundice (negative)
Labs/Micro/Reports
Lab Data
01/29/25 04:16
01/29/25 04:16
Microbiology
01/27/25 09:17 Blood/Venous Blood Culture - Preliminary
No Growth in 48 hours- Final report to follow
01/27/25 08:51 Blood/Venous Blood Culture - Preliminary
No Growth in 48 hours- Final report to follow
01/25/25 20:48 Blood/Venous Blood Culture - Preliminary
No Growth in 72 hours- Final report to follow
01/25/25 20:10 Blood/Venous Blood Culture - Preliminary
No Growth in 72 hours- Final report to follow
01/25/25 17:30 Bronch Right Lower Lobe Respiratory Culture - Final
S aureus-Methicillin Sensitive
01/25/25 17:30 Bronch Right Lower Lobe Gram Stain - Final
01/25/25 17:30 Bronch Right Lower Lobe Acid Fast Bacilli Smear - Preliminary
01/25/25 17:30 Bronch Right Lower Lobe Acid Fast Bacilli Culture - Preliminary
01/25/25 21:03 Nose Nasal Screen MRSA (PCR) - Final
MRSA not detected - performed by PCR methodology.
01/25/25 17:30 Bronch Right Lower Lobe Fungal Culture - Preliminary
Culture in progress.
Positive cultures are reported as soon as detected.
Final report to follow in four to five weeks.
01/25/25 21:06 Urine Legionella Urinary Antigen - Final
Negative for Legionella pneumophila Serogroup 1 antigen.
A negative result does not rule out the possiblity of
Legionella infection due to other serogroups or species of
Legionella. Clinical correlation is recommended.
01/25/25 21:06 Urine Streptococcus pneumoniae Antigen (M - Final
Negative for Streptococcus pneumoniae antigen.
A negative result does not exclude infection with
Streptococcus pneumoniae. Clinical correlation is
recommended.
[2025-01-29] MEDS: LOW STRENGTH ASPIRIN 81 MG PO (09:07)
[2025-01-29] MEDS: LASIX 40 MG IV ×2 (09:07→17:34)
[2025-01-29] MEDS: MUCINEX 1200 MG PO ×2 (09:07→20:51)
[2025-01-29] MEDS: STERILE WATER FOR INJECTION 10 ML IV ×2 (09:07→21:41)
[2025-01-29] MEDS: MAXIPIME 2000 MG IV ×2 (09:07→21:41)
[2025-01-29] MEDS: ZETIA 10 MG PO (09:07)
[2025-01-29] MEDS: KCL 20 MEQ PO ×2 (09:08→20:50)
[2025-01-29] MEDS: PEPCID 40 MG PO ×2 (09:08→20:51)
[2025-01-29] MEDS: DELTASONE PO (09:08)
[2025-01-29] MEDS: TOPROL XL 25 MG PO (09:08)
[2025-01-29] MEDS: PLAVIX 75 MG PO (09:08)
[2025-01-29] MEDS: ZOLOFT 150 MG PO (09:08)
[2025-01-29] MEDS: CRESTOR 20 MG PO (09:08)
[2025-01-29] MEDS: NICODERM TRANSDERMAL 21 MG TRANSDERM (09:09)
--- NOTE | 2025-01-29 09:10 | PTCARENOTE ---
Assumed care of patient at 0700. Pt is awake, alert, and oriented. Pt with no complaints of pain. Remains SR with PVCs HR 80's. BP 138/55 MAP 77. Pulse oximetry 95% on 1L nasal cannula. Pt tolerating PO diet, no complaints of nausea at this time.
Voiding without issue. Bilateral groins ecchymotic intact, right side with small known hematoma. Pedal pulses weakly palpable.
[2025-01-29] MEDS: NOVOLOG FLEXPEN-MODERATE RESISTANCE SC (09:11)
[2025-01-29 09:15] LABS: Glucose - Point of Care 147 mg/dl (70-99)
--- NOTE | 2025-01-29 09:56 | PTOTSP ---
Speech Therapy Evaluation:
Pt presents with oral phase that is WFL. No clinical signs at bedside of pharyngeal dysphagia, though pt remains at risk of aspiration and related complications given hx of severe COPD, compounded by acute respiratory failure and recent intubation
(2 [address] chest on admission significant for moderate consolidations in RUL and RLL with diagnostic possibilities of (1) bilateral pneumonia (possibly aspiration pneumonia),or (2) a combination of alveolar pulmonary edema and atelectasis. No
overt s/sx of aspiration across PO trials. WBC WNL. Pt passed 3oz swallow screen. No dysphagia hx.
Recommend:
1. Continue regular solids and thin liquids
2. Medications as tolerated
3. Strict aspiration precautions
4. D/c oral diet if worsening in respiratory status or chest imaging
5. TABULATING MACHINE MECHANIC to follow re: tolerance of diet and to determine if pt would benefit from VSE
[2025-01-29] MEDS: DELTASONE 30 MG PO (10:06)
--- NOTE | 2025-01-29 12:40 | PTCARENOTE ---
Pt with no changes in assessment. Remains SR with PVCs, HR 80's. BP 147/82 MAP 97. Pulse oximetry on room air 87%. Pulse oximetry 1L nasal cannula 95%.
[2025-01-29 13:20] LABS: Glucose - Point of Care 274 mg/dl (70-99)
[2025-01-29] MEDS: NOVOLOG FLEXPEN-MODERATE RESISTANCE 9 UNITS SC (15:32)
--- NOTE | 2025-01-29 15:36 | PTCARENOTE ---
Assessment unchanged. Pt remains SR with PVC's. BP 128/62 MAP 79. HR 80. Pulse oximetry 96% on 1L nasal cannula. Pt continues to have productive cough.
[2025-01-29 15:39] LABS: Glucose - Point of Care 357 mg/dl (70-99)
[2025-01-29] MEDS: LOVENOX 30 MG SC (17:35)
[2025-01-29] MEDS: GLUCOTROL XL (EXTENDED RELEASE) 5 MG PO (17:35)
[2025-01-29] MEDS: GLUCOPHAGE 500 MG PO (17:35)
[2025-01-29] MEDS: NOVOLOG FLEXPEN-MODERATE RESISTANCE 3 UNITS SC (17:38)
[2025-01-29 17:40] LABS: Glucose - Point of Care 241 mg/dl (70-99)
--- NOTE | 2025-01-29 20:30 | PTCARENOTE ---
Report received from AUSTIN Rodriguez. Pt assessed VS done. Oriented x 4. Speech clear. Equal strength x 4. 1L/NC. Sats 95-96%. BBS present. R posterior bas with some rales. Decreased B bases. IS and flutter valve encouraged. Moist productive cough with
clear-white, some xavier sputum. Audible heart tones. SR with PVCs. Normotensive. R groin hematoma 4 x 2 cm. L groin soft. Both bruised. See flowsheets for pulse assessments. Belly soft, nontender, normoactive bs x 4. No BM yet. Voids in toilet.
Ongoing plan of care.
[2025-01-29 21:59] LABS: Glucose - Point of Care 190 mg/dl (70-99)
--- NOTE | 2025-01-29 22:30 | PTCARENOTE ---
Scheduled meds given. Glucose checked. Pt gouing to sleep for evening.
--- NOTE | 2025-01-30 02:30 | PTCARENOTE ---
Pt helped to BR to void clear, yellow urine. VS done. Pt going back to sleep.
[2025-01-30 02:32] VITALS: BMI 19.3
[2025-01-30 02:37] VITALS: BP 116/78
--- NOTE | 2025-01-30 04:15 | W.PN.CT ---
Today's Communication / Plan
-
Plan:
-No major issues overnight. Hemodynamically and neurologically intact
-Off all drips
-Repeat echo on 01/27 showed a well seated TAVR with Trace AI, MG 25 mmHg, EF 70%
-Groin C/D/I with mild hematoma and ecchymosis @ right groin. Stable
-Pt is a Cheondoism. Limit blood draws
-On Cefepime for Staph aureus from bronch on 01/25/25. TM 99, Blood cx without growth in 48hrs, u/a negative
-Started on Prednisone 01/28/25 per Pulm
-Pt currently on ASA, Plavix; consider d/c of Lovenox as pt is ambulatory
-Cont. current meds (ASA, Plavix, Zetia, Synthroid, Toprol xL)
-Wean off O2 (pOx 88-92% on RA). Small right pleural effusion is improved on CXR this AM on my review. F/U official report
-Cont. diuresis/replete electrolytes
-Encourage use of IS
-Cont. to encourage smoking cessation
-OOB into chair
-Likely home today, states staying with her daughter
Assessment / Plan
-
- Respiratory failure/Cardiogenic shock/Severe bioprosthetic valve stenosis - s/p Right trans femoral TAVR in SAVR a 20 mm Bunch TAVR valve, left main stent (snorkel) on 01/26/25, pod #4
- Intraop TTE: Preoperative LVEF was 50-55% and was 70% following TAVR on dobutamine of 3. There was trace paravalvular leak and the patient was hyperdynamic at approximately 70% LVEF. With this, the gradient across the new TAVR valve was high at
approximate 30 mmHg.
- 79 year old female admitted 01/25/25 for cardiogenic shock with respiratory failure secondary to volume overload and severe aortic valve insufficiency - intubated in the ER.
-bronchoscopy 01/25 revealed that all airways were patent down to the segmental bronchi. Some thick white/xavier secretions in the ETT which were suctioned. Respiratory cx pending
- severe bioprosthetic aortic valve stenosis
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
- recent hospitalization for decompensated HF (Nov 2024)
- Hx SAVR w/root enlargement 07/2015 at [facility]
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
- hypertension
- hyperlipidemia
- severe COPD (DLCO 30; FEV1 56), active smoker
- hypothyroidism
- T2DM (A1C 5.4%)
- anxiety/depression
- Hx bladder cancer
- Hx TIA with L facial numbness, RH numbness ([facility])
- Pt is Hindu and will not have blood transfusion (confirmed with daughter, Kaylyn, on 01/27/25)
-Acute postop blood loss/Anemia (stable)
-Acute postop mild right groin hematoma/ecchymosis
-Acute postop Paranoia
-Acute postop pulmonary insufficiency
Discussed patient care with: Cardiology, Nursing, Respiratory Therapy, Pharmacy and Care Team
Subjective
Procedure
- s/p Right trans femoral TAVR in SAVR a 20 mm Bunch TAVR valve, left main stent (snorkel) on 01/26/25
-
Date of Service: January 30, 2025
Pt c/o mild cough, otherwise feels well
Objective Data
-
Lab Results
01/29/25 04:16
PT 14.8 Sec (11.4-14.6) H 01/26/25 03:20
INR 1.11 01/26/25 03:20
APTT 30.3 Sec (23.4-35.0) 01/26/25 03:20
Vital Signs
Vital Signs
Temp Pulse Resp BP Pulse Ox
97.5 F 82 16 116/78 95
01/30/25 02:37 03/03/25 02:37 01/30/25 02:37 01/30/25 02:37 01/30/25 02:37
CT Intake/Output/Weight
01/29/25 01/29/25 01/30/25
06:59 18:59 06:59
Intake Total 290 / 470
Output Total 240 / 1410 1500 / 2625 1125 / 2625
Balance 50 / -940 -1500 / -2625 -1125 / -2625
SaO2: 95 (1L)
Physical Exam
-
General: Awake, Oriented and AOx3
Cardiovascular: Regular rate & rhythm, No Murmurs, No Rub and No Gallop
Respiratory: Decreased Breath Sounds (at bases, > right, otherwise clear)
Sternum: Stable
Incision: Clean, Dry, Intact and Dressing Intact
Extremities: No Edema
Data Reviewed
-
Lab Results: Results Reviewed
Medications: Active Meds Reviewed
Chest X-Ray: Report Reviewed and Image Reviewed
ECG: Report Reviewed and Image Reviewed
[2025-01-30] MEDS: SYNTHROID 50 MCG PO (05:37)
[2025-01-30 05:40] VITALS: BP 128/61
[2025-01-30 06:14] VITALS: BMI 19.3
--- NOTE | 2025-01-30 06:14 | PTCARENOTE ---
Labs drawn and sent. Pt given CHG bath. PA in to examine pt. Pt helped up to chair. Pt placed on room air. Sats 90-93%. Performing IS and flutter valve. Productive cough remains: clear-white, light xavier sputum. Remains in SR with some PVCs. No c/o
pain.
[2025-01-30 06:37] LABS: Blood Urea Nitrogen 28 mg/dl (7-17); Calcium 9.6 mg/dl (8.4-10.2); Carbon Dioxide 37 mmol/L (22-30); Chloride 96 mmol/L (98-107); Estimated Creatinine Clearance 38 ml/min; Glucose 157 mg/dl (70-99); Potassium 4.4 mmol/L (3.5-5.1); Sodium 136 mmol/L (135-145); eGFR > 60.00
[2025-01-30 07:51] LABS: Glucose - Point of Care 156 mg/dl (70-99)
[2025-01-30] MEDS: DUONEB 3 ML INH ×2 (07:51→11:56)
[2025-01-30] MEDS: PULMICORT 0.5 MG INH (07:51)
[2025-01-30 07:52] VITALS: BP 136/71
--- NOTE | 2025-01-30 08:24 | PTCARENOTE ---
assumed care of pt from previous shift RN, sinus rhythm on tele, + peripheral pulses, no edema noted, pt denies CP. Lungs diminished, course anteriorly, loose/ non productive cough, pox 93% on RA. + bs, tolerating PO intake, voids spontaneously. PIV
flushes easily. Plan of care reviewed w the pt and questions encouraged.
--- NOTE | 2025-01-30 08:35 | W.DCSUMMARY ---
Addendum entered and electronically signed by FARZAD Mallory 01/30/25 15:59:
Pulmonary changed oral antibiotic to Omnicef BID with plan for 5 more days.
Original Note:
Discharge Summary
Discharge Data
Date of Admission: 01/25/25
Date of Discharge: 01/30/25
-
Pending Results: No
Hospital Course
Primary care physician: Adolfo Decker
Outpatient form presser: Conrad Amezquita
Inpatient consultants: [facility] Cardiology
Procedures:
1. TAVR and left main stent
Primary Diagnosis:
1. prosthetic aortic insufficiency
Secondary Diagnoses:
1. CAD w/INTERLOCKER RCA
2. COPD (FEV1 56/DLCO 30) exacerbation
3. T2DM (A1C 5.4)-oral therapy
4. aortic stenosis s/p AVR with root enlargement (2014)
5. hypothyroidism
6. Anxiety/depression
7. Tobacco abuse
8. Hx bladder cancer
9. Anabaptism/congregational refusal of blood products
10. MSSA RLL pneumonia
11. Acute hypoxic respiratory failure requiring intubation
12. centrilobar emphysema
13. Hx TIA with L facial numbness, RH numbness
14. Acute postop blood loss/Anemia (stable)
15. Acute postop mild right groin hematoma/ecchymosis
16. Acute postop paranoia
17. Acute postop pulmonary insufficiency
HPI: 79 yo female with hx severe COPD, decompensated CHF, s/p tissue AVR 2014 at [facility], now with severe AI, mod-severe MR, EF 30-35%, DM II, hx TIA. She was recently admitted to from 12/15-12/23/24 for hypoxia/respiratory distress/metabolic
acidosis and was intubated in the emergency room. She was treated with iv antibioticx, iv steroids and nebulizers. Echo at that time revealed EF 30-35% with progression of mitral regurgitation and mod-severe eccentric AI. She underwent left and
right cath revealing occlusion of small, non-dominant RCA, but otherwise, no significant CAD. Pt was seen outpatient by Dr. Alvarez and scheduled for TAVR this 01/26/25.
On the morning of 01/25, her daughter found her very SOB, feeling hot, mottled and EMS was called. She was hypoxic, acidotic and was intubated in the emergency room.
Hospital course: Patient was medically optimized on Levophed, dobutamine, propofol, and fentanyl. A bronchoscopy was performed and cultures sent which revealed MSSA in the sputum. Meropenem was initiated. Patient remained stable overnight and
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 Jamie Alvarez and Ranulfo Urbina. She required no intraoperative blood products and returned to CVICU on dobutamine and Levophed which were quickly
weaned off. On postoperative day 1, sedation was weaned and patient extubated. Levophed was weaned off. Patient was experiencing paranoia and very concerned about staff actions in her room. Morning hemoglobin was noted to be 7.2. Daughter was
called for blood transfusion consent and relayed that her mother is a Anabaptism and refuses blood transfusion. Her right groin hematoma was noted and sandbag applied. On postoperative day #2, the right groin was softer. Hemoglobin
remained stable at 7.2 and further blood draws limited. Bilateral femoral bruits which were chronic. Patient was diuresed with Lasix 40 mg twice daily. On postoperative day #3 patient was again diuresed and patient had experienced no further
confusional episodes. Patient was started on prednisone taper by pulmonary for COPD exacerbation. Postoperative day #4, patient assessed by respiratory therapist and meets criteria for home O2 (desaturation to 81%). Case management notified to
coordinated O2 delivery. Patient will continue on aspirin/Plavix for 1 year due to left main stent. Patient discharged to home with daughter for support.
Home medication changes:
Augmentin x 5 days for pneumonia
Symbicort/Spiriva added for COPD
Prednisone taper for COPD exacerbation
Discharge Plan
-
Patient Disposition: Home (Routine Discharge)
Discharge Diagnosis/Procedures: left main coronary stent, TAVR
Condition: Fair
Diet: Low Cholesterol and Low Sodium
Driving Restrictions: Not until seen by your Dr
Bathing Restrictions: OK to Shower
Others Tests: Please call your form presser to schedule a 30 day echocardiogram
Other Services: Cardiac Rehab
Specialty Instructions: Weigh Daily- Call MD for wt gain/loss 3 lbs overnight/5 lbs in 1 week
Referrals:
Christin Martines M.D. [Other] - 02/24/25 11:40 [address]
CT Transitional Care Nurse [Outside] - in one to two days
Jennifer Alanis MD [Active] - in three to four weeks
UNKNOWN - PT DOES,NOT KNOW [Family Provider] -
Prescriptions:
New
budesonide-formoterol [Symbicort] 160-4.5 mcg/actuation Hfa Aerosol Inhaler
2 puff inhalation R BID Qty: 10.2 2RF
Spiriva Respimat 2.5 mcg/actuation Mist
2 puff inhalation R DAILY Qty: 4 2RF
clopidogrel 75 mg Tablet
75 mg PO DAILY Qty: 30 1RF
nicotine 21 mg/24 hr Patch 24 Hour
21 mg transdermal DAILY Qty: 30 1RF
amoxicillin-pot clavulanate [Augmentin] 500-125 mg tablet
1 tab PO BID Qty: 10 0RF
methylprednisolone [Medrol (Papo)] 4 mg tablets,dose pack
See Rx Instructions .ROUTE .COMPLEX Qty: 21 0RF
Rx Instructions:
for 6 days
Continued
metformin 500 mg tablet
500 mg PO QPM
sertraline 100 mg tablet
150 mg PO DAILY
aspirin 81 mg Tablet,Delayed Release (Dr/Ec)
81 mg PO QPM
vitamin B complex Capsule
1 cap PO DAILY
rosuvastatin [Crestor] 20 mg Tablet
20 mg PO Daily
ezetimibe 10 mg Tablet
10 mg PO DAILY
levothyroxine 50 mcg Tablet
50 mcg PO DAILY
Trelegy Ellipta 100-62.5-25 mcg Blister With Device
1 inh INHALATION HS
famotidine [Pepcid] 40 mg Tablet
40 mg PO BID
metoprolol succinate [Toprol XL] 25 mg Tablet Extended Release 24 Hr
25 mg PO DAILY
Probiotic 3 billion cell Capsule
3,000 mmu cells PO DAILY
turmeric
1 tab PO DAILY
glipizide 5 mg tablet extended release 24hr
5 mg PO QPM
Areds
2 100 ml PO DAILY
Discontinued
albuterol sulfate 90 mcg/actuation HFA aerosol inhaler
2 puff inhalation Q6H PRN (Reason: shortness of breath or wheezing) Qty: 8.5 0RF
Berberine With Milk Thistle
1 tab PO DAILY
Cellucare
1 tab PO DAILY
nicotine 14 mg/24 hr patch 24 hour
14 mg transdermal DAILY
furosemide 20 mg tablet
20 mg PO DAILY
Discharge Orders:
Discharge Patient (As Directed); Ordered 01/30/25
Ordered By: Анна Reid
Care Plan Goals
Care Plan Goals:
Problem: Readiness for enhanced knowledge related to diagnosis and treatment plan
Goal: Understand your diagnosis and treatment plan needs, including medications if applicable.
Instructions: Know your diagnosis, underlying causes and treatment plan options, including medications if applicable. Consult with your health care team to learn about your diagnosis and treatment plan, including medications if applicable.
Discharge Date and Time
Print Language: NEPALESE
[2025-01-30] MEDS: CRESTOR 20 MG PO (09:20)
[2025-01-30] MEDS: LOW STRENGTH ASPIRIN 81 MG PO (09:20)
[2025-01-30] MEDS: MUCINEX 1200 MG PO (09:20)
[2025-01-30] MEDS: PEPCID 40 MG PO (09:21)
[2025-01-30] MEDS: DELTASONE 20 MG PO (09:21)
[2025-01-30] MEDS: ZETIA 10 MG PO (09:21)
[2025-01-30] MEDS: TOPROL XL 25 MG PO (09:21)
[2025-01-30] MEDS: KCL 20 MEQ PO (09:21)
[2025-01-30] MEDS: PLAVIX 75 MG PO (09:21)
[2025-01-30] MEDS: ZOLOFT 150 MG PO (09:21)
[2025-01-30] MEDS: NICODERM TRANSDERMAL 21 MG TRANSDERM (09:21)
[2025-01-30] MEDS: NOVOLOG FLEXPEN-MODERATE RESISTANCE 1 UNITS SC (09:22)
--- NOTE | 2025-01-30 10:31 | PN.CDI ---
CDI
- -
CDI:
Physician Documentation Request
Admit Date: 01/25/25 08:03
Dear Doctor,
Please review the following and provide your response in the progress notes.
Clinical Indicators:
Pt admitted with sepsis/shock/cardiogenic shock /CHF/Acute Hypoxic/Hypercapnic respiratory Failure/Aspiration Pneumonia
Quality Systems Technician progress note 01/27, ' Patient extubated this morning and is now doing well except she is very paranoid/confused Continue to monitor her mental status and if confusion/paranoia persists then would consult psychiatry..'
Quality Systems Technician progress note 01/28,' Given concern for AECOPD, I will start her on a low-dose of prednisone as I do not want to exacerbate her paranoia..'
Pt care note 01/27 @ 0459,' Patient frequently restless, attempting to sit up and pulling against restraints. Fentanyl and propofol titrated per protocol...'
Based on the above, could you clarify in the Progress Notes and Discharge Summary which, if any of the following, is the most likely etiology of the confusion/altered mental status.
Metabolic Encephalopathy
Acute Paranoia only
Other ( please specify)
Use of terms such as suspected, likely, concern for, or probable (associated with a specific diagnosis that is being evaluated, monitored, or treated as if it exists) are acceptable and can be coded in the inpatient setting, when documented at the
time of discharge.
Thank you,
Mary Bee RN
CDI Specialist
[place] [facility]
Please use your independent medical judgment in providing your response.
--- NOTE | 2025-01-30 11:05 | W.PN.PUL.V3 ---
Today's Communication / Plan
-
-d/c Cefepime
-Start oral Omnicef BID with plan for 5 more days.
-Prednisone 20 mg daily for 2 more days then stop taking
-Resume Trelegy at discharge
-Assess for Home O2 need
-Resume follow up with Pulmonary clinic
Assessment
-
80 y/o female with severe COPD, CAD, severe s/p bioprosthetic SAVR (#21 MitraFlow), HFrEF and hypoxic respiratory failure requiring invasive ventilation due to degenerative SAVR insufficiency, admitted with recurrent VDRF/cardiogenic shock, now
s/p Evelyne TAVR with snorkel PCI.
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
regurgitation, hypertension, history of bladder cancer, nephrolithiasis, history of TIA
Impression:
#1. Acute respiratory failure with hypoxia + hypercapnia requiring mechanical ventilation due to acute decompensated heart failure with right lower lobe pneumonia in the setting of centrilobular emphysema with aspiration
- Intubated 01/25 and Extubated 01/27. Currently in no respiratory distress and comfortably sitting in bed. Mild cough, clear expectoration, no wheezing on exam
#2. Aspiration pneumonia, Right lower lobe
-s/p Bronchoscopy and MSSA on BAL and cultures
-Afebrile and clinically improving
-D/c Cefepime and start oral Omnicef for another 5 days to complete 10 days of antibiotics
#3. Emphysema/COPD with exacerbation in the setting of aspiration
-Improving, no wheezing today. Currently on Duoneb and Budesonide
-Prednisone 20 mg daily for 2 more days then stop taking
-Resume Trelegy at discharge
-Out patient follow up with Pulmonary clinic
#4. Bioprosthetic aortic valve with severe valvular regurgitation + severe mitral regurgitation,
-s/p TAVR with a snorkel stent of the left main coronary artery (procedure date: 01/26/2025)
-Currently on ASA/Plavix
-Appears to be euvolemic
#5. Cardiogenic shock
-In the setting of aortic stenosis, off pressors now and s/p TAVR
-She has a history of HFrEF with LVEF 30-35% seen on echo on 12/15/2024, but repeat echo via BELKYS on 12/20/2024 showed recovered LVEF at 60-65%
#6. Hyperglycemia likely due to acute stressful response with sepsis
- now euglycemic and off insulin gtt
#7. History of TIA
-ASA/Plavix and Statins currently
- Trend LFTs
- Trend sHCO3 level
- Trend Ca level
- Nicotine patch 21mg
- Replete electrolytes with K>4, Mg>2
- Maintain euglycemia with goal BG 140-180
- Trend H/H and transfuse if needed to keep Hb>7g/dL; keep plt>20k, unless there is concern for bleeding then keep plt>50k
- Stress ulcer ppx: PPI --> change to pepcid 40mg BID (home med)
- DVT ppx: Recommend to continue chemical ppx - resume LMWH, 30mg qPM
Ultimately patient should follow-up with our office again after discharge, as last visit was on 09/28/[address] Alanis.
Pulmonary service will continue to follow along.
Total time spent today was 34 minutes for this encounter. Time includes reviewing laboratory test/imaging results, reviewing pertinent medical records, obtaining and reviewing medical history, performing an appropriate exam, ordering medications,
tests and procedures. Time also includes documentation of this encounter, coordinating patient care and communicating with other healthcare professionals. Total time does not include separately billed tests performed on this date of service.
Subjective Data
-
Date of Service:
Date of Service: January 30, 2025
Chief Complaint: Pulmonary Follow Up and Pneumonia Follow Up
Subjective:
Comfortably sitting in bed, no acute distress noted.
Objective Data
Data Reviewed
Vital Signs / I&O:
Vital Signs
Temp Pulse Resp BP Pulse Ox
98.2 F 77 18 136/71 93
01/30/25 08:00 01/30/25 08:00 01/30/25 08:00 01/30/25 07:52 01/30/25 08:00
Intake and Output
01/29/25 01/30/25 01/31/25
06:59 06:59 06:59
Intake Total 470 / 470 100 / 100
Output Total 1410 / 1410 2725 / 2725
Balance -940 / -940 -2725 / -2725 100 / 100
SaO2: 93
Nasal Cannula flow liters per minute: 1
Physical Exam
General: Respiratory Distress (negative), Comfortable, Chills (negative) and Sweats (negative)
Cardiovascular: Regular Rhythm, Murmur (JUDAH heard diffusely across precordium), Rub (negative) and Peripheral Edema (Trace lower extremity edema bilaterally)
Respiratory: Wheeze (negative), Crackles (None), Rhonchi (negative), Non-Labored Respirations and Other (Diminished breath sounds bilaterally)
GI: Soft, Non Distended, Non Tender and Normal Bowel Sounds
Neurology: AO x 3
Skin: Warm, Dry, Cyanosis (negative) and Jaundice (negative)
Labs/Micro/Reports
Lab Data
01/29/25 04:16
01/30/25 05:30
Microbiology
01/27/25 09:17 Blood/Venous Blood Culture - Preliminary
No Growth in 72 hours- Final report to follow
01/27/25 08:51 Blood/Venous Blood Culture - Preliminary
No Growth in 72 hours- Final report to follow
01/25/25 20:48 Blood/Venous Blood Culture - Preliminary
No Growth in 4 days- Final report to follow
01/25/25 20:10 Blood/Venous Blood Culture - Preliminary
No Growth in 4 days- Final report to follow
01/25/25 17:30 Bronch Right Lower Lobe Respiratory Culture - Final
S aureus-Methicillin Sensitive
01/25/25 17:30 Bronch Right Lower Lobe Gram Stain - Final
01/25/25 17:30 Bronch Right Lower Lobe Acid Fast Bacilli Smear - Preliminary
01/25/25 17:30 Bronch Right Lower Lobe Acid Fast Bacilli Culture - Preliminary
[2025-01-30] MEDS: NOVOLOG FLEXPEN-MODERATE RESISTANCE SC (11:30)
[2025-01-30] MEDS: STERILE WATER FOR INJECTION IV (11:30)
[2025-01-30] MEDS: MAXIPIME IV (11:38)
--- NOTE | 2025-01-30 11:41 | CM ---
Chart reviewed. Patient is independent of ADLS, lives alone in a [address], [facility], ambulates with a RW and also has a shower chair. Patient's daughter to go home with the patient. Home O2 evaluation to be done by respiratory, patient desaturating
with ambulation. Plan is for the patient to return home with daughter and CT Transitional RN. CM to follow
--- NOTE | 2025-01-30 12:46 | W.PN.UPDATE ---
Update Note
Progress Note Update
Home O2 assessment per respiratory:
Resting room air: 95%
Ambulating room air: 81%
Distance ambulated on room air : 100ft
O2 sat ambulatory on room air: 89%
Distance ambulated on O2: 100ft
Flow LPM during ambulation: 2
Meets criteria for home O2
[2025-01-30] MEDS: OMNICEF 300 MG PO (12:51)
[2025-01-30 12:53] VITALS: BP 147/64
--- NOTE | 2025-01-30 12:53 | PTCARENOTE ---
VSS, assessment unchanged, pt waiting for home 02 to be delivered. Discharge pending.
--- NOTE | 2025-01-30 14:07 | W.PN.CD ---
Today's Communication / Plan
-
pending discharge
Impression / Plan
-
Impression/Plan: 80 y/o female with severe COPD, CAD, severe s/p bioprosthetic SAVR (#21 MitraFlow), HFrEF and hypoxic respiratory failure requiring invasive ventilation due to degenerative SAVR insufficiency, admitted with recurrent
VDRF/cardiogenic shock, now s/p Evelyne TAVR with snorkel PCI.
#Acute hypoxemic respiratory failure
-improved s/p emergent Evelyne TAVR
#Cardiogenic shock/HFrEF/Cardiomyopathy, imporved/resolved
-Acute on chronic.
-LVEF 30-35% with LAD territory WMA 12/15/24 echo, but EF 55-60% on BELKYS 12/20/24.
-Primarily driven by SAVR AI.
-EF hyperdynamic post-TAVR
#hx SAVR (2014) with degenerative valve insufficiency:
-Chronic, progressive.
-S/P #20 Bunch DONTE S3 Evelyne TAVR via right common femoral approach with no acute complications.
-Post TAVR gradient ~ 30 mmHg. This is less than ideal but is an improvement from her severe AI.
-Low coronary artery height treated with snorkel PCI to the LMCA to above the valve struts (Medtronic Ander 3.5 x 22 ELIZABETH).
-Anti-thrombotic therapy with aspirin and clopidogrel.
-Post TAVR echo with stable gradient
#Moderate/severe mitral regurgitation
-Chronic, stable.
-Re-evaluate with serial echos as outpatient
#COPD
-Chronic, severe.
-Pulmonary/critical care involved.
-Bronchodilators.
-meets criteria for home O2
#Current smoker:
-Chronic.
-Per family, has cut back. Needs to quit fully.
#CAD:
-Chronic.
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
-Continue ASA, rosuvastatin, metoprolol as outpatient.
-Dwayne is high risk for ISR/IST...at least 12 months of DAPT warranted
#Fever
-Acute.
-Prior UA negative.
-CXR stable.
-Check BCx x2.
-Repeat UA.
-No ABX at this time.
Subjective/Interval History:
Evelyne TAVR with snorkel PCI to LMCA .
Extubated and care de-escalated over the weekend
EF recovered on repeat TTE
Qualified for home O2 based on ambulatory sats today
Pending dischage
Data:
TTE 01/27/2025:
Normal left ventricular size with hyperdynamic systolic function. No regional
wall motion abnormalities are seen. LV ejection fraction is 70% by visual
assessment.
Normal right ventricular size with grossly normal right ventricular systolic
function.
Dilated left atrium.
Mild mitral regurgitation.
Well seated, normally functioning #20 Bunch DONTE S3 Evelyne TAVR inside a
MitraFlow SAVR with trace insufficiency and moderately elevated gradients (mean
gradient
25 mmHg).
Right ventricular/right atrial systolic gradient of 35 mmHg.
Compared to prior intraprocedural BELKSY study of 01/26/2025, the TAVR gradients
are stable to slightly improved.
TAVR, 01/26/2025:
Conclusions:
1. Successful placement of #20 Donte S3 Ultra aortic valve in a Mitroflow bioprosthetic AVR, requiring snorkel stent of the left main coronary artery due to low coronary heights via right transfemoral approach with no acute complications.
2. Cardiogenic shock.
Intraprocedural BELKYS, 01/26/2025:
CONCLUSIONS
Normal biventricular systolic function. LVEF 60-65%.
Severe aortic insufficiency secondary to bioprosthetic degradation.
Severe mitral regurgitation
Mild tricuspid regurgitation.
Grade V atheromatous disease of the anterior wall of the ascending aorta is
present.
POST OPERATIVE FINDINGS
S/P TAVR
The TAVR appears to be well-seated, although differentiating the old and new
bioprosthetic is difficult. Trace to mild aortic insufficiency is present.
The mean gradient is 34 mmHg. The dimensionless index is 0.3. Otherwise
grossly unchanged exam.
CT Chest, 01/25/2025:
IMPRESSION:
1. SEVERE ACUTE CARDIOGENIC PULMONARY EDEMA.
2. Small right and minimal left pleural effusions.
3. Moderate amount of dense airspace consolidation in the posterior segment of the right upper lobe and right lower lobe. Moderate subpleural airspace consolidation in the basilar left lower lobe. Diagnostic possibilities are (1) bilateral
pneumonia (possibly aspiration pneumonia),or (2) a combination of alveolar pulmonary edema and atelectasis.
4. AIRWAY ASPIRATION with severe secretions in the left mainstem bronchus.
5. Severe bilateral bronchitis.
6. Mild to moderate emphysema.
7. 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
8. Previous aortic valve replacement.
9. Endotracheal tube in place.
Cardiac Catheterization, 12/19/2024:
CONCLUSIONS:
1. Left dominant circulation with flush occlusion of the nondominant right coronary artery which fills via a left like collateral from the LAD (Vieussen's ring).
2. Normal filling pressures (LVEDP = 12 mmHg at 48.1 kg).
3. Significant pulmonary venous hypertension given discrepancy between PCWP and LVEDP (PCWP = 19 mmHg).
4. Mild, postcapillary pulmonary hypertension (mean PA = 26 mmHg, PCWP = 19 mmHg, cardiac output = 2.96 L/min, PVR = 2.36 Jacinto units).
5. Status post prior bioprosthetic SAVR, now with severe insufficiency.
6. Moderate to severe mitral valve regurgitation by echocardiogram.
7. Severe right radial artery spasm and a relatively small vessel, making radial access undesirable for any future catheterization.
Physical Exam
Vital Signs/Labs
Vital Signs
Temp Pulse Resp BP Pulse Ox
36.9 C 79 18 147/64 98
01/30/25 12:54 01/30/25 12:53 01/30/25 12:54 01/30/25 12:53 01/30/25 12:54
01/29/25 01/30/25 01/31/25
06:59 06:59 06:59
Actual Weight 48.9 kg 46.4 kg
01/29/25 04:16
01/30/25 05:30
PT 14.8 Sec (11.4-14.6) H 01/26/25 03:20
INR 1.11 01/26/25 03:20
APTT 30.3 Sec (23.4-35.0) 01/26/25 03:20
Magnesium 2.0 mg/dl (1.6-2.3) 01/30/25 05:30
Triglycerides 87 mg/dl (10-149) 01/25/25 10:53
LDL Cholesterol, Calc 44 mg/dl 01/25/25 08:00
VLDL Cholesterol, Calc 15 mg/dl (0-30) 01/25/25 08:00
HDL Cholesterol 33 mg/dl 01/25/25 08:00
01/28/25 01/29/25
04:47 04:16
Ctv-S-Oqrdfjagtas Pept [id number]
Physical Exam
Constitutional: No acute distress
Cardiovascular: Rhythm & rate is regular
Respiratory: Respiratory effort normal
Neuro/Psych: AO x 3
Data Reviewed
-
Date of Service: January 30, 2025
Medical Decision Making: External Notes
EKG: Tracing Personally Visualized and interpreted
Echo: Tracing Personally Visualized and interpreted
X-Ray/CT/US/MRI/NUC/PET: Image Personally Visualized and interpreted
Labs: Labs Reviewed by me
[2025-01-30] MEDS: DUONEB INH (15:22)
--- NOTE | 2025-01-30 16:53 | PTCARENOTE ---
IV line and tele monitor removed. Discharge instructions, medication list and follow up appointments reviewed w the pt and her daughter. Questions encouraged.
== END 2025-01-30 16:54 | disposition home or self-care (01) | DRG 266 ==
LOC: CVICU 08:03
PROVIDERS: Anesthesiology; Clinical Nurse Specialist Acute Care; Physician Assistant Medical; ADMITTING PHYSICIAN Thoracic Surgery (Cardiothoracic Vascular Surgery); ATTENDING PHYSICIAN Thoracic Surgery (Cardiothoracic Vascular Surgery); CONSULT PHYSICIAN Internal Medicine Critical Care Medicine; EMERGENCY PHYSICIAN Student in an Organized Health Care Education/Training Program; OTHER PHYSICIAN Internal Medicine Cardiovascular Disease
PROC: 0B968ZZ Drainage of Right Lower Lobe Bronchus, Via Natural or Artificial Opening Endoscopic (ICD-10-PCS; 2025-01-25)
PROC: 02HV33Z Insertion of Infusion Device into Superior Vena Cava, Percutaneous Approach (ICD-10-PCS; 2025-01-25)
PROC: 5A1945Z Respiratory Ventilation, 24-96 Consecutive Hours (ICD-10-PCS; 2025-01-25)
PROC: 03HY32Z Insertion of Monitoring Device into Upper Artery, Percutaneous Approach (ICD-10-PCS; 2025-01-25)
PROC: 0BH18EZ Insertion of Endotracheal Airway into Trachea, Via Natural or Artificial Opening Endoscopic (ICD-10-PCS; 2025-01-25)
PROC: B24BZZ4 Ultrasonography of Heart with Aorta, Transesophageal (ICD-10-PCS; 2025-01-26)
PROC: 027034Z Dilation of Coronary Artery, One Artery with Drug-eluting Intraluminal Device, Percutaneous Approach (ICD-10-PCS; 2025-01-26)
PROC: 02RF38Z Replacement of Aortic Valve with Zooplastic Tissue, Percutaneous Approach (ICD-10-PCS; 2025-01-26)
DX: I11.0 Hypertensive heart disease with heart failure (principal); Z00.6 Encounter for examination for normal comparison and control in clinical research program; A41.9 Sepsis, unspecified organism; J96.02 Acute respiratory failure with hypercapnia; J96.21 Acute and chronic respiratory failure with hypoxia; R57.0 Cardiogenic shock; J15.211 Pneumonia due to Methicillin susceptible Staphylococcus aureus; J95.1 Acute pulmonary insufficiency following thoracic surgery; I50.43 Acute on chronic combined systolic (congestive) and diastolic (congestive) heart failure; J69.0 Pneumonitis due to inhalation of food and vomit; G93.41 Metabolic encephalopathy; T82.897A Other specified complication of cardiac prosthetic devices, implants and grafts, initial encounter; E87.20 Acidosis, unspecified; J44.0 Chronic obstructive pulmonary disease with (acute) lower respiratory infection; D62 Acute posthemorrhagic anemia; L76.32 Postprocedural hematoma of skin and subcutaneous tissue following other procedure; J44.1 Chronic obstructive pulmonary disease with (acute) exacerbation; I42.8 Other cardiomyopathies; I35.1 Nonrheumatic aortic (valve) insufficiency; Z66 Do not resuscitate; I25.10 Atherosclerotic heart disease of native coronary artery without angina pectoris; I34.0 Nonrheumatic mitral (valve) insufficiency; E83.51 Hypocalcemia; E11.65 Type 2 diabetes mellitus with hyperglycemia; F22 Delusional disorders; Y83.1 Surgical operation with implant of artificial internal device as the cause of abnormal reaction of the patient, or of later complication, without mention of misadventure at the time of the procedure; Z53.1 Procedure and treatment not carried out because of patient's decision for reasons of belief and group pressure; F17.210 Nicotine dependence, cigarettes, uncomplicated; E78.00 Pure hypercholesterolemia, unspecified; F32.A Depression, unspecified; F41.9 Anxiety disorder, unspecified; I95.9 Hypotension, unspecified; I25.82 Chronic total occlusion of coronary artery; J43.2 Centrilobular emphysema; E03.9 Hypothyroidism, unspecified; Z79.82 Long term (current) use of aspirin; Z79.84 Long term (current) use of oral hypoglycemic drugs; Z79.899 Other long term (current) drug therapy; Z82.49 Family history of ischemic heart disease and other diseases of the circulatory system; Z85.51 Personal history of malignant neoplasm of bladder; Z86.73 Personal history of transient ischemic attack (TIA), and cerebral infarction without residual deficits; Z87.01 Personal history of pneumonia (recurrent); Z95.3 Presence of xenogenic heart valve
CPT/HCPCS: 93308; 31500; 51702; 71045; 71275; 80048; 80053; 80061; 80202; 81003; 81015; 82140; 82248; 82330; 82805; 82810; 82962; 83540; 83605; 83735; 83880; 84100; 84132; 84302; 84478; 84484; 85025; 85027; 85610; 85730; 86706; 86803; 86850; 86900; 86901; 86920; 87040; 87070; 87102; 87116; 87147; 87186; 87205; 87340; 87389; 87449; 87641; 87899; 89051; 92610; 93005; 93312; 93320; 93321; 93325; 94002; 94003; 94640; 96365; 96375; 97163; 97167; 99291; P9045; Q9967

== ENCOUNTER → 2025-02-24 06:58 | Outpatient (REF) | payer MEDICARE, OTHER, SELFPAY | LOC: RCS 06:58 | PROVIDERS: ATTENDING PHYSICIAN Internal Medicine Cardiovascular Disease; FAMILY PHYSICIAN Family Medicine | DX: I35.1 Nonrheumatic aortic (valve) insufficiency (principal) | CPT/HCPCS: 93306 ==

== ENCOUNTER 2025-03-10 15:07 | Emergency (ER) | payer MEDICARE, OTHER, SELFPAY ==
[2025-03-10 15:12] VITALS: BP 125/54
[2025-03-10 15:37] LABS: % Basophils 0.8 % (0-2); % Eosinophils 1.5 % (0-6); % Immature Granulocytes 0.2 % (0-0.5); % Lymphocytes 15.6 % (20.5-51.1); % Monocytes 7.4 % (1.7-9.3); % Neutrophils 74.5 % (42.2-75.2); Absolute Basophils 0.1 10^3/uL (0-0.2); Absolute Eosinophils 0.2 10^3/uL (0-0.7); Absolute Lymphocytes 1.6 10^3/uL (1.2-3.4); Absolute Monocytes 0.7 10^3/uL (0.1-0.6); Absolute Neutrophils 7.5 10^3/uL (1.4-6.5); Hematocrit 38.6 % (37.0-47.0); Hemoglobin 12.1 g/dL (12.0-16.0); Mean Corp Hgb Conc. 31.3 g/dL (33.0-37.0); Mean Corpuscular Hgb 26.3 pg (27.0-31.0); Mean Corpuscular Volume 83.9 fL (81.0-99.0); Nucleated Red Blood Cells % 0 %; Platelet Count 159 10^3/uL (130-400); Red Cell Dist. Width 16.8 % (11.5-14.5)
[2025-03-10 15:50] LABS: Troponin I < 0.012 ng/ml
[2025-03-10 15:51] LABS: ALT (SGPT) 31 U/L (0-35); AST (SGOT) 37 U/L (14-36); Albumin 4.4 g/dl (3.5-5.0); Alkaline Phosphatase 109 U/L (38-126); Blood Urea Nitrogen 23 mg/dl (7-17); Calcium 9.6 mg/dl (8.4-10.2); Carbon Dioxide 29 mmol/L (22-30); Chloride 102 mmol/L (98-107); Glucose 163 mg/dl (70-99); Potassium 5.2 mmol/L (3.5-5.1); Sodium 140 mmol/L (135-145); Total Bilirubin 0.4 mg/dl (0.2-1.3); eGFR > 60.00
[2025-03-10 18:00] VITALS: BP 146/55
--- NOTE | 2025-03-10 18:47 | ED.GENMED ---
History of Present Illness
General
Chief Complaint: Chest Pain
Time Seen by Provider: 03/10/25 18:09
History of Present Illness
History of Present Illness:
80-year-old female with history of CAD, aortic stenosis status post SAVR/Evelyne TAVR, chronic heart failure with reduced ejection fraction presents to the emergency department for evaluation of intermittent chest discomfort ongoing for the past 4 days.
Pain seems to be predominantly at nighttime, radiates to the right side of the chest. This is not similar to the presentation in December that resulted in cardiogenic shock. She reports during the day she has intermittent 'upper lung pain' and
feels as though her chronic cough is actually improved. No fevers or chills, denies any recent illnesses. Denies any exertional chest pain or dyspnea. No symptoms at present
Past History
Past History
ED Past Medical History: COPD, HTN, Hypercholesterolemia, NIDDM, Valvular disease and Psychiatric
ED Past Surgical History: Cardiac and Orthopedic
Social History
Tobacco: Smoker
Alcohol: Other
Drug: Other
Personal: Other
Living: other
Employment: Other
Review of Systems
Review of Systems
Allergies reviewed?: Yes
All Other Systems: ROS reviewed and negative except as documented in HPI and ROS
Phy Exam
Physical Exam
Physical Exam:
GEN: Well appearing, NAD, WDWN
HEENT: Oral mucosa moist, no scleral icterus
Cardiac: Regular rate and rhythm, mild systolic murmur heard
Lung: No respiratory distress, no tachypnea, lungs clear to auscultation bilaterally
MSK: No gross deformity or injuries
Skin: Good color, no pallor or jaundice, no rashes
Neuro: AO x3, moves all extremities freely
Psych: Calm, cooperative
Scores
Heart Score for Chest Pain Patients
STEMI patient?: No
History: Slightly or Non-Suspicious
ECG: Nonspecific Repolarization
Age: >/= 65 years
Risk Factors: >/= 3 Risk Factors or History of CAD
Troponin: </= Normal Limit
Heart Score for Chest Pain Patients: 5
Heart Score Risk: 20.3% MACE over next 6 weeks
Course
Orders/Labs/Results
Orders:
Orders
03/10/25 15:07
Electrocardiogram (*1) Urgent
Reason for Study: Chest Pain
03/10/25 15:08
EKG- Treatment ONCE
03/10/25 15:16
CR Chest - 2 Views Urgent
Comment:
Reason For Exam: chest pain
03/10/25 15:23
Complete Blood Count/With Diff Urgent
Comprehensive Metabolic Panel Urgent
Troponin I Urgent
Abnormal Lab Results
03/10/25
15:23
MCH 26.3 L pg
(27.0-31.0)
MCHC 31.3 L g/dL
(33.0-37.0)
RDW 16.8 H %
(11.5-14.5)
Absolute Neuts (auto) 7.5 H 10^3/uL
(1.4-6.5)
Absolute Monos (auto) 0.7 H 10^3/uL
(0.1-0.6)
Lymphocytes % 15.6 L %
(20.5-51.1)
Potassium 5.2 H mmol/L
(3.5-5.1)
BUN 23 H mg/dl
(7-17)
Glucose 163 H mg/dl
(70-99)
AST 37 H U/L
(14-36)
03/10/25 15:23
03/10/25 15:23
Vital Signs
Initial and Last Documented VS:
Initial Vital Signs
Temp Pulse Resp BP Pulse Ox
98.4 F 79 16 125/54 98
03/10/25 15:12 03/10/25 15:12 03/10/25 15:12 03/10/25 15:12 03/10/25 15:12
Last Documented Vital Signs
Temp Pulse Resp BP Pulse Ox
98.4 F 76 17 166/39 93
03/10/25 15:12 03/10/25 18:56 03/10/25 18:56 03/10/25 18:56 03/10/25 18:45
MDM/Problems Addressed
MDM/Problems Addressed:
Patient's labs and x-ray are unremarkable. Her pain does not paralleled her previous cardiac symptoms and she has no exertional component to suggest this is cardiac in nature nevertheless given the recency of her major cardiac intervention will
refer to outpatient cardiology for evaluation
*Critical Care Note
Total Time (30-74mins, 75-104mins- exclusive of procedures): Not Applicable
ED Attending Note
-
Portions of this chart may have been created with voice recognition software.� Occasional wrong word or��sound alike� substitutions may have occurred due to the inherent limitations of voice recognition software.
Discharge Plan
Departure
Patient Disposition: Home (Routine Discharge)
Date of Disposition: 03/10/25
Time of Disposition: 18:54
Patient with high blood pressure during this ER visit?: No
Discharge Problem:
Atypical chest pain
Instructions: Chest Pain CBC Follow Up
Prescriptions:
No Action
metformin 500 mg tablet
500 mg PO QPM
sertraline 100 mg tablet
150 mg PO DAILY
aspirin 81 mg Tablet,Delayed Release (Dr/Ec)
81 mg PO QPM
vitamin B complex Capsule
1 cap PO DAILY
rosuvastatin [Crestor] 20 mg Tablet
20 mg PO Daily
ezetimibe 10 mg Tablet
10 mg PO DAILY
levothyroxine 50 mcg Tablet
50 mcg PO DAILY
Trelegy Ellipta 100-62.5-25 mcg Blister With Device
1 inh INHALATION HS
famotidine [Pepcid] 40 mg Tablet
40 mg PO BID
metoprolol succinate [Toprol XL] 25 mg Tablet Extended Release 24 Hr
25 mg PO DAILY
Probiotic 3 billion cell Capsule
3,000 mmu cells PO DAILY
turmeric
1 tab PO DAILY
glipizide 5 mg tablet extended release 24hr
5 mg PO QPM
Areds
2 100 ml PO DAILY
budesonide-formoterol [Symbicort] 160-4.5 mcg/actuation Hfa Aerosol Inhaler
2 puff inhalation R BID Qty: 10.2 2RF
Spiriva Respimat 2.5 mcg/actuation Mist
2 puff inhalation R DAILY Qty: 4 2RF
clopidogrel 75 mg Tablet
75 mg PO DAILY Qty: 30 1RF
nicotine 21 mg/24 hr Patch 24 Hour
21 mg transdermal DAILY Qty: 30 1RF
methylprednisolone [Medrol (Papo)] 4 mg tablets,dose pack
See Rx Instructions .ROUTE .COMPLEX Qty: 21 0RF
Rx Instructions:
for 6 days
cefdinir 300 mg Capsule
300 mg PO Q12 Qty: 10 0RF
Referrals:
Adolfo Decker MD [Family Provider] -
Interventions
Interventions:
*Risk Screen - Suicide Last Done: 03/10/25 15:12
*General Assessment Last Done: 03/10/25 15:12
*Neglect/Abuse Screening Last Done: 03/10/25 15:12
*ED- Fall Risk Assessment Last Done: 03/10/25 15:12
*ED COVID-19 Vaccine History Last Done: 03/10/25 15:12
*Nursing Disposition Last Done: 03/10/25 19:06
ED- Cardiac Assessment Last Done: 03/10/25 17:36
Discharge Date and Time
Discharge Date/Time: 03/10/25 19:06
Print Language: YAKUT
[2025-03-10 18:56] VITALS: BP 166/39
== END 2025-03-10 19:06 | disposition home or self-care (01) ==
LOC: EMR 15:07
PROVIDERS: Physician Assistant; EMERGENCY PHYSICIAN Student in an Organized Health Care Education/Training Program; FAMILY PHYSICIAN Family Medicine
DX: R07.89 Other chest pain (principal); I25.10 Atherosclerotic heart disease of native coronary artery without angina pectoris; I35.0 Nonrheumatic aortic (valve) stenosis; I50.22 Chronic systolic (congestive) heart failure; F17.200 Nicotine dependence, unspecified, uncomplicated
CPT/HCPCS: 99285; 71046; 80053; 84484; 85025; 93005

== ENCOUNTER → 2025-03-14 16:10 | Outpatient (REF) | payer MEDICARE, OTHER, SELFPAY | LOC: DHSLP 16:10 | PROVIDERS: ATTENDING PHYSICIAN Internal Medicine Critical Care Medicine; FAMILY PHYSICIAN Family Medicine | DX: G47.30 Sleep apnea, unspecified (principal); R06.83 Snoring; R91.8 Other nonspecific abnormal finding of lung field; F17.210 Nicotine dependence, cigarettes, uncomplicated; J44.9 Chronic obstructive pulmonary disease, unspecified | CPT/HCPCS: 95800 ==

== ENCOUNTER 2025-08-22 18:04 | Inpatient (IN) | payer MEDICARE, OTHER, SELFPAY ==
[2025-08-22] VITALS (24 sets, daily range): BP systolic 87–145; BP diastolic 43–112; BMI 22.4; BMI 22.3
[2025-08-22] MEDS: LOW STRENGTH ASPIRIN 324 MG PO (14:53)
[2025-08-22 14:55] LABS: Hematocrit 39.8 % (37.0-47.0); Hemoglobin 12.2 g/dL (12.0-16.0); Mean Corp Hgb Conc. 30.7 g/dL (33.0-37.0); Mean Corpuscular Volume 81.2 fL (81.0-99.0); Nucleated Red Blood Cells % 0 %; Platelet Count 191 10^3/uL (130-400); Red Cell Dist. Width 18.2 % (11.5-14.5)
[2025-08-22] MEDS: NITROSTAT (SUBLINGUAL) 0.4 MG SL (15:00)
[2025-08-22 15:06] LABS: ALT (SGPT) 27 U/L (0-35); AST (SGOT) 33 U/L (14-36); Albumin 4.2 g/dl (3.5-5.0); Alkaline Phosphatase 87 U/L (38-126); Blood Urea Nitrogen 21 mg/dl (7-17); Calcium 10.0 mg/dl (8.4-10.2); Carbon Dioxide 31 mmol/L (22-30); Chloride 102 mmol/L (98-107); Estimated Creatinine Clearance 48 ml/min; Glucose 190 mg/dl (70-99); Potassium 4.5 mmol/L (3.5-5.1); Sodium 137 mmol/L (135-145); Total Protein 6.8 g/dl (6.3-8.2); eGFR > 60.00
--- NOTE | 2025-08-22 15:09 | ED.GENMED ---
History of Present Illness
General
Chief Complaint: Cardiac Symptoms
Time Seen by Provider: 08/22/25 15:00
History of Present Illness
History of Present Illness:
80-year-old female with history of hypertension, hyperlipidemia, aortic insufficiency status post TAVR on 01/26/2025 presenting to the emergency department from primary care office for chest pain. Patient reports for the past 5 days she has been
having midsternal chest pain which radiates up her chest. Does report that it is worse after eating. She has been having diaphoresis and feels like her 'chest is in a vice '. She has not had any relief with famotidine or Tums. Reports that the
chest pain currently is mild. Denies associated dyspnea. At primary care office, noted to have abnormal EKG, sent to the ER for further assessment.
Past History
Past History
ED Past Medical History: COPD, HTN, Hypercholesterolemia, NIDDM, Valvular disease and Psychiatric
ED Past Surgical History: Cardiac and Orthopedic
Social History
Tobacco: Smoker
Alcohol: Other
Drug: Other
Personal: Other
Living: other
Employment: Other
Phy Exam
Physical Exam
Physical Exam:
General: Well-appearing, no clinical signs of dehydration, nontoxic and in no acute distress
HEENT: protecting airway
Neck: appears supple
CV: Normal heart rate, regular rhythm
Resp: No accessory muscle use, no increased work of breathing, lungs clear to auscultation bilaterally
Abd: Soft and non-distended, no tenderness to palpation
Extremities: No deformities, no swelling
Neuro: alert, no focal neurologic deficit
: deferred
Rectal: deferred
Psych: Normal affect
Skin: Intact
Course
Orders/Labs/Results
Orders:
Orders
08/22/25 14:28
EKG [Electrocardiogram (*1)] Urgent
Reason for Study: Abdominal Pain
EKG- Treatment ONCE
08/22/25 14:40
Complete Blood Count/With Diff Urgent
Comprehensive Metabolic Panel Urgent
Troponin I Urgent
08/22/25 15:00
PTT Urgent
08/22/25 15:15
Nitroglycerin 100 mg/250 ml [Nitroglycerin Premix] 100 mg in 250 ml IV PER PROTOCOL
Currently infusing. Continue current dose and titrate:: Yes
Titrate to keep:: Chest Pain Free
Titrate by mcg/min:: 5 mcg/min, may increase by 10 mcg/min if dose > 20 mcg/min
Frequency of titrations (minutes):: every 3-5 minutes
Maximum dose in mcg/min:: 200
Begin to taper infusion when:: Remained at goal for 2hrs
Taper by mcg/min:: 5 mcg/min
Frequency of taper (minutes) if patient maintains goal:: 30
Taper to off?: Yes
If infusion off & no longer maintaining goal:: Contact Provider
Abnormal Lab Results
08/22/25
14:40
MCH 24.9 L pg
(27.0-31.0)
MCHC 30.7 L g/dL
(33.0-37.0)
RDW 18.2 H %
(11.5-14.5)
Absolute Neuts (auto) 6.9 H 10^3/uL
(1.4-6.5)
Absolute Monos (auto) 0.7 H 10^3/uL
(0.1-0.6)
Lymphocytes % 16.3 L %
(20.5-51.1)
Carbon Dioxide 31 H mmol/L
(22-30)
BUN 21 H mg/dl
(7-17)
Glucose 190 H mg/dl
(70-99)
08/22/25 14:40
08/22/25 14:40
Vital Signs
Initial and Last Documented VS:
Initial Vital Signs
Temp Pulse Resp BP Pulse Ox
98.1 F 85 18 117/51 95
08/22/25 14:29 08/22/25 14:08/22/25 14:08/22/25 14:08/22/25 14:29
Last Documented Vital Signs
Temp Pulse Resp BP Pulse Ox
98.1 F 85 18 117/51 93
08/22/25 14:29 08/22/25 14:08/22/25 14:29 08/22/25 14:29 08/22/25 15:11
MDM/Problems Addressed
MDM/Problems Addressed:
80-year-old female with history of hypertension, hyperlipidemia, aortic insufficiency status post TAVR on 01/26/2025 presenting for chest pain. Vital signs on arrival are normal.
Patient arrives to the hospital with chest pain, with EKG showing acute changes from February. Given active chest pain with EKG changes, STEMI alert was called from triage. Patient brought into resuscitation room with cardiology to bedside soon
after. Patient does follow with cardiology, status post TAVR which did require a stent to the LAD called a snorkel stent. Cardiology also notes chronic RCA occlusion. Per cardiology, without concern for acute STEMI on EKG, however do agree that
EKG is changed patient with significant coronary risk factors. For this reason plan for laboratory analysis, nitro drip, heparin drip and likely ultimate catheterization tomorrow pending hemodynamic stability. Plan for admission. Patient received
aspirin.
*Pulse Oximetry
SaO2: 93
Oxygen Mode of Delivery: Room air
Patient hypoxic: no
*EKG
Interpreted by ED Provider?: Yes
EKG Intrepretation Date: 08/22/25
EKG Intrepretation Time: 15:12
Interpretation: abnormal
Comparison EKG: changes noted
Heart Rate: 83
Rate: normal
Rhythm: sinus
[place]: normal axis
Interval: normal interval
QRS Pattern: normal QRS and wide non-specific
Ischemia: ST elevation (aVR and V1 with depressions laterally)
*Critical Care Note
Total Time (30-74mins, 75-104mins- exclusive of procedures): Not Applicable
ED Attending Note
-
Portions of this chart may have been created with voice recognition software.� Occasional wrong word or��sound alike� substitutions may have occurred due to the inherent limitations of voice recognition software.
Discharge Plan
Departure
Prescriptions:
No Action
metformin 500 mg tablet
500 mg PO QPM
sertraline 100 mg tablet
100 mg PO DAILY
aspirin 81 mg Tablet,Delayed Release (Dr/Ec)
81 mg PO QPM
vitamin B complex Capsule
1 cap PO DAILY
rosuvastatin [Crestor] 20 mg Tablet
20 mg PO Daily
ezetimibe 10 mg Tablet
10 mg PO DAILY
levothyroxine 50 mcg Tablet
50 mcg PO DAILY@0600
Trelegy Ellipta 100-62.5-25 mcg Blister With Device
1 inh INHALATION HS
famotidine [Pepcid] 40 mg Tablet
40 mg PO BID
metoprolol succinate [Toprol XL] 25 mg Tablet Extended Release 24 Hr
25 mg PO DAILY
turmeric
1 tab PO DAILY
glipizide 5 mg tablet extended release 24hr
5 mg PO QPM
nicotine 21 mg/24 hr Patch 24 Hour
21 mg transdermal DAILY Qty: 30 1RF
albuterol sulfate 90 mcg/actuation HFA aerosol inhaler
2 puff INHALATION Q6HPRN PRN (Reason: SHORTNESS OF BREATH)
cinnamon bark [Cinnamon] 500 mg Capsule
500 mg PO DAILY
berberine chloride 500 mg Capsule
500 mg PO DAILY
PreserVision AREDS-2 250-90-40-1 mg Capsule
1 tab PO BID
Interventions
Interventions:
*Risk Screen - Suicide Last Done: 08/22/25 14:29
*General Assessment Last Done: 08/22/25 14:29
*Neglect/Abuse Screening Last Done: 08/22/25 14:29
*ED- Fall Risk Assessment Last Done: 08/22/25 15:05
*ED COVID-19 Vaccine History Last Done: 08/22/25 15:05
ED- Pulmonary Assessment Last Done: 08/22/25 15:05
ED- Cardiac Assessment Last Done: 08/22/25 15:05
Discharge Date and Time
Print Language: JAPANESE
[2025-08-22 15:17] LABS: Troponin I 0.018 ng/ml
[2025-08-22 15:19] LABS: APTT 26.4 Sec (23.4-35.0)
[2025-08-22] MEDS: NITROGLYCERIN PREMIX 250 IV (15:40)
[2025-08-22] MEDS: HEPARIN 3100 UNITS IV (15:41)
[2025-08-22] MEDS: HEPARIN 25000 UNITS/250 ML IV (15:43)
--- NOTE | 2025-08-22 15:52 | CON.CAR ---
Consultation
Consultation Request
Date/Time Consultation Requested: 08/22/2025
Medical History
-
Chief Complaint: chest pain
History of Present Illness:
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
admitted with 5 days of atypical chest pain. She states that she has been doing generally well post-TAVR. She recovered recently from a COPD exacerbation and is now off steroids. For the past 5 days she's noted substernal chest pain that is
non-exertional and often worse with lying down and relieved by TUMS. She was seen in the office of her new family medicine doctor today non-urgently, but on describing her symptoms, EKG was performed that showed diffuse ST depressions and she was
directed to the ER. STEMI alter was called but the EKG was reviewed by cardiology and determined to not be consistent with STEMI. The patient was given SL nitro with improvement in chest pain from 6 to 2 out of 10.
Past Medical History
Past Medical History: CAD, COPD and Valvular Disease
Allergies / Home Medications
Allergy/AdvReac Type Severity Reaction Status Date / Time
clarithromycin (From Biaxin) Allergy GI upset Verified 08/22/25 14:29
Penicillins Allergy Unknown Verified 08/22/25 14:29
levofloxacin (From Levaquin) AdvReac Unknown Unknown Verified 08/22/25 14:29
�Medication �Instructions �Recorded �Confirmed �Type
aspirin 81 mg tablet,delayed 81 mg PO QPM Blood Clot 05/20/23 08/22/25 History
release Prevention/Tx
metformin 500 mg tablet 500 mg PO QPM Diabetes 05/20/23 08/22/25 History
rosuvastatin 20 mg tablet (Crestor) 20 mg PO Daily High Cholesterol 05/20/23 08/22/25 History
sertraline 100 mg tablet 100 mg PO DAILY Mental 05/20/23 08/22/25 History
Health/Anxiety
vitamin B complex 1 cap PO DAILY Supplement 05/20/23 08/22/25 History
ezetimibe 10 mg tablet 10 mg PO DAILY High Cholesterol 12/15/24 08/22/25 History
fluticasone fur. 100 mcg-umeclid 1 inh inhalation HS Lung/Breathing 12/15/24 08/22/25 History
62.5 mcg-vilant 25 mcg Issues
inhalat.powder (Trelegy Ellipta)
levothyroxine 50 mcg tablet 50 mcg PO DAILY@0600 Thyroid 12/15/24 08/22/25 History
famotidine 40 mg tablet (Pepcid) 40 mg PO BID Gastrointestinal Issue 01/16/25 08/22/25 History
glipizide 5 mg tablet, extended 5 mg PO QPM Diabetes 01/16/25 08/22/25 History
release 24 hr
metoprolol succinate 25 mg 25 mg PO DAILY Heart 01/16/25 08/22/25 History
tablet,extended release 24 hr Disease/Condition
(Toprol XL)
turmeric 1 tab PO DAILY Supplement 01/16/25 08/22/25 History
nicotine 21 mg/24 hr daily 21 mg transdermal DAILY Smoking 01/30/25 08/22/25 Rx
transdermal patch cessation #30 ea
albuterol sulfate 90 mcg/actuation 2 puff inhalation Q6HPRN PRN 08/22/25 08/22/25 History
aerosol inhaler SHORTNESS OF BREATH
berberine chloride 500 mg capsule 500 mg PO DAILY 08/22/25 08/22/25 History
cinnamon bark 500 mg capsule 500 mg PO DAILY 08/22/25 08/22/25 History
(Cinnamon)
vit C 250 mg-vit E 90 mg-zinc 40 1 tab PO BID 08/22/25 08/22/25 History
mg-copper 1 [id number]
capsule (PreserVision AREDS-2)
Review of Systems
-
Respiratory: No Symptoms
Cardiac: Chest Pain
Physical Exam
Vital Signs
Temp Pulse Resp BP Pulse Ox
36.7 C 73 18 118/53 93
08/22/25 14:29 08/22/25 15:45 08/22/25 15:45 08/22/25 15:36 08/22/25 15:45
Lab Results
08/22/25 14:40
08/22/25 14:40
Troponin I 0.018 ng/ml 08/22/25 14:40
Physical Exam
General: Comfortable
Respiratory: Other (decreased breath sounds)
Cardiac: Regular Rhythm and Murmur (grade II at RUSB)
Skin: Warm
Neuro: AO x 3
Impression / Plan
-
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
admitted with 5 days of atypical chest pain.
Chest pain is atypical in nature but her EKG is concerning for ischemia and different from prior baseline and she is high risk for IST given Snorkel stent of LM. She also has a significant murmur possible representing elevated gradients through her
Evelyne TAVR. She seems relatively comfortable at this time.
# Chest pain
- concerning for ACS but may also be non-cardiac, GERD?
- trend trop / EKG
- echo
- heparin bolus and drip
- nitro drip for hypertension and chest pain
- cont. home DAPT
- cont. home statin
- cont. home beta yobani
- likely will need [facility] this admission
# s/p Evelyne TAVR
- 2/6 systolic murmur
- echo to assess gradients
# Moderate/severe mitral regurgitation
- Chronic, stable.
- Re-evaluate with serial echo
# COPD
- Chronic, severe.
- recent exacerbation
- management per hospitalist team
Data Reviewed
-
EKG: Tracing Personally Visualized and interpreted
Ultrasound: Image Personally Visualized and interpreted
Medical Tests (Nuc Med, Echo etc): Image Personally Visualized and interpreted
Labs: Labs Reviewed by me
--- NOTE | 2025-08-22 16:05 | HPS.HSE ---
Addendum entered and electronically signed by Elizabeth Gregg MD 08/22/25 21:56:
This is an addendum to H&P written by Zoila Sterling on 08/22/25. �Patient seen and examined independently with PEAT SHREDDER TENDER.
80-year-old female past medical history of CAD status post RCA occlusion, aortic stenosis status post TAVR December, moderate chronic mitral regurgitation, resolved cardiomyopathy, chronic CHF, hypertension, diabetes, postop paranoia, Jehovah's
Witness, thyroidism, anxiety, depression, nicotine abuse, COPD, TIA, history of MSSA right lower lobe pneumonia, bladder cancer, nephrolithiasis, presenting with chest pain for 5 days diaphoresis. �Primary care note abnormal EKG.
Vital signs unremarkable.
Labs unremarkable except for troponin 0.018. �EKG showed normal sinus rhythm, ST depressions in inferior lateral leads.
Patient with atypical chest pain possibly unstable angina. Patient was given aspirin. �Continue aspirin and Plavix. �Trend troponins. �Check echo. �Patient was started on heparin drip, nitroglycerin drip. �N.p.o. postmidnight for potential
catheterization tomorrow.
Original Note:
Family Physician
-
Family Physician: Adolfo Decker
Chief Complaint
-
Chest pain x 5 days
History of Present Illness
80-year-old female complaining of 5 days of midsternal chest pain radiating upward toward her chest and worse after eating. She also has been reporting diaphoresis. She has not had any relief with Pepcid or Tums. She was seen at PCP office noted
to have abnormal EKG sent to ER for evaluation. She denies fever, chills, cough, shortness of breath, abdominal pain, nausea, vomiting, diarrhea, urinary symptoms
She has past medical history CAD with complete total occlusion RCA, aortic stenosis status post TAVR 01/26/2025, prior AVR with root enlargement 2014, chronic mitral regurg moderate, cardiomyopathy resolved, chronic CHF, HTN, DM 2, postop paranoia,
Pentecostal shinto refusal of blood products, hypothyroidism, anxiety, depression, nicotine abuse, COPD, TIA with left facial numbness, right hand numbness, history MSSA right lower lobe pneumonia with hypoxic respiratory failure requiring
intubation and pressors November 2024, bladder cancer 2016
Medical History
Past Medical History
Past Medical History: Reports Other
Additional Past Medical History:
CAD with complete total occlusion RCA
Aortic stenosis status post TAVR 01/26/2025
Prior AVR with root enlargement 2014
Chronic mitral regurg moderate
Cardiomyopathy 35% now 65% resolved
Chronic CHF
HTN
DM 2
Postop paranoia
Pentecostal shinto refusal of blood products
Hypothyroidism
Anxiety
Depression
Nicotine abuse
COPD
TIA with left facial numbness, right hand numbness
History MSSA Right lower lobe pneumonia with hypoxic respiratory failure requiring intubation and pressors November 2024
Bladder cancer 2016
Nephrolithiasis
Past Surgical History: Reports Other
Additional Past Surgical History:
AVR
Aortic stenosis status post TAVR 01/26/2025
TURBT
Left Foot Surgery
Social History
Tobacco: Smoker (Current every day smoker with > 50 pack years.)
Alcohol: Occasional
Drug: None
Personal: Single
Living: Alone
Employment: Retired
Family History
Family History: Not pertinent
Allergies / Home Medications
Allergies reflects when Allergies were last updated in [facility].
Home Medications with original date entered in [facility]
Allergy/Medication List:
Allergies
Allergy/AdvReac Type Severity Reaction Status Date / Time
clarithromycin (From Biaxin) Allergy GI upset Verified 08/22/25 14:29
Penicillins Allergy Unknown Verified 08/22/25 14:29
levofloxacin (From Levaquin) AdvReac Unknown Unknown Verified 08/22/25 14:29
Home Medications
aspirin 81 mg tablet,delayed release 81 mg PO QPM Blood Clot Prevention/Tx 06/21/23
metformin 500 mg tablet 500 mg PO QPM Diabetes 05/20/23
rosuvastatin 20 mg tablet (Crestor) 20 mg PO Daily High Cholesterol 05/20/23
sertraline 100 mg tablet 100 mg PO DAILY Mental Health/Anxiety 05/20/23
vitamin B complex 1 cap PO DAILY Supplement 05/20/23
ezetimibe 10 mg tablet 10 mg PO DAILY High Cholesterol 12/15/24
fluticasone fur. 100 mcg-umeclid 62.5 mcg-vilant 25 mcg inhalat.powder (Trelegy Ellipta) 1 inh inhalation HS Lung/Breathing Issues 12/15/24
levothyroxine 50 mcg tablet 50 mcg PO DAILY@0600 Thyroid 12/15/24
famotidine 40 mg tablet (Pepcid) 40 mg PO BID Gastrointestinal Issue 01/16/25
glipizide 5 mg tablet, extended release 24 hr 5 mg PO QPM Diabetes 01/16/25
metoprolol succinate 25 mg tablet,extended release 24 hr (Toprol XL) 25 mg PO DAILY Heart Disease/Condition 01/16/25
turmeric 1 tab PO DAILY Supplement 01/16/25
nicotine 21 mg/24 hr daily transdermal patch 21 mg transdermal DAILY Smoking cessation #30 ea 01/30/25
albuterol sulfate 90 mcg/actuation aerosol inhaler 2 puff inhalation Q6HPRN PRN SHORTNESS OF BREATH 08/22/25
berberine chloride 500 mg capsule 500 mg PO DAILY 08/22/25
cinnamon bark 500 mg capsule (Cinnamon) 500 mg PO DAILY 08/22/25
clopidogrel 75 mg tablet 75 mg PO DAILY 08/22/25
vit C 250 mg-vit E 90 mg-zinc 40 mg-copper 1 [id number] capsule (PreserVision AREDS-2) 1 tab PO BID 08/22/25
Review of Systems
-
History Source: Patient and Family (Daughter Pat at bedside)
A 12 point ROS was completed and negative except as noted: Yes
Constitutional: Denies Fever or Chills
EENT: Denies Sore Throat or Runny Nose
Respiratory: Denies Cough or Trouble Breathing
Cardiac: Reports Chest Pain and Diaphoresis; Denies Palpitations or Syncope
Abdomen/GI: Denies Abdominal Pain, Nausea, Vomiting, Diarrhea, Constipated, Bloody Stools or Black Stools
: Denies Dysuria, Frequency, Flank Pain, Incontinence, Difficulty Voiding or Urgency
Musculoskeletal: Denies Joint Pain or Edema
Skin: Denies Itching or Rash
Neurological: Denies Dizzy or Headache
Endocrine: Reports No Symptoms
Hematologic/Lymphatic: Reports No Symptoms
Psych: Reports Calm
Physical Exam
Vital Signs
Vital Signs
Temp Pulse Resp BP Pulse Ox
98.1 F 73 18 118/53 93
08/22/25 14:29 08/22/25 15:45 08/22/25 15:45 08/22/25 15:36 08/22/25 15:45
Physical Exam
General: No Pain, Fever or Chills
HEENT: NormoCephalic, Anicteric, Moist mucous membranes, PERRLA, Craig Conjunctivae and No Ptosis
Respiratory: Clear; No Wheezes, Rales or Rhonchi
Cardiac: S1/S2, Regular Rhythm and Murmur (2 out of 6 systolic murmur); No Rub, Gallop or Peripheral Edema
Breast: Deferred by me
GI: Soft, Non Tender, Non Distended, Normal Bowel Sounds and No Hepatosplenomegaly
Rectal: Deferred by Provider
Genito-urinary: Deferred by me
Musculoskeletal: No Clubbing, No Cyanosis and No Edema
Skin: Warm and Dry; No Rash
Neuro: AO x 3, No Motor Deficits, Nonfocal/grossly intact, Cranial Nerves Intact and No Sensory Deficits; No Slurred Speech, Facial Droop or Tremors
Psych: Calm
Laboratory Results
-
08/22/25 14:40
08/22/25 14:40
Laboratory Results
APTT 26.4 Sec (23.4-35.0) 08/22/25 15:00
Total Bilirubin 0.2 mg/dl (0.2-1.3) 08/22/25 14:40
AST 33 U/L (14-36) 08/22/25 14:40
ALT 27 U/L (0-35) 08/22/25 14:40
Alkaline Phosphatase 87 U/L (38-126) 08/22/25 14:40
Troponin I 0.018 ng/ml 08/22/25 14:40
Data Reviewed
-
Lab Data: Labs Reviewed by me
Impression/Plan
-
Impression/plan:
Admit to IVU
#NSTEMI
#History CAD with complete total occlusion RCA
- IV nitro drip
- IV heparin drip
-Continue aspirin 81 mg daily,Plavix 75 mg , Zetia 10 mg daily, metoprolol XL 25 mg with hold parameters
-Lipid profile, HgbA1c
- Consult cardiology
- Plan for cardiac cath tomorrow
- 2D echo
- Troponin 0.018, trend troponin
EKG: NSR ST abnormality inferior lateral leads/subendocardial injury
2D echo 02/24/2025: EF 65 to 70%, normal LVS LVSF no wall abnormality, moderate mitral regurg, well-seated TAVR trace AR
#Gnosticist shinto -refusal of blood products
Hgb stable 12.2
#History of postop paranoia
Acute hypoxic respiratory insufficiency likely secondary to chronic COPD
#Nicotine abuse
65-year 1.5 pack a day decreased to 2 cigarettes a day January 26, 2025
- Continue Trelegy Ellipta
- Continue nicotine patch 21 mg
- Continue albuterol as needed
- 88% RA, 93% 2L NC patient reports typically runs 96% on room air
#HTN
BP 118/53
-Continue metoprolol XL 25 mg daily with hold parameters
#DM 2
Accu-Cheks with SSI, check HgbA1c
-Hold metformin, glipizide every afternoon due to cath in a.m.
#Cardiomyopathy�resolved(prior EF 35% improved to 65%)
#Chronic CHF
I/O, daily weights
#Aortic stenosis status post right transfemoral TAVR 01/26/2025 # [address] Alvarez
prior AVR with root enlargement 2014
#Chronic mitral regurg
#Hypothyroidism
- Continue levothyroxine 50 mcg p.o. daily
#Anxiety/depression
- Continue Zoloft 100 mg daily
#GERD
Continue Pepcid 40 mg twice daily
#TIA with left facial numbness right hand numbness
Other PMH:
November 2024
History of MSSA RLL pneumonia with hypoxic respiratory failure requiring intubation
Bladder cancer 2016
DVT prophylaxis
Current IV heparin drip
DNR consents to full code for surgery only
[2025-08-22 18:25] LABS: Glucose - Point of Care 88 mg/dl (70-99)
[2025-08-22] MEDS: OCUVITE SOFTGEL 1 CAP PO (20:45)
[2025-08-22] MEDS: ASPIR LOW (ENTERIC COATED) 81 MG PO (20:45)
[2025-08-22 21:27] LABS: Glucose - Point of Care 115 mg/dl (70-99)
[2025-08-22 21:55] LABS: APTT 38.9 Sec (23.4-35.0)
[2025-08-22 22:24] LABS: Troponin I 0.029 ng/ml
[2025-08-22] MEDS: PEPCID 20 MG PO (22:26)
--- NOTE | 2025-08-22 22:32 | PTCARENOTE ---
Received patient from ED around 20:10. SR on the monitor, HR in the 80s. VSS on 2L nasal cannula. Alert and oriented. No chest pain at this time. DNR confirmed, bracelet intact. Heparin and nitro running as per protocol, see documentation. Oriented
pt to room and plan of care, pt verbalizes understanding. NPO midnight. Pt reports not having dinner, given a turkey sandwich.
Patient in the bathroom vomiting at 21:30. Reports feeling a wave of nausea and throwing up. No chest pain. VSS. AIR DISPATCHER Zulay Bell notified. Patient back in bed with susannah alfredo, blood sugar 115. Patient reports nausea is completely gone and thinks it was
something she ate. Zofran ordered, pt refused.
BP 87/49, asymptomatic. No chest pain. Nitro infusion off as per protocol, see documentation.
[2025-08-23] VITALS (10 sets, daily range): BP systolic 79–123; BP diastolic 35–62; PULSE 84; O2SAT 95; BMI 22.0
[2025-08-23 04:54] LABS: Hematocrit 35.4 % (37.0-47.0); Hemoglobin 11.0 g/dL (12.0-16.0); Mean Corp Hgb Conc. 31.1 g/dL (33.0-37.0); Mean Corpuscular Volume 80.6 fL (81.0-99.0); Nucleated Red Blood Cells % 0 %; Platelet Count 165 10^3/uL (130-400); Red Cell Dist. Width 18.2 % (11.5-14.5)
[2025-08-23 05:22] LABS: ALT (SGPT) 24 U/L (0-35); APTT 53.4 Sec (23.4-35.0); AST (SGOT) 27 U/L (14-36); Albumin 3.7 g/dl (3.5-5.0); Alkaline Phosphatase 85 U/L (38-126); Blood Urea Nitrogen 31 mg/dl (7-17); Calcium 9.0 mg/dl (8.4-10.2); Carbon Dioxide 29 mmol/L (22-30); Chloride 104 mmol/L (98-107); Estimated Creatinine Clearance 56 ml/min; Glucose 121 mg/dl (70-99); Potassium 4.3 mmol/L (3.5-5.1); Sodium 137 mmol/L (135-145); Total Protein 6.1 g/dl (6.3-8.2); eGFR > 60.00
[2025-08-23 05:30] LABS: Troponin I 0.013 ng/ml
[2025-08-23] MEDS: SYNTHROID 50 MCG PO (05:54)
[2025-08-23 07:10] LABS: Glucose - Point of Care 138 mg/dl (70-99)
[2025-08-23] MEDS: ZETIA 10 MG PO (08:59)
[2025-08-23] MEDS: PLAVIX 75 MG PO (09:00)
[2025-08-23] MEDS: CRESTOR 20 MG PO (09:00)
--- NOTE | 2025-08-23 09:35 | W.PN.CD ---
Today's Communication / Plan
-
Chest pain has resolved. ECG back to baseline. Troponins negative. Suspect GERD. Consider adding PPI.
If she ambulates with no recurrent chest pain, okay for discharge this afternoon. No change to CV meds.
She has previously scheduled follow-up in our office tomorrow.
Impression / Plan
-
80 year old woman with past medical history significant for severe COPD, CAD (BUNCHER HAND RCA), HFrecEF, and severe s/p bioprosthetic SAVR (#21 MitraFlow) c/b bioprosthetic valve failure s/p Evelyne TAVR with S20 and Snorkel stent of left main, who is
admitted with 5 days of atypical chest pain. Now resolved.
#Chest pain
- Initial concern for ACS with ST depressions on ECG, but troponins negative x 3, symptoms have resolved, and ECG is back to baseline.
- Suspect pain is related to GERD given it occurs with eating and she had an episode of vomiting yesterday
- TTE 08/22 with normal LVEF and no regional wall motion abnormalities
- Stop heparin
- Continue DAPT for known coronary artery disease
- Consider ischemic evaluation outpatient
# s/p Evelyne TAVR
- TTE 08/22/2025 with normal AV gradients and mild AI
# Moderate/severe mitral regurgitation
- Chronic, stable. Mild to moderate on most recent echo
# COPD
- Chronic, severe.
- recent exacerbation
- management per hospitalist team
Subjective: No recurrent chest pain since the ER yesterday when she got a sublingual nitroglycerin. Notably, she has not eaten anything today which is what usually triggers her pain. She did have a turkey sandwich yesterday afternoon and
subsequently vomited. She tells me that prior to admission, her chest pain always occurred after eating and was not exertional.
Physical Exam
Vital Signs/Labs
Vital Signs
Temp Pulse Resp BP Pulse Ox
98.5 F 82 18 96/52 99
08/23/25 07:01 08/23/25 09:03 08/23/25 07:01 08/23/25 09:03 08/23/25 07:01
08/22/25 08/23/25 08/24/25
06:59 06:59 06:59
Actual Weight 112 lb 6.972 oz
08/23/25 04:38
08/23/25 04:38
APTT 53.4 Sec (23.4-35.0) H 08/23/25 04:38
LAB Results
08/22/25 08/22/25 08/23/25
14:40 21:36 04:38
Troponin I 0.018 0.029 D 0.013 D
Physical Exam
Constitutional: No acute distress and Comfortable
Cardiovascular: Rhythm & rate is regular, Pedal edema is absent, Systolic murmur present and S1S2 is normal
Respiratory: Respiratory effort normal and Crackles Present (bibasilar)
Neuro/Psych: AO x 3
Data Reviewed
-
Date of Service: August 23, 2025
Medical Decision Making: Reviewed Test Results, Test Interpretation and Review of Case with other Provider
EKG: Tracing Personally Visualized and interpreted
Echo: Tracing Personally Visualized and interpreted
Labs: Labs Reviewed by me
--- NOTE | 2025-08-23 11:12 | CM ---
Reviewed chart. Met with Mrs. Patricia to review discharge plans. She states prior to admission she resides alone in a two story home with four steps to enter. She states she has a first floor set-up. She states prior to admission she is independent
with ambulation accept when she has a back pain then she uses a rolling walker. She states she has a rolling walker and shower chair at home. She states she has a prescription plan. She states she has had [facility] int he past. Will need to see
her current functional to see if she will have any skilled care needs. Medical work-up in progress. The discharge plan is to return home when medically stable.
--- NOTE | 2025-08-23 12:44 | W.PN.HOSP.TC ---
Addendum entered and electronically signed by Maurilio Read MD 08/24/25 09:14:
History of cardiomyopathy
More than 30 minutes spent in discharge including
Final examination of the patient
Summarizing hospital stay
Instructions for continuing care to all relevant caregivers
Preparation of discharge records, prescriptions, and referral forms
Total time spent (in minutes): 55
Original Note:
Today's Communication/Plan
-
PPI added to Pepcid
Maalox one-time dose
Continue with goal-directed medical therapy
PT eval
Assessment / Plan
Assessment / Plan
#Epigastric/chest pain likely secondary to gastritis/GERD vs. low likelihood of cardiac etiology
#History CAD with complete total occlusion RCA
-Continue aspirin 81 mg daily,Plavix 75 mg , Zetia 10 mg daily, metoprolol XL 25 mg with hold parameters
- Off heparin and nitroglycerin infusion
- PPI added to Pepcid. Monitor for symptom control/diet tolerance
- Troponin were checked flat
- Discussed with cardiology no plan for cardiac catheterization for now
#Mu-ism denominational -refusal of blood products
Hgb stable 12.2
#History of postop paranoia
Acute hypoxic respiratory insufficiency likely secondary to chronic COPD
# History of tobacco use
- Continue Trelegy Ellipta
- Continue nicotine patch 21 mg
- Continue albuterol as needed
- Stable on room air.
#HTN
-Continue metoprolol XL 25 mg daily with hold parameters
#DM 2
-Accu-Cheks with SSI, check HgbA1c
-Hold metformin, glipizide
#Cardiomyopathy�resolved(prior EF 35% improved to 65%)
#Chronic CHF
I/O, daily weights
#Aortic stenosis status post right transfemoral TAVR 01/26/2025 # [address] Alvarez
prior AVR with root enlargement 2014
#Chronic mitral regurg
#Hypothyroidism
- Continue levothyroxine 50 mcg p.o. daily
#Anxiety/depression
- Continue Zoloft 100 mg daily
DVT prophylaxis-start lovenox if ends up staying overnight
Discussed with cardiology
Anticipated Discharge: Within 24 hours
Subjective/Interval History
-
Date of Service: August 23, 2025
states of epigastric pain after eating
pain started after she ran out of Mobisanted
currently hungry
Denies any chest pain with exertion
Objective Data
-
Labs:
Laboratory Results
08/23/25 08/23/25
04:38 11:55
WBC 8.1
Hgb 11.0 L
Hct 35.4 L
Plt Count 165
APTT 53.4 H Cancelled
Sodium 137
Potassium 4.3
Chloride 104
Carbon Dioxide 29
BUN 31 H
Creatinine 0.6
Glucose 121 H
Calcium 9.0
Total Bilirubin 0.2
AST 27
ALT 24
Alkaline Phosphatase 85
Vital Signs:
Vital Signs
Temp Pulse Resp BP Pulse Ox
98.3 F 81 18 96/52 94
08/23/25 11:25 08/23/25 11:25 08/23/25 11:25 08/23/25 09:03 08/23/25 11:25
Physical Exam
-
General: No Apparent Distress and Comfortable
HEENT: Normocephalic, Atraumatic and Moist Mucous Membranes
Respiratory: Clear to Auscultation
Cardiac: Regular Rhythm, S1/S2 and Murmur; Negative Rub or Gallop
GI: Soft, Nontender, Nondistended and Normal Bowel Sounds; Negative Organomegaly
Rectal: Deferred by Provider
Musculoskeletal: No Clubbing, No Cyanosis, Edema, Left Upper Extrem and Edema, Right Lower Extrem
Skin: Negative Rash
Neuro: Awake, AO x 3, No Motor Deficits and Nonfocal/Grossly Intact
Psych: Calm
Data Reviewed
-
Total Time Spent with Patient (in minutes): 55
[2025-08-23] MEDS: PROTONIX 40 MG PO (13:11)
[2025-08-23] MEDS: MAALOX 30 ML PO ×2 (13:11→17:44)
[2025-08-23] MEDS: ZOLOFT 100 MG PO (13:11)
--- NOTE | 2025-08-23 13:14 | PTCARENOTE ---
Pt with episode of chest tightness and burning after having a meal, denies nausea. BP 120/62, pulse ox on RA 96%. Dr. Natarajan and Dr. Read made aware. Pt given maalox with moderate relief noted. Encouraged to sit upright during and after meals.
Protonix po also ordered and given. Pt instructed to inform nurse of change or increase in pain. Call borrego in reach.
[2025-08-23] MEDS: OCUVITE SOFTGEL PO (13:46)
--- NOTE | 2025-08-23 15:13 | PN.CDI ---
CDI
- -
CDI:
Physician Documentation Request
Admit Date: 08/22/25 18:04
Dear Doctor Roro,
Please review the following and provide your response in the progress notes.
Clinical Indicators:
Pt admitted with chest pain likely due to GERD / gastritis
Progress note 08/23, ' Cardiomyopathy�resolved(prior EF 35% improved to 65%) Chronic CHF...'
Please provide further specificity regarding the most likely type and acuity of CHF you are evaluating, treating or monitoring.
Chronic Diastolic CHF
Chronic Systolic CHF
Other ( please specify)
Use of terms such as suspected, likely, concern for, or probable (associated with a specific diagnosis that is being evaluated, monitored, or treated as if it exists) are acceptable and can be coded in the inpatient setting, when documented at the
time of discharge.
Thank you,
Mary Bee RN
CDI Specialist
[place] [facility]
Please use your independent medical judgment in providing your response.
--- NOTE | 2025-08-23 16:40 | W.DCSUMMARY ---
Discharge Summary
Discharge Data
Date of Admission: 08/22/25
Date of Discharge: 08/23/25
-
Pending Results: No
Hospital Course
80-year-old female past medical history of CAD, COPD, hypertension, diabetes mellitus, history of cardiomyopathy, aortic stenosis status post TAVR, mitral regurgitation, hypothyroidism, anxiety, depression who presented from home with chest pain and
epigastric discomfort. Upon admission in the ER patient was started on heparin infusion and nitroglycerin infusion. Patient was eval by cardiology. Upon further inquiry patient's symptoms are worsened after meals. Patient symptoms seems more
consistent and in line with reflux and gastritis. Patient symptoms improved with PPI and Maalox. Patient troponin were trended and found to be flat. Nitroglycerin heparin drip was discontinued. Cardiology recommended no further inpatient workup.
Patient was feeling better with adjustment of anti-acid medication. Patient has appointment with interventional cardiology on 08/24/2025 already established to discuss further management if needed. Patient was feeling better without any chest
pain or chest discomfort after meals when she was discharged home. Patient case was also discussed with her daughter.
Discharge Plan
-
Patient Disposition: Home (Routine Discharge)
Discharge Diagnosis/Procedures: Chest pain/epigastric discomfort likely suspected due to GERD
Diet: Low Cholesterol
Activity: As tolerated
Driving Restrictions: As prior to admission
Instructions: Acid reflux and GERD in adults
Referrals:
Ranulfo Urbina DO [Active, Cardiology]
Adolfo Decker MD [Family Provider, Family Practice] - in less than 1 week
Prescriptions:
New
pantoprazole [Protonix] 40 mg tablet,delayed release (DR/EC)
40 mg PO DAILY Qty: 30 0RF
Continued
metformin 500 mg tablet
500 mg PO QPM
sertraline 100 mg tablet
100 mg PO DAILY
aspirin 81 mg Tablet,Delayed Release (Dr/Ec)
81 mg PO QPM
vitamin B complex Capsule
1 cap PO DAILY
rosuvastatin [Crestor] 20 mg Tablet
20 mg PO Daily
ezetimibe 10 mg Tablet
10 mg PO DAILY
levothyroxine 50 mcg Tablet
50 mcg PO DAILY@0600
Trelecorbin Ellipta 100-62.5-25 mcg Blister With Device
1 inh INHALATION HS
metoprolol succinate [Toprol XL] 25 mg Tablet Extended Release 24 Hr
25 mg PO DAILY
turmeric
1 tab PO DAILY
glipizide 5 mg tablet extended release 24hr
5 mg PO QPM
nicotine 21 mg/24 hr Patch 24 Hour
21 mg transdermal DAILY Qty: 30 1RF
albuterol sulfate 90 mcg/actuation HFA aerosol inhaler
2 puff INHALATION Q6HPRN PRN (Reason: SHORTNESS OF BREATH)
cinnamon bark [Cinnamon] 500 mg Capsule
500 mg PO DAILY
berberine chloride 500 mg Capsule
500 mg PO DAILY
PreserVision AREDS-2 250-90-40-1 mg Capsule
1 tab PO BID
clopidogrel 75 mg tablet
75 mg PO DAILY
famotidine [Pepcid] 40 mg Tablet
40 mg PO BID 30 Days Qty: 60 0RF
Discharge Orders:
Discharge Patient (As Directed); Ordered 08/23/25
Ordered By: Maurilio Read
Care Plan Goals
Care Plan Goals:
Problem: Readiness for enhanced knowledge related to diagnosis and treatment plan
Goal: Understand your diagnosis and treatment plan needs, including medications if applicable.
Instructions: Know your diagnosis, underlying causes and treatment plan options, including medications if applicable. Consult with your health care team to learn about your diagnosis and treatment plan, including medications if applicable.
Discharge Date and Time
Discharge Date/Time: 08/23/25 18:17
Print Language: [place]
== END 2025-08-23 18:17 | disposition home or self-care (01) | DRG 392 ==
LOC: IVU 18:04
PROVIDERS: Clinical Nurse Specialist Family Health; Emergency Medicine; ADMITTING PHYSICIAN Hospitalist; ATTENDING PHYSICIAN Hospitalist; EMERGENCY PHYSICIAN Student in an Organized Health Care Education/Training Program; FAMILY PHYSICIAN Family Medicine; OTHER PHYSICIAN Student in an Organized Health Care Education/Training Program
DX: K21.9 Gastro-esophageal reflux disease without esophagitis (principal); J44.1 Chronic obstructive pulmonary disease with (acute) exacerbation; I42.9 Cardiomyopathy, unspecified; I50.22 Chronic systolic (congestive) heart failure; I11.0 Hypertensive heart disease with heart failure; E78.00 Pure hypercholesterolemia, unspecified; E11.9 Type 2 diabetes mellitus without complications; F17.210 Nicotine dependence, cigarettes, uncomplicated; R09.02 Hypoxemia; R06.89 Other abnormalities of breathing; I25.10 Atherosclerotic heart disease of native coronary artery without angina pectoris; K29.70 Gastritis, unspecified, without bleeding; I34.0 Nonrheumatic mitral (valve) insufficiency; F41.9 Anxiety disorder, unspecified; F32.A Depression, unspecified; E03.9 Hypothyroidism, unspecified; Z60.2 Problems related to living alone; Z95.2 Presence of prosthetic heart valve; Z79.84 Long term (current) use of oral hypoglycemic drugs; Z79.82 Long term (current) use of aspirin; Z79.890 Hormone replacement therapy; Z79.51 Long term (current) use of inhaled steroids; Z88.0 Allergy status to penicillin; Z88.1 Allergy status to other antibiotic agents; Z79.899 Other long term (current) drug therapy; Z85.51 Personal history of malignant neoplasm of bladder; Z86.73 Personal history of transient ischemic attack (TIA), and cerebral infarction without residual deficits; Z87.442 Personal history of urinary calculi; Z86.19 Personal history of other infectious and parasitic diseases
CPT/HCPCS: 71046; 80053; 82962; 84484; 85025; 85730; 93005; 93306; 96365; 96366; 96367; 97162; 99285

== ENCOUNTER 2025-08-25 17:51 | Inpatient (IN) | payer MEDICARE, OTHER, SELFPAY ==
[2025-08-25] VITALS (33 sets, daily range): BP systolic 73–125; BP diastolic 23–88
[2025-08-25] MEDS: DIPRIVAN 100 IV (15:21)
[2025-08-25] MEDS: SUBLIMAZE 75 MCG IV (15:23)
--- NOTE | 2025-08-25 15:30 | ED.GENMED ---
History of Present Illness
General
Chief Complaint: Breathing Problem
Source: family and ambulance crew
Exam Limitations: clinical condition
Time Seen by Provider: 08/25/25 15:06
History of Present Illness
History of Present Illness:
Patient discharged 2 days ago for evaluation of chest pain and epigastric discomfort. Was doing okay till today when she had relatively sudden onset of shortness of breath after eating. Did not describe any other symptoms. On medic arrival
patient was hypoxic diaphoretic clammy with altered mental status. She was given Solu-Medrol, DuoNeb, CPAP. Improved some and route.
Past History
Past History
ED Past Medical History: COPD, HTN, Hypercholesterolemia, NIDDM, Valvular disease and Psychiatric
ED Past Surgical History: Cardiac and Orthopedic
Social History
Tobacco: Smoker
Alcohol: Other
Drug: Other
Personal: Other
Living: other
Employment: Other
Phy Exam
Physical Exam
Physical Exam:
GENERAL: Lethargic. CPAP in place. Somewhat combative. Will nod to simple questions. Patient did not that she would want to be intubated if needed.
EYE: Orbits normal.
NECK: Supple, no significant adenopathy.
ENT: Pharynx without erythema
CARDIAC: Mildly tachycardic nonfocal
LUNGS: Decreased breath sounds diffusely with loss of effort. Mild diffuse rhonchi. Poor air movement.
ABDOMEN: Soft, without focal tenderness or distention
NEUROLOGICAL: Alert and oriented , grossly non-focal
SKIN: Warm and dry, no rash or lesion, no discoloration, skin intact.
MUSCULOSKELETAL: No edema,no deformity.Good color
PSYCH: Anxious. Lethargic
Scores
Heart Failure Risk
Heart Failure Risk Score: Not Applicable
Course
Orders/Labs/Results
Orders:
Orders
08/25/25 Dinner
NPO
Allow oral meds: No
Allow clear liquids: No
08/25/25 15:05
Etomidate [Amidate] 40 mg .ROUTE .STK-MED ONE
Rocuronium Hull [Rocuronium] 100 mg .ROUTE .STK-MED ONE
08/25/25 15:06
Electrocardiogram (*1) Stat
Reason for Study: Other
Other Reason for Exam: chest pain
Cardiac Monitoring- Treatment ONCE
EKG- Treatment ONCE
IV Insert/Care/Rem.- Treatment PRN
08/25/25 15:07
CR Chest Portable - 1 View Urgent
Comment:
Reason For Exam: Short of breath
Reason Study Needs to be Portable: Patient Unstable
08/25/25 15:10
Propofol 1,000,000 Mcg/100 ml [Diprivan] 1,000,000 mcg in 100 ml .ROUTE .STK-MED
Propofol [Diprivan] 20 ml .ROUTE .STK-MED
08/25/25 15:17
Fentanyl Citrate/Pf [Sublimaze] 75 mcg IV NOW STA
08/25/25 15:30
Propofol 1,000,000 Mcg/100 ml [Diprivan] 1,000,000 mcg in 100 ml IV PER PROTOCOL
08/25/25 15:45
Basic Metabolic Panel Urgent
Complete Blood Count/With Diff Urgent
Magnesium Urgent
Comment: ADD ON
NT-proBNP Urgent
Phosphorus Urgent
Comment: ADD ON
Troponin I Urgent
08/25/25 15:48
Lactic Acid Urgent
08/25/25 15:57
Echo 2D MMode Color/Doppler Urgent
Reason for Study: Respiratory distress/hypotension
08/25/25 15:58
Fentanyl Citrate/Pf [Sublimaze] 50 mcg IV NOW STA
08/25/25 16:00
FentaNYL 1,000 MCG/100 ML [Sublimaze] 1,000 mcg in 100 ml IV PER PROTOCOL
Fentanyl Citrate/Pf [Sublimaze] 50 mcg IV [id number] PRN
08/25/25 16:19
COVID-19 Antigen Urgent
Source: Nasal Swab
Influenza A+B Rapid Molecular Urgent
LUCY Source: Nasal Swab
Specimen Description:
08/25/25 16:27
NG Tube [Gastrointestinal Tubes] As Directed
To suction?: No
08/25/25 17:14
Admit/Transfer Patient As Directed
Co-Sign Provider:
Level of Care: Inpatient admission
Assign to:: ICU
Physician / Group: Miguel Pulliam
Diagnosis: acute hypoxic RF, hypotension
Reason for Hospitalization: acute hypoxic RF, hypotension
Expected length of stay greater than two midnights?: Yes
ELOS- Estimated Length of Stay in days: 3
I certify the patient meets the requirements for IP care: Yes
08/25/25 17:15
PRN Pain Medication Management As Directed
May give lesser potent ordered pain med per pt: Yes
preference::
Protocol:: Medication orders for pain may be administered in a
manner that supports deferring to patient preference
when the pt is:
- Requesting an ordered lesser potent pain medication.
Least to most potent pain medications are defined
as: acetaminophen < NSAID < tramadol < opioids
(morphine, oxycodone, hydromorphone).
- Requesting a lesser dose of the same medication IF
ORDERED.
- Requesting a less intrusive route of administration
if both routes are prescribed by the provider (PO <
IV).
08/25/25 17:17
Code Status As Directed
Resuscitation Status: Do not resuscitate
Reached after discussion with pt or family/Healthcare POA: Yes
Decision communicated with: daughter and son
08/25/25 17:18
DNR Bracelet Application ONCE
08/25/25 17:42
Heparin 3,100 units IV NOW STA
Nursing to Place Non Medication Order As Directed
Physician Order: PTT 6 hours after initial start of Heparin infusion
Above order entered?: Yes
08/25/25 17:45
Heparin 15683 Units/250 ml 25,000 units in 250 ml IV PER PROTOCOL
Weight to be used for heparin protocol in kilograms (kg):: 52.4
Protocol:: Cardiac Tx/Acute Coronary
PTT Goal Range to be used:: PTT 73 to 111 seconds
Order type:: Initial
INITIAL Infusion Dose (UNITS/KG/hr) & then follow protocol:: 12 units/kg/hr
Infusion Dose in UNITS/hr & then follow protocol (UNITS/hr):: 650
INFUSION RATE in mL/hr & then follow protocol (mL/hr):: 6.5
PTT less than or equal to 64 seconds:: Increase rate by 200 units/hr (+ 2 mL/hr)
PTT 64.1 to 72.9 seconds:: Increase rate by 100 units/hr (+ 1 mL/hr)
PTT 73 to 111 seconds:: Target Range. No change in rate.
PTT 111.1 to 130.9 seconds:: Decrease rate by 100 units/hr (- 1 mL/hr)
PTT 131 to 199.9 seconds:: HOLD for 1 hr. Then decrease rate by 200 units/hr (- 2 mL/hr)
PTT greater than or equal to 200 seconds:: HOLD for 2 hrs & Notify Provider. Then decrease by 200 units/hr (-
2 mL/hr)
Lab follow-up:: Each change, PTT q6h until 2 consecutive are therapeutic. Then PTT
daily.
08/25/25 17:47
PTT Urgent
Comment: Obtain baseline before beginning heparin infusion if not already collected
Prothrombin Time Urgent
Comment: ADD ON
08/25/25 18:43
Electrocardiogram (*1) Q3H
Reason for Study: Chest Pain
Comment: at admission and Q3H for total of 3, to be done with each troponin
Albuterol [ProAIR HFA INHALER] 2 puff INH R Q6HPRN PRN SHORTNESS OF BREATH
Dextrose 50%-Water [Dextrose 50% Syringe] 12.5 grams IV [id number] PRN
Glucagon [GlucaGen] 1 mg IM PRN PRN
08/25/25 18:43
Electrocardiogram (*1) Urgent
Reason for Study: Other
Other Reason for Exam: baseline ICU
Comment: upon arrival to ICU (if not done in ED or in last 24 hours)
CARDIOLOGY CONSULT Routine
Consulting Provider: Blane Natarajan
Was physician already notified: Yes
Physical Scientist Consult Urgent
Consulting Provider: Lebron Menendez
Was physician already notified: Yes
Bedside Glucose Monitoring As Directed
Frequency: AC&HS
Additional Instructions:: Change to q6h if pt on TPN, tube feeding or not eating
Bedside Glucose Monitoring-ONCE As Directed
Comment: upon arrival to ICU
INT (Intravenous Needle Therapy) As Directed
Comment: maintain peripheral IV access
Intake/ Output As Directed
Frequency: Per unit guidelines
Notify MD As Directed
Notify physician if: While in ICU level of care:
glucose greater than or equal to 180 mg/dL once, contact provider to initiate Critical
Care Glycemic Protocol Target Range 140-180 mg/dL.
Sleep Apnea Assessment by RN As Directed
Comment:
Physician Instructions:
Vital Signs As Directed
Frequency: q4h
Weight As Directed
Frequency: Daily
Type of Scale: Standing Scale
Comment: Daily morning weight. If unable to stand, use balanced bed scale.
Weight As Directed
Frequency: Once
Type of Scale: Standing Scale
Comment: Upon Admission. If unable to stand, use balanced bed scale.
DX Deep Vein Thrombosis Video Routine
08/25/25 19:00
Aspirin Chewable [Low Strength Aspirin] 81 mg TUBE QPM
Insulin Aspart Corrective Low [Novolog Flexpen-Low Resistance] See Protocol SC Q6
08/25/25 21:43
Electrocardiogram (*1) Q3H
Reason for Study: Chest Pain
Comment: at admission and Q3H for total of 3, to be done with each troponin
Troponin I Q3H
Comment: at admit & Q3H for 3 total including ED draws, obtain ECG with each level
08/26/25 00:43
Electrocardiogram (*1) Q3H
Reason for Study: Chest Pain
Comment: at admission and Q3H for total of 3, to be done with each troponin
Troponin I Q3H
Comment: at admit & Q3H for 3 total including ED draws, obtain ECG with each level
08/26/25 06:00
Basic Metabolic Panel IN AM
Complete Blood Count/No Diff IN AM
Glycohemoglobin (HgbA1c) IN AM
Levothyroxine [Synthroid] 50 mcg TUBE DAILY@0600
08/26/25 08:00
Clopidogrel Bisulfate [Plavix] 75 mg TUBE DAILY
Ezetimibe [Zetia] 10 mg TUBE DAILY
Pantoprazole [Protonix IV] 40 mg IV DAILY
Rosuvastatin Calcium [Crestor] 20 mg TUBE DAILY
Sertraline HCl [Zoloft] 100 mg TUBE DAILY
08/27/25 06:00
Basic Metabolic Panel IN AM
Complete Blood Count/No Diff IN AM
08/28/25 06:00
Basic Metabolic Panel IN AM
Complete Blood Count/No Diff IN AM
Abnormal Lab Results
08/25/25 08/25/25
15:45 15:48
Hgb 11.3 L g/dL
(12.0-16.0)
MCH 25.4 L pg
(27.0-31.0)
MCHC 29.7 L g/dL
(33.0-37.0)
RDW 18.0 H %
(11.5-14.5)
Abs Immat Gran (auto) 0.1 H 10^3/uL
(0-0.05)
Immature Gran % 1.0 H %
(0-0.5)
Carbon Dioxide 16 L mmol/L
(22-30)
BUN 24 H mg/dl
(7-17)
Creatinine 1.1 H mg/dL
(0.6-1.0)
Glucose 416 H mg/dl
(70-99)
Lactic Acid 8.3 H* mmol/L
(0.7-2.0)
Phosphorus 9.4 H mg/dl
(2.5-4.5)
Magnesium 2.5 H mg/dl
(1.6-2.3)
Troponin I 2.340 H* ng/ml
08/25/25 15:45
08/25/25 15:45
Vital Signs
Initial and Last Documented VS:
Initial Vital Signs
Temp
98 F
08/25/25 15:07
Last Documented Vital Signs
Temp Pulse Resp BP Pulse Ox
98.9 F 75 20 101/53 99
08/25/25 20:00 08/25/25 20:22 08/25/25 20:22 08/25/25 18:30 08/25/25 20:22
Procedures
Intubations
Procedure completed by: Myself
Method of Intubation: glidescope
Tube size (cm): 7.0
Placement confirmed by: auscutation, CXR, capnography and direct visualization
Breath sounds after intubation: equal
Intubation complications: no complications
*Pulse Oximetry
SaO2: 81
Oxygen Mode of Delivery: Room air
Patient hypoxic: yes
*EKG
Interpreted by ED Provider?: Yes
Interpretation: abnormal
Comparison EKG: changes noted
Heart Rate: 99
Rate: normal
Rhythm: sinus
Jackpot: normal axis
Interval: normal interval
QRS Pattern: normal QRS
Ischemia: ST depression (Diffuse ST depression inferior laterally.)
*Critical Care Note
Total Time (30-74mins, 75-104mins- exclusive of procedures): 50
Update Note
Update Note:
Patient was seen immediately upon arrival. I became very clear out the gait that this would likely require intubation. Patient was able to initially but states she wanted to be intubated. As I was gathering the equipment to intubate patient back
she became more lethargic and slightly bradycardic. She was on 100% nonrebreather at that time. Bag valve ventilation was started. She was intubated without difficulty with a 7-0 tube. Family is here now and was discussed
Reviewed with radiology. 1 radiologist felt issue, at the centimeter the other 4 to 5 cm. Will bring back 2 cm for now. That should get the tube above the peggy. Blood pressure lowered after intubation. Propofol temporarily stopped. Fluid
bolus instituted.
Discussed with cardiology who will evaluate. Echocardiogram ordered.
ED Attending Note
-
Portions of this chart may have been created with voice recognition software.� Occasional wrong word or��sound alike� substitutions may have occurred due to the inherent limitations of voice recognition software.
Discharge Plan
Departure
Patient Disposition: Admit
Date of Disposition: 08/25/25
Time of Disposition: 16:34
Presentation/result/management discussed w/ accepting MD/DO: Cardiology
Discharge Problem:
Respiratory failure, Non-STEMI TN, COPD
Interventions
Interventions:
*Risk Screen - Suicide Last Done: 08/25/25 15:43
*General Assessment Last Done: 08/25/25 15:43
*Neglect/Abuse Screening Last Done: 08/25/25 15:43
*ED COVID-19 Vaccine History Last Done: 08/25/25 15:43
*Nursing Disposition Last Done: 08/25/25 18:52
ED- Cardiac Assessment Last Done: 08/25/25 15:45
ED- Pulmonary Assessment Last Done: 08/25/25 15:45
Discharge Date and Time
Discharge Date/Time: 08/25/25 18:52
--- NOTE | 2025-08-25 15:38 | EDRN ---
pt presented into the ED lethargic, unarousable, on CPAP - decision to intubate by Dr Cox made immediately.
15mg of etomidate given @ 1516
60mg of rocuronium given @ 1517
pt intubated w/ 7.0 ETT, 26 at the lip @ [address] Cox w/ [facility] & respiratory therapist assisting - positive color change noted on end tidal at this time as well
--- NOTE | 2025-08-25 15:49 | EDRN ---
pt tube down too far on x-ray per Dr Cox & radiologist - RT pulled tube back to 24 @ the lip at this time
[2025-08-25 16:00] LABS: Hematocrit 38.1 % (37.0-47.0); Hemoglobin 11.3 g/dL (12.0-16.0); Mean Corp Hgb Conc. 29.7 g/dL (33.0-37.0); Mean Corpuscular Volume 85.6 fL (81.0-99.0); Nucleated Red Blood Cells % 0 %; Platelet Count 257 10^3/uL (130-400); Red Cell Dist. Width 18.0 % (11.5-14.5)
[2025-08-25] MEDS: SUBLIMAZE 50 MCG IV ×3 (16:03→21:14)
[2025-08-25] MEDS: SUBLIMAZE 100 IV (16:05)
[2025-08-25 16:13] LABS: Blood Urea Nitrogen 24 mg/dl (7-17); Calcium 8.7 mg/dl (8.4-10.2); Carbon Dioxide 16 mmol/L (22-30); Chloride 104 mmol/L (98-107); Estimated Creatinine Clearance 30 ml/min; Glucose 416 mg/dl (70-99); Potassium 4.4 mmol/L (3.5-5.1); Sodium 138 mmol/L (135-145); eGFR 51.43
--- NOTE | 2025-08-25 16:15 | HPS.HSE ---
Family Physician
-
Family Physician: NOT KNOW UNKNOWN - PT DOES
Chief Complaint
-
acute onset of shortness of breath post eating
History of Present Illness
H&P information gathered from chart review, ED staff and family as patient is intubated at time of assessment.
Patient is a 80-year-old female with past medical history significant for CAD, aortic stenosis, chronic HF, hypertension, type II diabetes, hypothyroidism, anxiety/depression and COPD who presented to [facility] ED for evaluation of acute onset of
shortness of breath post eating. Patient with recent hospital stay for evaluation of chest pain and epigastric discomfort initially treated for NSTEMI and then appeared symptoms were worsened after meals which it was felt symptoms were more
consistent with reflux and gastritis. Symptoms improved with PPI and Maalox. Troponin was trended and remained flat. Patient was to follow up with cardiology out patient. Patient was discharged home without chest discomfort. Patient returned today
via EMS for evaluation for acute onset of shortness of breath after eating. At EMS arrival patient was hypoxic and diaphoretic with altered mental status. Upon arrival at ED patient was lethargic, bradycardic and hypotensive and decision to intubate
was made.
Medical History
Past Medical History
Past Medical History: Reports Other
Additional Past Medical History:
CAD with complete total occlusion RCA
COPD
Aortic Stenosis
Hypertension
DM-II
Hypothyroidism
Bladder Cancer
Nephrolithiasis
Anxiety / Depression
Nicotine Dependency
CAD with complete total occlusion RCA
[employer] refusal of blood products
Past Surgical History: Reports Other
Additional Past Surgical History:
AVR
TURBT
Left Foot Surgery
TAVR
Social History
Tobacco: Smoker (Current every day smoker with > 50 pack years.)
Alcohol: Occasional
Drug: None
Family History
Family History: Not pertinent
Allergies / Home Medications
Allergies reflects when Allergies were last updated in [facility].
Home Medications with original date entered in [facility]
Allergy/Medication List:
Allergies
Allergy/AdvReac Type Severity Reaction Status Date / Time
clarithromycin (From Biaxin) Allergy GI upset Verified 08/22/25 14:29
levofloxacin (From Levaquin) Allergy Unknown Verified 08/22/25 20:25
Penicillins Allergy Unknown Verified 08/22/25 14:29
Home Medications
aspirin 81 mg tablet,delayed release 81 mg PO QPM Blood Clot Prevention/Tx 05/20/23
metformin 500 mg tablet 500 mg PO QPM Diabetes 05/20/23
rosuvastatin 20 mg tablet (Crestor) 20 mg PO Daily High Cholesterol 05/20/23
sertraline 100 mg tablet 100 mg PO DAILY Mental Health/Anxiety 05/20/23
vitamin B complex 1 cap PO DAILY Supplement 05/20/23
ezetimibe 10 mg tablet 10 mg PO DAILY High Cholesterol 12/15/24
fluticasone fur. 100 mcg-umeclid 62.5 mcg-vilant 25 mcg inhalat.powder (Trelegy Ellipta) 1 inh inhalation HS Lung/Breathing Issues 12/15/24
levothyroxine 50 mcg tablet 50 mcg PO DAILY@0600 Thyroid 12/15/24
glipizide 5 mg tablet, extended release 24 hr 5 mg PO QPM Diabetes 01/16/25
metoprolol succinate 25 mg tablet,extended release 24 hr (Toprol XL) 25 mg PO DAILY Heart Disease/Condition 01/16/25
turmeric 1 tab PO DAILY Supplement 01/16/25
nicotine 21 mg/24 hr daily transdermal patch 21 mg transdermal DAILY Smoking cessation #30 ea 01/30/25
albuterol sulfate 90 mcg/actuation aerosol inhaler 2 puff inhalation Q6HPRN PRN SHORTNESS OF BREATH 08/22/25
berberine chloride 500 mg capsule 500 mg PO DAILY Supplement 08/22/25
cinnamon bark 500 mg capsule (Cinnamon) 500 mg PO DAILY Supplement 08/22/25
clopidogrel 75 mg tablet 75 mg PO DAILY Blood Clot Prevention/Tx 08/22/25
vit C 250 mg-vit E 90 mg-zinc 40 mg-copper 1 [id number] capsule (PreserVision AREDS-2) 1 tab PO BID Supplement 08/22/25
famotidine 40 mg tablet (Pepcid) 40 mg PO BID Gastrointestinal Issue 30 days #60 tabs 08/23/25
pantoprazole 40 mg tablet,delayed release (Protonix) 40 mg PO DAILY #30 tabs 08/23/25
Review of Systems
-
Unable to obtain full review of systems at this time due to: Patient Intubation
Physical Exam
Vital Signs
Vital Signs
Temp Pulse Resp BP Pulse Ox
98 F 103 20 85/64 81
08/25/25 15:07 08/25/25 15:45 08/25/25 15:45 08/25/25 15:45 08/25/25 15:47
Physical Exam
General: Intubated
HEENT: NormoCephalic and Moist mucous membranes
Respiratory: Clear, Rhonchi and Decreased Breath Sounds
Cardiac: S1/S2, Regular Rhythm and Murmur (2 out of 6 systolic murmur); No Rub, Gallop or Peripheral Edema
Breast: Deferred by me
GI: Soft, Non Tender, Non Distended, Normal Bowel Sounds and No Hepatosplenomegaly
Rectal: Deferred by Provider
Genito-urinary: Deferred by me
Musculoskeletal: No Clubbing, No Cyanosis and No Edema
Skin: Warm and Dry; No Rash
Neuro: Sedated
Laboratory Results
-
08/25/25 15:45
08/25/25 15:45
Laboratory Results
Lactic Acid 8.3 mmol/L (0.7-2.0) H* 08/25/25 15:48
Data Reviewed
-
Diagnostic Radiology: Report Reviewed by me (CXR: The endotracheal tube tip extends into the right mainstem bronchus. Recommend retraction by 4-5 cm. The lungs are symmetrically hyperinflated with diffuse bilateral interstitial pulmonary opacities,
similar prior. No pleural effusion or pneumothorax. Sternotomy wires and an aortic valve prosth)
Medical Tests (Nuc Med, Echo, EKG etc): Report Reviewed by me (EKG: NORMAL SINUS RHYTHM BIATRIAL ENLARGEMENT MARKED ST ABNORMALITY, POSSIBLE INFERIOR SUBENDOCARDIAL INJURY MARKED ST ABNORMALITY, POSSIBLE ANTEROLATERAL SUBENDOCARDIAL INJURY)
Lab Data: Labs Reviewed by me (HCO3 16, BUN 24, Creat 1.1, est CrCl 30, eGFR 51.43, Lactic 8.3, Trop 2.340, pBNP 3830)
Impression/Plan
-
IMPRESSION/PLAN:
#acute hypoxic respiratory distress with hypotension 2/2 cardiogenic shock vs. NSTEMI
#Hx CAD with complete total occlusion RCA
HCO3 16, BUN 24, Creat 1.1, est CrCl 30, eGFR 51.43, Lactic 8.3, Trop 2.340, pBNP 3830
CXR: The endotracheal tube tip extends into the right mainstem bronchus. Recommend retraction by 4-5 cm.
The lungs are symmetrically hyperinflated with diffuse bilateral interstitial pulmonary opacities, similar prior. No pleural effusion or pneumothorax. Sternotomy wires and an aortic valve prosthesis.
Stable cardiomediastinal silhouette.
EKG: NORMAL SINUS RHYTHM
BIATRIAL ENLARGEMENT
MARKED ST ABNORMALITY, POSSIBLE INFERIOR SUBENDOCARDIAL INJURY
MARKED ST ABNORMALITY, POSSIBLE ANTEROLATERAL SUBENDOCARDIAL INJURY
patient intubated in ED for airway protection
- Admit to ICU
- Consult [employer] Consultant
- Consult Cardiology
- trend troponin till peak
- ECHO
- NGT for enteral medication administration
#acute VDRF 2/2 acute hypoxic RF
Hx COPD, Hx nicotine dependency
- continue Trelegy Ellipta
- PRN Albuterol
#Hypertension
- hold home medications with hypotension
- monitor VS
#DM-II
- AccuCheck q6
- SSI
- hold glipizide and metformin
#Hypothyroidism
- continue levothyroxine
#Nephrolithiasis
#Anxiety / Depression
- continue sertraline
#COPD
#Nicotine Dependency
65-year 1.5 pack a day decreased to 2 cigarettes a day January 26, 2025
- encourage cessation
#[employer] refusal of blood products
hgb stable 11.3
- monitor CBC
Code status: DNR
DVT prophylaxis: heparin sq
[2025-08-25 16:26] LABS: Troponin I 2.340 ng/ml
--- NOTE | 2025-08-25 16:39 | W.PN.UPDATE ---
Update Note
Progress Note Update
I could not get any information from the patient is intubated
Information gathered by chart review and speaking with the ER staff.
This note serves as an addendum to the H&P by patient care director CORINE�
Genesis Finn
HPI
80F HX CAD, COPD, hypertension, diabetes mellitus, history of cardiomyopathy, aortic stenosis status post TAVR, mitral regurgitation, hypothyroidism, anxiety, depression DC'd Home 2 days ago on 08/23/25 to home seen at ER:
- evaluation of chest pain and epigastric discomfort.
- was doing okay till today when she had relatively sudden onset of shortness of breath after eating.
- did not describe any other symptoms.
- On medic arrival patient was hypoxic diaphoretic clammy with altered mental status.
- She was given Solu-Medrol, DuoNeb, CPAP. Improved some and route.
PHX; as above
Relevant VS
Afebrile , BP 73/60 - 85/65 HR 103 RR 20
PE
Gen: intubated at hte tome of my exam
HEENT:
Neck: supple
Lungs: symmetric AE
Cor: tachycardic
Abdomen:� Soft, without focal tenderness or distention
REINSURANCE CLAIMS ANALYST: sedated
MS: no edema
Psych:
Relevant Data
08/23/25 08/25/25
04:38 15:45
WBC 8.1 9.9
Hgb 11.0 L 11.3 L
Plt Count 165 257 D
ABG
01/27/25 08/25/25
11:28 15:48
pH 7.37 Pending
pCO2 42 H Pending
pO2 69 L Pending
HCO3 24.3 Pending
01/29/25 08/23/25 08/25/25
04:16 04:38 15:45
Carbon Dioxide 29 16 L
BUN 31 H 24 H
Creatinine 0.6 1.1 H
eGFR > 60.00 51.43
Glucose 121 H 416 H
Lactic Acid 8.3
Troponin I 0.013 D 2.340 H*
Rlm-C-Iuriomsagos Pept 9860 3830
EKG
NORMAL SINUS RHYTHM
BIATRIAL ENLARGEMENT
MARKED ST ABNORMALITY, POSSIBLE INFERIOR SUBENDOCARDIAL INJURY
MARKED ST ABNORMALITY, POSSIBLE ANTEROLATERAL SUBENDOCARDIAL INJURY
ABNORMAL ECG
WHEN COMPARED WITH ECG OF 23-Aug-2025 04:32,
QRS DURATION HAS INCREASED
ST NOW DEPRESSED IN INFERIOR LEADS
ST NOW DEPRESSED IN ANTEROLATERAL LEADS
INVERTED T WAVES HAVE REPLACED NONSPECIFIC T WAVE ABNORMALITY IN ANTERIOR LEADS
Confirmed by JAMARI MURRAY MD (ELLIE) ([id number]) on 08/25/2025 3:51:02 PM
Post intubated CXR
- The endotracheal tube tip extends into the right mainstem bronchus. Recommend retraction by 4-5 cm.
- The lungs are symmetrically hyperinflated with diffuse bilateral interstitial pulmonary opacities, similar prior.
- No pleural effusion or pneumothorax. Sternotomy wires and an aortic valve prosthesis. Stable cardiomediastinal silhouette.
08/22/25 TTE
1. Normal biventricular systolic function with no regional wall motion abnormalities. LVEF 64%.
2. Well-seated Evelyne TAVR with normal gradients (peak/mean 29/16 mmHg) and trace aortic regurgitation.
3. Mild to moderate mitral regurgitation.
4. No change compared to prior echocardiogram in January 2025. Previous AV gradients peak/mean 28/15 mmHg.
Findings were communicated with Richard Cox MD on 08/25/2025 3:44 PM.
Last hospitalist admission: Date of Admission: 08/22/25 - Date of Discharge: 08/23/25
Discharge Diagnosis/Procedures: Chest pain/epigastric discomfort likely suspected due to GERD
ASSESSMENT & PLAN
Acute resp distess and Hypotensive Diff DX : Cardiogenic shock due to acute IA of inferior wall vs RV infarct
Acute intubation to protect AW secondary to acute hypoxic RF, hypotensive, diaphoretic clammy with AMS
- TPNI 2.34 suspect acute STEMI - to - Trend TPNI till peak
- HX CAD with complete total occlusion RCA and Snorkel stent of left main
- s/p Solu-Medrol, DuoNeb, CPAP at ER initially
- Urgent TTE
- small bore NGT placement for enteral Meds administration
- on DAPL, Zetia
- Hold metoprolol due to hypotension
- IV PPI in place of Pepcid
- Urgent DCA cardiology consulted
Acute VDRF due to acute hypoxic RF proabaly cardiogenic rather than primary Pul origin
HX chronic COPD
HX tobacco use
- Continue Trelegy Ellipta
- Continue albuterol as needed
- ICU consult
Anabaptist christian -refusal of blood products
Hgb stable 11.3, Hgb 11.0
- Trend Hgb
HX s/p Evelyne TAVR
- 2/6 systolic murmur
- 08/22/25 TTE see above
- Normal biventricular systolic function with no regional wall motion abnormalities. LVEF 64%.
- Well-seated Evelyne TAVR with normal gradients (peak/mean 29/16 mmHg) and trace aortic regurgitation.
- Mild to moderate mitral regurgitation.
HX Moderate/severe mitral regurgitation
- Chronic, stable.
- Re-evaluate with serial echo
HX COPD
- Chronic, severe.
- recent exacerbation
Benign
- Hold metoprolol XL due to hypotension
T2DM
-HgbA1c
-Hold metformin, glipizide
Recovered Cardiomyopathy�resolved(prior EF 35% improved to 65%)
HX Chronic CHF
- I/O, daily weights
HX Hypothyroidism
- Continue levothyroxine 50 mcg p.o. daily via NGT
Anxiety/depression
- Continue Zoloft 100 mg daily
DVT Px: SQH
DNR
ICU
Total Critical Care Time___50__ minutes.
I was immediately available to the patient and staff. I personally examined, reviewed labs, diagnostic images/reports, interpretations, treatment plans, discussed patient care with other providers and family or caregivers (if patient is unable to
make decisions), entered orders as appropriate and documented the medical record.
[2025-08-25 16:52] LABS: COVID-19 Antigen Negative (Negative)
[2025-08-25 18:02] LABS: APTT 28.8 Sec (23.4-35.0)
--- NOTE | 2025-08-25 18:18 | CON.CAR ---
Consultation
Consultation Request
Date/Time Consultation Requested: 08/25/2025 at 4:30 PM
Date/Time Consultation Performed: 08/25/2025 at 5 PM
Requesting Provider: Richard Cox MD
Performing Provider: Blane Natarajan MD
Reason for Consultation: Elevated troponin
Medical History
-
Chief Complaint: respiratory distress
History of Present Illness:
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
acute respiratory failure. History was obtained from patient's daughter as patient is intubated and sedated at the time of my interview. Daughter reports that patient was not feeling well with eating anything. Today she had a few bites of ground
beef and then a few sips of a smoothie. After that, she was doubled over in pain and said she thought she needed to go to the hospital. Her son got her in the car at which point her eyes started rolling back in her head. He carried her out of the
car and they called 911. On EMS arrival she was hypoxic, diaphoretic, and clammy with altered mental status. She was intubated in the ER. Of note, she had a hospitalization here from 08/22 through 08/23 for atypical chest pain. She had ST
depressions on ECG but troponins were negative. Her chest pain was associated with eating so was thought to be GI related. She was undergoing workup for this as an outpatient and was supposed to see GI later this month.
Past Medical History
Past Medical History: CAD and Valvular Disease
Family History
Family History: Reviewed & Not Pertinent
Allergies / Home Medications
Allergy/AdvReac Type Severity Reaction Status Date / Time
clarithromycin (From Biaxin) Allergy GI upset Verified 08/22/25 14:29
levofloxacin (From Levaquin) Allergy Unknown Verified 08/22/25 20:25
Penicillins Allergy Unknown Verified 08/22/25 14:29
�Medication �Instructions �Recorded �Confirmed �Type
aspirin 81 mg tablet,delayed 81 mg PO QPM Blood Clot 05/20/23 08/25/25 History
release Prevention/Tx
metformin 500 mg tablet 500 mg PO QPM Diabetes 05/20/23 08/25/25 History
rosuvastatin 20 mg tablet (Crestor) 20 mg PO Daily High Cholesterol 05/20/23 08/25/25 History
sertraline 100 mg tablet 100 mg PO DAILY Mental 05/20/23 08/25/25 History
Health/Anxiety
vitamin B complex 1 cap PO DAILY Supplement 05/20/23 08/25/25 History
ezetimibe 10 mg tablet 10 mg PO DAILY High Cholesterol 12/15/24 08/25/25 History
fluticasone fur. 100 mcg-umeclid 1 inh inhalation HS Lung/Breathing 12/15/24 08/25/25 History
62.5 mcg-vilant 25 mcg Issues
inhalat.powder (Trelegy Ellipta)
levothyroxine 50 mcg tablet 50 mcg PO DAILY@0600 Thyroid 12/15/24 08/25/25 History
glipizide 5 mg tablet, extended 5 mg PO QPM Diabetes 01/16/25 08/25/25 History
release 24 hr
metoprolol succinate 25 mg 25 mg PO DAILY Heart 01/16/25 08/25/25 History
tablet,extended release 24 hr Disease/Condition
(Toprol XL)
turmeric 1 tab PO DAILY Supplement 01/16/25 08/25/25 History
nicotine 21 mg/24 hr daily 21 mg transdermal DAILY Smoking 01/30/25 08/25/25 Rx
transdermal patch cessation #30 ea
albuterol sulfate 90 mcg/actuation 2 puff inhalation Q6HPRN PRN 08/22/25 08/25/25 History
aerosol inhaler SHORTNESS OF BREATH
berberine chloride 500 mg capsule 500 mg PO DAILY Supplement 08/22/25 08/25/25 History
cinnamon bark 500 mg capsule 500 mg PO DAILY Supplement 08/22/25 08/25/25 History
(Cinnamon)
clopidogrel 75 mg tablet 75 mg PO DAILY Blood Clot 08/22/25 08/25/25 History
Prevention/Tx
vit C 250 mg-vit E 90 mg-zinc 40 1 tab PO BID Supplement 08/22/25 08/25/25 History
mg-copper 1 [id number]-dwtauw-sgoiwh
capsule (PreserVision AREDS-2)
famotidine 40 mg tablet (Pepcid) 40 mg PO BID Gastrointestinal 08/23/25 08/25/25 Rx
Issue 30 days #60 tabs
pantoprazole 40 mg tablet,delayed 40 mg PO DAILY #30 tabs 08/23/25 08/25/25 Rx
release (Protonix)
Review of Systems
-
Unable to obtain full review of systems at this time due to: Patient Intubation
Physical Exam
Vital Signs
Temp Pulse Resp BP Pulse Ox
98 F 81 20 81/56 98
08/25/25 15:07 08/25/25 18:00 08/25/25 18:00 08/25/25 18:00 08/25/25 18:00
Lab Results
08/25/25 15:45
08/25/25 15:45
Troponin I 2.340 ng/ml H* 08/25/25 15:45
Cqw-B-Uckburdmltu Pept 3830 pg/ml 08/25/25 15:45
Physical Exam
General: Intubated
Respiratory: Clear
Cardiac: S1/S2, Regular Rhythm and Murmur; Negative Peripheral Edema
GI: Distended
Impression / Plan
-
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
emergency department with acute respiratory failure following an episode of epigastric discomfort.
Primary staff nurse icu resource team: Dr. Urbina
Shock
- Severe, threat to life
- Unclear etiology. Cardiogenic from ACS versus septic from intra-abdominal catastrophe. Lactate 8 on arrival.
- TTE 08/25/2025: LVEF 40%, septal hypokinesis, normal TAVR gradients, severe MR, moderate to severe TR, PASP 56 mmHg
- ECG 08/25/2025: NSR, inferolateral ST depressions with ST elevation in V1/aVR
- With abdominal symptoms and distention, would like her to get CTAP prior to initiating heparin for possible ACS
- Use norepinephrine for goal MAP >65 mmHg
Acute hypoxic respiratory failure
- Severe, threat to life
- Intubated due to lethargy and being unarousable on CPAP
- Negative for COVID-19 and influenza A/B
NSTEMI
- Troponin 2.340, trend
- EKG with inferior and anterolateral ST abnormalities
- On DAPT (aspirin, clopidogrel)
- Initiate heparin if no acute abnormalities on CT A/P
Epigastric pain
- Occurs after eating with occasional associated vomiting
- CTA/P as above
- IV PPI
CAD
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
Aortic stenosis s/p Evelyne TAVR
- TTE 08/25/2025 showed normal AV gradients with mild AI
Mitral regurgitation, severe
Tricuspid regurgitation, moderate to severe
- Cannot safely diurese with shock
COPD, chronic, severe, recent exacerbation
Current smoker, actively trying to wean
CCT: 51 minutes
Data Reviewed
-
EKG: Tracing Personally Visualized and interpreted, Discussed with Physician and Discussed with Family
Radiology: Image Personally Visualized and interpreted and Report Reviewed by me
Medical Tests (Nuc Med, Echo etc): Image Personally Visualized and interpreted, Discussed with Physician and Discussed with Family
Labs: Labs Reviewed by me, Discussed with Physician and Discussed with Family
Critical Care Time (in minutes): 51
[2025-08-25] MEDS: LEVOPHED 250 IV (19:25)
[2025-08-25 19:33] LABS: Magnesium 2.5 mg/dl (1.6-2.3)
[2025-08-25 19:50] LABS: B.E. -6.7 mmol/L; HCO3 19.2 mmol/L (21-28); O2 Saturation % 93.6 % (94-98); PCO2 39 mmHg (32-35); PO2 66 mmHg (83-108)
[2025-08-25] MEDS: DUONEB 3 ML INH (20:14)
[2025-08-25] MEDS: FLOVENT 110 MCG INHALER 4 PUFF INH (20:14)
[2025-08-25] MEDS: HEPARIN 3100 UNITS IV (20:24)
[2025-08-25] MEDS: LOW STRENGTH ASPIRIN 81 MG TUBE (20:24)
[2025-08-25] MEDS: HEPARIN 25000 UNITS/250 ML IV (20:25)
[2025-08-25 20:29] LABS: INR 1.10; PT 14.5 Sec (11.4-14.6)
[2025-08-25] MEDS: UNASYN IV (22:24)
[2025-08-25 22:45] LABS: Troponin I 20.000 ng/ml
[2025-08-25] MEDS: ZITHROMAX INFUSION 250 IV (23:02)
[2025-08-25] MEDS: NOVOLOG FLEXPEN-HIGH RESISTANCE 10 UNITS SC (23:10)
[2025-08-25 23:11] LABS: Glucose - Point of Care 323 mg/dl (70-99)
[2025-08-26] VITALS (41 sets, daily range): BP systolic 64–141; BP diastolic 30–65; BMI 22.1
[2025-08-26] MEDS: SUBLIMAZE 50 MCG IV ×3 (01:24→18:27)
--- NOTE | 2025-08-26 01:58 | PTCARENOTE ---
Late entry: Pt arrived from ER to ICU room 3365 at approx 1845, handoff done in room with offgoing RN. Received pt intubated, #7.0 ETT 24cm at lip, AC 20/480/60/5, on Fentanyl at 50mcg/hr.
1924: pt's BP low with MAPs < 65, Levophed started (see med titration flowsheet on worklist for titration details), infusing thru 20g PIV in right wrist along with Fentanyl drip.
1954: Attempted to start heparin drip thru L hand IV, IV painful when flushing and site possibly infiltrated, multiple attempts to establish new IV access, reached out to VAT team for additional access.
2029: Pt cleaned up for large liquid/watery BM, rectal trumpet placed.
approx 2200: RUE midline placed by VAT team. Repeat troponin obtained, trending up.
approx 2300: Accuchek 323, discussed with Pablo PANDA, Novolog sliding scale coverage changed, 10 units Novolog administered SQ. Repeat Lactic drawn, now < 2.
Midnight assessment unchanged from 1999 assessment documented in nursing shift assessment flowsheet. Pt has been more awake throughout the shift, remains on Fentanyl drip, able to follow commands and CHOWDARY. FiO2 weaned down to 50% by RT. Rectal
trumpet inadvertently removed by patient, pt has had no further BMs so it has not been replaced. Continues on Levophed and Heparin drips. SR on monitor with ST depression. Repeat EKG obtained, repeat BMP done at around 0130.
[2025-08-26 02:32] LABS: Blood Urea Nitrogen 35 mg/dl (7-17); Calcium 8.5 mg/dl (8.4-10.2); Carbon Dioxide 21 mmol/L (22-30); Chloride 108 mmol/L (98-107); Estimated Creatinine Clearance 37 ml/min; Glucose 319 mg/dl (70-99); Potassium 4.0 mmol/L (3.5-5.1); Sodium 139 mmol/L (135-145); eGFR > 60.00
[2025-08-26] MEDS: LEVOPHED 250 IV ×4 (02:39→20:53)
[2025-08-26] MEDS: NOVOLIN R 5 UNITS IV (03:09)
[2025-08-26] MEDS: NOVOLIN R INSULIN INFUSION 100 IV (03:11)
[2025-08-26 03:18] LABS: Glucose - Point of Care 272 mg/dl (70-99)
[2025-08-26] MEDS: DIPRIVAN 100 IV ×3 (03:30→21:56)
[2025-08-26] MEDS: UNASYN IV ×4 (03:39→21:11)
[2025-08-26 04:27] LABS: Hematocrit 30.8 % (37.0-47.0); Hemoglobin 9.9 g/dL (12.0-16.0); Mean Corp Hgb Conc. 32.1 g/dL (33.0-37.0); Mean Corpuscular Volume 81.9 fL (81.0-99.0); Platelet Count 243 10^3/uL (130-400); Red Cell Dist. Width 17.9 % (11.5-14.5)
[2025-08-26 04:31] LABS: Glucose - Point of Care 198 mg/dl (70-99)
[2025-08-26 04:35] LABS: APTT 62.1 Sec (23.4-35.0)
--- NOTE | 2025-08-26 04:44 | PTCARENOTE ---
0400 assessment unchanged. At around 0245 pt's BP in 60s/30s, went in to assess pt's line since Levophed was infusing thru 20g R wrist at that time along with Heparin and Fentanyl, IV noted to be completely out, all drips moved to right midline,
attempted additional peripheral access and new 20g and 22g established in right forearm. Critical care glycemic protocol started at around 0315. Propofol started at around 0330 due to increased restlessness/agitation, pt remains on Fentanyl,
Levophed, and Heparin drips. Levophed titrated up throughout the shift, see med titration flowsheet. Fentanyl now at 100mcg/hr.
[2025-08-26 05:02] LABS: Troponin I 58.100 ng/ml
[2025-08-26 05:22] LABS: B.E. -1.8 mmol/L; HCO3 21.7 mmol/L (21-28); O2 Saturation % 97.8 % (94-98); PCO2 32 mmHg (32-35); PO2 82 mmHg (83-108); Potassium 3.7 mMOL/L (3.5-5.1); Sodium 137 mMOL/L (136-145)
[2025-08-26 05:23] LABS: O2 Therapy 60
[2025-08-26 05:28] LABS: Glucose - Point of Care 164 mg/dl (70-99)
[2025-08-26] MEDS: SYNTHROID 50 MCG TUBE (05:28)
[2025-08-26] MEDS: SUBLIMAZE 100 IV ×2 (05:28→15:32)
[2025-08-26 06:32] LABS: Glucose - Point of Care 142 mg/dl (70-99)
[2025-08-26 07:26] LABS: Glucose - Point of Care 132 mg/dl (70-99)
[2025-08-26] MEDS: DUONEB 3 ML INH (07:30)
[2025-08-26] MEDS: FLOVENT 110 MCG INHALER 4 PUFF INH ×2 (07:31→20:17)
--- NOTE | 2025-08-26 07:59 | W.PN.CD ---
Today's Communication / Plan
-
Continue heparin for possible ACS and empiric antibiotics for possible sepsis
Continue vasopressor support for goal MAP >65
Discussing utility of left heart catheterization with interventional cardiology
Impression / Plan
-
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
emergency department with acute respiratory failure following an episode of epigastric discomfort.
Primary tuyere fitter: Dr. Urbina
Shock
- Severe, threat to life. Requiring dual vasopressors.
- Unclear etiology. Cardiogenic from ACS versus septic from enteritis versus pneumonia. Lactate 8 on arrival. Trop now up to 58.
- TTE 08/25/2025: LVEF 40%, septal hypokinesis, normal TAVR gradients, severe MR, moderate to severe TR, PASP 56 mmHg
- ECG 08/25/2025: NSR, inferolateral ST depressions with ST elevation in V1/aVR
- Continue norepinephrine and vasopressin for goal MAP >65 mmHg
- For possible sepsis, continue empiric antibiotics
- For possible ACS, continue heparin and DAPT. Discussing left heart catheterization with interventional cardiology.
Acute hypoxic respiratory failure
- Severe, threat to life
- Intubated due to lethargy and being unarousable on CPAP
- Negative for COVID-19 and influenza A/B
NSTEMI
- Troponin now up to 58
- EKG with inferior and anterolateral ST abnormalities
- On DAPT (aspirin, clopidogrel)
- Continue heparin. Possible LHC as above.
Epigastric pain
- Occurs after eating with occasional associated vomiting
- CTA/P with enteritis
- IV PPI
CAD
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
Aortic stenosis s/p Evelyne TAVR
- TTE 08/25/2025 showed normal AV gradients with mild AI
Mitral regurgitation, severe
Tricuspid regurgitation, moderate to severe
- Cannot safely diurese with shock
COPD, chronic, severe, recent exacerbation
Current smoker, actively trying to wean
CCT: 38 minutes
Subjective: opens eyes to voice. Can nod and shake her head in response to questions.
Telemetry: normal sinus rhythm, no significant ectopy
Drips: levo 22, insulin, heparin, fentanyl, propofol, vasopressin 0.3
Physical Exam
Vital Signs/Labs
Vital Signs
Temp Pulse Resp BP Pulse Ox
100 F 69 20 101/39 100
08/26/25 03:17 08/26/25 06:00 08/26/25 06:00 08/26/25 06:00 08/26/25 06:00
08/25/25 08/26/25 08/27/25
06:59 06:59 06:59
Actual Weight 113 lb 5.082 oz
08/26/25 04:15
08/26/25 01:28
PT Cancelled 08/25/25 18:43
INR Cancelled 08/25/25 18:43
APTT 62.1 Sec (23.4-35.0) H 08/26/25 04:15
Magnesium Cancelled 08/25/25 18:43
08/25/25
15:45
Yti-T-Rhvllpxmuyi Pept 3830
LAB Results
08/25/25 08/25/25 08/25/25
15:45 18:43 18:45
Troponin I 2.340 H* Cancelled Cancelled
08/25/25 08/26/25
22:10 04:15
Troponin I 20.000 H* D 58.100 H* D
Physical Exam
Constitutional: Other (Intubated and sedated, opens eyes to voice, nods and shakes her head in response to questions)
Cardiovascular: Rhythm & rate is regular, Pedal edema is absent, Systolic murmur present, S1S2 is normal and Other (Peripheral extremities are cool to touch)
Respiratory: Other (Intubated, breathing comfortably on the vent, lungs clear anteriorly)
Data Reviewed
-
Date of Service: August 26, 2025
Medical Decision Making: Reviewed Test Results, Independent Historian Assessment, Test Interpretation and Review of Case with other Provider
EKG: Tracing Personally Visualized and interpreted
Echo: Tracing Personally Visualized and interpreted and Report Reviewed by me
X-Ray/CT/US/MRI/NUC/PET: Report Reviewed by me and Discussed with Physician
Labs: Labs Reviewed by me
Critical Care Time (in minutes): 38
--- NOTE | 2025-08-26 08:06 | PTCARENOTE ---
Addendum entered by Philip Griffith RN 08/26/25 09:33:
Pt. taken to cardiovascular lab director.
Handoff given.
Addendum entered by Philip Griffith RN 08/26/25 08:37:
Plan for cardiovascular lab director.
Original Note:
rec'd pt. 0700.
Increasing norepi, herb counselor notified via TT --> verbal orders to start vasopressin.
Cards bedside, ECG completed.
Pt. remains w.o central access.
[2025-08-26 08:24] LABS: Glucose - Point of Care 148 mg/dl (70-99)
--- NOTE | 2025-08-26 08:27 | CON.INTV ---
Consultation
Consultation Request
Date/Time Consultation Requested: 08/25/2025 - 184
Date/Time Consultation Performed: 08/26/2025 - 821
Requesting Provider: FARZAD Caruso
Performing Provider: Dr. Menendez
Reason for Consultation: Intubated/shock
Medical History
-
Chief Complaint: SOB
History of Present Illness:
80-year-old female with a past medical history of DM type II, history of pneumonia, depression, anxiety, COPD, chronic HFpEF, aortic stenosis s/p bioprosthetic aortic valve replacement complicated by severe valvular regurgitation s/p TAVR with
snorkel stent of LMCA (01/26/2025), severe MR, history of bladder cancer, nephrolithiasis, TIA and Protestant who presents from home due to shortness of breath. On the way here to the hospital she became pale, diaphoretic and cyanotic. Was
81% on room air and and route received 125 mg Solu-Medrol and a nebulizer treatment. According to chart, she became SOB after eating. Of note, she was recently hospitalized here at from 08/22 - 08/19/2025 due to chest pain + epigastric
discomfort. Troponin was flat x 3 at the time, and echo showed preserved LVEF at 64% with a well-seated Evelyne TAVR with normal gradients, mild - moderate MR with no change compared to prior echo in January 2025. Although there was initial concern for
ACS, the chest pain was then suspected to be nonanginal and was likely from GERD. Heparin drip was stopped and she was sent home on pantoprazole 40 mg once daily. In the ER, she was lethargic, bradycardic and hypotensive. Decision made to
intubate (although at the time she was DNR/DNI, patient initially said that she would be okay with intubation). After intubation, fluid bolus started and propofol temporarily stopped. Initial labs showed normal WBC at 9.9, Hb 11.3, platelet count
257, creatinine 1.1, lactate 8.3, glucose 416, troponin 2.34, proBNP 3830 and COVID-19 antigen negative. Patient was admitted to the ICU for further care and Equipment Analyst services consulted for additional management/recommendations.
When I saw the patient this morning, she was resting in bed in no acute distress, on Levophed at 20 mcg/min. Also on heparin drip and insulin drip. Although she is sedated on propofol at 20 mcg/kg/min and fentanyl at 100 mcg/hr, she does awaken to
voice and is able to nod appropriately to my questions. Unfortunately patient's troponins are continuing to rise, and are 58.1 this morning. Her lactate as of last night has normalized to 1.9.
PMHx: History of pneumonia, DM type II, thyroid disease, sleep disorder, depression, anxiety, COPD with centrilobular emphysema + chronic bronchitis, chronic HFpEF, aortic stenosis s/p bioprosthetic aortic valve replacement c/b severe valvular
regurgitation s/p TAVR with snorkel stent of left main coronary artery (01/26/2025), mitral regurgitation, hypertension, history of bladder cancer, nephrolithiasis, history of TIA, Protestant
PSHx: Left and right carpal tunnel surgery, aortic valve replacement (2012), TURBT, left foot surgery
Past Medical History
Past Medical History: Other (Above as per HPI)
Past Surgical History: Other (Above as per HPI)
Social History
Tobacco: Smoker (0.25 PPD with >01-kydz-ognl history)
Alcohol: Occasional
Drug: None
Personal:
Family History
Family History: CAD (Sister: [place]) and Diabetes (Sister)
Allergies / Home Medications
Allergies
Allergy/AdvReac Type Severity Reaction Status Date / Time
clarithromycin (From Biaxin) Allergy GI upset Verified 08/22/25 14:29
levofloxacin (From Levaquin) Allergy Unknown Verified 08/22/25 20:25
Penicillins Allergy Unknown Verified 08/22/25 14:29
Home Medications
�Medication �Instructions �Recorded �Confirmed �Last Taken �Type
aspirin 81 mg tablet,delayed 81 mg PO QPM Blood Clot 05/20/23 08/25/25 08/21/25 20:00 History
release Prevention/Tx
metformin 500 mg tablet 500 mg PO QPM Diabetes 05/20/23 08/25/25 08/21/25 18:00 History
rosuvastatin 20 mg tablet (Crestor) 20 mg PO Daily High Cholesterol 05/20/23 08/25/25 08/22/25 08:00 History
sertraline 100 mg tablet 100 mg PO DAILY Mental 05/20/23 08/25/25 08/22/25 08:00 History
Health/Anxiety
vitamin B complex 1 cap PO DAILY Supplement 05/20/23 08/25/25 08/22/25 08:00 History
ezetimibe 10 mg tablet 10 mg PO DAILY High Cholesterol 12/15/24 08/25/25 08/21/25 16:00 History
fluticasone fur. 100 mcg-umeclid 1 inh inhalation HS Lung/Breathing 12/15/24 08/25/25 08/22/25 08:00 History
62.5 mcg-vilant 25 mcg Issues
inhalat.powder (Trelegy Ellipta)
levothyroxine 50 mcg tablet 50 mcg PO DAILY@0600 Thyroid 12/15/24 08/25/25 08/22/25 06:00 History
glipizide 5 mg tablet, extended 5 mg PO QPM Diabetes 01/16/25 08/25/25 08/21/25 16:00 History
release 24 hr
metoprolol succinate 25 mg 25 mg PO DAILY Heart 01/16/25 08/25/25 08/22/25 08:00 History
tablet,extended release 24 hr Disease/Condition
(Toprol XL)
turmeric 1 tab PO DAILY Supplement 01/16/25 08/25/25 08/21/25 16:00 History
nicotine 21 mg/24 hr daily 21 mg transdermal DAILY Smoking 01/30/25 08/25/25 08/21/25 08:00 Rx
transdermal patch cessation #30 ea
albuterol sulfate 90 mcg/actuation 2 puff inhalation Q6HPRN PRN 08/22/25 08/25/25 08/21/25 20:00 History
aerosol inhaler SHORTNESS OF BREATH
berberine chloride 500 mg capsule 500 mg PO DAILY Supplement 08/22/25 08/25/25 08/21/25 16:00 History
cinnamon bark 500 mg capsule 500 mg PO DAILY Supplement 08/22/25 08/25/25 08/21/25 16:00 History
(Cinnamon)
clopidogrel 75 mg tablet 75 mg PO DAILY Blood Clot 08/22/25 08/25/25 08/22/25 09:00 History
Prevention/Tx
vit C 250 mg-vit E 90 mg-zinc 40 1 tab PO BID Supplement 08/22/25 08/25/25 08/22/25 08:00 History
mg-copper 1 ve-juavai-romovr
capsule (PreserVision AREDS-2)
famotidine 40 mg tablet (Pepcid) 40 mg PO BID Gastrointestinal 08/23/25 08/25/25 Unknown Rx
Issue 30 days #60 tabs
pantoprazole 40 mg tablet,delayed 40 mg PO DAILY #30 tabs 08/23/25 08/25/25 Unknown Rx
release (Protonix)
Review of Systems
-
Unable to Obtain full review of systems at this time due to: Patient Intubation
Vitals / Labs / Diagnostic Testing
Vital Signs
Temp Pulse Resp BP Pulse Ox
99.7 F 66 20 108/47 99
08/26/25 08:00 08/26/25 08:00 08/26/25 08:00 08/26/25 08:00 08/26/25 08:34
Lab Data
08/26/25 04:15
08/26/25 01:28
Laboratory Results
08/25/25 08/25/25 08/25/25
15:48 17:47 18:43
PT 14.5 Cancelled
INR 1.10 Cancelled
APTT 28.8 Cancelled
pH Cancelled
pCO2 Cancelled
pO2 Cancelled
HCO3 Cancelled
O2 Delivery Level Cancelled
08/25/25 08/25/25 08/26/25
19:43 22:32 04:15
PT
INR
APTT 62.1 H
pH 7.30 L Cancelled
pCO2 39 H Cancelled
pO2 66 L Cancelled
HCO3 19.2 L Cancelled
O2 Delivery Level Cancelled
08/26/25
05:11
PT
INR
APTT
pH 7.44
pCO2 32
pO2 82 L
HCO3 21.7
O2 Delivery Level 60
Microbiology
08/25/25 21:25 Urine Legionella Urinary Antigen - Final
Negative for Legionella pneumophila Serogroup 1 antigen.
A negative result does not rule out the possiblity of
Legionella infection due to other serogroups or species of
Legionella. Clinical correlation is recommended.
08/25/25 21:25 Urine Streptococcus pneumoniae Antigen (M - Final
Negative for Streptococcus pneumoniae antigen.
A negative result does not exclude infection with
Streptococcus pneumoniae. Clinical correlation is
recommended.
08/25/25 16:19 Nasal Swab Influenza Types A & B (AMALIA) - Final
Negative for Influenza A & B, NAAT
Negative results must be combined with clinical observations
and patient history.
Nucleic Acid Amplification test (NAAT)performed on the
[employer] platform.
Diagnostic Testing:
Physical Exam
-
HEENT: Normocephalic, Anicteric and Other (ETT in place)
Cardiovascular: S1/S2 and Peripheral Edema (negative)
Respiratory: Wheeze (negative), Rhonchi (negative) and Other (Mechanical breath sounds heard bilaterally)
GI: Soft, Non Distended, Non Tender and Normal Bowel Sounds
Neurology: Tremors (negative) and Other (Sedated although arousable to voice and appropriately nods her head yes or no to my questions)
Skin: Warm and Dry
General: Respiratory Distress (negative), Comfortable, Chills (negative) and Sweats (negative)
Assessment
-
Assessment: 80-year-old female with a past medical history of DM type II, history of pneumonia, depression, anxiety, COPD, chronic HFpEF, aortic stenosis s/p bioprosthetic aortic valve replacement complicated by severe valvular regurgitation s/p
TAVR with snorkel stent of LMCA (01/26/2025), severe MR, history of bladder cancer, nephrolithiasis, TIA and Protestant who presents from home due to shortness of breath. On the way here to the hospital she became pale, diaphoretic and
cyanotic. Was 81% on room air and and route received 125 mg Solu-Medrol and a nebulizer treatment. According to chart, she became SOB after eating. Of note, she was recently hospitalized here at from 08/22 - 08/19/2025 due to chest pain +
epigastric discomfort. Troponin was flat x 3 at the time, and echo showed preserved LVEF at 64% with a well-seated Evelyne TAVR with normal gradients, mild - moderate MR with no change compared to prior echo in January 2025. Although there was initial
concern for ACS, the chest pain was then suspected to be nonanginal and was likely from GERD. Heparin drip was stopped and she was sent home on pantoprazole 40 mg once daily. In the ER, she was lethargic, bradycardic and hypotensive. Decision
made to intubate (although at the time she was DNR/DNI, patient initially said that she would be okay with intubation). After intubation, fluid bolus started and propofol temporarily stopped. Initial labs showed normal WBC at 9.9, Hb 11.3,
platelet count 257, creatinine 1.1, lactate 8.3, glucose 416, troponin 2.34, proBNP 3830 and COVID-19 antigen negative. Patient was admitted to the ICU for further care and Equipment Analyst services consulted for additional management/recommendations.
Chronic conditions ELECTION JUDGE: History of pneumonia, DM type II, thyroid disease, sleep disorder, depression, anxiety, COPD with centrilobular emphysema + chronic bronchitis, chronic HFpEF, aortic stenosis s/p bioprosthetic aortic valve replacement c/b
severe valvular regurgitation s/p TAVR with snorkel stent of left main coronary artery (01/26/2025), mitral regurgitation, hypertension, history of bladder cancer, nephrolithiasis, history of TIA, Protestant
Impression:
#Acute respiratory failure with hypoxia due to acute decompensated heart failure now on mechanical ventilation
#Acute HFmrEF with suspected ischemic etiology
#CAP with bilateral lower lobe opacities
#Diffuse small bowel wall thickening and wall enhancement suspicious for enteritis
#Leukocytosis
#Acute anemia
#YARITZA
#DM type II complicated by hyperglycemia
#Lactic acidosis (now resolved as of evening of 08/25/2025)
#Elevated troponin with concern for ACS
#Bioprosthetic aortic valve with severe valvular regurgitation + severe mitral regurgitation --> s/p TAVR with a snorkel stent of the left main coronary artery (procedure date: 01/26/2025)
#History of aspiration of secretions (prior CT in Dec 2024 showed secretions in main stem bronchi on 2 separate imaging procedures - cardiac CT from 01/04/2025 + CT Chest 01/25/2025)
#Centrilobular emphysema/moderate COPD (per PFTs from 09/28/2023)
#History of TIA
Plan:
- Although patient is DNR/DNI, family is agreeable with trial of mechanical ventilation
- Continue with mechanical ventilation with daily SAT/SBT if clinically appropriate
- Maintain plateau pressure <30 and titrate FiO2 + PEEP to keep SpO2 >94%
- Continue aspiration precautions; keep HOB >30-45�
- prn nebulized bronchodilators - not currently bronchospastic
- Oropharyngeal + deep ETT suctioning with subglottic as needed
- Daily CXR + blood gas
- Daily vent adjustments as needed based on blood gas and SaO2
- Low level of sedation with goal RASS as 0 to -2
- Patient takes Trelegy as an outpatient � continue Flovent + DuoNebs; currently not wheezing, hence no need for systemic steroids at this time
- Given the significant rise in troponin, patient is being brought to Aquatics Manager
- Case was discussed this morning with cardiology + interventional cardiology; she would likely come back to the ICU with a [place]
- Continue with heparin drip
- Will start diuresis as BP tolerates
- Continue DAPT with ASA + plavix; continue Zetia + Crestor
- Replete electrolytes with K>4, Mg>2
- Patient's right lower lobe appears opacified and she likely aspirated
- She also has suspected enteritis as per her CT A/P from 08/25
- Continue Unasyn and Zithromax
- Follow-up infectious workup, including sputum culture and obtain a set of blood cultures; Legionella + strep pneumoniae urine antigens both negative; MRSA screen also negative
- Trend WBC and monitor temperature curve
- Patient is currently on Levophed at 20 mcg/min; given that she remains hypotensive, start vasopressin; may need to start another pressor, likely with epinephrine
- If patient is going to remain on vasopressors, she will need a central line vs PICC
- Maintain MAP>65
- Maintain euglycemia with goal BG 140-180; HbA1c: 6.2 on 08/26/2025
- Trend H/H and transfuse if needed to keep Hb>8g/dL; keep plt>50k (given that she is on heparin gtt)
- Early nutrition as long as on low levels of vasopressors (equivalent to Levophed of 10 mg/min or less)
- Stress ulcer ppx: PPI
- DVT ppx: Heparin gtt
Code status: DNR/DNI
Critical care statement: A total of 38 minutes of critical care time was provided for this patient today. This includes management of unstable vital signs, evaluation of the patient at bedside, reviewing the patient's pertinent medical records
including radiographs, microbiology, laboratory evaluations, and discussion with primary team, consultants, pharmacy, nutrition, physical therapy, case management, charge nurse, critical care nursing, and respiratory therapy.
Data:
Transthoracic echocardiogram 08/25/2025:
1. Mild to moderately reduced left ventricular systolic function. LVEF 40%.
2. Hypokinesis of the septal wall.
3. Normal right ventricular size and systolic function.
4. Well-seated TAVR with normal gradients (peak/mean 29/15 mmHg).
5. Severe eccentric mitral regurgitation.
6. Moderate to severe tricuspid regurgitation. PASP 56 mmHg.
7. Compared to prior echocardiogram on 08/22/25, there are significant changes. EF is down from 64%. MR/TR have progressed. AV gradients are stable.
CT abdomen/pelvis with IV contrast 08/25/2025:
CT findings are suspicious for an enteritis.
Bilateral lower lobe pulmonary opacities (right greater than left) most compatible with pneumonia, and likely superimposed upon a chronic infectious/inflammatory pulmonary process.
[2025-08-26] MEDS: CRESTOR 20 MG TUBE (08:51)
[2025-08-26] MEDS: ZOLOFT 100 MG TUBE (08:51)
[2025-08-26] MEDS: ZETIA 10 MG TUBE (08:51)
[2025-08-26] MEDS: PROTONIX IV 40 MG IV (08:51)
[2025-08-26] MEDS: PLAVIX 75 MG TUBE (08:51)
[2025-08-26] MEDS: NSS (PRESERVATIVE FREE) 10 ML IV (08:51)
[2025-08-26 09:24] LABS: Glucose - Point of Care 165 mg/dl (70-99)
[2025-08-26 09:29] LABS: Glycohemoglobin (HgbA1c) 6.2 % (4.0-5.6)
--- NOTE | 2025-08-26 09:54 | CM ---
CM spoke with dtr/Kaylyn
Pt admitted to the IVU from 08/22-08/23 and home no needs
Pt resides alone in a rancher with 4 [place] with basement
She does not access the basement
Pt is independent with ambulation and all ADLs typically without ADs
She utilizes a WW PRN at night if needing to utilize the bathroom
Pt no longer drives, dtr assists with laundry 1-2x weekly and errands
Has Rx plan through [facility]
PCP- Erich Lee
Rx- MARIA TERESA Alston
Pt admitted to ICU, vent day #2
CM will follow for dc planning
Discharge Disposition- home, follow for needs
[2025-08-26 10:06] LABS: Troponin I 97.100 ng/ml
[2025-08-26 10:18] LABS: Glucose - Point of Care 177 mg/dl (70-99)
[2025-08-26 10:48] LABS: ACT-LR - POC 139 Seconds (116-155)
--- NOTE | 2025-08-26 10:50 | W.PN.HOSP.TC ---
Today's Communication/Plan
-
Continue with heparin drip was
continue with IV antibiotic
Wean pressors as tolerated
Monitor POC
Trend labs
Assessment / Plan
Assessment / Plan
#Acute respiratory failure hypoxic secondary to acute decompensated heart failure status post intubation and on mechanical ventilation
Currently on propofol and fentanyl for sedation
Daily spontaneous breathing trial as patient is able to tolerated
Supervisor Plastic Sheets following
#NSTEMI
status postcardiac catheterization. Preliminary report with severe in stent restenosis of her left main stent. s/p new stent placement
OG tube to administer medication especial antiplatelet agents
Heparin drip per cardiology
#Leukocytosis
Community-acquired pneumonia
Suspicion for enteritis
Patient was started on broad-spectrum antibiotics-Unasyn/azithromycin
Monitor stool output. If persistent diarrhea check stool studies
Sputum sample if able to obtain
#Severe lactic acidosis resolved
Shock unclear if cardiogenic versus sepsis versus low likelihood of hypovolemia
Unclear if due to cardiogenic versus hypovolemic versus sepsis
Currently on pressors. Wean pressors as tolerated.
[place] catheter placed. Monitor volume status closely. May require diuresis if blood pressure can tolerate.
#Diabetes mellitus type 2
N.p.o. for now insulin sliding scale and Accu-Cheks
Continue with critical care glycemic protocol. Currently on insulin infusion.
Aortic stenosis status post right transfemoral TAVR 01/26/2025 # [address] Alvarez prior AVR with root enlargement 2014'
Chronic mitral regurgitation
Cardiology following
Hypothyroidism can restart p.o. meds-once able G-tube.
Anxiety/depression- can restart p.o. meds-once able G-tube.
GERD-IV PPI
Known history of Jehovah witness
Monitor hemoglobin closely
DVT ppx- hep gtt
CODE STATUS DNR/DNI
Discussed case in detail with reception interviewer and cardiology intervention
Anticipated Discharge: > 48 hours
Subjective/Interval History
-
Date of Service: August 26, 2025
Currently intubated and sedated
Requiring pressors
About to undergo to the cardiac Senior Java Software Engineer
Objective Data
-
Labs:
Laboratory Results
08/25/25 08/26/25 08/26/25
22:32 01:28 04:15
WBC 17.7 H
Hgb 9.9 L
Hct 30.8 L
Plt Count 243
APTT 62.1 H
HCO3 Cancelled
Sodium 139
Potassium 4.0
Chloride 108 H
Carbon Dioxide 21 L
BUN 35 H
Creatinine 0.9
Glucose 319 H
Calcium 8.5
08/26/25 08/26/25
05:11 11:00
WBC
Hgb
Hct
Plt Count
APTT Pending
HCO3 21.7
Sodium
Potassium
Chloride
Carbon Dioxide
BUN
Creatinine
Glucose
Calcium
Vital Signs:
Vital Signs
Temp Pulse Resp BP Pulse Ox
99.7 F 66 20 108/47 99
08/26/25 08:00 08/26/25 08:00 08/26/25 08:00 08/26/25 08:00 08/26/25 09:36
I&O
08/25/25 08/26/25 08/27/25
06:59 06:59 06:59
Intake Total 1235.8 / 1336.4 320.3 / 320.3
Output Total 360 / 380 20 / 20
Balance 875.8 / 956.4 300.3 / 300.3
Physical Exam
-
HEENT: Normocephalic and Atraumatic
Respiratory: Other (ET tube noted)
Cardiac: Regular Rhythm and Murmur; Negative Rub or Gallop
GI: Soft, Nondistended and Normal Bowel Sounds; Negative Organomegaly
Rectal: Deferred by Provider
Musculoskeletal: No Clubbing, No Cyanosis, Edema, Left Upper Extrem and Edema, Right Lower Extrem
Skin: Negative Rash
Data Reviewed
-
Total Time Spent with Patient (in minutes): 60
[2025-08-26] MEDS: DUONEB INH (11:30)
[2025-08-26 11:37] LABS: Glucose - Point of Care 175 mg/dl (70-99)
[2025-08-26 11:39] LABS: ACT-LR - POC 258 Seconds (116-155)
--- NOTE | 2025-08-26 11:58 | PTCARENOTE ---
PT. 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
Family notified of ongoing plan of care.
[2025-08-26 12:05] LABS: ACT-LR - POC 322 Seconds (116-155)
[2025-08-26 12:40] LABS: ACT-LR - POC 271 Seconds (116-155)
--- NOTE | 2025-08-26 13:02 | ITS.CL.PN ---
[facility] [employer] [facility] - Procedure Note
Procedure
Procedure Note:
CARDIAC CATHETERIZATION REPORT
Date of Procedure: 08/26/2025
Referring: Dr. Esdras Soliz MD
Indication: Cardiogenic shock, NSTEMI
PROCEDURE(S)
1. right heart catheterization
2. left heart catheterization
3. coronary angiography
ACCESS
1. 6F right common femoral artery (sutured in place)
2. 6F right femoral vein (sutured in place)
3. 5F left common femoral artery (sutured in place)
4. 8F right internal jugular vein (swan sutured at 48 cm)
CATHETERS
1. 7F [place]
2. 6F JL4 guide catheter
HEMODYNAMIC DATA - prior to revascularization, on 25 norepi and 0.03 vaso
LV 179/3 (EDP 26) mmHg
AO 141/64 (mean 88) mmHg
RA 17 mmHg
RV 49/10 (EDP 17) mmHg
PA 61/31 (mean 40) mmHg
PCWP 31 mmHg
SaO2 98.9%
SvO2 59.6%
Hb 10.3 g/dL
Weight [ ] kg
CO/CI 3.32/2.27 L/min/m2
SVR 1807 dsc*-5
PVR 2.7 Wood units
CORONARY ANGIOGRAPHY
Dominance: Left
LM: There is a snorkel stent extending from the distal left main proximally into the ascending aorta. There is mild extrinsic compression at the portion of the stent adjacent to the aortic valve frame. There is severe ISR in the portion of the stent
within the left main.
LAD: Large vessel giving rise to two small diagonals and wrapping around the apex. There is mild coronary disease only.
LCx: Large dominant vessel giving rise to a moderate caliber OM1, moderate caliber OM2, and moderate caliber LPDA. There is mild coronary disease only.
RCA: Not imaged is known to be nondominant and occluded ostially
Iliac Angiography
Small caliber iliofemoral vessels bilaterally. The right GENERAL ADJUSTER has no distal flow as the 6F sheath is occlusive.
PCI with ELIZABETH to left main
Given the small caliber iliofemoral vessels and the concern that vascular complication in this Spiritism patient who cannot receive blood products would be potentially unrecoverable, the decision was made to proceed without upfront placement
of Impella support. A 5 [place] sheath was placed in the left GENERAL ADJUSTER in case emergent Impella placement became necessary. Heparin was given to achieve ACT greater than 300. Multiple attempts were made at coaxial engagement of the snorkel stent with use
of a MPA, JR4, AR-1, AR-2, AL 0.75, AL-1, AL-2, EBU 4, and JL4. None of these catheters were able to coaxially engage the vessel but the JL4 did provide good backup support with the catheter tip abutting a side strut. Thus, the decision was made to
attempt to engage and treat the vessel through the side strut of the existing snorkel stent. A Runthrough wire was passed through the side strut and placed in the distal LAD. A 2.0 mm semicompliant balloon was passed through the side strut and used
to dilate the side strut and also perform initial lesion preparation of the left main ISR. Further strut dilation and lesion preparation was performed with a 3.0 noncompliant balloon to 12 lyn. A 3.5 x 22 mm Ander frontier drug-eluting stent was
delivered but was felt to be too long and exchanged for a 3.5 x 18 mm Ander frontier drug-eluting stent which was delivered and deployed at 16 lyn followed by post dilation of the aortic portion of the stent to high-pressure with a 4.0 mm NC balloon.
Angiography in multiple projections demonstrated excellent stent apposition and expansion and MEGAN-3 flow in all distal branches. The wire and guide were removed. All sheaths were sutured in place. The patient was loaded with 600 mg of Plavix and
325 of aspirin via OG tube.
Repeat hemodynamics post PCI on 15 norepi and 0.03 vaso demonstrated stable CI of 2.3, but PCWP remained high at 25 mmHg. 40 IV lasix was given prior to the patient leaving the room. An additional 45 minutes of time after the conclusion of the
procedure was spent treating the patients cardiogenic shock. Critical care time: 45 minutes.
RADIATION: dose 910 mGy; DAP 40.6 Gy*cm2; fluoroscopy time 33.7 min
CONCLUSIONS
1. Cariogenic shock with elevated biventricular filling pressures and borderline low cardiac index with high SVR on high dose vasopresors.
2. Obstructive CAD as described with severe ISR of the previously placed left main stent.
3. Successful PCI of the left main via side strut of the existing Snorkle stent with placement of a 3.5x18 mm [place] ELIZABETH post-dilated to high pressure proximally with a 4.0 mm NC balloon.
RECOMMENDATIONS
1. DAPT with aspirin and Plavix with plan to transition to ticagrelor prior to discharge. Discontinue heparin.
2. Pull 6 [place] right femoral artery sheath once ACT less than 200.
3. PA catheter guided titration of pressors and inotropes for cardiogenic shock. Patient may benefit from addition of inodilator on top of vasopressor support
Copy to: Dr. Ranulfo Urbina MD (assistant professor of spanish); Dr. Erich Lee DO (PCP)
Signed: Khanh Yepez MD, PhD
--- NOTE | 2025-08-26 14:08 | PTCARENOTE ---
Addendum entered by Philip Griffith RN 08/26/25 14:33:
Insulin gtt D/C transition lantus/sliding scale. per box press operator.
Original Note:
Pt. 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
PA cath transduced, waveforms appropriate.
-> per Dr. Ratliff, notify if Mean PAP <20 or RAP <5.
-> Trend Q4 Sv02.
NIBP and Central art pressures not correlating per jeanine vasopressor titrations should be made off Central art access only.
[2025-08-26 14:09] LABS: Glucose - Point of Care 152 mg/dl (70-99)
[2025-08-26] MEDS: NSS 500 IV ×3 (14:37→17:46)
[2025-08-26 14:51] LABS: ACT-LR - POC 161 Seconds (116-155)
[2025-08-26 14:56] LABS: B.E. -4.0 mmol/L; HCO3 20.7 mmol/L (21-28); O2 Saturation % 98.8 % (94-98); PCO2 35 mmHg (32-35); PO2 107 mmHg (83-108)
[2025-08-26 14:57] LABS: O2 Therapy 50
--- NOTE | 2025-08-26 15:00 | W.PN.CARD.SR ---
Sheath/IABP Sheath Removal
Sheath Removal
Right Venous Femoral:
Site appearance prior to sheath removal: Intact
Sheath removed by:: Physician assistant refinery operator ([email or web address])
Name of associate removing sheath: Arianna PANDA
Time of sheath removal: 15:00
Time hemostasis achieved: 15:20
Site appearance post sheath removal: Intact
Method of Hemostasis Post Sheath Removal: Manual Pressure
Dressing dry and intact?: Yes
Comments: Arterial and venous sheath was removed. Manual pressure applied and hemostasis was achieved.
[2025-08-26] MEDS: DOBUTREX 500 MG 250 IV (15:26)
--- NOTE | 2025-08-26 15:34 | PTCARENOTE ---
R sheath removed by CV pa , DRYING TUMBLER OPERATOR.
Cards/Interventionalist bedside --> orders to start dobutamine at 2mcg, and give 500 bolus due to RAP of 5.
[2025-08-26] MEDS: CORDARONE 103 MG IV (16:21)
[2025-08-26] MEDS: PITRESSIN 100 IV (16:25)
--- NOTE | 2025-08-26 16:59 | PTCARENOTE ---
pt. cont. w/ increased pvc r/t hypotension.
Dr. Natarajan notified --> orders to give amio bolus over 20 min, then start gtt.
Heparin gtt D/C in chemical laboratory scientist.
Insulin gtt D/C by electric motor repairman changed to sliding scale.
--- NOTE | 2025-08-26 17:37 | W.PN.UPDATE ---
Update Note
Progress Note Update
Reevaluated patient following left main PCI this morning. She remains critically ill and in multi pressor shock. Currently on norepinephrine, vasopressin, and dobutamine. Family updated at bedside.
Recommend transfer to CVICU.
Plan overnight will be goal CVP 8�10, PA diastolic ~20, CI >2, MAP >65. We will trend SvO2 q4h.
[2025-08-26] MEDS: LANTUS 0.1 UNITS SC (17:41)
[2025-08-26 19:19] LABS: Glucose - Point of Care 302 mg/dl (70-99)
[2025-08-26] MEDS: NOVOLOG FLEXPEN-MODERATE RESISTANCE 7 UNITS SC (19:19)
[2025-08-26] MEDS: LOW STRENGTH ASPIRIN 81 MG TUBE (19:22)
--- NOTE | 2025-08-26 20:00 | PTCARENOTE ---
Assumed care of the patient at 1900. Patient intubated/sedated, pupils 3 mm, round, reactive to light. Sr on CM, rates 70's, pulses palpable throughout, no edema noted, feet dusky - Dr. Natarajan aware via TT; murmur hear on auscultation, RRR. #7.0
ETT 22 at the R lip, subglottic port set to suction by RT; lungs dim at the bases, see work list for ventilator settings. Hypoactive BS, abomen soft; NG tube @ 58 to low intermittent suction through the R nare, no output in the canister at this
time. Danielson catheter in place draining straw colored urine, STAT lock replaced. R groin sheath removal dressing CDI no drainage, scattered ecchymosis throughout, sacrum blanchable, skin otherwise intact. RIJ Cordis/Angelic darren catheter at 48; RUE
single lumen midline, L femoral arterial line, PIVx2; all applicable lines leveled, calibrated, and flushed. On amio, levo, vaso, dobut, propofol, fent, see nursing work list for titration and intervention details.
[2025-08-26] MEDS: ZITHROMAX INFUSION 250 IV (21:52)
[2025-08-26 23:57] LABS: Glucose - Point of Care 326 mg/dl (70-99)
[2025-08-27] VITALS (14 sets, daily range): BP systolic 70–115; BP diastolic 39–44; BMI 24.2
--- NOTE | 2025-08-27 | PTCARENOTE ---
Collaborating with Dr. Natarajan, insulin gtt to be restarted due to persistent hyperglycemia/current drips reconstituted with D5W in the setting of DM. Awaiting orders to initiate insulin gtt. Patient remains intubated/sedated. Levo titrated per
protocol. Per Dr. Natarajan, Vaso and Dobut to remain at current rates, do not titrate; see worklist. Assessment of needs ongoing.
[2025-08-27] MEDS: NOVOLOG FLEXPEN-MODERATE RESISTANCE SC (01:38)
[2025-08-27] MEDS: NOVOLIN R INSULIN INFUSION 100 IV ×2 (02:01→15:14)
[2025-08-27 02:11] LABS: Glucose - Point of Care 315 mg/dl (70-99)
[2025-08-27] MEDS: PITRESSIN 100 IV ×2 (02:39→13:40)
[2025-08-27 03:00] LABS: Glucose - Point of Care 324 mg/dl (70-99)
[2025-08-27] MEDS: UNASYN IV (03:02)
[2025-08-27] MEDS: LEVOPHED 250 IV ×5 (03:09→19:03)
[2025-08-27 04:01] LABS: Glucose - Point of Care 284 mg/dl (70-99)
[2025-08-27 04:24] LABS: B.E. -8.9 mmol/L; HCO3 18.0 mmol/L (21-28); O2 Saturation % 96.2 % (94-98); PCO2 43 mmHg (32-35); PO2 75 mmHg (83-108)
--- NOTE | 2025-08-27 04:31 | PTCARENOTE ---
The patient continues to require high dose pressors. MAP sufficient on 25 of Levo, Vaso/Dobut unchanged. ICU GREASE RACK WORKER notified of pt's lab work. Insulin gtt continued, see work list. Assessment of needs ongoing.
[2025-08-27 04:54] LABS: Hematocrit 24.6 % (37.0-47.0); Hemoglobin 7.7 g/dL (12.0-16.0); Mean Corp Hgb Conc. 31.3 g/dL (33.0-37.0); Mean Corpuscular Volume 83.4 fL (81.0-99.0); Platelet Count 162 10^3/uL (130-400); Red Cell Dist. Width 18.2 % (11.5-14.5)
[2025-08-27 05:01] LABS: Glucose - Point of Care 268 mg/dl (70-99)
[2025-08-27] MEDS: SYNTHROID 50 MCG TUBE (05:04)
[2025-08-27 05:24] LABS: Blood Urea Nitrogen 21 mg/dl (7-17); Calcium 7.3 mg/dl (8.4-10.2); Carbon Dioxide 20 mmol/L (22-30); Chloride 103 mmol/L (98-107); Estimated Creatinine Clearance 48 ml/min; Glucose 222 mg/dl (70-99); Potassium 3.2 mmol/L (3.5-5.1); Sodium 128 mmol/L (135-145); eGFR > 60.00
[2025-08-27] MEDS: CALCIUM GLUCONATE 130 MG IV (05:24)
[2025-08-27 06:04] LABS: Glucose - Point of Care 219 mg/dl (70-99)
[2025-08-27] MEDS: KCL 100 IV (06:26)
--- NOTE | 2025-08-27 07:00 | PTCARENOTE ---
report received from previous RN at change of shift. pt intubated and sedated on propofol and fentanyl gtts. pt arouses to voice and physical stimulus. pt able to follow commands intermittently. generalized weakness throughout. very weak hand grasp.
SR on telemetry heart rate in 70s. levophed, dobutamine, vasopressin, amio, gtts infusing per orders. MAP goal>65. Right IJ cordis/swan intact, leveled and zeored with appropriate waveforms. swan at 48 cm. right midline intact. left femoral arterial
line, leveled and zeroed with appropriate waveform. weakly palpable pulses. +1 generalized edema. 7.0 ETT 22 at lip. AC 50%, rate 22, tv 480, peep 5. sat 95%. lung sounds diminished in bases. minimal secretions. Right nare NG tube in place.
hypoactive bowel sounds. insulin gtt per protocol. garza draining clear yellow urine about 20-30/hr. right groin site CDI. see worklist for full nursing assessment and interventions.
[2025-08-27 07:04] LABS: Glucose - Point of Care 177 mg/dl (70-99)
[2025-08-27] MEDS: FLOVENT 110 MCG INHALER 4 PUFF INH ×2 (07:31→19:16)
[2025-08-27] MEDS: PLAVIX 75 MG TUBE (07:55)
[2025-08-27] MEDS: CRESTOR 20 MG TUBE (07:55)
[2025-08-27] MEDS: ZETIA 10 MG TUBE (07:55)
[2025-08-27] MEDS: NSS (PRESERVATIVE FREE) 10 ML IV (07:55)
[2025-08-27] MEDS: PROTONIX IV 40 MG IV (07:56)
[2025-08-27 08:08] LABS: Glucose - Point of Care 126 mg/dl (70-99)
--- NOTE | 2025-08-27 08:17 | W.PN.INTV ---
Today's Communication / Plan
Recommendations
Mechanical ventilation
Vasopressors and inotropes
Trend CI with goal >2 and MVO2>65
Start DuoNebs; continue flovent
DC vanco given negative MRSA swab
Trend serum Na --> may need bolus of 3%; consider nephro consult
DAPT
High intensity statin
Off heparin gtt s/p LHC
Critically ill; guarded prognosis
If no improvement in next 24-48 hrs, then would terminally extubate if family agrees given that pt is DNR/DNI and prolonged mechanical ventilation is not likely in line with her GOC
Chef Manager service will continue to follow along
Assessment
-
Assessment: 80-year-old female with a past medical history of DM type II, history of pneumonia, depression, anxiety, COPD, chronic HFpEF, aortic stenosis s/p bioprosthetic aortic valve replacement complicated by severe valvular regurgitation s/p
TAVR with snorkel stent of LMCA (01/26/2025), severe MR, history of bladder cancer, nephrolithiasis, TIA and Gnosticism who presents from home due to shortness of breath. On the way here to the hospital she became pale, diaphoretic and
cyanotic. Was 81% on room air and and route received 125 mg Solu-Medrol and a nebulizer treatment. According to chart, she became SOB after eating. Of note, she was recently hospitalized here at from 08/22 - 08/19/2025 due to chest pain +
epigastric discomfort. Troponin was flat x 3 at the time, and echo showed preserved LVEF at 64% with a well-seated Evelyne TAVR with normal gradients, mild - moderate MR with no change compared to prior echo in January 2025. Although there was initial
concern for ACS, the chest pain was then suspected to be nonanginal and was likely from GERD. Heparin drip was stopped and she was sent home on pantoprazole 40 mg once daily. In the ER, she was lethargic, bradycardic and hypotensive. Decision
made to intubate (although at the time she was DNR/DNI, patient initially said that she would be okay with intubation). After intubation, fluid bolus started and propofol temporarily stopped. Initial labs showed normal WBC at 9.9, Hb 11.3,
platelet count 257, creatinine 1.1, lactate 8.3, glucose 416, troponin 2.34, proBNP 3830 and COVID-19 antigen negative. Patient was admitted to the ICU for further care and Chef Manager services consulted for additional management/recommendations.
Chronic conditions PIN MAKER: History of pneumonia, DM type II, thyroid disease, sleep disorder, depression, anxiety, COPD with centrilobular emphysema + chronic bronchitis, chronic HFpEF, aortic stenosis s/p bioprosthetic aortic valve replacement c/b
severe valvular regurgitation s/p TAVR with snorkel stent of left main coronary artery (01/26/2025), mitral regurgitation, hypertension, history of bladder cancer, nephrolithiasis, history of TIA, Gnosticism
Impression:
#Acute respiratory failure with hypoxia due to acute decompensated heart failure now on mechanical ventilation (intubated 08/25 in ER)
#Acute HFmrEF with ischemic etiology
#NSTEMI with in-stent restenosis of left main snorkel stent s/p PCI with ELIZABETH x1 (08/26/2025)
#Mixed shock with cardiogenic and septic components
#CAP with bilateral lower lobe opacities
#Hyponatremia
#Diffuse small bowel wall thickening and wall enhancement suspicious for enteritis
#Leukocytosis
#Acute anemia
#YARITZA
#DM type II complicated by hyperglycemia
#Lactic acidosis (now resolved as of evening of 08/25/2025)
#Elevated troponin due to left main stent severe ISR in setting of shock
#Bioprosthetic aortic valve with severe valvular regurgitation + severe mitral regurgitation --> s/p TAVR with a snorkel stent of the left main coronary artery (procedure date: 01/26/2025)
#History of aspiration of secretions (prior CT in Dec 2024 showed secretions in main stem bronchi on 2 separate imaging procedures - cardiac CT from 01/04/2025 + CT Chest 01/25/2025)
#Centrilobular emphysema/moderate COPD (per PFTs from 09/28/2023)
#History of TIA
Plan:
- Although patient is DNR/DNI, patient and family is agreeable with trial of mechanical ventilation
- Continue with mechanical ventilation with daily SAT/SBT if clinically appropriate
- Maintain plateau pressure <30 and titrate FiO2 + PEEP to keep SpO2 >94%
- Continue aspiration precautions; keep HOB >30-45�
- prn nebulized bronchodilators - not currently bronchospastic
- Oropharyngeal + deep ETT suctioning with subglottic as needed
- Daily CXR + blood gas
- Daily vent adjustments as needed based on blood gas and SaO2
- Low level of sedation with goal RASS as 0 to -2
- Patient takes Trelegy as an outpatient � continue Flovent + DuoNebs; currently not wheezing, hence no need for systemic steroids at this time
- Given the significant rise in troponin, patient brought to [facility] on 08/26 and underwent PCI with ELIZABETH x1 placed to previous LM stent that had severe ISR
- Continue DAPT with ASA and plavix
- Continue [place] and diurese as BP tolerates while trending PADP and CVP
- Continue dobutamine with goal CI>2 and MAP>65
- Continue Zetia + Crestor
- Patient was having PVCs on 08/26 --> continue amiodarone gtt with eventual TRX to PO amio - defer to cardiology
- Replete electrolytes with K>4, Mg>2
- Patient's right lower lobe appears significantly opacified on CT A/P from 08/25/2025, likely due to aspiration
- She also has suspected enteritis as per her CT A/P from 08/25
- Continue Abx with meropenem, zithromax and IV vanco s/p Unasyn; MRSA swab negative --> can DC IV vanco
- Follow-up infectious workup, including sputum culture and blood cultures; Legionella + strep pneumoniae urine antigens both negative
- Trend WBC and monitor temperature curve
- Continue vasopressors in addition to inotropes; given that she is septic and LVEF appears to be preserved despite massive rise in cTnI, may need to stop dobutamine if her hypotension persists given her septic state
- Maintain MAP>65
- Trend UOP
- Strict I/O
- Trend serum Na level
- If continues to decrease then will give bolus of 3% given the acuity of this drop
- Check urine acid and serum Osm
- If urine collected, check Gaby and uOsm
- Consider nephro consult
- Maintain euglycemia with goal BG 140-180; HbA1c: 6.2 on 08/26/2025
- Trend H/H and transfuse if needed to keep Hb>8g/dL; keep plt>20k
- Early nutrition once vasopressor requirements improve (equivalent to Levophed of 10 mg/min or less)
- Stress ulcer ppx: PPI
- DVT ppx: LMWH
Code status: DNR/DNI
Continue ICU level of care for this critically ill patient.
Critical care statement: A total of 42 minutes of critical care time was provided for this patient today. This includes management of unstable vital signs, evaluation of the patient at bedside, reviewing the patient's pertinent medical records
including radiographs, microbiology, laboratory evaluations, and discussion with primary team, consultants, pharmacy, nutrition, physical therapy, case management, charge nurse, critical care nursing, and respiratory therapy.
Data:
Transthoracic echocardiogram 08/25/2025:
1. Mild to moderately reduced left ventricular systolic function. LVEF 40%.
2. Hypokinesis of the septal wall.
3. Normal right ventricular size and systolic function.
4. Well-seated TAVR with normal gradients (peak/mean 29/15 mmHg).
5. Severe eccentric mitral regurgitation.
6. Moderate to severe tricuspid regurgitation. PASP 56 mmHg.
7. Compared to prior echocardiogram on 08/22/25, there are significant changes. EF is down from 64%. MR/TR have progressed. AV gradients are stable.
CT abdomen/pelvis with IV contrast 08/25/2025:
CT findings are suspicious for an enteritis.
Bilateral lower lobe pulmonary opacities (right greater than left) most compatible with pneumonia, and likely superimposed upon a chronic infectious/inflammatory pulmonary process.
[facility] 08/26/2025:
1. Cariogenic shock with elevated biventricular filling pressures and borderline low cardiac index with high SVR on high dose vasopresors.
2. Obstructive CAD as described with severe ISR of the previously placed left main stent.
3. Successful PCI of the left main via side strut of the existing Snorkle stent with placement of a 3.5x18 mm Dysart Gage ELIZABETH post-dilated to high pressure proximally with a 4.0 mm NC balloon.
Subjective Dataa
Subjective Data
Date of Service:
Date of Service: August 27, 2025
Chief Complaint: Chef Manager Follow Up
Subjective:
Pt seen this AM. Remains intubated on AC at 22/480/40%/5 with PIP 88mlM7D, VTe 396mL and breathing at 22 breaths/minute. On amiodarone gtt at 0.5mg/min, vasopressin at 0.03 units/min, levo at 12mcg/min (down from 27 earlier this AM), and
dobutamine at 2mcg/kg/min. Sedated on propofol at 20mcg/kg/min and fentanyl at 100mcg/hr. She has minimal ETT secretions. Currently saturating 92% with HR 76, BP via A-line 104/40 with CO/CI: 3.72/2.53. EtCO: 26.
Review of Systems
General: Unobtainable - Sedation (+ intubated)
Objective Data
Data Reviewed
Vital Signs / I&O / Oxygen:
Vital Signs
Temp Pulse Resp BP Pulse Ox
98.8 F 71 22 115/44 94
08/27/25 09:00 08/27/25 09:30 08/27/25 09:30 08/27/25 08:53 08/27/25 09:30
Intake and Output
08/26/25 08/27/25 08/28/25
06:59 06:59 06:59
Intake Total 1235.8 / 1336.4 4923.0 / 5119.1 588.3 / 588.3
Output Total 360 / 380 2280 / 2310 75 / 75
Balance 875.8 / 956.4 2643.0 / 2809.1 513.3 / 513.3
SaO2 [A/C] 94
SaO2 94
Physical Exam
General: Respiratory Distress (negative), Comfortable, Chills (negative), Sweats (negative) and Other (Elderly female, intubated/sedated)
HEENT: Normocephalic, Anicteric, Other (ETT in place) and Other (R-IJ cordis with PAC in place)
Cardiovascular: S1-S2, Regular Rhythm, Rub (negative) and Peripheral Edema (negative)
Respiratory: Wheeze (negative), Crackles (bibasilar rales), Rhonchi (negative), Non-Labored Respirations and ET Tube
GI: Soft, Non Distended, Non Tender and Normal Bowel Sounds
Neurology: Tremors (negative) and Other (Sedated, responds to verbal and tactile stimuli)
Skin: Warm, Dry, Cyanosis (negative) and Jaundice (negative)
Labs/Micro/Reports
Lab Data
08/27/25 04:15
Laboratory Results
08/26/25 08/26/25 08/26/25
05:02 12:26 14:51
APTT Cancelled
pH Cancelled 7.38
pCO2 Cancelled 35
pO2 Cancelled 107
HCO3 Cancelled 20.7 L
O2 Delivery Level Cancelled 50
08/27/25
04:12
APTT
pH 7.23 L
pCO2 43 H
pO2 75 L
HCO3 18.0 L
O2 Delivery Level
Microbiology
08/25/25 21:25 Endotracheal Gram Stain - Preliminary
08/25/25 21:25 Nose Nasal Screen MRSA (PCR) - Final
MRSA not detected - performed by PCR methodology.
08/25/25 21:25 Urine Legionella Urinary Antigen - Final
Negative for Legionella pneumophila Serogroup 1 antigen.
A negative result does not rule out the possiblity of
Legionella infection due to other serogroups or species of
Legionella. Clinical correlation is recommended.
08/25/25 21:25 Urine Streptococcus pneumoniae Antigen (M - Final
Negative for Streptococcus pneumoniae antigen.
A negative result does not exclude infection with
Streptococcus pneumoniae. Clinical correlation is
recommended.
08/25/25 16:19 Nasal Swab Influenza Types A & B (AMALIA) - Final
Negative for Influenza A & B, NAAT
Negative results must be combined with clinical observations
and patient history.
Nucleic Acid Amplification test (NAAT)performed on the
[employer] platform.
--- NOTE | 2025-08-27 08:52 | W.PN.CD ---
Today's Communication / Plan
-
Patient remains in multipressor shock. Seems vasodistributive based on hemodynamics.
Obtain blood cultures. Broaden antibiotics. Wean sedation.
Continue norepinephrine for goal systolic blood pressure >90 mmHg
Goal CI >2, CVP ~10 with Lasix prn, UOP >30 cc/hr
Impression / Plan
-
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
emergency department with acute respiratory failure following an episode of epigastric discomfort.
Primary cardiothoracic icu rn: Dr. Urbina
Drips: levo 27, vaso 0.3, dobtaime 2, amio, insulin, fentanyl, propofol
Most recent hemodynamics: CVP 15, PA 62/26, CO/CI 3.5/2.4 SVR 1142 by thermodilution, CO/CI 6.0/4.1 SVR 680 by Maggie equation
Shock
- Severe, threat to life. Requiring inotrope and vasopressors
- Unclear etiology. Based on hemodynamics, seems vasodistributive. Bedside echo 08/26 with LVEF ~50%
- Obtain blood cultures. Broaden antibiotics to meropenem and vancomycin
- Wean sedation as able
- Titrate norepinephrine to goal systolic BP >90 mmHg. Wean levo first then vaso.
- Continue dobutamine at 2
- Critical care team following. Appreciate input.
- Goal CI >2, CVP ~10 with IV Lasix prn
Acute hypoxic respiratory failure
- Severe, threat to life
- Intubated due to lethargy and being unarousable on CPAP
- Negative for COVID-19 and influenza A/B
- Wean sedation as above
NSTEMI
- S/p PCI with ELIZABETH to L main snorkel stent (severe ISR) on 08/26/25.
- Troponin peaked at 97. EKG with inferior and anterolateral ST abnormalities
- Bedside TTE post PCI: LVEF ~50%
- Continue aspirin and clopidogrel. Reloaded on 08/26/2025
NSVT/PVCs
- On 08/26, had frequent BP drops in the setting of ectopy. Amio started and this resolved.
- Continue IV amiodarone
Epigastric pain
- Occurs after eating with occasional associated vomiting
- CTA/P with enteritis
- IV PPI
Aortic stenosis s/p Evelyne TAVR
- TTE 08/25/2025 showed normal AV gradients with mild AI
Mitral regurgitation, severe
Tricuspid regurgitation, moderate to severe
- Cannot safely diurese with shock
COPD, chronic, severe, recent exacerbation
Current smoker, actively trying to wean
CCT: 50 minutes
Subjective: Intubated and sedated
Telemetry: normal sinus rhythm, no ectopy
Physical Exam
Vital Signs/Labs
Vital Signs
Temp Pulse Resp BP Pulse Ox
98.5 F 73 23 107/47 91
08/27/25 08:00 08/27/25 08:37 08/27/25 08:37 08/26/25 13:00 08/27/25 08:37
08/26/25 08/27/25 08/28/25
06:59 06:59 06:59
Actual Weight 113 lb 5.082 oz 123 lb 14.397 oz
08/27/25 04:15
08/27/25 04:15
PT Cancelled 08/25/25 18:43
INR Cancelled 08/25/25 18:43
APTT Cancelled 08/26/25 05:02
Magnesium Cancelled 08/25/25 18:43
08/25/25
15:45
[id number] Pept 3830
LAB Results
08/25/25 08/25/25 08/25/25
15:45 18:43 18:45
Troponin I 2.340 H* Cancelled Cancelled
08/25/25 08/26/25 08/26/25
22:10 04:15 08:55
Troponin I 20.000 H* D 58.100 H* D 97.100 H* D
Physical Exam
Constitutional: Other (Intubated and sedated)
Cardiovascular: Rhythm & rate is regular, Pedal edema is absent, Systolic murmur present and Other (Feet are cool to touch)
Respiratory: Other (Intubated, breathing comfortably on the vent.)
Other: Cath Site (soft, no swelling or erythema)
Data Reviewed
-
Date of Service: August 27, 2025
Medical Decision Making: Reviewed Test Results, Tests Ordered, Independent Historian Assessment, Test Interpretation and Review of Case with other Provider
EKG: Tracing Personally Visualized and interpreted
Echo: Tracing Personally Visualized and interpreted and Report Reviewed by me
X-Ray/CT/US/MRI/NUC/PET: Image Personally Visualized and interpreted
Labs: Labs Reviewed by me
Critical Care Time (in minutes): 50
[2025-08-27] MEDS: LASIX 40 MG IV ×2 (08:53→14:11)
[2025-08-27 09:11] LABS: Glucose - Point of Care 90 mg/dl (70-99)
[2025-08-27] MEDS: MERREM 500 MG IV ×2 (09:18→17:20)
[2025-08-27] MEDS: STERILE WATER FOR INJECTION 10 ML IV ×2 (09:18→17:20)
--- NOTE | 2025-08-27 09:45 | PHA.VAN.IN ---
Assessment
- Assessment
Renal Function: Appears similar to baseline
AUC Dosing Plan
- Dosing Variables
Dosing Weight (kg): 56
Dosing CrCl (ml/min): 48
Vd coefficient (L/kg): 0.7
- Empiric Dosing
Initial / Loading Dose: VANCO 1500MG X1
Maintenance Regimen: VANCO 750MG Q24H
Estimated AUC (mcg*h/mL): 447
Estimated Peak (mcg*h/mL): 29.2
Estimated Trough (mcg/ml): 10.8
Estimated Half Life (H): 15.7
- Monitoring
No levels ordered at this time: CONSIDER LEVEL AT STEADY STATE
Pharmacokinetics Vancomycin I
- -
Patient Age: 80
Patient Sex: Female
Vancomycin Day #: 1
Indication: Other
Requesting Provider: DR. MURRAY
Pertinent Antimicrobial Allergies:
PENICILLINS (UNKNOWN)
CLARITHROMYCIN (GI UPSET)
LEVOFLOXACIN (UNKNOWN)
Height / Weight:
Height 5 ft
Actual Weight 56.2 kg
- Vital Signs / Lab Results
Temp Pulse Resp BP Pulse Ox
98.8 F 71 22 115/44 94
08/27/25 09:00 08/27/25 09:30 08/27/25 09:30 08/27/25 08:53 08/27/25 09:30
Lab Results - Hematology
08/25/25 08/26/25 08/27/25
15:45 04:15 04:15
WBC 9.9 17.7 H 13.1 H
Lab Results - Chemistry
08/25/25 08/26/25 08/27/25
15:45 01:28 04:15
BUN 24 H 35 H 21 H
Creatinine 1.1 H 0.9 0.7
Estimated Creat Clear 30 37 48
08/25/25 08/25/25 08/26/25
15:48 22:56 12:26
Lactic Acid 8.3 H* 1.9 1.3
Microbiology Results
08/25/25 21:25 Gram Stain - Preliminary
Endotracheal
08/25/25 21:25 Nasal Screen MRSA (PCR) - Final
Nose MRSA not detected - performed by PCR methodology.
08/25/25 21:25 Legionella Urinary Antigen - Final
Urine Negative for Legionella pneumophila Serogroup 1 antigen.
A negative result does not rule out the possiblity of
Legionella infection due to other serogroups or species of
Legionella. Clinical correlation is recommended.
Streptococcus pneumoniae Antigen (M - Final
Negative for Streptococcus pneumoniae antigen.
A negative result does not exclude infection with
Streptococcus pneumoniae. Clinical correlation is
recommended.
08/25/25 16:19 Influenza Types A & B (AMALIA) - Final
Nasal Swab Negative for Influenza A & B, NAAT
Negative results must be combined with clinical observations
and patient history.
Nucleic Acid Amplification test (NAAT)performed on the
[employer] platform.
[2025-08-27 10:19] LABS: Glucose - Point of Care 100 mg/dl (70-99)
[2025-08-27] MEDS: VANCOCIN 530 MG IV (10:56)
[2025-08-27 11:06] LABS: Glucose - Point of Care 107 mg/dl (70-99)
--- NOTE | 2025-08-27 11:20 | W.PN.HOSP.TC ---
Today's Communication/Plan
-
Wean pressors as tolerated. Currently on Levophed, vasopressin and dobutamine
IV Lasix monitor renal response
Sedation trial if possible
Monitor hemodynamics closely
Antibiotics adjusted per cardiology
WBC trending down
Monitor hemoglobin closely
Assessment / Plan
Assessment / Plan
#Acute respiratory failure hypoxic secondary to acute decompensated heart failure status post intubation and on mechanical ventilation
Currently on propofol and fentanyl for sedation
Daily spontaneous breathing trial as patient is able to tolerated
Plan to wean sedation if possible
Barrel Line Operator following
#NSTEMI
status postcardiac catheterization. With severe ISR of her LM stent (but MEGAN 3 flow) s/p new overlapping stent
OG tube to administer medication especial antiplatelet agents
Heparin drip discontinued per cardiology.
#Leukocytosis
#Community-acquired pneumonia
#Suspicion for enteritis
Patient was started on broad-spectrum antibiotics-Unasyn/azithromycin discontinued and now started on vancomycin and meropenem per cardiology
Monitor stool output. If persistent diarrhea check stool studies
Sputum sample preliminary with usual lul. Legionella strep pneumo antigen negative. Blood cultures in lab.
WBC downtrending
#NSVT/PVC
Started on amiodarone per cardiology.
Monitor electrolytes closely.
#Severe lactic acidosis resolved
#Shock unclear if cardiogenic versus sepsis versus low likelihood of hypovolemia
Currently on multiple pressors. Wean pressors as tolerated start with Levophed. Dobutamine and vasopressin started per pipeline gang supervisor
[place] catheter placed. Monitor volume status closely. May require diuresis if blood pressure can tolerate.
Cardiology correspondence noted. Bedside echo yesterday ejection fraction to 50%
Overall patient net +3.7 L. Monitor response to 40 mg Lasix.
#Diabetes mellitus type 2
N.p.o. for now insulin sliding scale and Accu-Cheks
Continue with critical care glycemic protocol. Currently on insulin infusion.
Aortic stenosis status post right transfemoral TAVR 01/26/2025 # [address] Alvarez prior AVR with root enlargement 2014'
Chronic mitral regurgitation
Cardiology following
Hypothyroidism can restart p.o. meds-once able G-tube.
Anxiety/depression- can restart p.o. meds-once able G-tube.
GERD-IV PPI
Known history of Jehovah witness with drop in hemoglobin noted could be dilutional component
Patient did receive multiple IV fluid boluses yesterday
Monitor hemoglobin closely
DVT ppx- lovenox sc
CODE STATUS DNR/DNI
Anticipated Discharge: > 48 hours
Subjective/Interval History
-
Date of Service: August 27, 2025
Remains intubated and sedated
Remains currently on Levophed, vasopressin, dobutamine, propofol, fentanyl, amiodarone, insulin infusion
Shaking her head at times
Received IV lasix earlier
Objective Data
-
Labs:
Laboratory Results
08/27/25 08/27/25 08/27/25
04:12 04:15 14:00
WBC 13.1 H
Hgb 7.7 L D
Hct 24.6 L
Plt Count 162 D
HCO3 18.0 L
Sodium 128 L D Pending
Potassium 3.2 L Pending
Chloride 103 Pending
Carbon Dioxide 20 L Pending
BUN 21 H Pending
Creatinine 0.7 Pending
Glucose 222 H Pending
Calcium 7.3 L Pending
Vital Signs:
Vital Signs
Temp Pulse Resp BP Pulse Ox
99.4 F 73 22 115/44 91
08/27/25 11:00 08/27/25 11:15 08/27/25 11:15 08/27/25 08:53 08/27/25 11:15
I&O
08/26/25 08/27/25 08/28/25
06:59 06:59 06:59
Intake Total 1235.8 / 1336.4 4923.0 / 5119.1
Output Total 360 / 380 2280 / 2310 545 / 545
Balance 875.8 / 956.4 2643.0 / 2809.1 1444.1 / 1444.1
Physical Exam
-
HEENT: Normocephalic and Atraumatic
Respiratory: Other (ET tube noted. )
Cardiac: Regular Rhythm, S1/S2 and Murmur; Negative Rub or Gallop
GI: Soft, Nondistended and Normal Bowel Sounds; Negative Organomegaly
Rectal: Deferred by Provider
Genito-urinary: Danielson (yellow color urine)
Musculoskeletal: No Clubbing, No Cyanosis, Edema, Right Upper Extrem (Trace), Edema, Left Upper Extrem (Trace), Edema, Right Lower Extrem and Edema, Left Lower Extrem
Skin: Negative Rash
Neuro: Sedated
--- NOTE | 2025-08-27 11:36 | PTCARENOTE ---
weaning levophed down for SBP>90, currently at 12 mcg/min. propofol weaned from 30 to 20 mcg/kg/min. vaso, dobut, and amio remain per orders. tolerating ventilator- sat 93%, AC 40%. difficult to get accurate sat and good pleth- left ear with best
pleth sat 93%. pt moves legs spontaneously. arouses to voice when stimulated
[2025-08-27 12:07] LABS: Glucose - Point of Care 98 mg/dl (70-99)
[2025-08-27] MEDS: SUBLIMAZE 100 IV (13:14)
[2025-08-27 13:20] LABS: Glucose - Point of Care 157 mg/dl (70-99)
[2025-08-27] MEDS: CORDARONE 518 MG IV (13:40)
[2025-08-27 14:12] LABS: B.E. -8.5 mmol/L; HCO3 17.9 mmol/L (21-28); O2 Saturation % 98.4 % (94-98); PCO2 40 mmHg (32-35); PO2 106 mmHg (83-108)
[2025-08-27 14:43] LABS: Blood Urea Nitrogen 18 mg/dl (7-17); Calcium 8.0 mg/dl (8.4-10.2); Carbon Dioxide 19 mmol/L (22-30); Chloride 102 mmol/L (98-107); Estimated Creatinine Clearance 42 ml/min; Glucose 172 mg/dl (70-99); Potassium 4.6 mmol/L (3.5-5.1); Sodium 124 mmol/L (135-145); Troponin I 18.700 ng/ml; eGFR > 60.00
[2025-08-27 15:15] LABS: Glucose - Point of Care 190 mg/dl (70-99)
--- NOTE | 2025-08-27 16:08 | PTCARENOTE ---
amio and dobutamine turned off per dr thacker. pt tolerating well, remains SR heart rate 70s, no ectopy. CI 2.11 off dobutamine. levophed at 8 mcg/min, vaso at 0.03 units/min. insulin gtt per protocol. remains sedated on propofol and fentanyl and
intubated- vent AC 60%, tv 480, rate 22, peep5, sat 100%. no further changes in assessment noted.
[2025-08-27 16:09] LABS: Glucose - Point of Care 188 mg/dl (70-99)
[2025-08-27] MEDS: LOVENOX 40 MG SC (17:19)
[2025-08-27] MEDS: LOW STRENGTH ASPIRIN 81 MG TUBE (17:19)
[2025-08-27] MEDS: DIPRIVAN 100 IV (17:20)
[2025-08-27 17:24] LABS: Glucose - Point of Care 148 mg/dl (70-99)
[2025-08-27] MEDS: CALCIUM GLUCONATE 100 IV (18:10)
[2025-08-27 18:16] LABS: Glucose - Point of Care 110 mg/dl (70-99)
[2025-08-27 18:53] LABS: Venous Blood Gas B.E. -3.8 mmol/L (-4 to +4); Venous Blood Gas O2 Sat % 99.3 %
[2025-08-27 18:55] LABS: Venous Blood Gas O2 Therapy 40%
[2025-08-27 19:21] LABS: Glucose - Point of Care 105 mg/dl (70-99)
[2025-08-27 19:25] LABS: ALT (SGPT) 98 U/L (0-35); AST (SGOT) 138 U/L (14-36); Albumin 2.5 g/dl (3.5-5.0); Alkaline Phosphatase 98 U/L (38-126); Blood Urea Nitrogen 17 mg/dl (7-17); Calcium 8.4 mg/dl (8.4-10.2); Carbon Dioxide 23 mmol/L (22-30); Chloride 100 mmol/L (98-107); Estimated Creatinine Clearance 42 ml/min; Glucose 107 mg/dl (70-99); Potassium 3.9 mmol/L (3.5-5.1); Sodium 125 mmol/L (135-145); Total Protein 4.9 g/dl (6.3-8.2); Uric Acid 3.5 mg/dl (2.5-6.2); eGFR > 60.00
--- NOTE | 2025-08-27 20:00 | PTCARENOTE ---
assumed care of pt from previous RN. pt intubated, sedated. pt PAIUTE-SHOSHONE, responds to verbal stimuli. MAEE. INTERIANO. ETT size 7.0 at 22cm at the lip. vent settings A/C 22/490/5/50%. POX 98%. SR on tele-monitor. abd s/n, round. hypoactive BS. R nare NGT to
low-int suction. garza catheter draining clear, yellow colored urine. R groin puncture CDI. R IJ cordis w/ swan floated to 45cm. L femoral a-line. all lines leveled, zeroed, flushed. RUE midline. PIV x2 intact. see worklist for complete nursing
assessment, interventions, gtt titration, VS, and I&Os.
[2025-08-27] MEDS: PACERONE 400 MG PO (20:11)
[2025-08-27] MEDS: SODIUM CHLORIDE 3% 50 IV (20:21)
[2025-08-27 20:58] LABS: Glucose - Point of Care 118 mg/dl (70-99)
[2025-08-27] MEDS: ZITHROMAX INFUSION 250 IV (23:02)
[2025-08-27 23:10] LABS: Glucose - Point of Care 128 mg/dl (70-99)
[2025-08-28] VITALS (26 sets, daily range): BP systolic 84–140; BP diastolic 34–55; BMI 25.0
--- NOTE | 2025-08-28 00:15 | PTCARENOTE ---
assessment remains unchanged. see worklist for VS and I&Os. BMP drawn per hand flesher.
[2025-08-28 00:44] LABS: Blood Urea Nitrogen 14 mg/dl (7-17); Calcium 7.9 mg/dl (8.4-10.2); Carbon Dioxide 22 mmol/L (22-30); Chloride 100 mmol/L (98-107); Estimated Creatinine Clearance 48 ml/min; Glucose 137 mg/dl (70-99); Potassium 3.7 mmol/L (3.5-5.1); Sodium 125 mmol/L (135-145); eGFR > 60.00
[2025-08-28 01:14] LABS: Glucose - Point of Care 135 mg/dl (70-99)
[2025-08-28] MEDS: LEVOPHED 250 IV ×2 (01:14→10:05)
[2025-08-28] MEDS: PITRESSIN 100 IV ×2 (01:14→12:18)
[2025-08-28] MEDS: SUBLIMAZE 100 IV ×2 (01:15→11:54)
[2025-08-28] MEDS: SODIUM CHLORIDE 3% 50 IV (01:36)
[2025-08-28] MEDS: STERILE WATER FOR INJECTION 10 ML IV ×3 (01:37→18:26)
[2025-08-28] MEDS: MERREM 500 MG IV ×3 (01:37→18:28)
[2025-08-28] MEDS: CALCIUM GLUCONATE 100 IV (01:44)
[2025-08-28 03:07] LABS: Glucose - Point of Care 148 mg/dl (70-99)
[2025-08-28 03:24] LABS: B.E. -4.6 mmol/L; HCO3 20.2 mmol/L (21-28); O2 Saturation % 99.8 % (94-98); PCO2 35 mmHg (32-35); PO2 146 mmHg (83-108)
--- NOTE | 2025-08-28 03:30 | PTCARENOTE ---
no acute changes. U/O >0.5ml/kg/h. AM labs collected and sent.
[2025-08-28 03:42] LABS: Hematocrit 20.3 % (37.0-47.0); Hemoglobin 6.5 g/dL (12.0-16.0); Mean Corp Hgb Conc. 32.0 g/dL (33.0-37.0); Mean Corpuscular Volume 80.2 fL (81.0-99.0); Nucleated Red Blood Cells % 0 %; Platelet Count 156 10^3/uL (130-400); Red Cell Dist. Width 17.5 % (11.5-14.5)
[2025-08-28 03:47] LABS: ALT (SGPT) 83 U/L (0-35); AST (SGOT) 97 U/L (14-36); Albumin 2.3 g/dl (3.5-5.0); Alkaline Phosphatase 87 U/L (38-126); Blood Urea Nitrogen 14 mg/dl (7-17); Calcium 9.0 mg/dl (8.4-10.2); Carbon Dioxide 22 mmol/L (22-30); Chloride 101 mmol/L (98-107); Estimated Creatinine Clearance 48 ml/min; Glucose 135 mg/dl (70-99); Magnesium 1.4 mg/dl (1.6-2.3); Potassium 3.5 mmol/L (3.5-5.1); Sodium 124 mmol/L (135-145); Total Protein 4.3 g/dl (6.3-8.2); eGFR > 60.00
[2025-08-28] MEDS: MAGNESIUM SULFATE 50 IV ×2 (04:18→09:47)
--- NOTE | 2025-08-28 05:02 | W.PN.UPDATE ---
Update Note
Progress Note Update
Patient is a Jehovah witness with drop in hemoglobin 11.0 to 11.3 to 9.9 to 7.7 to 6.5. Contacted Kaylyn Conner for consent for blood product, she stated her mother does not want any blood products.
[2025-08-28 05:10] LABS: Glucose - Point of Care 129 mg/dl (70-99)
[2025-08-28] MEDS: VANCOCIN 150 IV (06:24)
[2025-08-28] MEDS: SYNTHROID 50 MCG TUBE (06:24)
[2025-08-28 07:17] LABS: Glucose - Point of Care 147 mg/dl (70-99)
[2025-08-28] MEDS: FLOVENT 110 MCG INHALER 4 PUFF INH ×2 (07:21→19:17)
[2025-08-28] MEDS: DUONEB 3 ML INH ×4 (07:21→19:17)
--- NOTE | 2025-08-28 08:00 | PTCARENOTE ---
assumed care of pt from previous RN. resting in bed at time of assessment. pt intubated, sedated. responds to verbal stimuli. CHOWDARY. 2mm pupils.SB HR 50s. #7 ETTat 22cm at R lip. A/C 22/480/+5/50%. POX 98%. hypoactive BS. R nare NGT @58 cm LIS. garza
draining clear yellow urine. R groin puncture CDI. R IJ cordis/swan to 45cm. L femoral a-line. RUE midline. PIV x1. levo, vaso, insulin, prop and fentanyl gtts infusing. will continue to monitor.
--- NOTE | 2025-08-28 08:21 | PHA.VAN.FU ---
Vancomycin Assessment / Plan
- Assessment
Renal Function: Stable
WBC's are: Trending Down
In the past 24 hrs, patient has been: Afebrile
Concomitant Antimicrobials: MEROPENEM
- Dosing Plan
Continue: VANCO 750MG Q24H
- Monitoring Plan
No level(s) ordered at this time: CONSIDER LEVEL AT STEADY SET
- Follow Up
Pharmacy will continue to follow.
Vancomycin Follow UP
- -
Patient Age: 80
Patient Sex: Female
Vancomycin Day #: 2
Indication: Other
Requesting Provider: DR. MURRAY
Pertinent Antimicrobial Allergies:
PENICILLINS (UNKNOWN)
CLARITHROMYCIN (GI UPSET)
LEVOFLOXACIN (UNKNOWN)
Height / Weight:
Height 5 ft
Actual Weight 58.1 kg
- Vital Signs / Lab Results
Temp Pulse Resp BP Pulse Ox
98.3 F 55 22 101/43 99
08/28/25 08:00 08/28/25 08:00 08/28/25 08:00 08/28/25 08:00 08/28/25 08:00
Lab Results - Hematology
08/25/25 08/26/25 08/27/25
15:45 04:15 04:15
WBC 9.9 17.7 H 13.1 H
08/28/25
03:05
WBC 11.0 H
Lab Results - Chemistry
08/25/25 08/26/25 08/27/25
15:45 01:28 04:15
BUN 24 H 35 H 21 H
Creatinine 1.1 H 0.9 0.7
Estimated Creat Clear 30 37 48
Albumin
08/27/25 08/27/25 08/28/25
13:54 18:45 00:09
BUN 18 H 17 14
Creatinine 0.8 0.8 0.7
Estimated Creat Clear 42 42 48
Albumin 2.5 L
08/28/25
03:05
BUN 14
Creatinine 0.7
Estimated Creat Clear 48
Albumin 2.3 L
08/25/25 08/25/25 08/26/25
15:48 22:56 12:26
Lactic Acid 8.3 H* 1.9 1.3
08/27/25
13:54
Lactic Acid 1.0
Microbiology Results
08/25/25 21:25 Respiratory Culture - Preliminary
Endotracheal Usual Respiratory Khadijah
Gram Stain - Preliminary
08/25/25 21:25 Nasal Screen MRSA (PCR) - Final
Nose MRSA not detected - performed by PCR methodology.
08/25/25 21:25 Legionella Urinary Antigen - Final
Urine Negative for Legionella pneumophila Serogroup 1 antigen.
A negative result does not rule out the possiblity of
Legionella infection due to other serogroups or species of
Legionella. Clinical correlation is recommended.
Streptococcus pneumoniae Antigen (M - Final
Negative for Streptococcus pneumoniae antigen.
A negative result does not exclude infection with
Streptococcus pneumoniae. Clinical correlation is
recommended.
[2025-08-28] MEDS: DIPRIVAN 100 IV (08:35)
[2025-08-28] MEDS: PACERONE 400 MG PO ×2 (08:35→19:58)
[2025-08-28] MEDS: ZETIA 10 MG TUBE (08:35)
[2025-08-28] MEDS: CRESTOR 20 MG TUBE (08:35)
[2025-08-28] MEDS: PLAVIX 75 MG TUBE (08:35)
[2025-08-28] MEDS: NSS (PRESERVATIVE FREE) 10 ML IV ×2 (08:36→19:47)
[2025-08-28] MEDS: PROTONIX IV 40 MG IV ×2 (08:36→19:45)
--- NOTE | 2025-08-28 08:36 | W.PN.INTV ---
Addendum entered and electronically signed by Mariely Montelongo MD 08/28/25 13:41:
SAT/SBT attempted
Patient failed trial and developed desaturation and hypertension. Placed back to Volume AC
- Will attempt again in AM on 08/29
Original Note:
Today's Communication / Plan
Recommendations
- Completed 3 days of Zithromax, discontinue
- MRSA screen negative, discontinue IV vancomycin
- Continue meropenem, follow-up on cultures, chest x-ray in a.m.
- Ongoing goals of care discussion, depending upon discussion with family we will consider starting tube feeding
- Lower FiO2 to 40%, follow-up ABG in a.m
- Switch Protonix to twice a day in view of dropping hematocrit, follow-up labs in a.m.
- 3% NS 100 ml bolus along with Lasix 40 mg IV x 1 stat
- Check urine sodium and osmolality
- Minimize lab draws in view of anemia
- Goals of care discussions. Poor prognosis
Assessment
-
Assessment: 80-year-old female with a past medical history of DM type II, history of pneumonia, depression, anxiety, COPD, chronic HFpEF, aortic stenosis s/p bioprosthetic aortic valve replacement complicated by severe valvular regurgitation s/p
TAVR with snorkel stent of LMCA (01/26/2025), severe MR, history of bladder cancer, nephrolithiasis, TIA and Yarsanism who presents from home due to shortness of breath. On the way here to the hospital she became pale, diaphoretic and
cyanotic. Was 81% on room air and and route received 125 mg Solu-Medrol and a nebulizer treatment. According to chart, she became SOB after eating. Of note, she was recently hospitalized here at from 08/22 - 08/19/2025 due to chest pain +
epigastric discomfort. Troponin was flat x 3 at the time, and echo showed preserved LVEF at 64% with a well-seated Evelyne TAVR with normal gradients, mild - moderate MR with no change compared to prior echo in January 2025. Although there was initial
concern for ACS, the chest pain was then suspected to be nonanginal and was likely from GERD. Heparin drip was stopped and she was sent home on pantoprazole 40 mg once daily. In the ER, she was lethargic, bradycardic and hypotensive. Decision
made to intubate (although at the time she was DNR/DNI, patient initially said that she would be okay with intubation). After intubation, fluid bolus started and propofol temporarily stopped. Initial labs showed normal WBC at 9.9, Hb 11.3,
platelet count 257, creatinine 1.1, lactate 8.3, glucose 416, troponin 2.34, proBNP 3830 and COVID-19 antigen negative. Patient was admitted to the ICU for further care and Machine Leather Trimmer services consulted for additional management/recommendations.
Chronic conditions ENDBAND SIZER: History of pneumonia, DM type II, thyroid disease, sleep disorder, depression, anxiety, COPD with centrilobular emphysema + chronic bronchitis, chronic HFpEF, aortic stenosis s/p bioprosthetic aortic valve replacement c/b
severe valvular regurgitation s/p TAVR with snorkel stent of left main coronary artery (01/26/2025), mitral regurgitation, hypertension, history of bladder cancer, nephrolithiasis, history of TIA, Yarsanism
08/28 overview: Patient currently intubated, mechanically ventilated and sedated. 480/22/50%/5, ABG today 7.30 7/35/146. MAP of 66, currently on Levophed at 7 and vasopressin infusion. Currently off dobutamine. Cardiac index 1.79, PA pressure
reading 28 x 16, mean of 21. CVP of 7. Heart rate 55, currently off amiodarone infusion. Current sedation with propofol. Insulin infusion continued. Scant ET tube secretions. Fluid balance +1 L over last 24 hours. Hemoglobin down to 6.5. No
obvious melena, hematochezia or hematemesis noted.
Assessment and plan:
#1. Acute respiratory failure with hypoxia due to acute decompensated heart failure now on mechanical ventilation (intubated 08/25 in ER)
-FiO2 down to 40%, PEEP of 5.
-Initiate SAT, if tolerates well will initiate spontaneous breathing trial
#2. Acute HFmrEF with ischemic etiology
- CVP normal this morning, x-ray still appears congested
- Additional Lasix 40 mg IV this morning
- SAT/SBT today
- Weaned off dobutamine, currently on vasopressin and Levophed down to 5
#3. NSTEMI with in-stent restenosis of left main snorkel stent
- s/p PCI with ELIZABETH x1 (08/26/2025)
-Off heparin drip now, on dual antiplatelet therapy with ASA and Plavix
#4. Mixed shock with cardiogenic and septic components
- Improving, continue to wean pressors. Mixed venous O2 saturation 63% this morning, cardiac index still below 2
- Concomitant anemia complicates oxygen carrying capacity in the setting of underlying congestive heart failure. Family declines blood transfusion as patient is Yarsanism
- Continue broad-spectrum antibiotics
#5. CAP with bilateral lower lobe opacities
- MRSA screen negative, discontinue IV vancomycin, completed 3 days of azithromycin 500 daily for atypical coverage
- Continue meropenem, follow-up on cultures
- Follow-up chest x-ray and ABG in a.m.
- F/u procalcitonin in AM. Volume overload and compressive atelectasis also in differential diagnosis rather than true pulmonary consolidation
#6. Hyponatremia
- Check urine sodium and osmolality
- Suspect underlying hypervolemic state with congestive heart failure. Give additional Lasix 40 mg IV x 1 along with 3% hypertonic saline 100 mL. Follow-up lab work
#7. Diffuse small bowel wall thickening and wall enhancement suspicious for enteritis vs edematous bowel
-Patient has been on broad-spectrum antibiotics, continue
-Start trickle tube feeding
#8. Acute anemia
-Patient has been on DAPT now and was on heparin infusion previously. No obvious hematochezia, melena or hematemesis noted
-Switch IV Protonix to twice daily empirically.
-Patient is Yarsanism and family declines blood transfusion.
#9. DM type II complicated by hyperglycemia
- Insulin infusion
#10. H/o Bioprosthetic aortic valve with severe valvular regurgitation + severe mitral regurgitation
- s/p TAVR with a snorkel stent of the left main coronary artery (procedure date: 01/26/2025)
#11. History of aspiration of secretions (prior CT in Dec 2024 showed secretions in main stem bronchi on 2 separate imaging procedures - cardiac CT from 01/04/2025 + CT Chest 01/25/2025)
- Currently on Antibiotics
#12. H/O Centrilobular emphysema/moderate COPD (per PFTs from 09/28/2023)
- Scheduled Duoneb
#13. History of TIA
- Currently on DAPT
GOC discussion. 08/28, met with patient's son at bedside. Updated over current clinical condition and the tentative plan for SAT/SBT if tolerated. Await further recommendations from family regarding reintubation if patient develops respiratory
distress postextubation versus more comfort focused approach if patient is unable to be weaned off ventilator. Will continue to update and engage daily
- Maintain euglycemia with goal BG 140-180; HbA1c: 6.2 on 08/26/2025
- Patient is Sikhism, family declines blood tranfusion.
- Stress ulcer ppx: PPI, switched to BID in view of dropping Hb.
- DVT ppx: LMWH
Code status: DNR/DNI
Continue ICU level of care for this critically ill patient.
Critical care statement: A total of 55 minutes of critical care time was provided for this patient today. This includes management of unstable vital signs, evaluation of the patient at bedside, reviewing the patient's pertinent medical records
including radiographs, microbiology, laboratory evaluations, and discussion with primary team, consultants, pharmacy, nutrition, physical therapy, case management, charge nurse, critical care nursing, and respiratory therapy.
Data:
Transthoracic echocardiogram 08/25/2025:
1. Mild to moderately reduced left ventricular systolic function. LVEF 40%.
2. Hypokinesis of the septal wall.
3. Normal right ventricular size and systolic function.
4. Well-seated TAVR with normal gradients (peak/mean 29/15 mmHg).
5. Severe eccentric mitral regurgitation.
6. Moderate to severe tricuspid regurgitation. PASP 56 mmHg.
7. Compared to prior echocardiogram on 08/22/25, there are significant changes. EF is down from 64%. MR/TR have progressed. AV gradients are stable.
CT abdomen/pelvis with IV contrast 08/25/2025:
CT findings are suspicious for an enteritis.
Bilateral lower lobe pulmonary opacities (right greater than left) most compatible with pneumonia, and likely superimposed upon a chronic infectious/inflammatory pulmonary process.
[facility] 08/26/2025:
1. Cariogenic shock with elevated biventricular filling pressures and borderline low cardiac index with high SVR on high dose vasopresors.
2. Obstructive CAD as described with severe ISR of the previously placed left main stent.
3. Successful PCI of the left main via side strut of the existing Snorkle stent with placement of a 3.5x18 mm Ander Muir ELIZABETH post-dilated to high pressure proximally with a 4.0 mm NC balloon.
Subjective Dataa
Subjective Data
Date of Service:
Date of Service: August 28, 2025
Chief Complaint: Machine Leather Trimmer Follow Up
Objective Data
Data Reviewed
Vital Signs / I&O / Oxygen:
Vital Signs
Temp Pulse Resp BP Pulse Ox
98.3 F 58 22 104/40 98
08/28/25 08:00 08/28/25 08:35 08/28/25 08:00 08/28/25 08:35 08/28/25 08:33
Intake and Output
08/27/25 08/28/25 08/29/25
06:59 06:59 06:59
Intake Total 4923.0 / 5119.1 3514.2 / 3611.1 163.8 / 163.8
Output Total 2280 / 2310 2235 / 2260 45 / 45
Balance 2643.0 / 2809.1 1279.2 / 1351.1 118.8 / 118.8
SaO2 [A/C] 99
SaO2 98
Physical Exam
General: Respiratory Distress (negative), Comfortable, Chills (negative), Sweats (negative) and Other (Elderly female, intubated/sedated)
HEENT: Normocephalic, Anicteric, Other (ETT in place) and Other (R-IJ cordis with PAC in place)
Cardiovascular: S1-S2, Regular Rhythm, Rub (negative) and Peripheral Edema (negative)
Respiratory: Wheeze (negative), Crackles (bibasilar rales), Rhonchi (negative), Non-Labored Respirations and ET Tube
GI: Soft, Non Distended, Non Tender and Normal Bowel Sounds
Neurology: Tremors (negative) and Other (Sedated, responds to verbal and tactile stimuli)
Skin: Warm, Dry, Cyanosis (negative) and Jaundice (negative)
Labs/Micro/Reports
Lab Data
08/28/25 03:05
08/28/25 03:05
Laboratory Results
08/27/25 08/28/25
13:54 03:05
pH 7.26 L 7.37
pCO2 40 H 35
pO2 106 146 H
HCO3 17.9 L 20.2 L
O2 Delivery Level
Microbiology
08/25/25 21:25 Endotracheal Respiratory Culture - Preliminary
Usual Respiratory Khadijah
08/25/25 21:25 Endotracheal Gram Stain - Preliminary
08/25/25 21:25 Nose Nasal Screen MRSA (PCR) - Final
MRSA not detected - performed by PCR methodology.
08/25/25 21:25 Urine Legionella Urinary Antigen - Final
Negative for Legionella pneumophila Serogroup 1 antigen.
A negative result does not rule out the possiblity of
Legionella infection due to other serogroups or species of
Legionella. Clinical correlation is recommended.
08/25/25 21:25 Urine Streptococcus pneumoniae Antigen (M - Final
Negative for Streptococcus pneumoniae antigen.
A negative result does not exclude infection with
Streptococcus pneumoniae. Clinical correlation is
recommended.
08/25/25 16:19 Nasal Swab Influenza Types A & B (AMALIA) - Final
Negative for Influenza A & B, NAAT
Negative results must be combined with clinical observations
and patient history.
Nucleic Acid Amplification test (NAAT)performed on the
[employer] platform.
[2025-08-28 08:40] LABS: ACT-LR - POC 300 Seconds (116-155)
[2025-08-28 08:40] LABS: ACT-LR - POC > 397 Seconds (116-155)
[2025-08-28 08:48] LABS: Glucose - Point of Care 117 mg/dl (70-99)
--- NOTE | 2025-08-28 09:36 | PN.DE.MGMTRT ---
Insulin Management
- -
08/28/2025: Diabetes Management Consult
80 year old female with PMH: COPD, chronic HFpEF, aortic stenosis s/p bioprosthetic aortic valve replacement c/b severe valvular regurgitation s/p TAVR with snorkel stent of LMCA (01/26/2025), severe MR, h/o bladder cancer, nephrolithiasis, TIA, h/o
pneumonia, Depression, Anxiety, COPD, and t2dm, Jewish who presents from home due to shortness of breath. On the way here to the hospital she became pale, diaphoretic and cyanotic due to Acute respiratory failure with hypoxia 2/2 acute
decompensated heart failure now on mechanical ventilation (intubated 08/25 in ER), NSTEMI with in-stent restenosis of left main snorkel stent s/p PCI with ELIZABETH x1 (08/26/2025)
Of note, she was recently hospitalized here at from 08/22 - 08/19/2025 due to chest pain + epigastric discomfort. Although there was initial concern for ACS, the chest pain was then suspected to be nonanginal and was likely from GERD.
Per chart review, pt was taking Metformin 500mg BID and Glipizide 5mg @ 5pm. A1C 6.2%, Cr 0.7, eGFR >60.
Patient remains intubated and sedated, unable to interview and no family at bedside.
Currently on Glycemic protocol, glucose 117 to 148, requiring 1.2 to 1.7 units of insulin/hr.
She is NPO with plans to start tube feeds if family agrees, after GOC discussion today.
Will cont glycemic Protocol for now and reassess in AM
Discussed with ICU team and Nurse
Diabetes History
- -
Type of Diabetes: 2 requiring insulin
Pre-Admission Diabetes Regimen
08/27/25 08/27/25 08/28/25
13:54 18:45 00:09
Creatinine 0.8 0.8 0.7
08/28/25
03:05
Creatinine 0.7
Lab Results
Hemoglobin A1c 6.2 % (4.0-5.6) H 08/26/25 04:15
Insulin Pump Settings
IP Diabetes Regimen
08/27/25 08/27/25 08/27/25
10:17 11:05 12:06
Glucose
POC Glucose 100 H 107 H 98
08/27/25 08/27/25 08/27/25
13:18 13:54 15:12
Glucose 172 H
POC Glucose 157 H 190 H
08/27/25 08/27/25 08/27/25
16:07 17:22 18:14
Glucose
POC Glucose 188 H 148 H 110 H
08/27/25 08/27/25 08/27/25
18:45 19:18 20:57
Glucose 107 H
POC Glucose 105 H 118 H
08/27/25 08/28/25 08/28/25
23:09 00:09 01:12
Glucose 137 H
POC Glucose 128 H 135 H
08/28/25 08/28/25 08/28/25
03:04 03:05 05:08
Glucose 135 H
POC Glucose 148 H 129 H
08/28/25 08/28/25
07:13 08:47
Glucose
POC Glucose 147 H 117 H
Patient Education
[2025-08-28] MEDS: LASIX 40 MG IV (09:43)
[2025-08-28] MEDS: KCL 100 IV (09:48)
[2025-08-28] MEDS: SODIUM CHLORIDE 3% 100 IV (09:56)
[2025-08-28 10:57] LABS: Glucose - Point of Care 101 mg/dl (70-99)
--- NOTE | 2025-08-28 11:54 | CM ---
Reviewed chart. Met with family to review discharge plans. He states there is a slight improvement. She is still on the vent. Prior to admission she resides alone in a two story home with four steps to enter. She has a first floor set-up. Prior
to admission she is independent with ambulation accept when she has a back pain then she uses a rolling walker. She has a rolling walker and shower chair at home. She has a prescription plan. She states she has had [facility] in the past. Will
need to see her current functional to see if she will have any skilled care needs. Medical work-up in progress. The discharge plan is undetermined at this time.
--- NOTE | 2025-08-28 12:49 | PTCARENOTE ---
8/5 CPAP wean for 2 hours to be attempted. so far. pulse ox 91% Dr. Montelongo aware. Family at bedside. will continue to monitor.
[2025-08-28 13:08] LABS: Glucose - Point of Care 137 mg/dl (70-99)
--- NOTE | 2025-08-28 13:10 | PTCARENOTE ---
became diaphoretic, tachypneic, BP 160s. pulse ox 85%. Resp placed back on AC on the vent. fan for comfort. and cool rag applied to head. resedated.
--- NOTE | 2025-08-28 14:35 | W.PN.CD ---
Today's Communication / Plan
-
overall positive progress from yesterday
cont. to wean pressors
diuresis based on SGC numbers
minimize sedation, assess for extubation
treatment of hypernatremia per ICU team, s/p 3% NS
anemia without e/o blood loss, Christianity (will not accept blood), cont. to monitor
Impression / Plan
-
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
emergency department with acute respiratory failure following an episode of epigastric discomfort, found to have NSTEMI, new severely reduced EF, and progressive shock. She was taken to the medical laboratory technicians emergently 08/26 with findings of severe ISR of her
LAD stent which was revascularized with DESx1 (stent placed via side struts of the existing Snorkel stent). She has subsequently had slow improvement, with reduced pressor requirement, improved cardiac indices, and improved ejection fraction on
bedside echo. End organ function preserved. Major ongoing issues including hypoxic respiratory failure with likely pneumonia on broad spectrum antibiotics, severe anemia without evidence of bleeding (complicated by Christianity and complete
refusal of blood products in this setting), ongoing vasodilatory shock, and hyponatremia.
Extensive discussions over the past several days with her daughter/POA Kaylyn. Kaylyn states that the patient would like to continue aggressive restorative care, but would not want extreme measures if there was no chance of meaningful recovery.
Primary house calls nurse: Dr. Urbina
Drips: levo 4, vaso 0.3, insulin, fentanyl, propofol, amio OFF, dobutamine OFF
Most recent hemodynamics: CVP 5, PA 20/15, CO/CI 2.90/1.97 SVR 1737 by thermodilution, CI 3.8 by Maggie equation
Shock
- Severe, threat to life. At this point, she has shifted to a more vasodilatory profile, possible 2/2 infection and sedation
- Cont. broad spectrum antibiotics w/ meropenem, s/p vancomycin given negative MRSA swab
- Wean sedation as able
- Titrate norepinephrine to goal systolic BP >90 mmHg. Wean levo first then vaso.
- Critical care team following. Appreciate input.
- Goal CI >2, CVP ~5-10, PAD ~15-20 with IV Lasix prn
Acute hypoxic respiratory failure
- Intubated due to lethargy and being unarousable on CPAP
- Negative for COVID-19 and influenza A/B, MRSA swab negative
- overall, FiO2 improving and P:F>300, failed SBT today but will continue to assess for extubation
NSTEMI
- likely due to global ischemia from severe LM disease and underlying systemic illness (?infection, resp failure)
- s/p PCI with ELIZABETH to L main snorkel stent (severe ISR) on 08/26/25.
- Troponin peaked at 97
- Bedside TTE post PCI: LVEF ~50% up from 30% pre PCI
- Continue aspirin and clopidogrel. Reloaded on 08/26/2025
NSVT/PVCs
- On 08/26, had frequent BP drops in the setting of ectopy. Amio started and this resolved.
- Amio now off given bradycardia with no recurrent NSVT
Epigastric pain
- Occurs after eating with occasional associated vomiting
- CTA/P with enteritis
- IV PPI
Aortic stenosis s/p Evelyne TAVR
- TTE 08/25/2025 showed normal AV gradients with mild AI
Mitral regurgitation, severe
Tricuspid regurgitation, moderate to severe
- re-evaluate with repeat TTE tomorrow now that EF improved, suspect this has significantly improved
COPD, chronic, severe, recent exacerbation
Current smoker, actively trying to wean
CCT: 45 minutes
Subjective: Intubated and sedated; able to wake and follow commands
Telemetry: sinus colby, no ectopy
Physical Exam
Vital Signs/Labs
Vital Signs
Temp Pulse Resp BP Pulse Ox
36.8 C 75 22 88/41 97
08/28/25 14:00 08/28/25 14:00 08/28/25 14:00 08/28/25 14:00 08/28/25 14:00
08/27/25 08/28/25 08/29/25
06:59 06:59 06:59
Actual Weight 56.2 kg 58.1 kg
08/28/25 03:05
08/28/25 03:05
PT Cancelled 08/25/25 18:43
INR Cancelled 08/25/25 18:43
APTT Cancelled 08/26/25 05:02
Magnesium 1.4 mg/dl (1.6-2.3) L 08/28/25 03:05
08/25/25
15:45
Bnu-E-Bhgpythryyv Pept 3830
LAB Results
08/25/25 08/25/25 08/25/25
15:45 18:43 18:45
Troponin I 2.340 H* Cancelled Cancelled
08/25/25 08/26/25 08/26/25
22:10 04:15 08:55
Troponin I 20.000 H* D 58.100 H* D 97.100 H* D
08/27/25
13:54
Troponin I 18.700 H*
Physical Exam
Constitutional: Comfortable
Cardiovascular: Rhythm & rate is regular
Respiratory: Other (intubated)
GI: Soft and Non tender
Neuro/Psych: Other (able to open eyes to command and squeeze with R hand to command)
Other: Cath Site (cdi, no evidence of brusing/bleeding)
Data Reviewed
-
Date of Service: August 28, 2025
Medical Decision Making: Reviewed Test Results
EKG: Tracing Personally Visualized and interpreted
Echo: Tracing Personally Visualized and interpreted
X-Ray/CT/US/MRI/NUC/PET: Image Personally Visualized and interpreted
Medical Tests (PFT, Pathology etc): Image Personally Visualized and interpreted
Labs: Labs Reviewed by me
Critical Care Time (in minutes): 45
--- NOTE | 2025-08-28 15:01 | W.PN.HOSP.TC ---
Today's Communication/Plan
-
see note
Assessment / Plan
Assessment / Plan
#Acute hypoxic respiratory failure
Vent dependent respiratory failure
- failed SBT attempt today
- Currently on propofol and fentanyl for sedation
- Agricultural Scientist following and help appreciated.
#NSTEMI
- status postcardiac catheterization. With severe ISR of her LM stent (but MEGAN 3 flow) s/p new overlapping stent
- currently on asa/plavix. off heparin drip
- cardio following.
#Multifactorial shock
Lactic acidosis
-cardiogenic and septic possibly
-A line /swan darren cath in place for hemodynamic monitoring
-remains on 2 vasopressors, weaning off as possible
# Normocytic anemia
- hbg has drifted down to 6.5 today
- Patient history was witnessed and family has declined blood transfusion
- Not stable for any endoscopic procedure
- With recurrent cardiac status patient remains in guarded position
# Hyponatremia
- 3% saline infusion provided by peeler operator
- f/u Na level
#Leukocytosis
#Possible Community-acquired pneumonia
-Sputum sample preliminary with usual lul. Legionella strep pneumo antigen negative. Blood cultures neg
-on empiric vanvc/merrem. possibly can be de-escalated based on clinical course
#NSVT/PVC
Started on amiodarone per cardiology.
Monitor electrolytes closely.
#Diabetes mellitus type 2
-Continue with critical care glycemic protocol.
-Currently on insulin infusion.
#Hypomagnesemia
-replace prn
Aortic stenosis
status post right transfemoral TAVR 01/26/[address] Alvarez
prior AVR with root enlargement
Chronic mitral regurgitation
Hypothyroidism
Anxiety/depression
GERD-IV PPI
DVT ppx- lovenox sc
CODE STATUS DNR/DNI
Guarded prognosis with ongoing shock/recurring NSTEMI/multiple respiratory failure/new anemia
Agricultural Scientist held goal of care discussion with family on 08/28
Total critical care time 39 mins . Total critical care time documented does not include time spent on separately billed procedures or the services of residents, students, nurses or physician assistants. I personally saw and examined the patient. I
have reviewed all diagnostic interpretations and treatment plans as written. I was present for the lux portions of any procedures performed and the inclusive time noted in any critical care statement. Critical care time includes patient management
by me, time spent at the patients bedside, time to review lab and imaging results, discussing patient care, documentation in the medical record, and time spent with the family or caregiver.
Anticipated Discharge: > 48 hours
Subjective/Interval History
-
Date of Service: August 28, 2025
Remains intubated on pressors
Vent requirement remains stable
A line/central venous cath in place
Hbg dropped overnight, no reported melena/hematochezia
Objective Data
-
Labs:
Laboratory Results
08/28/25
03:05
WBC 11.0 H
Hgb 6.5 L*
Hct 20.3 L*
Plt Count 156
HCO3 20.2 L
Sodium 124 L
Potassium 3.5
Chloride 101
Carbon Dioxide 22
BUN 14
Creatinine 0.7
Glucose 135 H
Calcium 9.0
Total Bilirubin 0.5
AST 97 H
ALT 83 H
Alkaline Phosphatase 87
Vital Signs:
Vital Signs
Temp Pulse Resp BP Pulse Ox
98.3 F 69 22 88/41 97
08/28/25 14:00 08/28/25 15:00 08/28/25 15:00 08/28/25 14:00 08/28/25 14:15
I&O
08/27/25 08/28/25 08/29/25
06:59 06:59 06:59
Intake Total 4923.0 / 5119.1 3514.2 / 3611.1 656.1 / 656.1
Output Total 2280 / 2310 2235 / 2260 1535 / 1535
Balance 2643.0 / 2809.1 1279.2 / 1351.1 -878.9 / -878.9
Review of Systems
-
Unable to obtain full review of systems at this time due to: Patient Intubation
Physical Exam
-
General: Negative Appears in Distress
HEENT: Other (Intubated/ventilated)
Respiratory: Rhonchi
Cardiac: Regular Rhythm and S1/S2; Negative Murmur
GI: Soft, Nontender and Nondistended
Musculoskeletal: No Edema
Neuro: Sedated
[2025-08-28 15:05] LABS: Glucose - Point of Care 95 mg/dl (70-99)
[2025-08-28] MEDS: ZOFRAN 4 MG IV (16:43)
--- NOTE | 2025-08-28 16:48 | PTCARENOTE ---
tube feeding being hung... patient started gagging and vomitting. guzman given and made aware. orders to hold TF for now.
[2025-08-28 16:49] LABS: Glucose - Point of Care 148 mg/dl (70-99)
[2025-08-28] MEDS: LOW STRENGTH ASPIRIN 81 MG TUBE (18:22)
[2025-08-28] MEDS: LOVENOX 40 MG SC (18:28)
[2025-08-28 18:37] LABS: Glucose - Point of Care 153 mg/dl (70-99)
[2025-08-28 19:37] LABS: Glucose - Point of Care 158 mg/dl (70-99)
--- NOTE | 2025-08-28 20:00 | PTCARENOTE ---
Patient received from RN @ 1900. Patient intubated and sedated. Patient arouses to verbal and physical stimuli. Patient moves all extremity. RASS -2. Patient pupils +2mm. SR on monitor. BP 93/38 HR 69. Heart sounds audible. Radial and pedal
pulses present on Doppler. Bilateral +2 pitting hand edema and +1 generalized anasarca noted. POX 99% ETT 7.0/22 @ the lip. Vent settings AC 480/22/5/40%. Minimal blood tinge sputum noted upon suction. Hypoactive bowel sounds noted. NG tube @
58 at right Nare set to low intermittent suction. Danielson draining clear yellow urine. Right groin puncture dressing clean dry and intact. Left femoral arterial line patent and intact. RIJ ayalais w/ swan @48 CVP 5 PAP 18/11 CI 2.57. Right midline
patent and intact. Right PIV patent and intact. Levo, Vaso, Propofol, and Fentanyl infusing as directed. Patient turned using pillows and bed air system. See worklist for more details.
[2025-08-28 21:47] LABS: Glucose - Point of Care 163 mg/dl (70-99)
[2025-08-28] MEDS: SUBLIMAZE 50 MCG IV (23:21)
--- NOTE | 2025-08-28 23:27 | PTCARENOTE ---
Patient reassessed. SR on monitor. BP 113/45 HR 69 POX 98% AC 40% on ventilator. Patient washed w/ CHG. Gown and linens changed. Patient CPOT score 4. Fentanyl bolus given and dose increased per protocol. See MAR and worklist for details.
[2025-08-29] VITALS (23 sets, daily range): BP systolic 86–146; BP diastolic 40–50; BMI 25.3
[2025-08-29 00:16] LABS: Glucose - Point of Care 159 mg/dl (70-99)
[2025-08-29] MEDS: PITRESSIN 100 IV ×2 (00:29→12:01)
[2025-08-29] MEDS: DIPRIVAN 100 IV (01:14)
[2025-08-29] MEDS: MERREM 500 MG IV ×3 (02:00→17:15)
[2025-08-29] MEDS: STERILE WATER FOR INJECTION 10 ML IV ×3 (02:00→17:15)
[2025-08-29 02:17] LABS: Glucose - Point of Care 161 mg/dl (70-99)
[2025-08-29 03:21] LABS: B.E. -6.0 mmol/L; HCO3 19.6 mmol/L (21-28); O2 Saturation % 98.4 % (94-98); PCO2 38 mmHg (32-35); PO2 105 mmHg (83-108)
[2025-08-29 03:22] LABS: O2 Therapy 40%
[2025-08-29 03:26] LABS: Hematocrit 19.5 % (37.0-47.0); Hemoglobin 6.3 g/dL (12.0-16.0); Mean Corp Hgb Conc. 32.3 g/dL (33.0-37.0); Mean Corpuscular Volume 78.9 fL (81.0-99.0); Nucleated Red Blood Cells % 0 %; Platelet Count 113 10^3/uL (130-400); Red Cell Dist. Width 17.8 % (11.5-14.5)
[2025-08-29 03:46] LABS: ALT (SGPT) 55 U/L (0-35); AST (SGOT) 53 U/L (14-36); Albumin 2.5 g/dl (3.5-5.0); Alkaline Phosphatase 100 U/L (38-126); Blood Urea Nitrogen 12 mg/dl (7-17); Calcium 7.9 mg/dl (8.4-10.2); Carbon Dioxide 22 mmol/L (22-30); Chloride 98 mmol/L (98-107); Estimated Creatinine Clearance 48 ml/min; Glucose 143 mg/dl (70-99); Magnesium 2.0 mg/dl (1.6-2.3); Potassium 3.7 mmol/L (3.5-5.1); Sodium 125 mmol/L (135-145); Total Protein 4.5 g/dl (6.3-8.2); Triglycerides 125 mg/dl (10-149); eGFR > 60.00
[2025-08-29 03:50] LABS: Procalcitonin 0.87 ng/ml (0.0-0.25)
--- NOTE | 2025-08-29 03:56 | PTCARENOTE ---
Labs obtained. Hgb 6.3 Hct 19.5 BRASS CUTTER John notified.
[2025-08-29 04:25] LABS: Glucose - Point of Care 155 mg/dl (70-99)
[2025-08-29] MEDS: KCL 50 IV (04:25)
[2025-08-29] MEDS: SODIUM BICARBONATE 50 MEQ IV ×2 (04:25→04:29)
[2025-08-29] MEDS: CALCIUM GLUCONATE 130 MG IV (04:50)
[2025-08-29] MEDS: SUBLIMAZE 50 MCG IV ×6 (05:59→22:13)
[2025-08-29] MEDS: SYNTHROID 50 MCG TUBE (06:16)
--- NOTE | 2025-08-29 06:22 | PTCARENOTE ---
Patient reassessed. Patient fighting ventilator. CPOT 5 and RASS +2. Fentanyl bolus given and drip increased for CPOT per protocol. Propofol drip increased for RASS per protocol. See worklist and MAR for more details.
[2025-08-29] MEDS: DUONEB 3 ML INH ×4 (07:21→19:44)
[2025-08-29] MEDS: FLOVENT 110 MCG INHALER 4 PUFF INH ×2 (07:21→19:44)
--- NOTE | 2025-08-29 08:00 | PTCARENOTE ---
pt received from previous RN, sedated on propofol and Fentanyl gtts, CPOT 0, RASS -2. able to follow commands, nods appropriately, CHOWDARY. SR on the monitor w/ occasional PVCs. HR 60s-70s. SBP 100s, Levophed and Vasopressin gtts running as ordered. PAP
20-30s/10s, CVP ~10, CI >2. Doppler pulses, +1 generalized edema. pt mechanically ventilated, ETT #7.0, 22cm@lip. AC 22, TV 480, PEEP 5, FIO2 40%. 97-100% POX. coarse, suctioned for thick xavier blood tinged secretions. pt abdomen s/n, hypoactive BS.
NPO. R nare NGT in place, low intermittent suction, verified by audible air injection. Danielson in place, clear yellow urine. R groin dressing c/d/i. RIJ cordis/swan maintained. L femoral A-line flushed, zeroed, and calibrated. RUE Midline in place.
PIV. Dr. Montelongo aware of am labs. see worklist for VS, I&O, and assessment.
[2025-08-29 08:17] LABS: Glucose - Point of Care 144 mg/dl (70-99)
--- NOTE | 2025-08-29 08:22 | W.PN.INTV ---
Today's Communication / Plan
Recommendations
- Start Precedex, wean fentanyl and propofol, initiate SAT/SBT
- If patient is not extubated today, will initiate tube feeding
- Additional Lasix 40 mg along with 100 mL of 3% sodium chloride
- Serial labs
- Follow-up chest x-ray and ABG in a.m.
Assessment
-
Assessment: 80-year-old female with a past medical history of DM type II, history of pneumonia, depression, anxiety, COPD, chronic HFpEF, aortic stenosis s/p bioprosthetic aortic valve replacement complicated by severe valvular regurgitation s/p
TAVR with snorkel stent of LMCA (01/26/2025), severe MR, history of bladder cancer, nephrolithiasis, TIA and Latter-day who presents from home due to shortness of breath. On the way here to the hospital she became pale, diaphoretic and
cyanotic. Was 81% on room air and and route received 125 mg Solu-Medrol and a nebulizer treatment. According to chart, she became SOB after eating. Of note, she was recently hospitalized here at from 08/22 - 08/19/2025 due to chest pain +
epigastric discomfort. Troponin was flat x 3 at the time, and echo showed preserved LVEF at 64% with a well-seated Evelyne TAVR with normal gradients, mild - moderate MR with no change compared to prior echo in January 2025. Although there was initial
concern for ACS, the chest pain was then suspected to be nonanginal and was likely from GERD. Heparin drip was stopped and she was sent home on pantoprazole 40 mg once daily. In the ER, she was lethargic, bradycardic and hypotensive. Decision
made to intubate (although at the time she was DNR/DNI, patient initially said that she would be okay with intubation). After intubation, fluid bolus started and propofol temporarily stopped. Initial labs showed normal WBC at 9.9, Hb 11.3,
platelet count 257, creatinine 1.1, lactate 8.3, glucose 416, troponin 2.34, proBNP 3830 and COVID-19 antigen negative. Patient was admitted to the ICU for further care and Foiling Machine Operator services consulted for additional management/recommendations.
Chronic conditions COLOR CONSULTANT: History of pneumonia, DM type II, thyroid disease, sleep disorder, depression, anxiety, COPD with centrilobular emphysema + chronic bronchitis, chronic HFpEF, aortic stenosis s/p bioprosthetic aortic valve replacement c/b
severe valvular regurgitation s/p TAVR with snorkel stent of left main coronary artery (01/26/2025), mitral regurgitation, hypertension, history of bladder cancer, nephrolithiasis, history of TIA, Latter-day
08/29 overview: Patient currently intubated, mechanically ventilated and sedated. 480/22/40%/5, ABG today 7.32/38/105. MAP of 73, currently on Levophed at 2 and vasopressin infusion at 0.03. Currently off dobutamine. PA pressure reading 36/22,
mean of 28. CVP of 10. Currently off amiodarone infusion. Current sedation with propofol and Fentanyl. Insulin infusion off now. Scant ET tube secretions. Fluid balance -1.2 L over last 24 hours. Hemoglobin down to 6.3. No obvious melena,
hematochezia or hematemesis noted.
Assessment and plan:
#1. Acute respiratory failure with hypoxia due to acute decompensated heart failure now on mechanical ventilation (intubated 08/25 in ER)
-FiO2 down to 40%, PEEP of 5.
-Start Precedex, wean Propofol/Fentanyl, trial of SAT/SBT.
#2. Acute HFmrEF with ischemic etiology
- CVP around 10, x-ray still appears congested
- Additional Lasix 40 mg IV this morning, in negative fluid balance over last 24 hrs
- SAT/SBT today
- Weaned off dobutamine, currently on vasopressin and Levophed down to 2
#3. NSTEMI with in-stent restenosis of left main snorkel stent
- S/p PCI with ELIZABETH x1 (08/26/2025)
-Off heparin drip now, on dual antiplatelet therapy with ASA and Plavix
#4. Mixed shock with cardiogenic and septic components
- Improving, continue to wean pressors.
- Concomitant anemia complicates oxygen carrying capacity in the setting of underlying congestive heart failure. Family declines blood transfusion as patient is Latter-day
- Continue broad-spectrum antibiotics
#5. CAP with bilateral lower lobe opacities
- MRSA screen negative, discontinued IV vancomycin, completed 3 days of azithromycin 500 daily for atypical coverage
- Continue meropenem, follow-up on cultures
- Follow-up chest x-ray and ABG in a.m.
- Procalcitonin is elevated. Continue Meropenem.
#6. Hyponatremia
- Urine sodium and osmolality elevated, suggestive of SIADH. However patient has been intermittently receiving Lasix which will confound interpretation.
- Suspect underlying hypervolemic state with congestive heart failure as primary etiology. Give additional Lasix 40 mg IV x 1 along with 3% hypertonic saline 100 mL. Follow-up lab work
#7. Diffuse small bowel wall thickening and wall enhancement suspicious for enteritis vs edematous bowel
-Patient has been on broad-spectrum antibiotics, continue
-Start trickle tube feeding if unable to extubate today. Patient developed vomiting on 08/28 hence tube feeding was not started.
#8. Acute anemia
-Patient has been on DAPT now and was on heparin infusion previously. No obvious hematochezia, melena or hematemesis noted
-Switched IV Protonix to twice daily empirically.
-Patient is Latter-day and family declined blood transfusion.
#9. DM type II complicated by hyperglycemia
- Insulin infusion has been weaned off.
#10. H/o Bioprosthetic aortic valve with severe valvular regurgitation + severe mitral regurgitation
- s/p TAVR with a snorkel stent of the left main coronary artery (procedure date: 01/26/2025)
#11. History of aspiration of secretions (prior CT in Dec 2024 showed secretions in main stem bronchi on 2 separate imaging procedures - cardiac CT from 01/04/2025 + CT Chest 01/25/2025)
- Currently on Antibiotics
#12. H/O Centrilobular emphysema/moderate COPD (per PFTs from 09/28/2023)
- Scheduled Duoneb
#13. History of TIA
- Currently on DAPT
GOC discussion. 08/28, met with patient's son at bedside. Updated over current clinical condition and the tentative plan for SAT/SBT if tolerated. Await further recommendations from family regarding reintubation if patient develops respiratory
distress postextubation versus more comfort focused approach if patient is unable to be weaned off ventilator. Will continue to update and engage daily
- Maintain euglycemia with goal BG 140-180; HbA1c: 6.2 on 08/26/2025
- Patient is Catholic, family declines blood tranfusion.
- Stress ulcer ppx: PPI, switched to BID in view of dropping Hb.
- DVT ppx: LMWH
Code status: DNR/DNI
Continue ICU level of care for this critically ill patient.
Critical care statement: A total of 48 minutes of critical care time was provided for this patient today. This includes management of unstable vital signs, evaluation of the patient at bedside, reviewing the patient's pertinent medical records
including radiographs, microbiology, laboratory evaluations, and discussion with primary team, consultants, pharmacy, nutrition, physical therapy, case management, charge nurse, critical care nursing, and respiratory therapy.
Data:
Transthoracic echocardiogram 08/25/2025:
1. Mild to moderately reduced left ventricular systolic function. LVEF 40%.
2. Hypokinesis of the septal wall.
3. Normal right ventricular size and systolic function.
4. Well-seated TAVR with normal gradients (peak/mean 29/15 mmHg).
5. Severe eccentric mitral regurgitation.
6. Moderate to severe tricuspid regurgitation. PASP 56 mmHg.
7. Compared to prior echocardiogram on 08/22/25, there are significant changes. EF is down from 64%. MR/TR have progressed. AV gradients are stable.
CT abdomen/pelvis with IV contrast 08/25/2025:
CT findings are suspicious for an enteritis.
Bilateral lower lobe pulmonary opacities (right greater than left) most compatible with pneumonia, and likely superimposed upon a chronic infectious/inflammatory pulmonary process.
[facility] 08/26/2025:
1. Cariogenic shock with elevated biventricular filling pressures and borderline low cardiac index with high SVR on high dose vasopresors.
2. Obstructive CAD as described with severe ISR of the previously placed left main stent.
3. Successful PCI of the left main via side strut of the existing Snorkle stent with placement of a 3.5x18 mm Ander Trent ELIZABETH post-dilated to high pressure proximally with a 4.0 mm NC balloon.
Subjective Dataa
Subjective Data
Date of Service:
Date of Service: August 29, 2025
Chief Complaint: Foiling Machine Operator Follow Up
Subjective:
Patient currently intubated, mechanically ventilated and sedated.
Review of Systems
General: Unobtainable - Sedation
Objective Data
Data Reviewed
Vital Signs / I&O / Oxygen:
Vital Signs
Temp Pulse Resp BP Pulse Ox
97.8 F 71 22 102/44 98
08/29/25 08:00 08/29/25 08:08 08/29/25 08:08 08/29/25 08:00 08/29/25 08:08
Intake and Output
08/28/25 08/29/25 08/30/25
06:59 06:59 06:59
Intake Total 3514.2 / 3611.1 1291.8 / 1363.5 143.4 / 143.4
Output Total 2235 / 2260 2485 / 2485 60 / 60
Balance 1279.2 / 1351.1 -1193.2 / -1121.5 83.4 / 83.4
SaO2 [P-A/C] 94
SaO2 [A/C] 99
SaO2 98
Physical Exam
General: Respiratory Distress (negative), Comfortable, Chills (negative), Sweats (negative) and Other (Elderly female, intubated/sedated)
HEENT: Normocephalic, Anicteric, Other (ETT in place) and Other (R-IJ cordis with PAC in place)
Cardiovascular: S1-S2, Regular Rhythm, Rub (negative) and Peripheral Edema (upper extremities 1+, none on lower extremities. )
Respiratory: Wheeze (negative), Crackles (bibasilar rales), Rhonchi (negative), Non-Labored Respirations and ET Tube
GI: Soft, Non Distended, Non Tender and Normal Bowel Sounds
Neurology: Tremors (negative) and Other (Sedated, responds to verbal and tactile stimuli)
Skin: Warm, Dry, Cyanosis (negative) and Jaundice (negative)
Labs/Micro/Reports
Lab Data
08/29/25 03:06
08/29/25 03:05
Laboratory Results
08/29/25
03:06
pH 7.32 L
pCO2 38 H
pO2 105
HCO3 19.6 L
O2 Delivery Level 40%
Microbiology
08/25/25 21:25 Endotracheal Respiratory Culture - Final
Usual Respiratory Khadijah
08/25/25 21:25 Endotracheal Gram Stain - Final
08/27/25 09:27 Blood/Venous Blood Culture - Preliminary
No Growth in 24 hours- Final report to follow
08/27/25 09:03 Blood/Venous Blood Culture - Preliminary
No Growth in 24 hours- Final report to follow
08/25/25 21:25 Nose Nasal Screen MRSA (PCR) - Final
MRSA not detected - performed by PCR methodology.
08/25/25 21:25 Urine Legionella Urinary Antigen - Final
Negative for Legionella pneumophila Serogroup 1 antigen.
A negative result does not rule out the possiblity of
Legionella infection due to other serogroups or species of
Legionella. Clinical correlation is recommended.
08/25/25 21:25 Urine Streptococcus pneumoniae Antigen (M - Final
Negative for Streptococcus pneumoniae antigen.
A negative result does not exclude infection with
Streptococcus pneumoniae. Clinical correlation is
recommended.
[2025-08-29] MEDS: PRECEDEX 100 IV ×2 (08:28→17:54)
--- NOTE | 2025-08-29 08:31 | W.PN.CD ---
Today's Communication / Plan
-
remove swan
reattempt SBT
Impression / Plan
-
I/P: 80F with past medical history significant for severe COPD, CAD (NEEDLE GRINDER RCA), HFrecEF, and severe s/p bioprosthetic SAVR (#21 MitraFlow) c/b bioprosthetic valve failure s/p Evelyne TAVR with S20 and Snorkel stent of left main, presented to the
emergency department with acute respiratory failure following an episode of epigastric discomfort, found to have NSTEMI, new severely reduced EF, and progressive shock. She was taken to the manager laboratory emergently 08/26 with findings of severe ISR of her
LAD stent which was revascularized with DESx1 (stent placed via side struts of the existing Snorkel stent). She has subsequently had slow improvement, with reduced pressor requirement, improved cardiac indices, and improved ejection fraction on
bedside echo. End organ function preserved. Major ongoing issues including hypoxic respiratory failure with likely pneumonia on broad spectrum antibiotics, severe anemia without evidence of bleeding (complicated by Cheondoism and complete
refusal of blood products in this setting), ongoing vasodilatory shock, and hyponatremia.
Extensive discussions over the past several days with her daughter/KISHOR Patiño. Kaylyn states that the patient would like to continue aggressive restorative care, but would not want extreme measures if there was no chance of meaningful recovery.
Patient failed SBP yesterday. Still on minimal settings, minimal pressors. Will try SBT again today.
Primary corporate planning manager: Dr. Urbina
Drips: levo 2, vaso 0.3, insulin, fentanyl, propofol, amio OFF, dobutamine OFF
Shock
- Severe, threat to life. At this point, she has shifted to a more vasodilatory profile, possible 2/2 infection and sedation
- Cont. broad spectrum antibiotics w/ meropenem, s/p vancomycin given negative MRSA swab
- Wean sedation as able, transition to precedex in anticipation of SBT
- Titrate norepinephrine to goal systolic BP >90 mmHg. Wean levo first then vaso.
- Critical care team following. Appreciate input.
- cardiogenic shock resolved, pull swan, leave cordis, goal CVP 5-10
Acute hypoxic respiratory failure
- Intubated due to lethargy and being unarousable on CPAP
- Negative for COVID-19 and influenza A/B, MRSA swab negative
- overall, FiO2 improving and P:F>300, failed SBT yesterday, will reattempt today
Anemia
- likely combination of mild blood loss from cath, dilutional, and critical illness
- no s/s bleeding
- finally starting to donald at 6.3 (from 6.5 yesterday)
- per daughter patient would rather than get blood products
- outpatient will benefit from IV iron infusion
NSTEMI
- likely due to global ischemia from severe LM disease and underlying systemic illness (?infection, resp failure)
- s/p PCI with ELIZABETH to L main snorkel stent (severe ISR) on 08/26/25.
- Troponin peaked at 97
- Bedside TTE post PCI: LVEF ~50% up from 30% pre PCI
- Continue aspirin and clopidogrel. Reloaded on 08/26/2025
NSVT/PVCs
- On 08/26, had frequent BP drops in the setting of ectopy. Amio started and this resolved.
- Amio now off given bradycardia with no recurrent NSVT
Epigastric pain
- Occurs after eating with occasional associated vomiting
- CTA/P with enteritis
- IV PPI
Aortic stenosis s/p Evelyne TAVR
- TTE 08/25/2025 showed normal AV gradients with mild AI
Mitral regurgitation, severe
Tricuspid regurgitation, moderate to severe
- re-evaluate with repeat TTE tomorrow now that EF improved, suspect this has significantly improved
COPD, chronic, severe, recent exacerbation
Current smoker, actively trying to wean
CCT: 35 minutes
Subjective: Intubated and sedated; able to wake and follow commands
Telemetry: sinus colby, no ectopy
Physical Exam
Vital Signs/Labs
Vital Signs
Temp Pulse Resp BP Pulse Ox
36.6 C 71 22 102/44 98
08/29/25 08:00 08/29/25 08:08 08/29/25 08:08 08/29/25 08:00 08/29/25 08:08
08/28/25 08/29/25 08/30/25
06:59 06:59 06:59
Actual Weight 58.1 kg 58.7 kg
08/29/25 03:06
08/29/25 03:05
PT Cancelled 08/25/25 18:43
INR Cancelled 08/25/25 18:43
APTT Cancelled 08/26/25 05:02
Magnesium 2.0 mg/dl (1.6-2.3) 08/29/25 03:05
Triglycerides 125 mg/dl (10-149) 08/29/25 03:05
08/25/25
15:45
Gpe-X-Hytsldmynot Pept 3830
LAB Results
08/26/25 08/27/25
08:55 13:54
Troponin I 97.100 H* D 18.700 H*
Physical Exam
Constitutional: Comfortable
Cardiovascular: Rhythm & rate is regular
Respiratory: Other (intubated)
Neuro/Psych: Other (follow commands to voice)
Data Reviewed
-
Date of Service: August 29, 2025
Medical Decision Making: Reviewed Test Results
X-Ray/CT/US/MRI/NUC/PET: Image Personally Visualized and interpreted
Labs: Labs Reviewed by me
Critical Care Time (in minutes): 35
[2025-08-29] MEDS: PROTONIX IV 40 MG IV ×2 (08:32→19:49)
[2025-08-29] MEDS: NSS (PRESERVATIVE FREE) 10 ML IV ×2 (08:32→19:49)
[2025-08-29] MEDS: ZETIA 10 MG TUBE (08:39)
[2025-08-29] MEDS: PLAVIX 75 MG TUBE (08:39)
[2025-08-29] MEDS: CRESTOR 20 MG TUBE (08:39)
[2025-08-29] MEDS: PACERONE 400 MG PO (08:39)
--- NOTE | 2025-08-29 08:41 | PN.DE.MGMTRT ---
Insulin Management
- -
08/29/2025: Diabetes Management Consult Follow up
80 year old female with PMH: COPD, chronic HFpEF, aortic stenosis s/p bioprosthetic aortic valve replacement c/b severe valvular regurgitation s/p TAVR with snorkel stent of LMCA (01/26/2025), severe MR, h/o bladder cancer, nephrolithiasis, TIA, h/o
pneumonia, Depression, Anxiety, COPD, and t2dm, Methodist who presents from home due to shortness of breath. On the way here to the hospital she became pale, diaphoretic and cyanotic due to Acute respiratory failure with hypoxia 2/2 acute
decompensated heart failure now on mechanical ventilation (intubated 08/25 in ER), NSTEMI with in-stent restenosis of left main snorkel stent s/p PCI with ELIZABETH x1 (08/26/2025)
Of note, she was recently hospitalized here at from 08/22 - 08/23/2025 due to chest pain + epigastric discomfort. Although there was initial concern for ACS, the chest pain was then suspected to be nonanginal and was likely from GERD.
Per chart review, pt was taking Metformin 500mg BID and Glipizide 5mg @ 5pm. A1C 6.2%, Cr 0.7, eGFR >60.
Patient remains intubated and sedated, unable to interview and no family at bedside.
Glycemic protocol has been stopped as no insulin required since 1500 yesterday.
She is NPO with plans to start tube feeds.
Discussed with Nurse.
Will follow.
Diabetes History
- -
Type of Diabetes: 2
Pre-Admission Diabetes Regimen
08/29/25
03:05
Creatinine 0.7
Lab Results
Hemoglobin A1c 6.2 % (4.0-5.6) H 08/26/25 04:15
Insulin Pump Settings
IP Diabetes Regimen
08/28/25 08/28/25 08/28/25
08:47 10:57 13:07
Glucose
POC Glucose 117 H 101 H 137 H
08/28/25 08/28/25 08/28/25
15:03 16:47 18:35
Glucose
POC Glucose 95 148 H 153 H
08/28/25 08/28/25 08/29/25
19:35 21:46 00:14
Glucose
POC Glucose 158 H 163 H 159 H
08/29/25 08/29/25 08/29/25
02:15 03:05 04:23
Glucose 143 H
POC Glucose 161 H 155 H
08/29/25
08:15
Glucose
POC Glucose 144 H
Patient Education
[2025-08-29] MEDS: LASIX 40 MG IV ×2 (09:19→17:14)
[2025-08-29] MEDS: SODIUM CHLORIDE 3% 100 IV (09:19)
--- NOTE | 2025-08-29 09:39 | W.PN.HOSP.TC ---
Today's Communication/Plan
-
see note
Assessment / Plan
Assessment / Plan
#Acute hypoxic respiratory failure
Vent dependent respiratory failure
- failed SBT attempt yesterday, repeat attempt today
- sedation managed by denture finisher, changed to precedex
- Electrical Inspector following and help appreciated.
#NSTEMI
- status postcardiac catheterization. With severe ISR of her LM stent (but EMGAN 3 flow) s/p new overlapping stent
- TTE 08/25 EF 40%, Well seated TAVR, Sev MR, mod-sev TR,
- currently on asa/plavix. off heparin drip
- cardio following.
#Multifactorial shock
Lactic acidosis
-cardiogenic and septic possibly
-A line /swan darren cath in place for hemodynamic monitoring
-remains on 2 vasopressors, weaning off as possible
# Normocytic anemia
- hbg has drifted down to 6.2 today
- Patient history was witnessed and family has declined blood transfusion
- Not stable for any endoscopic procedure
- Hematology consultation requested for further help, will consider EPO/iron infusion
- With recurrent cardiac status patient remains in guarded position
# Hyponatremia - persistent
- 3% saline infusion provided by denture finisher, getting repeat dose
- getting lasix as well
- Likely driven by ADH excess from blood loss/HF
- f/u Na level
#Leukocytosis
#Possible Community-acquired pneumonia
-Sputum sample preliminary with usual lul. Legionella strep pneumo antigen negative. Blood cultures neg
-on empiric vanvc/merrem. possibly can be de-escalated based on clinical course
#NSVT/PVC
Started on amiodarone per cardiology.
Monitor electrolytes closely.
#Diabetes mellitus type 2
-Continue with critical care glycemic protocol.
-Currently on insulin infusion.
#Hypomagnesemia
-replace prn
#Thrombocytopenia
- remains above 100k
Aortic stenosis
status post right transfemoral TAVR 01/26/[address] Alvarez
prior AVR with root enlargement
Chronic mitral regurgitation
Hypothyroidism
Anxiety/depression
GERD-IV PPI
DVT ppx- lovenox sc
CODE STATUS DNR/DNI
Guarded prognosis with ongoing shock/recurring NSTEMI/multiple respiratory failure/new anemia
Electrical Inspector held goal of care discussion with family on 08/28
Discussed with hematology/denture finisher care plan
Total critical care time 42 mins . Total critical care time documented does not include time spent on separately billed procedures or the services of residents, students, nurses or physician assistants. I personally saw and examined the patient. I
have reviewed all diagnostic interpretations and treatment plans as written. I was present for the lux portions of any procedures performed and the inclusive time noted in any critical care statement. Critical care time includes patient management
by me, time spent at the patients bedside, time to review lab and imaging results, discussing patient care, documentation in the medical record, and time spent with the family or caregiver.
Anticipated Discharge: > 48 hours
Subjective/Interval History
-
Date of Service: August 29, 2025
Patient remains intubated on small dose of vasopressors
no reported acute issues overnight
no reported melena/blood in stool
Objective Data
-
Labs:
Laboratory Results
08/29/25 08/29/25
03:05 03:06
WBC 9.2
Hgb 6.3 L*
Hct 19.5 L*
Plt Count 113 L D
HCO3 19.6 L
Sodium 125 L
Potassium 3.7
Chloride 98
Carbon Dioxide 22
BUN 12
Creatinine 0.7
Glucose 143 H
Calcium 7.9 L
Total Bilirubin 0.5
AST 53 H
ALT 55 H
Alkaline Phosphatase 100
Vital Signs:
Vital Signs
Temp Pulse Resp BP Pulse Ox
98.4 F 77 29 100/40 97
08/29/25 09:00 08/29/25 09:00 08/29/25 09:00 08/29/25 09:19 08/29/25 09:00
I&O
08/28/25 08/29/25 08/30/25
06:59 06:59 06:59
Intake Total 3514.2 / 3611.1 1291.8 / 1363.5 183.6 / 183.6
Output Total 2235 / 2260 2485 / 2485 90 / 90
Balance 1279.2 / 1351.1 -1193.2 / -1121.5 93.6 / 93.6
Review of Systems
-
Unable to obtain full review of systems at this time due to: Patient Intubation
Physical Exam
-
General: Negative Appears in Distress
HEENT: Other (Intubated/ventilated)
Respiratory: Rhonchi
Cardiac: Regular Rhythm and S1/S2; Negative Murmur
GI: Soft, Nontender and Nondistended
Musculoskeletal: No Edema
Neuro: Sedated
[2025-08-29 09:44] LABS: Ferritin 27.5 ng/ml (11.1-264.0)
--- NOTE | 2025-08-29 09:45 | CON.ONC ---
Consultation
-
Date Consultation Requested: 08/29/25
Date Consultation Performed: 08/29/25
Requesting Provider: Dr Norma Lopez
Performing Provider: Dr Stefanie Caraballo
Reason for Consultation: Anemia, Methodist
Impression
Impression
Anemia - refuses blood products/Cheondoism
Iron def w/ ferritin 27
VDRF
NSETMI
decompensated HF
CAP
Plan
Plan
Will start IV iron
Would not start EPO for now in light of NSTEMI
Minimize blood draws, and use pediatric collection tubes if possible
B12/folate normal
Patient History
History of Present Illness
This is a 80-year-old female with past medical history of coronary artery disease, aortic stenosis, chronic heart failure, hypertension, diabetes, COPD with thyroidism, and anxiety and depression presented to the emergency room on August 25,
2024, complaining of acute onset shortness of breath after eating. She had been hospitalized the week prior with similar symptoms, which were thought secondary to reflux and gastritis as they improved with PPI and Maalox. Upon admission this time,
she was hypoxic and diaphoretic with altered mental status. She was bradycardic and hypotensive and was intubated in the ER. She was found to have rising troponins and required pressor support in the ICU. She underwent left and right heart
catheterization. Findings were consistent with cardiogenic shock with low cardiac index. She was found to have obstructive coronary artery disease with severe in-stent restenosis of the previously placed left main stent. She underwent successful
PCI of the left main. She was started on dual antiplatelet therapy and heparin was discontinued. She was started on inotropes in addition to vasopressor support.
Hemoglobin at admission was 11.3, but has trended down, currently 6.3 with an MCV of 78.9. White blood cell count is 9.2 and platelet count is 113. Renal function is normal with a creatinine of 0.7. Ferritin is only 27.5. B12 and folic acid
levels are normal.
She is a [employer] and refuses blood products.
No obvious bleeding.
Past-Medical/Surgical History
Past medical history is as per the HPI, also includes a history of bladder cancer, previously treated with TURBT. She has a history of TAVR, aortic valve replacement, and left foot surgery.
Social history she is a current everyday smoker. She drinks alcohol occasionally.
Family history is noncontributory.
Patient Medication
�Medication �Instructions �Recorded �Confirmed �Last Taken �Type
aspirin 81 mg tablet,delayed 81 mg PO QPM Blood Clot 05/20/23 08/25/25 08/21/25 20:00 History
release Prevention/Tx
metformin 500 mg tablet 500 mg PO QPM Diabetes 05/20/23 08/25/25 08/21/25 18:00 History
rosuvastatin 20 mg tablet (Crestor) 20 mg PO Daily High Cholesterol 05/20/23 08/25/25 08/22/25 08:00 History
sertraline 100 mg tablet 100 mg PO DAILY Mental 05/20/23 08/25/25 08/22/25 08:00 History
Health/Anxiety
vitamin B complex 1 cap PO DAILY Supplement 05/20/23 08/25/25 08/22/25 08:00 History
ezetimibe 10 mg tablet 10 mg PO DAILY High Cholesterol 12/15/24 08/25/25 08/21/25 16:00 History
fluticasone fur. 100 mcg-umeclid 1 inh inhalation HS Lung/Breathing 12/15/24 08/25/25 08/22/25 08:00 History
62.5 mcg-vilant 25 mcg Issues
inhalat.powder (Trelegy Ellipta)
levothyroxine 50 mcg tablet 50 mcg PO DAILY@0600 Thyroid 12/15/24 08/25/25 08/22/25 06:00 History
glipizide 5 mg tablet, extended 5 mg PO QPM Diabetes 01/16/25 08/25/25 08/21/25 16:00 History
release 24 hr
metoprolol succinate 25 mg 25 mg PO DAILY Heart 01/16/25 08/25/25 08/22/25 08:00 History
tablet,extended release 24 hr Disease/Condition
(Toprol XL)
turmeric 1 tab PO DAILY Supplement 01/16/25 08/25/25 08/21/25 16:00 History
nicotine 21 mg/24 hr daily 21 mg transdermal DAILY Smoking 01/30/25 08/25/25 08/21/25 08:00 Rx
transdermal patch cessation #30 ea
albuterol sulfate 90 mcg/actuation 2 puff inhalation Q6HPRN PRN 08/22/25 08/25/25 08/21/25 20:00 History
aerosol inhaler SHORTNESS OF BREATH
berberine chloride 500 mg capsule 500 mg PO DAILY Supplement 08/22/25 08/25/25 08/21/25 16:00 History
cinnamon bark 500 mg capsule 500 mg PO DAILY Supplement 08/22/25 08/25/25 08/21/25 16:00 History
(Cinnamon)
clopidogrel 75 mg tablet 75 mg PO DAILY Blood Clot 08/22/25 08/25/25 08/22/25 09:00 History
Prevention/Tx
vit C 250 mg-vit E 90 mg-zinc 40 1 tab PO BID Supplement 08/22/25 08/25/25 08/22/25 08:00 History
mg-copper 1 [id number]
capsule (PreserVision AREDS-2)
famotidine 40 mg tablet (Pepcid) 40 mg PO BID Gastrointestinal 08/23/25 08/25/25 Unknown Rx
Issue 30 days #60 tabs
pantoprazole 40 mg tablet,delayed 40 mg PO DAILY #30 tabs 08/23/25 08/25/25 Unknown Rx
release (Protonix)
Active Medications
Generic Name Dose Route Start Last Admin
Trade Name Freq PRN Reason Stop Dose Admin
Albuterol 2 puff 08/25/25 18:43
Albuterol Hfa [90 Mcg/Dose] Inhaler INH
R Q6HPRN PRN
SHORTNESS OF BREATH
Protocol
Albuterol/Ipratropium 3 ml 08/28/25 08:00 08/29/25 07:21
Ipratropium 0.5/Albuterol 3 Mg (3 Ml Ampul) INH 3 ml
R QID SHAR Administration
Protocol
Amiodarone HCl 400 mg 08/27/25 20:00 08/29/25 08:39
Amiodarone 200 Mg Tablet PO 09/24/25 19:59 400 mg
BID SHAR Administration
Aspirin 81 mg 08/25/25 19:00 08/28/25 18:22
Aspirin 81 Mg Chewable Tablet TUBE 09/22/25 18:59 81 mg
QPM SHAR Administration
Clopidogrel Bisulfate 75 mg 08/26/25 08:00 08/29/25 08:39
Clopidogrel 75 Mg Tablet TUBE 09/23/25 07:59 75 mg
DAILY SHAR Administration
Dextrose 12.5 grams 08/27/25 00:57
Dextrose 50% (0.5 Grams/Ml) 50 Ml Syringe IV 09/24/25 00:56
[id number] PRN
Blood Glucose < 70
Ezetimibe 10 mg 08/26/25 08:00 08/29/25 08:39
Ezetimibe (Zetia) 10 Mg Tablet TUBE 09/23/25 07:59 10 mg
DAILY SHAR Administration
Enoxaparin Sodium 40 mg 08/27/25 18:00 08/28/25 18:28
Enoxaparin Sodium 40 Mg/0.4 Ml Syringe SC 09/24/25 17:59 40 mg
QPM SHAR Administration
Fentanyl Citrate 50 mcg 08/25/25 16:00 08/29/25 05:59
Fentanyl (50 Mcg/Ml) 100 Mcg/2 Ml Ampul IV 09/08/25 15:59 50 mcg
[id number] PRN Administration
see protocol
Protocol
Fluticasone Propionate 4 puff 08/25/25 20:00 08/29/25 07:21
Fluticasone 110mcg Inhaler INH 09/22/25 19:59 4 puff
R BID SHAR Administration
Protocol
Propofol 1,000,000 mcg in 100 mls @ 0 mls/hr 08/25/25 15:30 08/29/25 01:14
Diprivan IV 100 mls
PER PROTOCOL SHAR Administration
Protocol
Per Protocol
Fentanyl Citrate 1,000 mcg in 100 mls @ 0 mls/hr 08/25/25 16:00 08/28/25 11:54
Sublimaze IV 100 mls
PER PROTOCOL SHAR Administration
Protocol
Per Protocol
Norepinephrine Bitartrate 4 mg in 250 mls @ 0 mls/hr 08/25/25 19:00 08/28/25 10:05
Levophed IV 250 mls
PER PROTOCOL SHAR Administration
Protocol
Per Protocol
Vasopressin 20 units in 100 mls @ 0 mls/hr 08/26/25 16:00 08/29/25 00:29
Pitressin IV 100 mls
PER PROTOCOL SHAR Administration
Protocol
Per Protocol
Insulin Human Regular 100 units in 100 mls @ 0 mls/hr 08/27/25 01:00 08/27/25 15:14
Novolin R Insulin Infusion IV 100 mls
PER PROTOCOL SHAR Administration
Protocol
Per Protocol
Dobutamine HCl/Dextrose 500 mg in 250 mls @ 0 mls/hr 08/27/25 07:45
Dobutrex 500 Mg IV
PER PROTOCOL SAHR
Protocol
Per Protocol
Dexmedetomidine HCl 400 mcg in 100 mls @ 0 mls/hr 08/29/25 08:15 08/29/25 08:28
Precedex IV 100 mls
PER PROTOCOL SHAR Administration
Protocol
Per Protocol
Insulin Aspart 0 units 08/27/25 07:30 08/29/25 08:39
Insulin Aspart (Novolog) 100 Units/Ml 3 Ml Flexpen SC 09/24/25 07:29 Not Given
AC SHAR
Protocol
Levothyroxine Sodium 50 mcg 08/26/25 06:00 08/29/25 06:16
Levothyroxine 50 Mcg Tablet TUBE 09/23/25 05:59 50 mcg
DAILY@0600 SHAR Administration
Meropenem 500 mg 08/27/25 10:00 08/29/25 09:26
Meropenem 500 Mg/10 Ml Vial IV 500 mg
Q8H SHAR Administration
Ondansetron HCl 4 mg 08/28/25 16:30 08/28/25 16:43
Ondansetron 4 Mg/2 Ml Vial IV 09/25/25 16:29 4 mg
Q6HPRN PRN Administration
Nausea/vomiting
Pantoprazole Sodium 40 mg 08/28/25 20:00 08/29/25 08:32
Pantoprazole Sodium 40 Mg/10 Ml Vial IV 09/25/25 19:59 40 mg
BID SHAR Administration
Polyethylene Glycol 17 grams 08/30/25 08:00
Polyethylene Glycol Powder 17 Grams Packet TUBE 09/27/25 07:59
DAILY SHAR
Rosuvastatin Calcium 20 mg 08/26/25 08:00 08/29/25 08:39
Rosuvastatin (Crestor) 20 Mg Tablet TUBE 09/23/25 07:59 20 mg
DAILY SHAR Administration
Sertraline HCl 100 mg 08/26/25 08:00 08/26/25 08:51
Sertraline 100 Mg Tablet TUBE 09/23/25 07:59 100 mg
On Hold: 08/26/25 18:14 DAILY SHAR Administration
Sodium Chloride 0 flush 08/25/25 20:00
Sodium Chloride 0.9% (Flush) Syringe IV 09/22/25 19:59
PER PROTOCOL SHAR
Sodium Chloride 10 ml 08/28/25 09:16 08/29/25 08:32
Sodium Chloride 0.9% (Preservative Free) 10 Ml Vial IV 09/23/25 07:59 10 ml
BID SHAR Administration
Sterile Water 10 ml 08/27/25 10:00 08/29/25 09:26
Sterile Water For Injection 10 Ml Vial IV 09/24/25 09:59 10 ml
Q8H SHAR Administration
Review of Systems
-
Unable to obtain full review of systems at this time due to: Patient Intubation
Physical Exam
-
General: Intubated
HEENT: Negative Jaundice
Skin: Warm and Dry
Labs
Lab Results
WBC 9.2 10^3/uL (4.8-10.8) 08/29/25 03:06
RBC 2.47 10^6/uL (4.20-5.40) L 08/29/25 03:06
Hgb 6.3 g/dL (12.0-16.0) L* 08/29/25 03:06
Hct 19.5 % (37.0-47.0) L* 08/29/25 03:06
MCV 78.9 fL (81.0-99.0) L 08/29/25 03:06
MCH 25.5 pg (27.0-31.0) L 08/29/25 03:06
MCHC 32.3 g/dL (33.0-37.0) L 08/29/25 03:06
RDW 17.8 % (11.5-14.5) H 08/29/25 03:06
Plt Count 113 10^3/uL (130-400) L D 08/29/25 03:06
MPV 9.1 fL (7.4-10.4) 08/29/25 03:06
Abs Immat Gran (auto) 0.1 10^3/uL (0-0.05) H 08/29/25 03:06
Absolute Neuts (auto) 7.5 10^3/uL (1.4-6.5) H 08/29/25 03:06
Absolute Lymphs (auto) 0.7 10^3/uL (1.2-3.4) L 08/29/25 03:06
Absolute Monos (auto) 0.8 10^3/uL (0.1-0.6) H 08/29/25 03:06
Absolute Eos (auto) 0.1 10^3/uL (0-0.7) 08/29/25 03:06
Absolute Basos (auto) 0.0 10^3/uL (0-0.2) 08/29/25 03:06
Immature Gran % 0.5 % (0-0.5) 08/29/25 03:06
Neutrophils % 81.5 % (42.2-75.2) H 08/29/25 03:06
Lymphocytes % 7.9 % (20.5-51.1) L 08/29/25 03:06
Monocytes % 8.2 % (1.7-9.3) 08/29/25 03:06
Eosinophils % 1.5 % (0-6) 08/29/25 03:06
Basophils % 0.4 % (0-2) 08/29/25 03:06
Creatinine 0.7 mg/dL (0.6-1.0) 08/29/25 03:05
Vital Signs
Vital Signs
Temp Pulse Resp BP Pulse Ox
98.4 F 77 29 100/40 97
08/29/25 09:00 08/29/25 09:00 08/29/25 09:00 08/29/25 09:19 08/29/25 09:00
--- NOTE | 2025-08-29 10:00 | PTCARENOTE ---
Precedex gtt started as ordered, titrated propofol and fentanyl for SBT. OTIS blackman dc'd as ordered, RIJ cordis in place per order, dressing changed, c/d/i. oral hygiene performed, garza care performed. IVP Lasix and 3% Sodium chloride given as
ordered.
[2025-08-29 10:49] LABS: Folate > 20.0 ng/ml (2.76-20); Vitamin B12 > 1000 pg/ml (239-931)
--- NOTE | 2025-08-29 10:53 | RESPNOTE ---
attempted SBT/CPAP wean. patient vitals HR 80, RR 10, BP 119/38, SPO2 97% at beginning of wean on settings 10/5@40%, low volumes initially <300mL, improved quickly, however BP rising. within 10 minutes of initiation of wean, systolic BP up to 170s,
decline in SpO2 to 90-91%. Dr. Montelongo notified and cpap wean stopped. back to AC settings 22/480/+5/40%. BP improved to 105/34, 15min after stopping wean. see notes from RN for rate/dose of sedatives.
--- NOTE | 2025-08-29 11:30 | PTCARENOTE ---
attempted SBT @1030 w/ RT at bedside, pt became increasingly agitated, HR 90s, SBP 170s, POX 91%. Dr. Montelongo aware. per Dr. Montelongo, continue Precedex gtt and restart fentanyl gtt. pt placed back on AC settings per Dr. Montelongo. report given to TERRITORY ACCOUNT REPRESENTATIVE
and transferred w/ RT via bed. Dr. Montelongo aware son is here.
[2025-08-29] MEDS: LEVOPHED 250 IV (11:31)
--- NOTE | 2025-08-29 11:50 | PTCARENOTE ---
Received patient from CV[facility]. Patient sedated and on ventilator. Hand-off validation completed with drips. ETT and NG tube placement verified. CHG bath completed, optifoam changed on sacrum.
Patient arouses, opens eyes but does not follow commands. Bilateral upper restraints intact. Pupils equal and reactive +2. Axillary temperature obtained 97.8, core temperature obtained via Danielson catheter.
Patient in NSR, pulses palpable in radials, doppler pulses in dorsalis pedis.
Lungs coarse bilaterally, diminished in the lowers. ETT at 7.0 @ 22 at the lip. Changed to left side. AC/22/480/5/40%
Abdomen soft and nontender, bowel sounds hypoactive.
Danielson in place, urine clear and light yellow.
Right groin catheter site with dry dressing intact
R IJ cordis in place, site dry, clean and intact. Midline CDI, peripheral site intact. L Fem a-line leveled, zeroed and flushed.
--- NOTE | 2025-08-29 11:53 | CM ---
Reviewed chart. Mrs. Patricia is being transferred to ICU. Prior to admission she resides alone in a two story home with four steps to enter. She has a first floor set-up. Prior to admission she is independent with ambulation accept when she has a
back pain then she uses a rolling walker. She has a rolling walker and shower chair at home. She has a prescription plan. She states she has had [facility] in the past. Will need to see her current functional to see if she will have any
skilled care needs. Medical work-up in progress. The discharge plan is undetermined at this time.
[2025-08-29 12:12] LABS: Glucose - Point of Care 204 mg/dl (70-99)
[2025-08-29] MEDS: NOVOLOG FLEXPEN-MODERATE RESISTANCE 3 UNITS SC (13:03)
[2025-08-29] MEDS: FERRLECIT 110 MG IV (14:25)
--- NOTE | 2025-08-29 15:30 | CM ---
Intubated. CXR-pulmonary edema, B/L pleural effusions. HGB 6.3. Declining blood due to denominational beliefs ([employer]). Discharge POC: TBD.
--- NOTE | 2025-08-29 16:09 | PTCARENOTE ---
Patient resting comfortably on Precedex and Fentanyl drips. No major changes in assessment. Family previously at bedside, all questions answered. Safety checked, will continue to monitor.
[2025-08-29] MEDS: LOVENOX 40 MG SC (17:14)
[2025-08-29] MEDS: KCL ELIXIR 20 MEQ TUBE (17:14)
[2025-08-29] MEDS: LOW STRENGTH ASPIRIN 81 MG TUBE (17:15)
[2025-08-29] MEDS: SUBLIMAZE 100 IV (17:18)
[2025-08-29] MEDS: NOVOLOG FLEXPEN-MODERATE RESISTANCE 1 UNITS SC (17:43)
[2025-08-29 17:46] LABS: Glucose - Point of Care 196 mg/dl (70-99)
--- NOTE | 2025-08-29 20:51 | PTCARENOTE ---
Received patient at start of shift. Patient intubated/sedated, opens eyes to verbal stimuli at times, able to follow basic commands when awake. #7 ETT intact at 22 at the lip, lung sounds coarse throughout all lobes, diminished at b/l bases. RT
suctioned patient for thick, brown secretions at start of shift. Pt tolerated well. Pox 98-100% on vent. Patient with edema to b/l UE's, elevated on pillows at this time. NGT to right nare at 58cm, Jevity 1.5 running at 10ml with 25ml fluid
bolus/hr. Danielson cath remains patent and intact, draining clear yellow urine. Right groin site c/d/i. Left femoral arterial line intact as well. Patient with IV gtts through right IJ cordis; Fentanyl, Levo, Dex. Patient repositioned for comfort and
pressure relief. Assessment as documented. Will continue to monitor closely.
[2025-08-29 23:19] LABS: Glucose - Point of Care 167 mg/dl (70-99)
[2025-08-30] VITALS (42 sets, daily range): BP systolic 53–169; BP diastolic 37–87; PULSE 2–101; BMI 24.5
[2025-08-30] MEDS: NOVOLOG FLEXPEN-MODERATE RESISTANCE 1 UNITS SC ×3 (00:17→18:10)
[2025-08-30] MEDS: SUBLIMAZE 50 MCG IV ×2 (00:42→03:08)
--- NOTE | 2025-08-30 00:47 | PTCARENOTE ---
Assessment overall unchanged. Patient requiring increasing of Fentanyl gtt and Precedex, Levo increased and decreased per SBP, currently at 4mcg. Will continue to monitor patient closely.
[2025-08-30] MEDS: PRECEDEX 100 IV ×3 (01:21→15:46)
[2025-08-30] MEDS: STERILE WATER FOR INJECTION 10 ML IV ×2 (01:21→10:41)
[2025-08-30] MEDS: MERREM 500 MG IV (01:22)
[2025-08-30] MEDS: LEVOPHED 250 IV (02:56)
[2025-08-30 04:06] LABS: B.E. 1.1 mmol/L; HCO3 24.4 mmol/L (21-28); O2 Saturation % 99.3 % (94-98); PCO2 32 mmHg (32-35); PO2 115 mmHg (83-108)
[2025-08-30 04:19] LABS: Hematocrit 20.8 % (37.0-47.0); Hemoglobin 6.9 g/dL (12.0-16.0); Mean Corp Hgb Conc. 33.2 g/dL (33.0-37.0); Mean Corpuscular Volume 77.6 fL (81.0-99.0); Nucleated Red Blood Cells % 0.5 %; Platelet Count 149 10^3/uL (130-400); Red Cell Dist. Width 17.7 % (11.5-14.5)
[2025-08-30 04:29] LABS: INR 1.04; PT 13.9 Sec (11.4-14.6)
[2025-08-30 04:30] LABS: APTT 35.2 Sec (23.4-35.0); Fibrinogen 566 MG/DL (199-459)
[2025-08-30 04:50] LABS: ALT (SGPT) 43 U/L (0-35); AST (SGOT) 39 U/L (14-36); Albumin 2.7 g/dl (3.5-5.0); Alkaline Phosphatase 106 U/L (38-126); Blood Urea Nitrogen 11 mg/dl (7-17); Calcium 7.9 mg/dl (8.4-10.2); Carbon Dioxide 26 mmol/L (22-30); Chloride 96 mmol/L (98-107); Estimated Creatinine Clearance 48 ml/min; Glucose 153 mg/dl (70-99); Magnesium 1.7 mg/dl (1.6-2.3); Potassium 3.0 mmol/L (3.5-5.1); Sodium 131 mmol/L (135-145); Total Protein 4.9 g/dl (6.3-8.2); eGFR > 60.00
[2025-08-30 05:46] LABS: Glucose - Point of Care 164 mg/dl (70-99)
[2025-08-30] MEDS: SUBLIMAZE 100 IV (05:48)
[2025-08-30] MEDS: SYNTHROID 50 MCG TUBE (05:51)
--- NOTE | 2025-08-30 06:39 | PTCARENOTE ---
Assessment overall unchanged. Will monitor.
[2025-08-30] MEDS: DUONEB 3 ML INH ×4 (07:15→19:50)
[2025-08-30] MEDS: FLOVENT 110 MCG INHALER 4 PUFF INH (07:15)
[2025-08-30] MEDS: ZETIA 10 MG TUBE (07:24)
[2025-08-30] MEDS: PLAVIX 75 MG TUBE (07:24)
[2025-08-30] MEDS: CRESTOR 20 MG TUBE (07:24)
[2025-08-30] MEDS: MIRALAX 17 GRAMS TUBE (07:24)
[2025-08-30] MEDS: PROTONIX IV 40 MG IV ×2 (07:25→20:00)
[2025-08-30] MEDS: NSS (PRESERVATIVE FREE) 10 ML IV ×2 (07:26→20:00)
[2025-08-30] MEDS: KCL ELIXIR 40 MEQ TUBE (08:17)
[2025-08-30] MEDS: KCL 100 IV (08:18)
[2025-08-30] MEDS: MAGNESIUM SULFATE 50 IV (08:19)
[2025-08-30] MEDS: LASIX 40 MG IV (08:20)
--- NOTE | 2025-08-30 08:22 | W.PN.CD ---
Today's Communication / Plan
-
SBT trial
ASA/Plavix
IV lasix
Impression / Plan
-
I/P: 80F with past medical history significant for severe COPD, CAD ([employer] RCA), HFrecEF, and severe s/p bioprosthetic SAVR (#21 MitraFlow) c/b bioprosthetic valve failure s/p Evelyne TAVR with S20 and Snorkel stent of left main, presented to the
emergency department with acute respiratory failure following an episode of epigastric discomfort, found to have NSTEMI, new severely reduced EF, and progressive shock. She was taken to the geochemical laboratory technician emergently 08/26 with findings of severe ISR of her
LAD stent which was revascularized with DESx1 (stent placed via side struts of the existing Snorkel stent). She has subsequently had slow improvement, with reduced pressor requirement, improved cardiac indices, and improved ejection fraction on
bedside echo. End organ function preserved. Major ongoing issues including hypoxic respiratory failure with likely pneumonia on broad spectrum antibiotics, severe anemia without evidence of bleeding (complicated by Catholic and complete
refusal of blood products in this setting), ongoing vasodilatory shock, and hyponatremia.
Extensive discussions over the past several days with her daughter/KISHOR Patiño. Kaylyn states that the patient would like to continue aggressive restorative care, but would not want extreme measures if there was no chance of meaningful recovery.
Patient failed SBP yesterday. Still on minimal settings, minimal pressors. Will try SBT again today.
Primary freight elevator operator: Dr. Urbina
Drips: levo 3
Shock
- Severe, threat to life. At this point, she has shifted to a more vasodilatory profile, possible 2/2 infection and sedation
- Cont. broad spectrum antibiotics w/ meropenem, s/p vancomycin given negative MRSA swab
- cardiogenic shock resolved, pulled swan
- weaning pressors
Acute hypoxic respiratory failure
- Intubated due to lethargy and being unarousable on CPAP
- Negative for COVID-19 and influenza A/B, MRSA swab negative
- SBT today
Anemia: severe
- likely combination of mild blood loss from cath, dilutional, and critical illness
- no s/s bleeding
- per daughter patient would rather than get blood products
- IV iron infusion
NSTEMI
- likely due to global ischemia from severe LM disease and underlying systemic illness (?infection, resp failure)
- s/p PCI with ELIZABETH to L main snorkel stent (severe ISR) on 08/26/25.
- Troponin peaked at 97
- Bedside TTE post PCI: LVEF ~50% up from 30% pre PCI
- Continue aspirin and clopidogrel. Reloaded on 08/26/2025
NSVT/PVCs
- On 08/26, had frequent BP drops in the setting of ectopy. Amio started and this resolved.
- Amio now off given bradycardia with no recurrent NSVT
Aortic stenosis s/p Evelyne TAVR
- TTE 08/25/2025 showed normal AV gradients with mild AI
Mitral regurgitation, severe
Tricuspid regurgitation, moderate to severe
- will repeat once extubated
-IV lasix
COPD, chronic, severe, recent exacerbation
Current smoker, actively trying to wean
CCT: 32 minutes
Physical Exam
Vital Signs/Labs
Vital Signs
Temp Pulse Resp BP Pulse Ox
98.9 F 71 22 135/51 98
08/30/25 07:39 08/30/25 08:00 08/30/25 08:00 08/30/25 00:33 08/30/25 08:00
08/29/25 08/30/25 08/31/25
06:59 06:59 06:59
Actual Weight 58.7 kg 56.9 kg
08/30/25 03:52
08/30/25 03:52
PT 13.9 Sec (11.4-14.6) 08/30/25 03:52
INR 1.04 08/30/25 03:52
APTT 35.2 Sec (23.4-35.0) H 08/30/25 03:52
Magnesium 1.7 mg/dl (1.6-2.3) 08/30/25 03:52
Triglycerides 125 mg/dl (10-149) 08/29/25 03:05
08/25/25
15:45
Mes-C-Fpdvdedzinn Pept 3830
LAB Results
08/27/25
13:54
Troponin I 18.700 H*
Physical Exam
Constitutional: Other (intubated)
EENT: Moist mucous membranes
Cardiovascular: Rhythm & rate is regular, Pedal edema is absent, JVD present and Systolic murmur present
Respiratory: Other (mechanical ventilation)
Data Reviewed
-
Date of Service: August 30, 2025
EKG: Other (Tele: SR 70s)
Labs: Labs Reviewed by me
Critical Care Time (in minutes): 32
--- NOTE | 2025-08-30 08:49 | PN.DE.MGMTRT ---
Insulin Management
- -
08/30/2025: Diabetes Management Consult Follow up
80 year old female with PMH: COPD, chronic HFpEF, aortic stenosis s/p bioprosthetic aortic valve replacement c/b severe valvular regurgitation s/p TAVR with snorkel stent of LMCA (01/26/2025), severe MR, h/o bladder cancer, nephrolithiasis, TIA, h/o
pneumonia, Depression, Anxiety, COPD, and t2dm, Evangelical who presents from home due to shortness of breath. On the way here to the hospital she became pale, diaphoretic and cyanotic due to Acute respiratory failure with hypoxia 2/2 acute
decompensated heart failure now on mechanical ventilation (intubated 08/25 in ER), NSTEMI with in-stent restenosis of left main snorkel stent s/p PCI with ELIZABETH x1 (08/26/2025)
Of note, she was recently hospitalized here at from 08/22 - 08/23/2025 due to chest pain + epigastric discomfort. Although there was initial concern for ACS, the chest pain was then suspected to be nonanginal and was likely from GERD.
Per chart review, pt was taking Metformin 500mg BID and Glipizide 5mg @ 5pm. A1C 6.2%, Cr 0.7, eGFR >60.
Patient remains intubated and sedated, unable to interview and no family at bedside.
Glycemic protocol has been stopped as no insulin required since 1500 08/28.
Tube feeds on hold for possible extubation.
Receiving moderate corrective insulin, glucose range 157 to 204. Due to patient age and critical illness will allow isolated elevations. No change to moderate corrective insulin Q 6 hours. If extubated and diet started change to corrective to AC.
Discussed with Nurse.
Will follow.
Diabetes History
- -
Type of Diabetes: 2
Pre-Admission Diabetes Regimen
08/30/25
03:52
Creatinine 0.7
Lab Results
Hemoglobin A1c 6.2 % (4.0-5.6) H 08/26/25 04:15
Insulin Pump Settings
IP Diabetes Regimen
08/29/25 08/29/25 08/29/25
12:00 17:33 23:08
Glucose
POC Glucose 204 H 196 H 167 H
08/30/25 08/30/25
03:52 05:34
Glucose 153 H
POC Glucose 164 H
Patient Education
[2025-08-30] MEDS: ROCEPHIN 1000 MG IV (10:41)
--- NOTE | 2025-08-30 10:52 | W.PN.ONC2 ---
Today's Communication / Plan
-
Trend CBC
Continue IV Iron
Minimize blood draws
Impression
Impression
# Anemia -Hinduism
# Iron def w/ ferritin 27
# VDRF
# NSTEMI
# decompensated HF
# CAP
Plan
Plan
- Hgb today 6.9, which is increased from 6.3 yesterday. Trend CBC.
- Continue IV iron
- Given NSTEMI, EPO contraindicated
- Minimize blood draws, and use pediatric collection tubes if possible
- B12/folate normal
Subjective/Objective
Subjective
Patient is a 80-year-old female with a past medical history of coronary artery disease, aortic stenosis, heart failure, hypertension and COPD who presented with acute shortness of breath. Admitted for NSTEMI and COPD. She was found to have
obstructive coronary artery disease with severe in-stent restenosis of previously placed left main stent. She underwent successful PCI of left main, and started on dual antiplatelet therapy. Hemoglobin on admission was 11.3, and was trending down.
She is [employer], and refusing blood products. Patient is currently intubated.
Vital Signs:
Vital Signs
Temp Pulse Resp BP Pulse Ox
98.9 F 69 22 135/51 97
08/30/25 07:39 08/30/25 10:30 08/30/25 10:30 08/30/25 00:33 08/30/25 10:30
Lab Results:
Laboratory Data
WBC 8.9 10^3/uL (4.8-10.8) 08/30/25 03:52
Hgb 6.9 g/dL (12.0-16.0) L* 08/30/25 03:52
Plt Count 149 10^3/uL (130-400) D 08/30/25 03:52
PT 13.9 Sec (11.4-14.6) 08/30/25 03:52
INR 1.04 08/30/25 03:52
APTT 35.2 Sec (23.4-35.0) H 08/30/25 03:52
eGFR > 60.00 08/30/25 03:52
Physical Exam
Patient intubated, non-verbal.
Cardiology: Normal Sinus Rhythm, S1 and S2
Pulmonary: Clear
GI: Soft and Normal Bowel Sounds
Review of Systems
Review of Systems
Patient intubated/ non-verbal
--- NOTE | 2025-08-30 11:45 | W.PN.INTV ---
Addendum entered and electronically signed by Mariely Montelongo MD 08/30/25 12:36:
- Tolerated SAT/SBT well, f/u ABG reassuring.
- Patient extubated to Nasal cannula. PRN Bipap
- Patient stated that she wants to be DNR and would not want to be intubated in future.
- Code status confirmed with son at bedside as well. DNR/DNI per patient preference.
Original Note:
Today's Communication / Plan
Recommendations
- Initiate SAT/SBT
- Follow-up ABG 1 hour into spontaneous breathing trial
- Additional diuresis, Lasix IV 40 mg along with 80 mEq of potassium and 2 g of IV magnesium. Follow-up potassium level
- Hold tube feeding in anticipation for possible extubation
Assessment
-
Assessment: 80-year-old female with a past medical history of DM type II, history of pneumonia, depression, anxiety, COPD, chronic HFpEF, aortic stenosis s/p bioprosthetic aortic valve replacement complicated by severe valvular regurgitation s/p
TAVR with snorkel stent of LMCA (01/26/2025), severe MR, history of bladder cancer, nephrolithiasis, TIA and Sikh who presents from home due to shortness of breath. On the way here to the hospital she became pale, diaphoretic and
cyanotic. Was 81% on room air and and route received 125 mg Solu-Medrol and a nebulizer treatment. According to chart, she became SOB after eating. Of note, she was recently hospitalized here at from 08/22 - 08/19/2025 due to chest pain +
epigastric discomfort. Troponin was flat x 3 at the time, and echo showed preserved LVEF at 64% with a well-seated Evelyne TAVR with normal gradients, mild - moderate MR with no change compared to prior echo in January 2025. Although there was initial
concern for ACS, the chest pain was then suspected to be nonanginal and was likely from GERD. Heparin drip was stopped and she was sent home on pantoprazole 40 mg once daily. In the ER, she was lethargic, bradycardic and hypotensive. Decision
made to intubate (although at the time she was DNR/DNI, patient initially said that she would be okay with intubation). After intubation, fluid bolus started and propofol temporarily stopped. Initial labs showed normal WBC at 9.9, Hb 11.3,
platelet count 257, creatinine 1.1, lactate 8.3, glucose 416, troponin 2.34, proBNP 3830 and COVID-19 antigen negative. Patient was admitted to the ICU for further care and Sr. Pricing Analyst services consulted for additional management/recommendations.
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
severe valvular regurgitation s/p TAVR with snorkel stent of left main coronary artery (01/26/2025), mitral regurgitation, hypertension, history of bladder cancer, nephrolithiasis, history of TIA, Sikh
08/30 overview: Patient currently intubated, mechanically ventilated and sedated. Current infusions Precedex, fentanyl and Levophed infusing at 2. No secretions through ET tube. -1.4 L fluid balance. MAP of 97 and saturating 99% on 40% FiO2.
Tolerating SBT well.
Assessment and plan:
#1. Acute respiratory failure with hypoxia due to acute decompensated heart failure now on mechanical ventilation (intubated 08/25 in ER)
-FiO2 down to 40%, PEEP of 5.
- Weaned off propofol. Discontinue fentanyl, continue Precedex and initiate SAT/SBT
#2. Acute HFmrEF with ischemic etiology
- Additional Lasix 40 mg IV this morning, in negative fluid balance over last 24 hrs
- SAT/SBT today
- Weaned off dobutamine, currently on Levophed @ 2
#3. NSTEMI with in-stent restenosis of left main snorkel stent
- S/p PCI with ELIZABETH x1 (08/26/2025)
- Off heparin drip now, on dual antiplatelet therapy with ASA and Plavix
#4. Mixed shock with cardiogenic and septic components
- Improving, continue to wean pressors.
- Concomitant anemia complicates oxygen carrying capacity in the setting of underlying congestive heart failure. Family declines blood transfusion as patient is Sikh
- Cultures have stayed negative, switch to Rocephin
#5. CAP with bilateral lower lobe opacities
- MRSA screen negative, discontinued IV vancomycin, completed 3 days of azithromycin 500 daily for atypical coverage
- Cultures have stayed negative, discontinue meropenem and initiate Rocephin to complete a total 7 days of antibiotic therapy
#6. Hyponatremia
- Urine sodium and osmolality elevated, suggestive of SIADH. However patient has been intermittently receiving Lasix which will confound interpretation.
- Suspect underlying hypervolemic state with congestive heart failure as primary etiology. Responded very well to diuresis and hypertonic saline, sodium near normal this morning.
#7. Diffuse small bowel wall thickening and wall enhancement suspicious for enteritis vs edematous bowel
-Patient has been on broad-spectrum antibiotics
- Hold tube feeding in anticipation for extubation
#8. Acute anemia
-Patient has been on DAPT now and was on heparin infusion previously. No obvious hematochezia, melena or hematemesis noted
-Switched IV Protonix to twice daily empirically.
-Patient is Sikh and family declined blood transfusion. Currently receiving IV iron. Hematology service on case.
#9. DM type II complicated by hyperglycemia
- Insulin infusion has been weaned off.
#10. H/o Bioprosthetic aortic valve with severe valvular regurgitation + severe mitral regurgitation
- s/p TAVR with a snorkel stent of the left main coronary artery (procedure date: 01/26/2025)
#11. History of aspiration of secretions (prior CT in Dec 2024 showed secretions in main stem bronchi on 2 separate imaging procedures - cardiac CT from 01/04/2025 + CT Chest 01/25/2025)
- Currently on Antibiotics
#12. H/O Centrilobular emphysema/moderate COPD (per PFTs from 09/28/2023)
- Scheduled Duoneb
#13. History of TIA
- Currently on DAPT
GOC discussion.
08/30, met with patient's son at bedside. He updated that patient would not have wanted to be reintubated if she fails extubation trial. Will extubate to BiPAP as needed.
08/28, met with patient's son at bedside. Updated over current clinical condition and the tentative plan for SAT/SBT if tolerated. Await further recommendations from family regarding reintubation if patient develops respiratory distress
postextubation versus more comfort focused approach if patient is unable to be weaned off ventilator. Will continue to update and engage daily
- Maintain euglycemia with goal BG 140-180; HbA1c: 6.2 on 08/26/2025
- Patient is Rastafari, family declines blood tranfusion.
- Stress ulcer ppx: PPI, switched to BID in view of dropping Hb.
- DVT ppx: LMWH
Code status: DNR/DNI
Continue ICU level of care for this critically ill patient.
Critical care statement: A total of 46 minutes of critical care time was provided for this patient today. This includes management of unstable vital signs, evaluation of the patient at bedside, reviewing the patient's pertinent medical records
including radiographs, microbiology, laboratory evaluations, and discussion with primary team, consultants, pharmacy, nutrition, physical therapy, case management, charge nurse, critical care nursing, and respiratory therapy.
Data:
Transthoracic echocardiogram 08/25/2025:
1. Mild to moderately reduced left ventricular systolic function. LVEF 40%.
2. Hypokinesis of the septal wall.
3. Normal right ventricular size and systolic function.
4. Well-seated TAVR with normal gradients (peak/mean 29/15 mmHg).
5. Severe eccentric mitral regurgitation.
6. Moderate to severe tricuspid regurgitation. PASP 56 mmHg.
7. Compared to prior echocardiogram on 08/22/25, there are significant changes. EF is down from 64%. MR/TR have progressed. AV gradients are stable.
CT abdomen/pelvis with IV contrast 08/25/2025:
CT findings are suspicious for an enteritis.
Bilateral lower lobe pulmonary opacities (right greater than left) most compatible with pneumonia, and likely superimposed upon a chronic infectious/inflammatory pulmonary process.
[facility] 08/26/2025:
1. Cariogenic shock with elevated biventricular filling pressures and borderline low cardiac index with high SVR on high dose vasopresors.
2. Obstructive CAD as described with severe ISR of the previously placed left main stent.
3. Successful PCI of the left main via side strut of the existing Snorkle stent with placement of a 3.5x18 mm [place] ELIZABETH post-dilated to high pressure proximally with a 4.0 mm NC balloon.
Subjective Dataa
Subjective Data
Date of Service:
Date of Service: August 30, 2025
Chief Complaint: Sr. Pricing Analyst Follow Up
Subjective:
Patient currently intubated, mechanically ventilated and sedated.
Review of Systems
General: Unobtainable - Sedation
Objective Data
Data Reviewed
Vital Signs / I&O / Oxygen:
Vital Signs
Temp Pulse Resp BP Pulse Ox
99.7 F 71 20 135/51 96
08/30/25 11:28 08/30/25 11:30 08/30/25 11:30 08/30/25 00:33 08/30/25 11:33
Intake and Output
08/29/25 08/30/25 08/31/25
06:59 06:59 06:59
Intake Total 1291.8 / 1363.5 1564.8 / 1603.7 243.2 / 243.2
Output Total 2485 / 2485 2925 / 2995 530 / 530
Balance -1193.2 / -1121.5 -1360.2 / -1391.3 -286.8 / -286.8
SaO2 [P-A/C] 94
SaO2 [A/C] 97
SaO2 96
Physical Exam
General: Respiratory Distress (negative), Comfortable, Chills (negative), Sweats (negative) and Other (Elderly female, intubated/sedated)
HEENT: Normocephalic, Anicteric, Other (ETT in place) and Other (R-IJ cordis with PAC in place)
Cardiovascular: S1-S2, Regular Rhythm, Rub (negative) and Peripheral Edema (upper extremities 1+, none on lower extremities. )
Respiratory: Wheeze (negative), Crackles (bibasilar rales), Rhonchi (negative), Non-Labored Respirations and ET Tube
GI: Soft, Non Distended, Non Tender and Normal Bowel Sounds
Neurology: Tremors (negative) and Other (Sedated, responds to verbal and tactile stimuli)
Skin: Warm, Dry, Cyanosis (negative) and Jaundice (negative)
Labs/Micro/Reports
Lab Data
08/30/25 03:52
Laboratory Results
08/30/25
03:52
PT 13.9
INR 1.04
APTT 35.2 H
pH 7.49 H
pCO2 32
pO2 115 H
HCO3 24.4
O2 Delivery Level
Microbiology
08/27/25 09:27 Blood/Venous Blood Culture - Preliminary
No Growth in 72 hours- Final report to follow
08/27/25 09:03 Blood/Venous Blood Culture - Preliminary
No Growth in 72 hours- Final report to follow
08/25/25 21:25 Endotracheal Respiratory Culture - Final
Usual Respiratory Khadijah
08/25/25 21:25 Endotracheal Gram Stain - Final
[2025-08-30 11:46] LABS: B.E. 3.3 mmol/L; HCO3 27.8 mmol/L (21-28); O2 Saturation % 98.2 % (94-98); PCO2 41 mmHg (32-35); PO2 100 mmHg (83-108)
--- NOTE | 2025-08-30 12:22 | RESPNOTE ---
Respiratory: patient extubated at 1205 without incident. No stridor, 4 LPM nasal cannula 94%.
[2025-08-30] MEDS: NOVOLOG FLEXPEN-MODERATE RESISTANCE 5 UNITS SC (12:33)
[2025-08-30 12:38] LABS: Glucose - Point of Care 251 mg/dl (70-99)
--- NOTE | 2025-08-30 12:50 | PTCARENOTE ---
Patient weaned and extubated to 4LNC. Assessment and vital sign trends documented in flowsheets. PT/OT and speech consults placed. Patient and family updated at bedside regarding plan of care.
[2025-08-30] MEDS: FERRLECIT 110 MG IV (15:04)
--- NOTE | 2025-08-30 15:15 | CM ---
Tolerated SAT/SBT and extubated to NC. Does not want intubation in future. Now DNR/DNI. IV/Rocephin. Discharge POC: Await therapy evaluation and recommendation.
--- NOTE | 2025-08-30 15:30 | PTOTSP ---
Speech Language Pathology
THREAD REELER consult received. Attempted to see pt. Spoke with RNs. Staff then arrived to remove femoral line. Pt will need to stay flat for 2 hours following removal, so will be unable to see for evaluation this date.
Of note, pt with hx concerning for aspiration including: admit for SOB post eating, hx of aspiration of secretions (noted on CT in December 2024), and current PNA with hx of PNA. Based on THREAD REELER note from January 2025, recommendation was for
consideration of VSE if readmitted with respiratory issues. Pt will likely require instrumental swallowing assessment, but will see for bedside swallow evaluation first in AM as appropriate.
[2025-08-30] MEDS: VALIUM INJECTION 2 MG IV ×2 (15:42→21:19)
--- NOTE | 2025-08-30 15:52 | W.PN.HOSP.TC ---
Today's Communication/Plan
-
Continue trending protocol
on IV iron infusion
wean off pressors as possible
Assessment / Plan
Assessment / Plan
#Acute hypoxic respiratory failure
Vent dependent respiratory failure
- Ongoing SBT trial and vent weaning
- sedation managed by warehouse operations manager, changed to precedex
- Fabric Normalizer following and help appreciated.
#NSTEMI
- status postcardiac catheterization. With severe ISR of her LM stent (but MEGAN 3 flow) s/p new overlapping stent
- TTE 08/25 EF 40%, Well seated TAVR, Sev MR, mod-sev TR,
- currently on asa/plavix. off heparin drip
- cardio following.
#Multifactorial shock
Lactic acidosis
-cardiogenic and septic possibly
-A line /swan darren cath in place for hemodynamic monitoring
-remains on 2 vasopressors, weaning off as possible
# Normocytic anemia
- hbg has drifted down to 6.2 today
- Patient history was witnessed and family has declined blood transfusion
- Not stable for any endoscopic procedure
- Hematology consultation requested for further help, will consider EPO/iron infusion
- With recurrent cardiac status patient remains in guarded position
# Hyponatremia - Improving
- got 3% NS infusion
- getting lasix as well
- Likely driven by ADH excess from blood loss/HF
- f/u Na level
#Leukocytosis
#Possible Community-acquired pneumonia
-Sputum sample preliminary with usual lul. Legionella strep pneumo antigen negative. Blood cultures neg
-Antibiotics have been de-escalated to Rocephin
#NSVT/PVC
Started on amiodarone per cardiology.
Monitor electrolytes closely.
#Diabetes mellitus type 2
-Continue with critical care glycemic protocol.
-Currently on insulin infusion.
#Hypomagnesemia
-replace prn
#Thrombocytopenia
- remains above 100k
Aortic stenosis
status post right transfemoral TAVR 01/26/[address] Alvarez
prior AVR with root enlargement
Chronic mitral regurgitation
Hypothyroidism
Anxiety/depression
GERD-IV PPI
DVT ppx- lovenox sc
CODE STATUS DNR/DNI
Guarded prognosis with ongoing shock/recurring NSTEMI/multiple respiratory failure/new anemia
Fabric Normalizer held goal of care discussion with family on 08/28
Total critical care time 38 mins . Total critical care time documented does not include time spent on separately billed procedures or the services of residents, students, nurses or physician assistants. I personally saw and examined the patient. I
have reviewed all diagnostic interpretations and treatment plans as written. I was present for the lux portions of any procedures performed and the inclusive time noted in any critical care statement. Critical care time includes patient management
by me, time spent at the patients bedside, time to review lab and imaging results, discussing patient care, documentation in the medical record, and time spent with the family or caregiver.
Anticipated Discharge: > 48 hours
Subjective/Interval History
-
Date of Service: August 30, 2025
Vasopressor requirement remained stable
Remains intubated
Objective Data
-
Labs:
Laboratory Results
08/30/25 08/30/25 08/30/25
03:52 11:24 16:00
WBC 8.9
Hgb 6.9 L*
Hct 20.8 L*
Plt Count 149 D
PT 13.9
INR 1.04
APTT 35.2 H
HCO3 24.4 27.8
Sodium 131 L Pending
Potassium 3.0 L Pending
Chloride 96 L Pending
Carbon Dioxide 26 Pending
BUN 11 Pending
Creatinine 0.7 Pending
Glucose 153 H Pending
Calcium 7.9 L Pending
Total Bilirubin 0.7
AST 39 H
ALT 43 H
Alkaline Phosphatase 106
Vital Signs:
Vital Signs
Temp Pulse Resp BP Pulse Ox
98.7 F 116 24 83/46 87
08/30/25 15:40 08/30/25 15:33 08/30/25 15:33 08/30/25 14:26 08/30/25 15:33
I&O
08/29/25 08/30/25 08/31/25
06:59 06:59 06:59
Intake Total 1291.8 / 1363.5 1564.8 / 1603.7 260.8 / 260.8
Output Total 2485 / 2485 2925 / 2995 830 / 830
Balance -1193.2 / -1121.5 -1360.2 / -1391.3 -569.2 / -569.2
Review of Systems
-
Unable to obtain full review of systems at this time due to: Patient Intubation
Physical Exam
-
General: Negative Appears in Distress
HEENT: Other (Intubated/ventilated)
Respiratory: Rhonchi
Cardiac: Regular Rhythm and S1/S2; Negative Murmur
GI: Soft, Nontender and Nondistended
Musculoskeletal: No Edema
Neuro: Sedated
--- NOTE | 2025-08-30 16:07 | PTCARENOTE ---
laborer driver team came to bedside to remove L femoral sheath. Patient anxious and uncooperative, unable to tolerate lying flat. Anti-anxiety medications administered per order, see MAR. Patient placed on Bipap for increased WOB and hypoxia. Assessments
ongoing and vital sign trends documented. Critical care nurse at bedside.
--- NOTE | 2025-08-30 17:56 | PTCARENOTE ---
Patient assessment unchanged thru shift. Cath/vascular team dc'd left femoral/art sheath. post removal vs, trends and circulatory checks ongoing. Left fem site clean dry intact. Patient remains on bipap 5lpm with settings of 12/5. Saturation 97%.
Verbalizes improvement post respiratory nebs. Sleeping off and on. Patient daughter heading home. Verbalizes mothers wishes, verbalizes how her mother wants all of this off. Also verbalizes recent difficulty with eating and drinking states this is
probably what started this all. Review speech therapy plan, follow up in am, NPO for now, aspiration precautions maintain. BMP sent at this time, will continue to follow up with site technician team.
[2025-08-30 18:06] LABS: Blood Urea Nitrogen 11 mg/dl (7-17); Calcium 7.9 mg/dl (8.4-10.2); Carbon Dioxide 32 mmol/L (22-30); Chloride 100 mmol/L (98-107); Estimated Creatinine Clearance 48 ml/min; Glucose 190 mg/dl (70-99); Potassium 3.8 mmol/L (3.5-5.1); Sodium 136 mmol/L (135-145); eGFR > 60.00
[2025-08-30] MEDS: LOW STRENGTH ASPIRIN TUBE (18:10)
[2025-08-30] MEDS: LOVENOX 40 MG SC (18:12)
[2025-08-30] MEDS: FLOVENT 110 MCG INHALER 2 PUFF INH (19:50)
--- NOTE | 2025-08-30 20:00 | PTCARENOTE ---
plant electrical engineer, pt awake, responds to verbal, forgetful/disoriented to time. SR HR 70s, midline/RA IV WNL - dex/levo infusing per work list. pt on Bipap, tolerating. Danielson draining yellow urine. POC discussed, bed alarm on, care ongoing.
[2025-08-31] VITALS (19 sets, daily range): BP systolic 82–162; BP diastolic 40–91; PULSE 2–80; BMI 23.7
[2025-08-31] MEDS: PRECEDEX 100 IV ×3 (00:20→11:05)
[2025-08-31] MEDS: NOVOLOG FLEXPEN-MODERATE RESISTANCE 1 UNITS SC ×2 (00:31→05:44)
[2025-08-31 00:42] LABS: Glucose - Point of Care 192 mg/dl (70-99)
[2025-08-31] MEDS: LASIX 40 MG IV (00:44)
[2025-08-31] MEDS: SYNTHROID TUBE (05:40)
[2025-08-31 05:41] LABS: Venous Blood Gas B.E. 9.1 mmol/L (-4 to +4); Venous Blood Gas O2 Sat % 80.3 %
[2025-08-31 05:42] LABS: Venous Blood Gas O2 Therapy NC
--- NOTE | 2025-08-31 05:45 | PTCARENOTE ---
pt restless t/o night, attempting to remove Bipap and IV lines. precedex gtt continues.
[2025-08-31 05:55] LABS: Glucose - Point of Care 172 mg/dl (70-99)
[2025-08-31 06:15] LABS: Hematocrit 21.1 % (37.0-47.0); Hemoglobin 6.6 g/dL (12.0-16.0); Mean Corp Hgb Conc. 31.3 g/dL (33.0-37.0); Mean Corpuscular Volume 80.8 fL (81.0-99.0); Platelet Count 146 10^3/uL (130-400); Red Cell Dist. Width 18.5 % (11.5-14.5)
[2025-08-31 06:19] LABS: ALT (SGPT) 38 U/L (0-35); AST (SGOT) 35 U/L (14-36); Albumin 3.0 g/dl (3.5-5.0); Alkaline Phosphatase 101 U/L (38-126); Blood Urea Nitrogen 13 mg/dl (7-17); Calcium 8.3 mg/dl (8.4-10.2); Carbon Dioxide 34 mmol/L (22-30); Chloride 97 mmol/L (98-107); Estimated Creatinine Clearance 56 ml/min; Glucose 157 mg/dl (70-99); Magnesium 2.1 mg/dl (1.6-2.3); Potassium 3.5 mmol/L (3.5-5.1); Sodium 135 mmol/L (135-145); Total Protein 5.7 g/dl (6.3-8.2); eGFR > 60.00
[2025-08-31] MEDS: FLOVENT 110 MCG INHALER 2 PUFF INH (07:24)
[2025-08-31] MEDS: DUONEB 3 ML INH ×3 (07:24→15:12)
--- NOTE | 2025-08-31 07:57 | PTCARENOTE ---
transitioned off bipap to HFNC. SpO2 99-100% on 60L 100% but respirations labored and tachypneic. MD at bedside.
[2025-08-31] MEDS: NSS (PRESERVATIVE FREE) 10 ML IV (08:11)
[2025-08-31] MEDS: CRESTOR TUBE (08:11)
[2025-08-31] MEDS: PLAVIX TUBE (08:11)
[2025-08-31] MEDS: ZETIA TUBE (08:11)
[2025-08-31] MEDS: MIRALAX TUBE (08:11)
[2025-08-31] MEDS: SOLU-MEDROL PF 40 MG IV (08:12)
[2025-08-31] MEDS: PROTONIX IV 40 MG IV (08:12)
--- NOTE | 2025-08-31 08:44 | PN.DE.MGMTRT ---
Insulin Management
- -
08/31/2025: Diabetes Management Consult Follow up
80 year old female with PMH: COPD, chronic HFpEF, aortic stenosis s/p bioprosthetic aortic valve replacement c/b severe valvular regurgitation s/p TAVR with snorkel stent of LMCA (01/26/2025), severe MR, h/o bladder cancer, nephrolithiasis, TIA, h/o
pneumonia, Depression, Anxiety, COPD, and t2dm, Yarsanism who presents from home due to shortness of breath. On the way here to the hospital she became pale, diaphoretic and cyanotic due to Acute respiratory failure with hypoxia 2/2 acute
decompensated heart failure (intubated 08/25 in ER), NSTEMI with in-stent restenosis of left main snorkel stent s/p PCI with ELIZABETH x1 (08/26/2025)
Of note, she was recently hospitalized here at from 08/22 - 08/23/2025 due to chest pain + epigastric discomfort. Although there was initial concern for ACS, the chest pain was then suspected to be nonanginal and was likely from GERD.
Per chart review, pt was taking Metformin 500mg BID and Glipizide 5mg @ 5pm. A1C 6.2%, Cr 0.7, eGFR >60.
Patient extubated 08/30, now comfort care. Insulin stopped
Discussed with Nurse.
Will sign off.
Diabetes History
- -
Type of Diabetes: 2
Pre-Admission Diabetes Regimen
08/30/25 08/31/25
17:37 05:32
Creatinine 0.7 0.6
Lab Results
Hemoglobin A1c 6.2 % (4.0-5.6) H 08/26/25 04:15
Insulin Pump Settings
IP Diabetes Regimen
08/30/25 08/30/25 08/31/25
12:28 17:37 00:30
Glucose 190 H
POC Glucose 251 H 192 H
08/31/25 08/31/25
05:32 05:43
Glucose 157 H
POC Glucose 172 H
Meal type: Lunch
Patient Education
--- NOTE | 2025-08-31 08:45 | W.PN.HOSP.TC ---
Today's Communication/Plan
-
maintain on abx
continue wean off o2 as possible
await ST evaluation
Assessment / Plan
Assessment / Plan
#Acute hypoxic respiratory failure
Vent dependent respiratory failure - extubated 08/30
- Power Bender Operator following and help appreciated.
- extubated on 08/30, awaiting repeat ST evaluation
- remains on HFNC at this point, wean off as possible
#Non-STEMI
- status postcardiac catheterization. With severe ISR of her LM stent (but MEGAN 3 flow) s/p new overlapping stent
- TTE 08/25 EF 40%, Well seated TAVR, Sev MR, mod-sev TR,
- currently on asa/plavix. off heparin drip
- cardio following.
#Multifactorial shock - improved
Lactic acidosis - improved
-cardiogenic and septic possibly
-A line /swan darren cath were placed for monitoring, now removed.
-required different vasopressors support, off of it.
# Normocytic anemia
- hbg fluctuating in range of 6-7
- Patient Jehovah witness and family has declined blood transfusion
- Not a candidate for EPO with concern for clotting of stent.
- Maintained on Iron infusion, B12/folate wnl
# Acute metabolic encephalopathy
- from hypoxia/need of ventilator-sedation for few days/electrolyte imbalance
- continue supportive care
- limit sedating medications as possible
# Hyponatremia - Improved
- got 3% NS infusion and lasix
- getting lasix as well
- Likely driven by ADH excess from blood loss/HF
- f/u Na level
#Leukocytosis
#Possible Community-acquired pneumonia
-Sputum sample preliminary with usual lul. Legionella strep pneumo antigen negative. Blood cultures neg
-Antibiotics have been de-escalated to Rocephin
#NSVT/PVC
Started on amiodarone per cardiology.
Monitor electrolytes closely.
#Diabetes mellitus type 2
-Continue with critical care glycemic protocol.
-Currently on insulin infusion.
#Hypomagnesemia
-replace prn
#Thrombocytopenia
- remains above 100k
Aortic stenosis
status post right transfemoral TAVR 01/26/[address] Alvarez
prior AVR with root enlargement
Chronic mitral regurgitation
Hypothyroidism
Anxiety/depression
GERD-IV PPI
DVT ppx- lovenox sc
CODE STATUS DNR/DNI
Guarded prognosis with ongoing shock/recurring NSTEMI/multiple respiratory failure/new anemia. Power Bender Operator held goal of care discussion with family on 08/28
Total critical care time 36 mins . Total critical care time documented does not include time spent on separately billed procedures or the services of residents, students, nurses or physician assistants. I personally saw and examined the patient. I
have reviewed all diagnostic interpretations and treatment plans as written. I was present for the lux portions of any procedures performed and the inclusive time noted in any critical care statement. Critical care time includes patient management
by me, time spent at the patients bedside, time to review lab and imaging results, discussing patient care, documentation in the medical record, and time spent with the family or caregiver.
Anticipated Discharge: > 48 hours
Subjective/Interval History
-
Date of Service: August 31, 2025
extubated and High flow o2 currently
encephalopathic
no reported acute issues overnight
Objective Data
-
Labs:
Laboratory Results
08/31/25
05:32
WBC 9.6
Hgb 6.6 L*
Hct 21.1 L
Plt Count 146
Sodium 135
Potassium 3.5
Chloride 97 L
Carbon Dioxide 34 H
BUN 13
Creatinine 0.6
Glucose 157 H
Calcium 8.3 L
Total Bilirubin 0.7
AST 35
ALT 38 H
Alkaline Phosphatase 101
Vital Signs:
Vital Signs
Temp Pulse Resp BP Pulse Ox
97.6 F 78 23 107/78 100
08/31/25 08:10 08/31/25 07:45 08/31/25 07:45 08/31/25 07:00 08/31/25 07:57
I&O
08/30/25 08/31/25 09/01/25
06:59 06:59 06:59
Intake Total 1564.8 / 1603.7 475.1 / 501.7 26.6 / .6
Output Total 2925 / 2995 1905 / 1905
Balance -1360.2 / -1391.3 -1429.9 / -1403.3 26.6 / 26.6
Review of Systems
-
Unable to obtain full review of systems at this time due to: Acuity
Physical Exam
-
General: Negative Appears in Distress
HEENT: Oxygen (High flow 50L/m)
Respiratory: Rhonchi
Cardiac: Regular Rhythm and S1/S2; Negative Murmur
Musculoskeletal: No Edema
Neuro: Awake; Negative Oriented or No Motor Deficits
Psych: Calm
--- NOTE | 2025-08-31 09:02 | PTCARENOTE ---
pt restless in bed, refused bipap- see previous rn note, pt remains tachypneic maxed on HFNC, Dr. Mcmillan aware. pt knows month and place, and self- forgetful at times. nsr on monitor. pt provided frequent oral care. per dr. mcmillan hold morning po
meds. all safety precautions in place, call borrego within reach, pt redirected.
[2025-08-31] MEDS: STERILE WATER FOR INJECTION 10 ML IV (09:28)
[2025-08-31] MEDS: MORPHINE SULFATE 2 MG IV ×7 (09:28→17:02)
[2025-08-31] MEDS: ROCEPHIN 1000 MG IV (09:28)
--- NOTE | 2025-08-31 09:32 | W.PN.CD ---
Today's Communication / Plan
-
HFNC wean as able
diuresis PRN for goal even
wean norepi as tolerated
consider steroids for treatment of COPD
Impression / Plan
-
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
emergency department with acute respiratory failure following an episode of epigastric discomfort, found to have NSTEMI, new severely reduced EF, and progressive shock. She was taken to the laborer high density press emergently 08/26 with findings of severe ISR of her
LAD stent which was revascularized with DESx1 (stent placed via side struts of the existing Snorkel stent). She has subsequently had slow improvement, with reduced pressor requirement, improved cardiac indices, and improved ejection fraction on
bedside echo. End organ function preserved. Major ongoing issues including hypoxic respiratory failure with likely pneumonia on broad spectrum antibiotics, severe anemia without evidence of bleeding (complicated by Druze and complete
refusal of blood products in this setting), ongoing vasodilatory shock, and hyponatremia.
Patient successfully extubated yesterday with stable ABG. Poor tolerance of BiPAP, now on HFNC and more comfortable with good oxygenation. Patient strongly desires not to be reintubated, will remain DNR/DNI.
Primary vocational services specialist: Dr. Urbina
Drips: levo 2
Shock, resolving
- Severe, threat to life. At this point, initially mixed shock with cardiogenic component quickly resolving after revascularization, vasodilatory shock improving now on minimal pressors, possibilities 2/2 infection and sedation
- Cont. broad spectrum antibiotics w/ meropenem, s/p vancomycin given negative MRSA swab
- cont. to wean norepi as able
Acute hypoxic respiratory failure
- Intubated due to lethargy and being unarousable on CPAP, now extubated initially to CPAP but poorly tolerated so transitioned to HFNC
- continues to have stable bilateral opacities
- Negative for COVID-19 and influenza A/B, MRSA swab negative
- cont. treatment for COPD, nebs, consider steroid course
- doubt significant component of cardiogenic pulmonary edema, cont. diuresis for goal to maintain current euvolemia
Anemia: severe but stable
- likely combination of mild blood loss from cath, dilutional, and critical illness
- no s/s bleeding
- per daughter patient would rather than get blood products (patient is Druze)
- IV iron infusion eventually
- minimize phleb
- appreciate hematology recs
NSTEMI
- likely due to global ischemia from severe LM disease and underlying systemic illness (?infection, resp failure)
- s/p PCI with ELIZABETH to L main snorkel stent (severe ISR) on 08/26/25.
- Troponin peaked at 97
- Bedside TTE post PCI: LVEF ~50% up from 30% pre PCI
- Continue aspirin and clopidogrel. Reloaded on 08/26/2025
NSVT/PVCs
- On 08/26, had frequent BP drops in the setting of ectopy. Amio started and this resolved.
- Amio now off given bradycardia with no recurrent NSVT
Aortic stenosis s/p Evelyne TAVR
- TTE 08/25/2025 showed normal AV gradients with mild AI
Mitral regurgitation, severe
Tricuspid regurgitation, moderate to severe
- will repeat once extubated
-IV lasix
COPD, chronic, severe, recent exacerbation
Current smoker, actively trying to wean
CCT: 35 minutes
Physical Exam
Vital Signs/Labs
Vital Signs
Temp Pulse Resp BP Pulse Ox
36.4 C 93 26 123/51 99
08/31/25 08:10 08/31/25 09:01 08/31/25 09:01 08/31/25 08:35 08/31/25 08:45
08/30/25 08/31/25 09/01/25
06:59 06:59 06:59
Actual Weight 56.9 kg 55 kg
08/31/25 05:32
08/31/25 05:32
PT 13.9 Sec (11.4-14.6) 08/30/25 03:52
INR 1.04 08/30/25 03:52
APTT 35.2 Sec (23.4-35.0) H 08/30/25 03:52
Magnesium 2.1 mg/dl (1.6-2.3) 08/31/25 05:32
Triglycerides 125 mg/dl (10-149) 08/29/25 03:05
08/25/25
15:45
Qlf-L-Hvzsupeyzms Pept 3830
Physical Exam
Constitutional: Comfortable
Cardiovascular: Rhythm & rate is regular
Respiratory: Respiratory effort normal
Neuro/Psych: AO x 3
Data Reviewed
-
Date of Service: August 31, 2025
Medical Decision Making: Reviewed Test Results
EKG: Tracing Personally Visualized and interpreted
X-Ray/CT/US/MRI/NUC/PET: Image Personally Visualized and interpreted
Labs: Labs Reviewed by me
--- NOTE | 2025-08-31 10:23 | W.PN.ONC2 ---
Today's Communication / Plan
-
IV iron
No EPO give clotted stent
Minimize blood draws (every 48-72 hours), pediatric collection tubes
Impression
Impression
# Anemia -Druze
# Iron def w/ ferritin 27
# VDRF
# NSTEMI
# decompensated HF
# CAP
Plan
Plan
- Hgb today 6.6, which is decreased from 6.6 yesterday. Trend CBC.
- Continue IV iron
- Given NSTEMI/clotted stent, EPO contraindicated
- Minimize blood draws, and use pediatric collection tubes if possible
- B12/folate normal
Subjective/Objective
Subjective
Patient is a 80 year female with a past medical history of CAD, HTN, COPD and HF who presented with acute shortness of breath. Eventually admitted for NSTEMI and COPDe. She was found to have obustructive CAD with severe in-stent restenosis of
previously placed left main stent. She underwent successful PCI of the left main, and started on dual antiplatelet therapy. Hgb on admission 11.3, trending down- today 6.6. She is Druze and refusing blood products. At the time of
evaluation today, patient is unable to speak in full sentences due to increased work of breathing.
Vital Signs:
Vital Signs
Temp Pulse Resp BP Pulse Ox
97.6 F 93 26 123/51 99
08/31/25 08:10 08/31/25 09:01 08/31/25 09:01 08/31/25 08:35 08/31/25 08:45
Lab Results:
Laboratory Data
WBC 9.6 10^3/uL (4.8-10.8) 08/31/25 05:32
Hgb 6.6 g/dL (12.0-16.0) L* 08/31/25 05:32
Plt Count 146 10^3/uL (130-400) 08/31/25 05:32
PT 13.9 Sec (11.4-14.6) 08/30/25 03:52
INR 1.04 08/30/25 03:52
APTT 35.2 Sec (23.4-35.0) H 08/30/25 03:52
eGFR > 60.00 08/31/25 05:32
Physical Exam
HEENT: Moist Mucous Membranes
Cardiology: Normal Sinus Rhythm, S1 and S2
Pulmonary: Rhonchi and Other (increased work of breathing)
GI: Soft and Normal Bowel Sounds
Review of Systems
Review of Systems
Respiratory: Reports Dyspnea
--- NOTE | 2025-08-31 10:25 | PTCARENOTE ---
pt with air hunger and tachypnea, Dr. Montelongo at bedside, morphine given per order. daughter at bedside and updated by md, pt remains on dex per Dr. Montelongo order and hfnc.
--- NOTE | 2025-08-31 10:25 | PTCARENOTE ---
pt with air hunger and tachypnea, Dr. Montelongo at bedside, morphine given per order. daughter at bedside and updated by md, pt remains on dex per order and hfnc.
[2025-08-31] MEDS: NOVOLOG FLEXPEN-MODERATE RESISTANCE SC (11:23)
--- NOTE | 2025-08-31 11:29 | HOSPNOTE ---
Addendum entered by Colette Allen RN 08/31/25 13:25:
Spoke to daughter, they are awaiting on other family to arrive this afternoon to see patient before weaning down oxygen and transitioning to full comfort measures. Spoke to attending, plan will be to admit inpatient hospice tomorrow if patient
survives. Hospice will continue to follow and support.
Original Note:
Hospice referral received. Will reach out to family and attending. More information to follow.
--- NOTE | 2025-08-31 12:32 | W.PN.UPDATE ---
Update Note
Progress Note Update
Proration Clerk had goals of care discussion with family who has agreed for patient to be switched to comfort care
All known comfort medication has been discontinued
Patient has been started on IV Ativan/Haldol for anxiety/agitation
As needed morphine boluses with escalation to morphine drip if needed
Transfer patient to [facility]
Hospice care consultation placed.
[2025-08-31] MEDS: MORPHINE SULFATE 1 MG IV ×2 (12:48→13:43)
[2025-08-31] MEDS: VALIUM INJECTION 2 MG IV (12:53)
--- NOTE | 2025-08-31 13:07 | CHAP ---
Emotional and spiritual support provided. End of life prayers shared.
--- NOTE | 2025-08-31 13:09 | PTCARENOTE ---
Dr. Montelongo at bedside, pt made comfort care. dex gtt off per order. pt family at bedside, pastoral support provided. pt given morphine and valium per order, resting comfortably at this time, improved work of breathing.
--- NOTE | 2025-08-31 13:30 | W.PN.INTV ---
Today's Communication / Plan
Recommendations
- Transition to comfort focused care
Assessment
-
Assessment: 80-year-old female with a past medical history of DM type II, history of pneumonia, depression, anxiety, COPD, chronic HFpEF, aortic stenosis s/p bioprosthetic aortic valve replacement complicated by severe valvular regurgitation s/p
TAVR with snorkel stent of LMCA (01/26/2025), severe MR, history of bladder cancer, nephrolithiasis, TIA and Scientology who presents from home due to shortness of breath. On the way here to the hospital she became pale, diaphoretic and
cyanotic. Was 81% on room air and and route received 125 mg Solu-Medrol and a nebulizer treatment. According to chart, she became SOB after eating. Of note, she was recently hospitalized here at from 08/22 - 08/19/2025 due to chest pain +
epigastric discomfort. Troponin was flat x 3 at the time, and echo showed preserved LVEF at 64% with a well-seated Evelyne TAVR with normal gradients, mild - moderate MR with no change compared to prior echo in January 2025. Although there was initial
concern for ACS, the chest pain was then suspected to be nonanginal and was likely from GERD. Heparin drip was stopped and she was sent home on pantoprazole 40 mg once daily. In the ER, she was lethargic, bradycardic and hypotensive. Decision
made to intubate (although at the time she was DNR/DNI, patient initially said that she would be okay with intubation). After intubation, fluid bolus started and propofol temporarily stopped. Initial labs showed normal WBC at 9.9, Hb 11.3,
platelet count 257, creatinine 1.1, lactate 8.3, glucose 416, troponin 2.34, proBNP 3830 and COVID-19 antigen negative. 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
severe valvular regurgitation s/p TAVR with snorkel stent of left main coronary artery (01/26/2025), mitral regurgitation, hypertension, history of bladder cancer, nephrolithiasis, history of TIA, Scientology
08/31 overview: Patient with increased work of breathing, refusing BiPAP. Transition to high flow nasal cannula.
Assessment and plan:
Goals of care discussions 09/01. I met with patient's family at bedside including daughter and son. Patient after getting extubated expressed her desire not to be revived in the future. Patient is also refusing BiPAP and does not want to be on
assistive devices. Later on she was refusing high flow nasal cannula as well. Updated patient's family at bedside regarding increased work of breathing noted despite maximum medical therapy and noninvasive positive pressure ventilation. Patient
continues to do poorly. In accordance with patient's wishes, family has opted to proceed with more comfort focused approach.
- After discussion with family, low-dose morphine was given to help with air hunger
- Additional family arrived at bedside, discussed with the family members again, unanimous decision was to proceed with more comfort focused care
- Order set placed focusing on comfort. Will be removing high flow nasal cannula in accordance with patient's wishes
Underlying medical diagnoses:
#1. Acute respiratory failure with hypoxia due to acute decompensated heart failure now on mechanical ventilation (intubated 08/25 in ER)
#2. Acute HFmrEF with ischemic etiology
#3. NSTEMI with in-stent restenosis of left main snorkel stent
#4. Mixed shock with cardiogenic and septic components
#5. CAP with bilateral lower lobe opacities
#6. Hyponatremia
#7. Diffuse small bowel wall thickening and wall enhancement suspicious for enteritis vs edematous bowel
#8. Acute anemia
#9. DM type II complicated by hyperglycemia
#10. H/o Bioprosthetic aortic valve with severe valvular regurgitation + severe mitral regurgitation
#11. History of aspiration of secretions (prior CT in Dec 2024 showed secretions in main stem bronchi on 2 separate imaging procedures - cardiac CT from 01/04/2025 + CT Chest 01/25/2025)
#12. H/O Centrilobular emphysema/moderate COPD (per PFTs from 09/28/2023)
#13. History of TIA
GOC discussion.
08/30, met with patient's son at bedside. He updated that patient would not have wanted to be reintubated if she fails extubation trial. Will extubate to BiPAP as needed.
08/28, met with patient's son at bedside. Updated over current clinical condition and the tentative plan for SAT/SBT if tolerated. Await further recommendations from family regarding reintubation if patient develops respiratory distress
postextubation versus more comfort focused approach if patient is unable to be weaned off ventilator. Will continue to update and engage daily
- Maintain euglycemia with goal BG 140-180; HbA1c: 6.2 on 08/26/2025
- Patient is Anabaptist, family declines blood tranfusion.
- Stress ulcer ppx: PPI, switched to BID in view of dropping Hb.
- DVT ppx: LMWH
Code status: DNR/DNI
Continue ICU level of care for this critically ill patient.
Critical care statement: A total of 56 minutes of critical care time was provided for this patient today. This includes management of unstable vital signs, evaluation of the patient at bedside, reviewing the patient's pertinent medical records
including radiographs, microbiology, laboratory evaluations, and discussion with primary team, consultants, pharmacy, nutrition, physical therapy, case management, charge nurse, critical care nursing, and respiratory therapy.
Data:
Transthoracic echocardiogram 08/25/2025:
1. Mild to moderately reduced left ventricular systolic function. LVEF 40%.
2. Hypokinesis of the septal wall.
3. Normal right ventricular size and systolic function.
4. Well-seated TAVR with normal gradients (peak/mean 29/15 mmHg).
5. Severe eccentric mitral regurgitation.
6. Moderate to severe tricuspid regurgitation. PASP 56 mmHg.
7. Compared to prior echocardiogram on 08/22/25, there are significant changes. EF is down from 64%. MR/TR have progressed. AV gradients are stable.
CT abdomen/pelvis with IV contrast 08/25/2025:
CT findings are suspicious for an enteritis.
Bilateral lower lobe pulmonary opacities (right greater than left) most compatible with pneumonia, and likely superimposed upon a chronic infectious/inflammatory pulmonary process.
[facility] 08/26/2025:
1. Cariogenic shock with elevated biventricular filling pressures and borderline low cardiac index with high SVR on high dose vasopresors.
2. Obstructive CAD as described with severe ISR of the previously placed left main stent.
3. Successful PCI of the left main via side strut of the existing Snorkle stent with placement of a 3.5x18 mm [place]der [place] ELIZABETH post-dilated to high pressure proximally with a 4.0 mm NC balloon.
Subjective Dataa
Subjective Data
Date of Service:
Date of Service: August 31, 2025
Chief Complaint: Workers Compensation Claims Specialist Follow Up
Subjective:
Patient noted to have increased work of breathing, refusing BiPAP.
Review of Systems
Genitourinary: Other (Appears uncomfortable, wants to be removed from all assistive devices, tubes and lines.)
Objective Data
Data Reviewed
Vital Signs / I&O / Oxygen:
Vital Signs
Temp Pulse Resp BP Pulse Ox
99.7 F 83 25 102/43 100
08/31/25 12:14 08/31/25 12:00 08/31/25 12:00 08/31/25 12:00 08/31/25 12:00
Intake and Output
08/30/25 08/31/25 09/01/25
06:59 06:59 06:59
Intake Total 1564.8 / 1603.7 475.1 / 501.7 106.8 / 106.8
Output Total 2925 / 2995 1905 / 1905 85 / 85
Balance -1360.2 / -1391.3 -1429.9 / -1403.3 21.8 / 21.8
SaO2 [P-A/C] 94
SaO2 [A/C] 97
SaO2 100
Nasal Cannula flow liters per 50
minute
Physical Exam
General: Respiratory Distress (Increased respiratory distress, suprasternal retractions noted), Comfortable, Chills (negative), Sweats (negative) and Other (Elderly female, appears uncomfortable)
HEENT: Normocephalic and Anicteric
Cardiovascular: S1-S2, Regular Rhythm, Rub (negative) and Peripheral Edema (None)
Respiratory: Wheeze (negative), Crackles (bibasilar rales), Rhonchi (negative), Non-Labored Respirations (Labored breathing noted), Accessory Resp Muscle Use and ET Tube
GI: Soft, Non Distended, Non Tender and Normal Bowel Sounds
Neurology: Tremors (negative) and Other (Awake, alert)
Skin: Warm and Dry
Labs/Micro/Reports
Lab Data
08/31/25 05:32
08/31/25 05:32
Microbiology
08/27/25 09:27 Blood/Venous Blood Culture - Preliminary
No Growth in 4 days- Final report to follow
08/27/25 09:03 Blood/Venous Blood Culture - Preliminary
No Growth in 4 days- Final report to follow
08/25/25 21:25 Endotracheal Respiratory Culture - Final
Usual Respiratory Khadijah
08/25/25 21:25 Endotracheal Gram Stain - Final
[2025-08-31] MEDS: VALIUM INJECTION 5 MG IV ×4 (13:57→21:38)
[2025-08-31] MEDS: MORPHINE 100 IV (15:13)
[2025-08-31 15:17] LABS: Glucose - Point of Care 206 mg/dl (70-99)
--- NOTE | 2025-08-31 15:18 | PTCARENOTE ---
pt increasingly anxious with increased work of breathing, Dr. Lopez and Dr. Montelongo aware- see mar for further details. morphine gtt started per protocol and order. family remains at bedside.
--- NOTE | 2025-08-31 15:18 | CM ---
Hospice consult ordered and hospice visited and spoke with family. Intention to have additional family visit today and then comfort measure with plan to initiate inpatient hospice on 09/01/25.
[2025-08-31] MEDS: HALDOL 1 MG IV ×2 (15:36→20:31)
[2025-08-31] MEDS: DUONEB INH (19:25)
[2025-08-31] MEDS: MORPHINE SULFATE 4 MG IV (20:30)
[2025-08-31] MEDS: ROBINUL 0.2 MG IV (20:30)
[2025-09-01] MEDS: HALDOL 1 MG IV (00:28)
[2025-09-01] MEDS: ROBINUL 0.2 MG IV (00:28)
[2025-09-01] MEDS: FLUSH (NSS) 4 FLUSH IV (00:30)
[2025-09-01] MEDS: VALIUM INJECTION 5 MG IV (02:08)
--- NOTE | 2025-09-01 04:14 | W.PN.DEATH ---
Pronouncement of
-
Called to see patient to pronounce.
No spontaneous heart tones or respirations noted.
Patient not responsive to verbal stimuli.
Patient is pronounced .
Time of : 03:50
Date of : 09/01/25
Cause of : Acute respiratory failure with hypoxia, acute heart failure, non st-segment elevation myocardial infraction, acute anemia, hyponatremia, diabetes mellitus type 2
Family Notified: Yes (at bedside )
--- NOTE | 2025-09-01 06:01 | PTCARENOTE ---
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 body taken to the morgue per protocol
--- NOTE | 2025-09-01 09:42 | CM ---
Patient 03:50 on this date, 09/01/25.
--- NOTE | 2025-09-01 15:23 | W.DCSUMMARY ---
Discharge Summary
Discharge Data
Date of Admission: 08/25/25
Date of Discharge: 09/01/25
-
Pending Results: No
Hospital Course
This is a summary for Ms. Cathryn Patricia who on 09/01/2025 at 0350
# List of hospital diagnosis;
Acute hypoxic respiratory failure
Ventilator dependent respiratory failure
Acute heart failure with midrange ejection fraction
Non-ST segment elevation myocardial infarction
Mixed shock from cardiogenic and sepsis
Community-acquired pneumonia
Hyponatremia
Acute anemia suspected of blood loss related
Type 2 diabetes mellitus history of bioprosthetic aortic valve with severe mitral regurgitation
History of centrilobular emphysema
History of transient ischemic attack
Thrombocytopenia
Hypothyroidism
Gastroesophageal reflux disease
Depression/anxiety
# Hospital course:
Patient is a 80-year-old female with above-mentioned past medical history came to ER with new onset of shortness of breath. Patient was recently evaluated for episode of chest pain by cardiology and was felt to be noncardiac in nature. During this
ER visit patient was noted to be diaphoretic lethargic and hypotensive. Patient was required to be intubated in the ER. Initial evaluation in ER showing patient in shock with possible new ACS. Patient hypoxic/vent dependent respiratory failure
was related to heart failure exacerbation. Patient was started on vasopressors and was admitted to medical ICU for further monitoring. Cardiology started patient on heparin drip and antiplatelet therapy. Patient had rapid uptrending of cardiac
enzyme and after discussing with family patient was taken to Boating Safety Officer. Patient ended up having a drug-eluting stent placed in the left main coronary artery. Postprocedure patient was transferred to CVICU for close monitoring. Patient was
requiring 2-3 pressor support at 1 point. Patient was felt to having cardiogenic shock with possible septic shock from pneumonia. Patient was maintained on empiric broad-spectrum antibiotic. Patient started to developing new significant anemia,
heparin was discontinued. A possible occult GI bleed was suspected although was not able to be approved. Patient is Sabianist and family wanted to honor patient's wishes. Hematology was involved in care and patient was provided IV iron,
EPO was contraindicated due to risk of stent thrombosis. Patient associated with this was developing some electrolyte abnormality. For hyponatremia patient required 3% NS and Lasix dosing. After improvement in cardiac status patient was able to
be extubated. Unfortunately patient was requiring high flow oxygen support. Goal of care discussion was held and patient have expressed wishes to be transition to comfort care. Patient was switched to comfort care and passed on comfort care on
09/01/25 at 0350.
Discharge Plan
-
Patient Disposition:
Date/Time
Date/Time: 09/01/25 03:50
Discharge Date and Time
Discharge Date/Time: 09/01/25 03:50
Print Language: STATELESS
== END 2025-09-01 03:50 | disposition expired | DRG 321 ==
LOC: 2 NORTH 17:51
PROVIDERS: Hospitalist; Internal Medicine; Nurse Practitioner Acute Care; Nurse Practitioner Family; Nurse Practitioner Primary Care; Radiology Diagnostic Radiology; Student in an Organized Health Care Education/Training Program; ADMITTING PHYSICIAN Internal Medicine; ATTENDING PHYSICIAN Hospitalist; EMERGENCY PHYSICIAN Emergency Medicine; FAMILY PHYSICIAN Family Medicine; OTHER PHYSICIAN Internal Medicine Critical Care Medicine; OTHER PHYSICIAN Internal Medicine Hematology & Oncology; OTHER PHYSICIAN Student in an Organized Health Care Education/Training Program
PROC: 5A1955Z Respiratory Ventilation, Greater than 96 Consecutive Hours (ICD-10-PCS; 2025-08-25)
PROC: 0BH17EZ Insertion of Endotracheal Airway into Trachea, Via Natural or Artificial Opening (ICD-10-PCS; 2025-08-25)
PROC: 4A023N8 Measurement of Cardiac Sampling and Pressure, Bilateral, Percutaneous Approach (ICD-10-PCS; 2025-08-26)
PROC: B2111ZZ Fluoroscopy of Multiple Coronary Arteries using Low Osmolar Contrast (ICD-10-PCS; 2025-08-26)
PROC: 027034Z Dilation of Coronary Artery, One Artery with Drug-eluting Intraluminal Device, Percutaneous Approach (ICD-10-PCS; 2025-08-26)
PROC: 4A133B3 Monitoring of Arterial Pressure, Pulmonary, Percutaneous Approach (ICD-10-PCS; 2025-08-27)
PROC: 4A1239Z Monitoring of Cardiac Output, Percutaneous Approach (ICD-10-PCS; 2025-08-27)
PROC: 02HQ32Z Insertion of Monitoring Device into Right Pulmonary Artery, Percutaneous Approach (ICD-10-PCS; 2025-08-27)
PROC: 5A09357 Assistance with Respiratory Ventilation, Less than 24 Consecutive Hours, Continuous Positive Airway Pressure (ICD-10-PCS; 2025-08-30)
PROC: 5A0935A Assistance with Respiratory Ventilation, Less than 24 Consecutive Hours, High Flow/Velocity Cannula (ICD-10-PCS; 2025-08-31)
DX: I21.4 Non-ST elevation (NSTEMI) myocardial infarction (principal); G93.41 Metabolic encephalopathy; I50.43 Acute on chronic combined systolic (congestive) and diastolic (congestive) heart failure; J96.01 Acute respiratory failure with hypoxia; J18.9 Pneumonia, unspecified organism; N17.9 Acute kidney failure, unspecified; E87.20 Acidosis, unspecified; I42.9 Cardiomyopathy, unspecified; I47.29 Other ventricular tachycardia; E87.1 Hypo-osmolality and hyponatremia; Z99.11 Dependence on respirator [ventilator] status; Z51.5 Encounter for palliative care; I11.0 Hypertensive heart disease with heart failure; E11.65 Type 2 diabetes mellitus with hyperglycemia; E78.00 Pure hypercholesterolemia, unspecified; J43.2 Centrilobular emphysema; J44.89 Other specified chronic obstructive pulmonary disease; F17.210 Nicotine dependence, cigarettes, uncomplicated; I95.9 Hypotension, unspecified; I49.3 Ventricular premature depolarization; F41.9 Anxiety disorder, unspecified; F32.A Depression, unspecified; I25.10 Atherosclerotic heart disease of native coronary artery without angina pectoris; R57.0 Cardiogenic shock; D64.9 Anemia, unspecified; E03.9 Hypothyroidism, unspecified; E07.9 Disorder of thyroid, unspecified; G47.9 Sleep disorder, unspecified; D69.6 Thrombocytopenia, unspecified; E83.42 Hypomagnesemia; I08.1 Rheumatic disorders of both mitral and tricuspid valves; Z60.2 Problems related to living alone; Z66 Do not resuscitate; Z53.1 Procedure and treatment not carried out because of patient's decision for reasons of belief and group pressure; Z79.890 Hormone replacement therapy; Z87.442 Personal history of urinary calculi; Z85.51 Personal history of malignant neoplasm of bladder; Z95.5 Presence of coronary angioplasty implant and graft; Z79.02 Long term (current) use of antithrombotics/antiplatelets; Z88.1 Allergy status to other antibiotic agents; Z88.0 Allergy status to penicillin; Z79.82 Long term (current) use of aspirin; Z79.84 Long term (current) use of oral hypoglycemic drugs; Z79.899 Other long term (current) drug therapy; Z11.52 Encounter for screening for COVID-19; Z82.49 Family history of ischemic heart disease and other diseases of the circulatory system; Z83.3 Family history of diabetes mellitus; Z95.3 Presence of xenogenic heart valve; Z86.73 Personal history of transient ischemic attack (TIA), and cerebral infarction without residual deficits; Z87.01 Personal history of pneumonia (recurrent)
CPT/HCPCS: 31500; 36600; 43752; 51702; 71045; 74177; 80048; 80053; 82330; 82607; 82728; 82746; 82805; 82810; 82962; 83036; 83605; 83735; 83880; 83930; 83935; 84100; 84132; 84145; 84300; 84302; 84478; 84484; 84550; 85025; 85027; 85347; 85384; 85610; 85730; 86850; 86900; 86901; 87040; 87070; 87205; 87449; 87502; 87641; 87811; 87899; 93005; 93306; 93460; 94002; 94003; 94640; 94660; 96374; 96375; 96376; 97162; 99291; C1725; C1760; C1769; C1874; C1887; C1894; C9600; J2916; Q9967